=== PATIENT | female | born 1950 | race African-American/Black ===

== ENCOUNTER 2018-04-22 12:01 | Inpatient (IN) ==
[2018-04-22] MEDS ORDERED: ULTRAM PO ONE (12:48)
[2018-04-22 13:13] LABS: BASO# 0.01 X1000 (0.0-0.2); HEMOGLOBIN 10.6 g/dL (12.0-16.0); IMM GRAN# 0.06 X1000 (0.0-0.04); IMM GRAN% 0.3 % (0.0-0.5); LYMPH# 1.33 X1000 (1.2-3.4); LYMPH% 6.3 % (20.5-51.1); MCHC 31.2 g/dL (33-37); MCV 77.1 FL (81-99); MONO# 1.32 X1000 (0.11-0.59); MONO% 6.2 % (1.7-9.3); MPV 11.1 FL (7.4-10.4); NEUT# 18.46 X1000 (1.4-6.5); NEUT% 87.2 % (42.2-75.2); PLT 307 X1000 (130-400); RBC 4.41 XMIL (4.2-5.4); RDW 14.7 % (11.5-14.5); WBC 21.18 X1000 (4.8-10.8)
[2018-04-22 13:41] LABS: ALB/GLOB RATIO 0.8; ALBUMIN 2.5 g/dL (3.5-5.0); CALCIUM 8.8 mg/dL (8.8-10.2); CREATININE 1.7 mg/dL (0.5-0.9); POTASSIUM 3.6 mmol/L (3.5-5.1); TOTAL BILIRUBIN 0.37 mg/dL (0.20-1.00); TOTAL PROTEIN 5.5 g/dL (6.3-8.3)
[2018-04-22] MEDS ORDERED: NS 1,000 ML IV ONE (13:53)
[2018-04-22] MEDS ORDERED: HUMULIN R IV ONE (13:54)
[2018-04-22] MEDS ORDERED: LASIX IV ONE (15:22)
[2018-04-22] MEDS ORDERED: HUMULIN R SUBQ ONE (15:25)
--- NOTE | 2018-04-22 16:55 | PROVIDER DOCUMENTATION ---
This chart was entered by Jeanna Dee Scribe, acting as scribe for Georges Fernandes MD. HPI-General Adult - General Chief Complaint: Extremity Pain Stated Complaint: LEG PAIN Time Seen by Provider: 04/22/18 12:09 Source: patient Allergies/Adverse Reactions: Patient Allergies Allergy/AdvReac Type Severity Reaction Status Date / Time No Known Allergies Allergy Verified 12/23/15 20:38 Home Medications: Home Medication List Medication Instructions Recorded Confirmed Last Taken Type Aspirin 81 mg PO DAILY 02/11/12 04/22/18 11/07/16 08:00 History Carvedilol [Coreg] 12.5 mg PO BID 02/11/12 04/22/18 11/08/16 12:42 History Cholecalciferol (Vit D3) [Vitamin 1,000 unit PO DAILY 02/11/12 04/22/18 08:00 History D3] Clopidogrel [Plavix] 75 mg PO DAILY 02/11/12 04/22/18 12/23/15 07:00 History ROSUVAstatin [Crestor] 20 mg PO DAILY 02/11/12 04/22/18 11/07/16 08:00 History Insulin Glargine [Lantus] 60 unit SUBQ QHS 08/25/12 04/22/18 11/07/16 08:00 History Gabapentin 300 mg PO TID 04/04/18 04/22/18 Unknown History Glimepiride 2 mg PO WBREAKFAST 04/04/18 04/22/18 Unknown History Losartan/Hydrochlorothiazide 1 each PO BID 04/04/18 04/22/18 Unknown History [Hyzaar 50-12.5 Tablet] Spironolactone [Aldactone] 25 mg PO DAILY 04/04/18 04/22/18 Unknown History Insulin Glargine [Basaglar] 60 unit SUBQ QHS insuln.pen 04/05/18 04/22/18 Unknown Rx Insulin Lispro [Humalog Kwikpen 200 unit SQ DIRECTED #0 04/05/18 04/22/18 Unknown Rx U-200] - History of Present Illness -Gen Adult Nature of Presenting Problems: 67 y/o female presents to ED with bilateral leg pain and swelling onset yesterday. Pt reports she has diabetes and neuropathy. Screaming in pain and mild bilateral lower extremity edema upon examination. Pt is alert and oriented. Location of Pain/Injury: reports: lower extremity Pain Radiation: reports: no radiation Quality of Pain: reports: sharp Severity: reports: mild, moderate Onset/Duration: reports: 24 hours ago Timing: reports: still present Context/Activities at Onset: reports: none Modifying Factors: improves with: nothing Associated Symptoms: reports: other (bilateral leg pain/swelling) Similar Symptoms Previously?: No Recently seen or treated by another doctor?: No Review of Systems - Adult - REVIEW OF SYSTEMS - ADULT Constitutional: denies: chills, fever Eyes: reports: no symptoms reported Ears, Nose, Mouth & Throat: reports: no symptoms reported Cardiovascular: denies: chest pain, palpitations Respiratory: denies: cough, shortness of breath Gastrointestinal: denies: abdominal pain, diarrhea, nausea, vomiting Genitourinary: reports: no symptoms reported Musculoskeletal: reports: other (bilateral leg pain/swelling). denies: back pain, joint pain Integumentary: reports: no symptoms reported Neurological: denies: dizziness/vertigo, seizure Psychiatric: reports: no symptoms reported Endocrine: reports: no symptoms reported Hematologic/Lymphatic: reports: no symptoms reported Allergic/Immunologic: reports: no symptoms reported All Other Systems: Reviewed and Negative Past History - Adult - PAST MEDICAL HISTORY-ADULT Review of Records: reports: Old Records Reviewed, Nursing Assessment Review, Medications Reviewed Major Childhood Illnesses: reports: denies history Cardiovascular: reports: HTN, hyperlipidemia, SC Respiratory: reports: denies history Gastrointestinal: reports: denies history Obstetrical/Gynecological: reports: denies history Genitourinary: reports: denies history Musculoskeletal: reports: other (synocopal epidose; neuropathy) Neurological: reports: other (syncopal episodes) Endocrine/Immune: reports: Diabetes Other Conditions: reports: denies history - PRIOR SURGERIES/PROCEDURES Surgical/Procedure History: reports: cardiac stent (3), hysterectomy, joint replacement (TKA), other (bypass) - IMMUNIZATION STATUS Childhood Immunizations: UTD Flu Vaccine: See Nurse Assessment - FAMILY HISTORY Family History: reviewed, not pertinent - SOCIAL HISTORY Smoking: quit greater than 1 year Substance Use: none/never Alcohol Use Frequency: never Living Situation: family Physical Exam-General - PHYSICAL EXAM-ADULT Initial Vital Signs Reviewed: Yes - CONSTITUTIONAL General Appearance: appears well, alert, severe distress (pt screaming dramatically in pain) - EYES Eyes: PERRL/EOMI, pink conjunctivae - HEAD, EARS, NOSE, MOUTH & THROAT HENMT: normocephalic/atraumatic, moist mucous membranes, normal ENT inspection - NECK Neck: non-tender, full range of motion - RESPIRATORY Respiratory: chest non-tender, lungs clear, normal breath sounds - CARDIOVASCULAR Cardiovascular: normal peripheral pulses, regular rate, rhythm - GASTROINTESTINAL (ABDOMEN) Abdominal Exam: normal bowel sounds, non tender, soft - MUSCULOSKELETAL Back Exam: normal inspection, no CVA tenderness Extremity: normal range of motion, non-tender, normal gait, swelling (mild bilateral lower extremity edema) - SKIN Integumentary: normal color, warm/dry - NEUROLOGIC Neurologic: grossly normal - PSYCHIATRIC Psych/Mental Status: normal mood/affect, normal thought content, normal thought process Progress - PLAN OF CARE/RESULTS Progress/Plan/Lab Results: Vital Signs - 8 hr 04/22/18 12:04 Temperature 97.9 F Pulse Rate 97 H Respiratory Rate 18 Blood Pressure 168/73 O2 Sat by Pulse Oximetry 99 Orders Category Date Time Status CBC WITH ELECTRONIC DIFF [HEME] Stat Lab 04/22/18 12:15 Uncollected CMP [COMPREHENSIVE METABOLIC PANEL] [CHEM] Stat Lab 04/22/18 12:15 Uncollected D-DIMER [COAG] Stat Lab 04/22/18 12:15 Uncollected Laboratory Tests 04/22/18 04/22/18 04/22/18 12:52 12:52 12:52 WBC 21.18 H RBC 4.41 Hgb 10.6 L Hct 34.0 L MCV 77.1 L MCH 24.0 L MCHC 31.2 L RDW Std Deviation 14.7 H Plt Count 307 MPV 11.1 H Immature Gran % (Auto) 0.3 Neut % (Auto) 87.2 H Lymph % (Auto) 6.3 L Guthrie % (Auto) 6.2 Eos % (Auto) 0.0 Baso % (Auto) 0.0 Immature Gran # (Auto) 0.06 H Neut # (Auto) 18.46 H Lymph # (Auto) 1.33 Guthrie # (Auto) 1.32 H Eos # (Auto) 0.00 Baso # (Auto) 0.01 D-Dimer, Quantitative 3.93 H Sodium 134 L Potassium 3.6 Chloride 92 L Carbon Dioxide 26 Anion Gap 16 BUN 26 H Creatinine 1.7 H Estimated GFR/1.73 m2 36 BUN/Creatinine Ratio 15 Glucose 467 H* Calculated Osmolality 293 Calcium 8.8 Total Bilirubin 0.37 AST 23 ALT 8 L Alkaline Phosphatase 112 H Deu-S-Arhoksecdlb Pept Total Protein 5.5 L Albumin 2.5 L Globulin 3.0 Albumin/Globulin Ratio 0.8 04/22/18 12:52 WBC RBC Hgb Hct MCV MCH MCHC RDW Std Deviation Plt Count MPV Immature Gran % (Auto) Neut % (Auto) Lymph % (Auto) Guthrie % (Auto) Eos % (Auto) Baso % (Auto) Immature Gran # (Auto) Neut # (Auto) Lymph # (Auto) Guthrie # (Auto) Eos # (Auto) Baso # (Auto) D-Dimer, Quantitative Sodium Potassium Chloride Carbon Dioxide Anion Gap BUN Creatinine Estimated GFR/1.73 m2 BUN/Creatinine Ratio Glucose Calculated Osmolality Calcium Total Bilirubin AST ALT Alkaline Phosphatase Pkm-G-Wtkzvoscqzf Pept 1329 H Total Protein Albumin Globulin Albumin/Globulin Ratio Result Diagrams: 04/22/18 12:52 04/22/18 12:52 - ULTRASOUND (By Radiology) 1 US Study: other (Venous of Bilateral Legs) Impression: Normal (No clots per ultrasound.) - CONSULTS/PCP/HOSPITALIST Notification #1 *Consult/PCP/Hospitalist*: Dr. Hernandez for Dr. Akers Time Discussed: 12:49 Reason/Comments: Diabetic neuropathy; pt requesting pain medication Consult Disposition: other (Give tramadol) Time Discussed: 16:52 Consult Disposition: Will see in ED (discussed with Dr Hernandez and he will come in and evaluate to decide to treat as outpatient or inpatient) Departure - Departure Date of Disposition Decision: 04/22/18 Time of Disposition Decision: 16:54 DIAGNOSIS: Hyperglycemia CHF (congestive heart failure) Qualifiers: Heart failure type: unspecified Heart failure chronicity: acute on chronic Qualified Code(s): I50.9 - Heart failure, unspecified Disposition: ADMITTED INPATIENT 09 Certified Medical Emergency: Emergent Condition: Stable Referrals and Follow-Ups: Harry Akers MD [Primary Care Provider] - - Critical Care Note This patient required my direct & personal management of CC.: No Attestation - Physician/ NIK Attestation Patient care was provided by Advanced Practice Provider:: No The physician spent face to face time with patient:: Yes Advanced Practice Provider documentation review:: Supervising physician onsite and consulted in the evaluation and care of this patient. The physician did have a face to face encounter with the patient. This chart was documented by the indicated scribe, (Jeanna Dee Scribe) and accurately reflects the services I performed and decisions made by me, Georges Fernandes MD, as attested by the provider's signature.
--- NOTE | 2018-04-22 17:19 | Diag Imaging Result Doc PS360 ---
EXAM: CHEST-1 VIEW INDICATION: chf TECHNIQUE: One view COMPARISON: 04/16/2018 FINDINGS: Inspiration is suboptimal. The central vasculature is perhaps mildly prominent suggesting possible mild pulmonary venous congestion. The lungs are grossly clear, otherwise. There is no discrete pleural fluid collection or pneumothorax. Cardiac silhouette is prominent but stable. IMPRESSION: Questionable mild increased central vasculature suggesting possible pulmonary venous congestion. Electronically signed by Aki Niño 04/22/2018 5:17 PM
[2018-04-22] MEDS: ROCEPHIN 2 GM in NS 50 ML IV SCH (17:25)
--- NOTE | 2018-04-22 18:49 | HISTORY AND PHYSICAL ---
Is a patient of Dr. Harry Akers a 67-year-old female with a history of hypertension, diabetes mellitus type 2 which she has had for about 6 years, coronary artery disease, never had a myocardial infarction but she has had CABG bypass surgery I believe 2 bypasses, following surgery she had infection I think she had to have they had to open her up and do some debridement. She presents today stating that for a week now her legs been hurting a little more. She feels like it is her neuropathy but yesterday and last night it was very painful and she said they were weak had trouble getting up and going to the bathroom had crawled the bathroom crawled back into the bed then came into the emergency room. She has pain but she also has tenderness with just little bit of touching. She has pitting edema from her ankle all the way up to her knees on both sides. She does have cardiomegaly appreciated on chest x-ray. She denies any fever and chills. She did have an elevated white count although I have not found a focus of infection. She denies any cough or sputum production and denies any trouble with her urination other than frequent urination. She did state she had a colonoscopy this year and since that time she has had trouble with constipation. She denies any recent dysuria, gross hematuria, fever, chills, adenopathy, upper respiratory complaints. PAST MEDICAL HISTORY: Once again to review past medical history 1. Hypertension. 2. Diabetes mellitus type 2. 3. Coronary artery disease. PAST SURGICAL HISTORY: Coronary bypass surgery. I think that was last year and then she has had a hysterectomy, she has also had surgery on her knee I think she told me she had right knee replacement. ALLERGIES: No known drug allergies. SOCIAL HISTORY: No history of smoking since she has been about 12 or 13 years old. No illicit drugs. No alcohol. FAMILY HISTORY: There is a history coronary artery disease. Otherwise she denies any history of kidney disease or diabetes. REVIEW OF SYSTEMS: General: She denies any weight gain or loss that she is aware of. Her appetite seems to be okay. HEENT: No change in visual vision or hearing acuity. No neck stiffness or adenopathy. Respiratory: No increased work of breathing or dyspnea. Cardiovascular: No chest pain or tachy palpitations. She has not noticed any increased orthopnea or paroxysmal nocturnal dyspnea. GI/: No hematochezia. She does have trouble constipation which she relates she started having trouble constipation since her colonoscopy which was done earlier this year. She does go the bathroom a lot. Denies any gross hematuria, dysuria. Musculoskeletal/Neurologic: Just general weakness especially in her lower extremities. No focal area of weakness. She does know she has neuropathy and feels like she has neuropathic pain which has been worse over the last week. She did also state that her sugars have been poorly controlled and been running high. PHYSICAL EXAM: Temperature 97.9 degrees, pulse 97, respirations 18, blood pressure 168/73. Pupils are equal and round. LUNGS: Clear in all lung [place]. CARDIOVASCULAR: Regular rhythm and rate without murmur or S3. ABDOMEN: Soft, nontender, nondistended. SKIN: Warm and dry. EXTREMITIES: She has 2+ pitting edema from her ankle all the way up to her knee both sides symmetrical, height is 5 feet and weight is 200 pounds. LAB: White count elevated 21,180, hematocrit 34, platelet count 307,000, 87% neutrophils, 6%, lymphocytes. Chemistries sodium 134, potassium 3.6, chloride 92, BUN 26, creatinine 1.3, blood sugar was 467, AST 23, ALT 8, alkaline phosphatase 112. ProBNP was 1329, albumin 2.5. She had a D-dimer that was high at 3.93. She had a chest x-ray, questionable mild increased central vascular suggesting possible pulmonary venous congestion. She has had an echocardiogram with Doppler done on 04/04/2018 left ventricular function was normal, ejection fraction estimated 55- 60%. There is mild to moderate concentric LVH. Aortic valve was normal. Mitral valve looked normal. Pulmonary venous flow was normal and they did not see any sign of diastolic dysfunction. Tricuspid valve looked normal. No pericardial effusion. The atrium appeared to be upper limits of normal. She has had a head CT done on 04/03/2018 which showed chronic ischemic microvascular white matter disease. She had extremity arterial study done on 03/10/2018, there is likely peripheral vascular disease noted, there is perfusion to the toes bilaterally. Patient's ABIs are likely falsely elevated, patient proximal vessels are likely difficult to compress likely secondary to calcification. Patient may benefit from a CT angiogram is the report. There is some degree of peripheral vascular disease noted on the study. She had a myocardial perfusion scan done on 05/19/2016 no chest pain. Negative Lexiscan stress electrocardiogram, myocardial perfusion defects, there is a fixed defect in the base inferior wall suggestive inferior scar, there is moderate size reversible perfusion defect the left ventricle ventricular apex and left ventricle apical wall which may be ischemia, left ventricular ejection fraction 77%. ASSESSMENT AND PLAN: 1. She has leg pain and leg weakness, she has questionable peripheral vascular disease. Her feet feel warm, perfusion seems to be okay in the lower extremities and pedal pulses and popliteal femoral unremarkable, seems to be symmetrical and it seems to be consistent with neuropathy. I think that the edema may be contributing to her pain. Will try and diurese some fluid off. We have to watch her renal function. Creatinine is 1.7. When I look at her creatinine back in March 2018 it was 1.1 so I think her baseline is between 1.1 and 1.4. We will see if we can diurese a little bit of fluid off and see if we need to do further studies on her arterial flow. I gave her some Ultram or tramadol and seemed to help with the pain. She is already on Neurontin so I think we could go up on the Neurontin. I am not sure of the reason for the sudden weakness. We may need to look at the spinal cord as well and may get some thoracic and lumbar spinal films. 2. Hyperglycemia, diabetes poorly controlled. We will check a hemoglobin A1c and see kind of where her sugars have been and may want to check cholesterol profile in the morning as well but we will put her on pattern sugars and see if we can get her sugars down. Present time she is taking Lantus 60 units at bedtime and she has taken insulin glargine 60 units that is the Lantus she is taking at bedtime, she takes insulin lispro as well but I am not sure she knows when she is taking that. 3. Obesity. Will encourage some weight reduction and some counseling on low carbohydrate diet. 4. Hypercholesterolemia. She is on the Crestor. Will check lipid profile in the morning. 5. Pedal edema which I think is probably mostly venous insufficiency, she does have left ventricular hypertrophy on echocardiogram although they did not appreciate much diastolic dysfunction but she appears to have normal left ventricular systolic function and there was some questionable areas of possible ischemia she denies any chest pain. I guess we will check some cardiac enzymes. 6. Peripheral neuropathy. I will put her on some tramadol, will increase her Neurontin and see if we can get some relief, I am not sure if she has tried Lyrica yet. 7. Chest x-ray suggested pulmonary venous hypertension. She does have some pedal edema, I do not know we should repeat an echocardiogram and look at her left ventricular function. I will try and diurese her some with some Lasix, will watch her blood pressures and see how we do. They may need more control. The present time she is on medication at home for blood pressure she is on aspirin 81 mg a day, she takes Coreg 12.5 b.i.d., she takes spironolactone 25 mg daily, losartan hydrochlorothiazide 50/12.5 daily. We will make sure we check a magnesium level. Her potassium is a little low and we will follow her kidney function right now creatinine is 1.7 which may represent some acute kidney injury or may represent chronic kidney disease which is worsening. Apparently they had done Doppler studies did not see any deep vein thrombosis and there is no clinical sign of pulmonary thromboemboli. I do not have the official reports back on those but was told by the emergency room physician that had Doppler studies and no deep vein thrombosis in the lower extremities. Has an elevated D-dimer aware, not sure why the white count is elevated this could be demargination of bone marrow, do not see any focus of infection so we will put her into observation and see what we can find. cc: Derik Hernandez MD
[2018-04-22] MEDS ORDERED: KLOR-CON PO ONE (19:16)
[2018-04-22] MEDS: ULTRAM PO PRN (19:48)
[2018-04-22] MEDS: LASIX IV SCH ×2 (19:52→21:50)
[2018-04-22] MEDS ORDERED: HYZAAR 50/12.5 MG PO SCH (21:00)
[2018-04-22] MEDS ORDERED: COREG PO SCH (21:00)
[2018-04-22] MEDS ORDERED: BASAGLAR SUBQ SCH (21:00)
[2018-04-22] MEDS ORDERED: HUMULIN R SUBQ SCH (21:00)
[2018-04-23 07:37] LABS: HEMOGLOBIN 9.6 g/dL (12.0-16.0); IMM GRAN# 0.08 X1000 (0.0-0.04); IMM GRAN% 0.4 % (0.0-0.5); LYMPH# 1.96 X1000 (1.2-3.4); LYMPH% 9.5 % (20.5-51.1); MCH 24.2 PG (27-31); MCV 78.1 FL (81-99); MONO# 1.43 X1000 (0.11-0.59); MONO% 6.9 % (1.7-9.3); MPV 11.1 FL (7.4-10.4); NEUT# 17.14 X1000 (1.4-6.5); NEUT% 83.2 % (42.2-75.2); PLT 314 X1000 (130-400); RBC 3.97 XMIL (4.2-5.4); RDW 14.8 % (11.5-14.5); WBC 20.61 X1000 (4.8-10.8)
[2018-04-23 07:51] LABS: LYMPHS 12 % (21-51); MONO 12 % (1-9); SEGS 76 % (42-75)
[2018-04-23 07:52] LABS: ALB/GLOB RATIO 0.5; ALBUMIN 1.9 g/dL (3.5-5.0); CALCIUM 7.9 mg/dL (8.8-10.2); CREATININE 1.7 mg/dL (0.5-0.9); MAGNESIUM 1.8 mg/dL (1.5-2.7); POTASSIUM 3.5 mmol/L (3.5-5.1); TOTAL BILIRUBIN 0.23 mg/dL (0.20-1.00); TOTAL PROTEIN 6.1 g/dL (6.3-8.3)
[2018-04-23] MEDS ORDERED: AMARYL PO SCH ×2 (08:00→09:30)
[2018-04-23 08:02] LABS: FREE T4 1.18 ng/dL (0.93-1.70); TSH 1.99 uIUmL (0.27-4.20)
[2018-04-23 08:21] LABS: HEMOGLOBIN A1C 12.8 % (4.8-6.0)
[2018-04-23] MEDS ORDERED: PLAVIX PO SCH (09:00)
[2018-04-23] MEDS ORDERED: NEURONTIN PO SCH ×2 (09:00→13:00)
[2018-04-23] MEDS ORDERED: VITAMIN D PO SCH (09:00)
[2018-04-23] MEDS ORDERED: ALDACTONE PO SCH (09:00)
[2018-04-23] MEDS ORDERED: CRESTOR PO SCH (09:00)
[2018-04-23] MEDS ORDERED: ASPIRIN PO SCH (09:00)
[2018-04-23] MEDS ORDERED: PRINIVIL PO SCH (09:15)
[2018-04-23] MEDS: PLAVIX PO SCH (10:21)
[2018-04-23] MEDS: HYZAAR 50/12.5 MG PO SCH ×2 (10:21→21:27)
[2018-04-23] MEDS: VITAMIN D PO SCH (10:21)
[2018-04-23] MEDS: ALDACTONE PO SCH (10:21)
[2018-04-23] MEDS: CRESTOR PO SCH (10:21)
[2018-04-23] MEDS: ASPIRIN PO SCH (10:21)
[2018-04-23] MEDS: COREG PO SCH ×2 (10:21→21:27)
[2018-04-23] MEDS: PRILOSEC PO SCH (10:21)
[2018-04-23] MEDS: LASIX IV SCH ×2 (10:22→21:27)
[2018-04-23] MEDS ORDERED: PREVNAR 13 IM ONE (10:26)
[2018-04-23] MEDS: HUMALOG SUBQ SCH ×2 (10:32→15:56)
[2018-04-23] MEDS ORDERED: INSULIN PEN NEEDLES ONE (12:32)
[2018-04-23] MEDS: NEURONTIN PO SCH (13:30)
[2018-04-23 14:00] LABS: URINE SOURCE CATH
[2018-04-23 14:10] LABS: BILIRUBIN URINE NEGATIVE (NEGATIVE); BLOOD URINE MODERATE (NEGATIVE); COLOR YELLOW; GLUCOSE URINE 200 mg/dL (NEGATIVE); KETONE URINE TRACE mg/dL (NEGATIVE); LEUKOCYTES URINE MODERATE (NEGATIVE); NITRITE URINE NEGATIVE (NEGATIVE); PH URINE 5.5; PROTEIN URINE 200 mg/dL (NEGATIVE); SP GRAVITY URINE 1.004; TURBIDITY URINE HAZY (CLEAR); UROBILINOGEN URINE NORMAL (NORMAL)
[2018-04-23 14:12] LABS: UR EPITHELIAL CELLS >10 /HPF (<10); URINE BACTERIA NEGATIVE /HPF; URINE RBC <10 /HPF (<10); URINE WBC TNTC /HPF (<10)
[2018-04-23 14:20] LABS: URINE YEAST PRESENT
[2018-04-23 14:21] LABS: URINE CASTS WHITE CELL PRESENT; URINE CRYSTALS NONE SEEN; URINE SMALL ROUND CELLS NONE SEEN
[2018-04-23] MEDS: ROCEPHIN 2 GM in NS 50 ML IV SCH (14:40)
[2018-04-23] MEDS ORDERED: VANCOMYCIN 1 GM/NS 1 GM/250 ML IVPB IV ONE (17:00)
[2018-04-23] MEDS ORDERED: BASAGLAR SUBQ SCH (21:00)
[2018-04-23] MEDS: LOVENOX SUBQ SCH (21:27)
[2018-04-24] MEDS: ULTRAM PO PRN (05:30)
[2018-04-24] MEDS: HUMALOG SUBQ SCH ×4 (06:50→17:09)
[2018-04-24 07:32] LABS: IRON SATURATION 25 %; TIBC 93 ug/dL; TOTAL IRON 23 ug/dL (49-151); UNBOUND IRON 70 ug/dL (112-346)
[2018-04-24 07:44] LABS: BASO# 0.01 X1000 (0.0-0.2); BASO% 0.1 % (0.0-0.8); EOS# 0.05 X1000 (0.0-0.7); EOS% 0.3 % (0.0-10.0); HEMATOCRIT 30.7 % (37.0-47.0); HEMOGLOBIN 9.5 g/dL (12.0-16.0); LYMPH# 2.15 X1000 (1.2-3.4); LYMPH% 12.1 % (20.5-51.1); MCH 24.2 PG (27-31); MCHC 30.9 g/dL (33-37); MCV 78.3 FL (81-99); MONO# 1.47 X1000 (0.11-0.59); MONO% 8.3 % (1.7-9.3); MPV 10.8 FL (7.4-10.4); NEUT# 14.08 X1000 (1.4-6.5); NEUT% 79.2 % (42.2-75.2); PLT 300 X1000 (130-400); RBC 3.92 XMIL (4.2-5.4); WBC 17.76 X1000 (4.8-10.8)
--- NOTE | 2018-04-24 07:52 | EKG Report ---
Test Performed on : 04/23/2018 06:16:45 AM Test Reason : chest pain Blood Pressure : / mmHG Vent. Rate : 086 BPM Atrial Rate : 086 BPM P-R Int : 166 ms QRS Dur : 100 ms QT Int : 374 ms P-R-T Axes : 064 -49 011 degrees QTc Int : 447 ms Normal sinus rhythm. Left axis deviation Minimal voltage criteria for LVH, may be normal variant Anterior infarct , age undetermined Abnormal ECG When compared with ECG of 03-APR-2018 21:13, (Unconfirmed) No significant change was found Confirmed by Mary PEREZ, Derik Malik ([id number]) on 04/24/2018 9:44:31 AM
[2018-04-24] MEDS: HYZAAR 50/12.5 MG PO SCH ×2 (08:59→21:55)
[2018-04-24] MEDS: VITAMIN D PO SCH (09:00)
[2018-04-24] MEDS: NEURONTIN PO SCH ×3 (09:00→17:03)
[2018-04-24] MEDS: ASPIRIN PO SCH (09:00)
[2018-04-24] MEDS: COREG PO SCH ×2 (09:00→21:55)
[2018-04-24] MEDS: PRILOSEC PO SCH (09:00)
[2018-04-24] MEDS: ALDACTONE PO SCH (09:00)
[2018-04-24] MEDS: PLAVIX PO SCH (09:01)
[2018-04-24] MEDS: LASIX IV SCH (09:01)
[2018-04-24] MEDS: CRESTOR PO SCH (09:01)
--- NOTE | 2018-04-24 12:04 | NEPHROLOGY CONSULTATION ---
DATE: 04/24/2018 REASON FOR CONSULTATION: Diabetic nephropathy. HISTORY OF PRESENT ILLNESS: Ms. Phillips is a 67-year-old woman with diabetes, hypertension, obesity, coronary disease. She cannot relate to me why she is in the hospital. In fact, she repeated several times that she thinks she is at home. The nurses relate that she tried to call her dog to come and eat her breakfast. She is not able to relate any symptoms. Her admission was on the with an initial complaint of leg pain and weakness. She had edema, pulmonary venous hypertension, etc. In that context, her creatinine was elevated at 1.7 with baseline creatinine of 1.1 as recently as the . She does have significant hypoalbuminemia and proteinuria. We were asked to see her in consultation. PAST MEDICAL HISTORY: As above. HOME MEDICATIONS: Vitamin D, carvedilol, aspirin, rosuvastatin, clopidogrel, insulin, gabapentin, glimepiride, losartan, hydrochlorothiazide, and spironolactone. ALLERGIES: None. SOCIAL HISTORY, FAMILY HISTORY, AND REVIEW OF SYSTEMS: Not obtainable aside from what is listed in the chart. PHYSICAL EXAMINATION: Vital Signs: Blood pressure 156/77, heart rate 79, respirations 19, temperature 100.2 degrees. Generally: She is an obese, woman in no acute distress. Skin: Warm and dry. HEENT: Conjunctivae are pink. Pupils are equal. Oropharynx is dry. Neck: Neck veins are not distended. Trachea is midline. Heart: PMI is not palpable. Regular rate and rhythm without murmurs, rubs, or gallops. Lungs: Have equal excursion equal breath sounds. No crackles or wheezes. Shallow. Abdomen: Obese, soft, nontender. Bowel sounds present. No organomegaly or masses. Extremities: Have 2+ edema. No clubbing or cyanosis. IMPRESSION: Chronic kidney disease stage 3 with apparent nephrotic syndrome with proteinuria and hypoalbuminemia. PLAN: She is receiving losartan as part of her routine medical regimen. She is not on any medications that should increase her propensity for swelling with the exception of gabapentin 600 t.i.d. Perhaps, moderating that dose may help her edema. A 24-hour urine is in process. Will perform a renal ultrasound. No medical changes as of today. cc: MD Derik Jarquin MD
[2018-04-24 14:44] LABS: UR CREATININE 72.7 mg/dL (11-20)
[2018-04-24 14:47] LABS: CREATININE 1.7 mg/dL (0.7-1.2); UR CREATININE TOTAL 1272.3 mg/24 (600-1600)
[2018-04-24 14:47] LABS: UR PROTEIN 251.7 mg/dL
[2018-04-24] MEDS: ROCEPHIN 2 GM in NS 50 ML IV SCH (15:08)
--- NOTE | 2018-04-24 15:15 | Diag Imaging Result Doc PS360 ---
EXAM: US RENAL 2 (RETROPER) COMPLETE - 04/24/2018 HISTORY: decreased renal function TECHNIQUE: Bilateral renal ultrasound COMPARISON: None. FINDINGS: The right kidney measures 11.1 x 5.3 x 5.4 cm in size. The left kidney measures 11.9 x 5.7 x 5.1 cm in size. The renal cortices are possibly mildly echogenic diffusely, which can be seen with medical renal disease, although this may be exaggerated by artifacts. There is no renal mass, renal stone, or hydronephrosis identified. The urinary bladder is decompressed by Cabello catheter and is not evaluated. IMPRESSION: Possible mildly echogenic renal cortices, which can be seen with medical renal disease. No other visible renal abnormality. No hydronephrosis. Electronically signed by Felix Call 04/24/2018 3:12 PM
[2018-04-24] MEDS ORDERED: VANCOMYCIN 1 GM/NS 1 GM/250 ML IVPB IV ONE (18:20)
[2018-04-24] MEDS ORDERED: BASAGLAR SUBQ SCH (21:00)
[2018-04-24] MEDS: LOVENOX SUBQ SCH (21:55)
--- NOTE | 2018-04-25 06:38 | Extremity Venous Study ---
PROCEDURE NAME: Venous U/S Bilateral Legs - 04/22/2018 REQUESTING PHYSICIAN: Dr. Fernandes. DOUGH MIXING MACHINE OPERATOR: Srinivas. INDICATION: Elevated D-dimer, pain and swelling to both legs. COMPARISON SHOT: Previous comparison from 10/29/2016. EQUIPMENT: Passpackid E9 ultrasound system with a 9 L-D transducer. FINDINGS: Images of the bilateral lower extremity venous systems were obtained in both sagittal and transverse planes. Doppler was used to evaluate veins for spontaneity, phasicity, respiratory excursion, and digital augmentation. RESULTS: Normal venous compression, normal venous flow. No obvious superficial or deep venous thrombosis noted. There is some swelling in the soft tissue to suggest some degree of edema. INTERPRETATION: No obvious superficial or deep venous thrombosis noted to bilateral lower extremities. Some moderate edema noted which I would recommend handling clinically. cc: MD Derik Ayala MD
[2018-04-25] MEDS: ALDACTONE PO SCH (09:30)
[2018-04-25] MEDS: VITAMIN D PO SCH (09:30)
[2018-04-25] MEDS: PRILOSEC PO SCH (09:30)
[2018-04-25] MEDS: COREG PO SCH ×2 (09:30→22:27)
[2018-04-25] MEDS: NEURONTIN PO SCH ×3 (09:30→17:08)
[2018-04-25] MEDS: PLAVIX PO SCH (09:30)
[2018-04-25] MEDS: ASPIRIN PO SCH (09:31)
[2018-04-25] MEDS: NS IV SCH ×3 (09:31→22:22)
[2018-04-25] MEDS: NAFCIL IV SCH ×3 (09:31→22:22)
[2018-04-25] MEDS: CRESTOR PO SCH (09:31)
[2018-04-25] MEDS: HYZAAR 50/12.5 MG PO SCH ×2 (09:31→22:28)
--- NOTE | 2018-04-25 10:27 | Diag Imaging Result Doc PS360 ---
EXAM: FOOT 2 VIEWS LEFT INDICATION: foot pain TECHNIQUE: 2 views COMPARISON: None. FINDINGS: There is irregularity involving the tarsometatarsal joints and decreased attenuation at the bases of the metatarsals, which may represent developing Charcot foot. There is calcaneal bone spurring. No fracture or dislocation is appreciated. There is extensive atherosclerotic calcification throughout the foot. There is significant soft tissue edema at the dorsum of the foot. However, there is no radiographic evidence of a significant ankle joint effusion. IMPRESSION: 1.Soft tissue edema and severe atherosclerotic calcification but no evidence of significant ankle joint effusion by plain radiograph. 2.Irregularity adjacent to the tarsometatarsal joints that may represent developing Charcot foot. Please correlate clinically. Electronically signed by Aki Niño 04/25/2018 10:24 AM
--- NOTE | 2018-04-25 10:38 | Diag Imaging Result Doc PS360 ---
EXAM: ANKLE 2 VIEWS LEFT INDICATION: pain, R/O septic arthritis TECHNIQUE: 2 views COMPARISON: None. FINDINGS: There is calcaneal bone spurring. There is no discrete fracture, dislocation, or significant intrinsic osseous lesion involving the intrinsic bones of the ankle, otherwise. There is prominent soft tissue edema around the foot and ankle and there is extensive atherosclerotic calcification. There is no radiographic evidence of a significant ankle joint effusion. IMPRESSION: Soft tissue edema as described but no evidence of ankle joint effusion and no evidence of acute osseous abnormality involving the intrinsic bones of the ankle. Electronically signed by Aki Niño 04/25/2018 10:35 AM
--- NOTE | 2018-04-25 11:19 | CONSULTATION ---
DATE OF CONSULTATION: 04/25/2018 CHIEF COMPLAINT: Left foot swelling and pain with septicemia of undetermined etiology. HISTORY OF PRESENT ILLNESS: Ms. Phillips is a 67-year-old female, patient of Dr. Harry Akers, who was admitted to the hospitalist. She has a long medical history that includes hypertension, type 2 uncontrolled diabetes, and coronary artery disease. She was initially complaining of bilateral leg pain but now it seems to be localized to her left foot and ankle. She has developed a bacteremia, whose etiology is uncertain. She complains of left ankle pain and swelling. PAST MEDICAL HISTORY: Significant for hypertension, type 2 diabetes, and coronary artery disease. PAST SURGICAL HISTORY: Includes coronary artery bypass surgery, a hysterectomy, and a right knee arthroplasty. ALLERGIES: No known drug allergies. SOCIAL HISTORY: She denies smoking or alcohol or illicit drugs. FAMILY HISTORY: Positive for coronary artery disease. REVIEW OF SYSTEMS: Including 12 point review of systems reveals weakness in her legs and her musculoskeletal and swelling and pain in her feet and ankle. She also has significant complaints of going to the restroom frequently. Every other review of system was normal. PHYSICAL EXAMINATION: General: Reveals a well-developed, well-nourished female. She is cooperative with exam. She is sitting in a chair. She is somewhat lethargic. Vital signs: Stable. She is afebrile. Laboratory: Her white count is still 17.76. Her glucose is under better control, from 467 at admission down to 66 today. Her urinalysis showed no evidence of a urinary tract infection. Her chest x-ray showed some pulmonary venous congestion, but no sign of pneumonia. Her lab results from her blood cultures show her to be bacteremic with Staph aureus that is sensitive to methicillin. Extremities: On exam, she has swelling and tenderness of her left ankle. There also appears to be bruising there as well, suggesting there could be an acute injury. She does have pain with any range of motion of her ankle, subtalar, or midfoot, but she is able to bend them and I am able to move them as well. There does not appear to be any definite fluctuance that is palpable. There seems to be more swelling in her midfoot than her ankle really. She has diminished sensation but otherwise, no other abnormality is noted on physical exam. Bilateral upper and right lower extremity appear normal. Chest: Clear. Heart: Regular. Back: Her cervical, thoracic, and lumbar spines are nontender. Her pelvis is stable. Neurologic: All 4 extremities are neurovascularly intact except for decreased sensation attributed to diabetes. Her strength appears normal. ASSESSMENT: Left foot and ankle swelling, erythema, with undiagnosed bacteremia. PLAN: The bruising of her foot somewhat clouds the picture. This would make it appear more of an acute injury. She does admit to a recent fall. Certainly she could have had chronic arthritis or Charcot foot. Could have fell and injured this. She could certainly have infection of her Charcot foot as well and of her ankle. At this time, I feel we should get an x-ray and ultrasound of her foot to evaluate for any abscess or fracture. We will evaluate those and I will have Dr. Powers see her tomorrow and see if there is anything that needs to be done from a surgical standpoint. I agree with her current management of IV antibiotics. cc: MD Derik Johnson MD
[2018-04-25] MEDS: HUMALOG SUBQ SCH ×2 (12:20→16:27)
[2018-04-25] MEDS: LOVENOX SUBQ SCH (22:27)
[2018-04-25] MEDS: TYLENOL PO PRN (22:28)
[2018-04-25] MEDS: BASAGLAR SUBQ SCH (22:34)
[2018-04-26] MEDS: NAFCIL IV SCH ×2 (02:37→10:18)
[2018-04-26] MEDS: NS IV SCH ×2 (02:37→10:18)
[2018-04-26] MEDS: HUMALOG SUBQ SCH ×3 (06:27→16:02)
[2018-04-26 06:56] LABS: BASO# 0.03 X1000 (0.0-0.2); BASO% 0.1 % (0.0-0.8); EOS# 0.03 X1000 (0.0-0.7); EOS% 0.1 % (0.0-10.0); HEMATOCRIT 28.7 % (37.0-47.0); HEMOGLOBIN 8.7 g/dL (12.0-16.0); LYMPH# 2.23 X1000 (1.2-3.4); LYMPH% 10.1 % (20.5-51.1); MCH 24.1 PG (27-31); MCHC 30.3 g/dL (33-37); MCV 79.5 FL (81-99); MONO% 8.6 % (1.7-9.3); MPV 10.5 FL (7.4-10.4); NEUT# 17.79 X1000 (1.4-6.5); NEUT% 81.1 % (42.2-75.2); PLT 367 X1000 (130-400); RBC 3.61 XMIL (4.2-5.4); RDW 16.2 % (11.5-14.5); WBC 21.98 X1000 (4.8-10.8)
[2018-04-26 07:08] LABS: CALCIUM 7.9 mg/dL (8.8-10.2); CREATININE 1.9 mg/dL (0.5-0.9); POTASSIUM 3.1 mmol/L (3.5-5.1)
--- NOTE | 2018-04-26 08:24 | NEPHROLOGY PROGRESS NOTE ---
DATE: 04/26/2018 SUBJECTIVE: Patient resting in bed. She nods no when I ask her does she know where she is at. Really does not elaborate on any answers to questions I pose. OBJECTIVE: Vital Signs: Temperature 98.9 degrees, pulse 76, respiratory rate 16, blood pressure 151/62. Intake 100 mL; output not measured. She is incontinent. General: On physical examination, an elderly female resting in bed. Awake and alert, but no acute distress. HEENT: Normocephalic, atraumatic. TRINH. Oral mucosa dry. Neck: Supple without JVD. Cardiovascular: Regular rate and rhythm. There is no murmur or gallop. Pulmonary: She has equal excursion. She is clear bilaterally. She is on O2 supplementation via nasal cannula. Abdomen : Obese, soft, with positive bowel sounds. : Not inspected. Extremities: She has 1+ edema. No clubbing, cyanosis. Integumentary: Skin is warm and dry. LAB DATA: WBC of 21.9, hemoglobin 8.7. Sodium 139, potassium 3.1, CO2 28, creatinine 1.9. She had a creatinine clearance of 52 on 24-hour urine and 4 grams of proteinuria noted. ASSESSMENT AND PLAN: 1. Chronic kidney disease stage III with nephrotic syndrome. Patient with diabetes and significant proteinuria. She is already on an ARB as part of her home medication regimen. We will make no changes to that. Her creatinine clearance is better than estimated at 52%; this puts her still at chronic kidney disease IIIA. She will need to follow up with us in our office within 2 to 3 weeks after discharge with labs. 2. MSSA bacteremia. On nafcillin. Evaluation in process. Dictated by QUENTIN Islas for Dominguez Dawson MD Face to face encounter, data reviewed, discussed with Sha Cleary on 04/26/17. I agree with the above assessment and plan of care. rg cc: MD Derik Jarquin MD MTDD
[2018-04-26] MEDS ORDERED: KLOR-CON PO SCH (09:00)
[2018-04-26] MEDS: NEURONTIN PO SCH ×3 (10:18→17:46)
[2018-04-26] MEDS: ALDACTONE PO SCH (10:18)
[2018-04-26] MEDS: COREG PO SCH ×3 (10:18→22:59)
[2018-04-26] MEDS: CRESTOR PO SCH (10:18)
[2018-04-26] MEDS: PLAVIX PO SCH (10:18)
[2018-04-26] MEDS: HYZAAR 50/12.5 MG PO SCH (10:18)
[2018-04-26] MEDS: PRILOSEC PO SCH (10:18)
[2018-04-26] MEDS: ASPIRIN PO SCH (10:19)
[2018-04-26] MEDS: VITAMIN D PO SCH (10:19)
--- NOTE | 2018-04-26 14:13 | Diag Imaging Result Doc PS360 ---
EXAM: CT HEAD W/O CONTRAST HISTORY: ELECTRICAL INSPECTOR infection TECHNIQUE: CT brain without contrast. COMPARISON: 04/03/2018 FINDINGS: No parenchymal hemorrhage. No epidural or subdural hematoma. No subarachnoid hemorrhage. There are chronic microvascular ischemic changes. No mass identified on this noncontrasted exam. No hydrocephalus. No sinus opacification. IMPRESSION: 1.No hemorrhage 2.Chronic microvascular ischemic changes. This exam was performed using automated exposure control, adjustment of mA or kV according to patient size, and/or use of iterative reconstruction technique. Electronically signed by Ruben Johnson 04/26/2018 2:10 PM
--- NOTE | 2018-04-26 14:21 | INFECTIOUS DISEASE CONSULT REP ---
DATE: 04/26/2018 CONCLUSION: Patient has an oxacillin sensitive Staph aureus bacteremia, the origin of which is uncertain to me. I am concerned that she may have endocarditis. Also, I am concerned that she may have hematogenously infected her left ankle and foot. Also, I am concerned that with the patient's altered mental status she may have a central nervous system infection with Staph aureus. RECOMMENDATIONS: I agree with treating the patient with nafcillin. I have increased the dose to 2 g IV every 4 hours. I also have ordered a noncontrasted CT scan of the brain and if that does not show any abnormality that would not allow an LP to be done, I will consult Dr. Jones to do an LP. Also, I have ordered a bone scan on the patient's left foot and ankle to look for the possibility of osteomyelitis. If the patient has a right total knee arthroplasty , the patient will need at least 6 weeks of IV antibiotics in case the arthroplasty became infected hematogenously. Finally I ordered an echocardiogram to look for vegetations. DISCUSSION: The patient is unable provide a history and no family member is present. According to the findings in the computer, the patient was initially seen and her main complaint was her legs had been hurting. Her blood cultures are growing an oxacillin sensitive Staph aureus. Her CBC shows a white count of 21,980, hemoglobin 8.7, and platelet count 367,000. Creatinine is 1.9. GFR is 32. Liver function studies are normal. Urinalysis showed white cells but no bacteria. Chest x-ray shows pulmonary venous congestion. X-ray of the left foot and ankle showed soft tissue edema, but no bone abnormality. The patient had a urine culture which showed no growth. Today repeat blood cultures have been ordered. PAST MEDICAL HISTORY: Positive for hypertension, diabetes mellitus, coronary artery disease. PAST SURGICAL HISTORY: Positive for coronary artery bypass grafting, hysterectomy, surgery on her knee, and also she had a right total knee arthroplasty. ALLERGIES: Patient has no drug allergies. SOCIAL HISTORY: The patient only smoked many years ago when she was a child but none since then. She does not have a history of using illicit drugs or consuming alcoholic beverages. FAMILY HISTORY: Positive for coronary artery disease. REVIEW OF SYSTEMS: Unable to be obtained. PHYSICAL EXAMINATION: Vital Signs: Temperature is 99.3 degrees, pulse 80, respirations 17, blood pressure 146/67. General: This is an ill-appearing, elderly female. She is in no acute distress. Head, eyes, ears, nose, throat: No drainage noted from the nose or the ears. The patient did not respond to verbal stimuli. Neck: No meningismus. Lungs: Clear to auscultation. Cardiovascular: Regular heart rate. I did not hear a murmur. Abdomen: Soft and nontender. Bones, joints, muscles: The left ankle and foot are swollen and movement causes the patient to have pain. Integument: No rash. Neurologic: Patient is obtunded. She did not respond to verbal stimuli. There is no tremor. Thank you for the consult. cc: MD Derik Terry MD MTDD
[2018-04-26] MEDS: NAFCIL 2 GM in NS 100 ML IV SCH ×3 (15:43→22:43)
[2018-04-26] MEDS: 1/2 NS + KCL 20 MEQ 1,000 ML IV SCH (19:25)
[2018-04-26] MEDS: LOVENOX SUBQ SCH (22:42)
[2018-04-26] MEDS: BASAGLAR SUBQ SCH (22:43)
[2018-04-27] MEDS: NAFCIL 2 GM in NS 100 ML IV SCH ×6 (03:43→22:20)
[2018-04-27] MEDS: HUMALOG SUBQ SCH ×3 (06:25→17:31)
[2018-04-27 06:54] LABS: BASO# 0.08 X1000 (0.0-0.2); BASO% 0.3 % (0.0-0.8); EOS# 0.13 X1000 (0.0-0.7); EOS% 0.4 % (0.0-10.0); HEMATOCRIT 31.4 % (37.0-47.0); HEMOGLOBIN 9.4 g/dL (12.0-16.0); IMM GRAN% 3.5 % (0.0-0.5); LYMPH% 10.4 % (20.5-51.1); MCH 23.7 PG (27-31); MCHC 29.9 g/dL (33-37); MCV 79.1 FL (81-99); MONO# 2.21 X1000 (0.11-0.59); MONO% 7.6 % (1.7-9.3); MPV 10.8 FL (7.4-10.4); NEUT# 22.48 X1000 (1.4-6.5); NEUT% 77.8 % (42.2-75.2); PLT 485 X1000 (130-400); RBC 3.97 XMIL (4.2-5.4); RDW 16.7 % (11.5-14.5)
[2018-04-27 07:11] LABS: ALBUMIN 1.4 g/dL (3.5-5.0); CALCIUM 8.6 mg/dL (8.8-10.2); CREATININE 2.8 mg/dL (0.5-0.9); PHOSPHORUS 4.6 mg/dL (2.7-4.5); POTASSIUM 3.4 mmol/L (3.5-5.1)
[2018-04-27] MEDS: 1/2 NS + KCL 20 MEQ 1,000 ML IV SCH ×2 (07:58→17:34)
[2018-04-27] MEDS ORDERED: NS 500 ML IV ONE (08:53)
--- NOTE | 2018-04-27 09:49 | NEPHROLOGY PROGRESS NOTE ---
DATE: 04/27/2018 SUBJECTIVE: She is difficult to arouse today. She was nonverbal. She did open her eyes and look at me, however. OBJECTIVE: Vital Signs: Blood pressure 118/56, heart rate 64, respirations 16, afebrile. Intake 1.2 L; output none recorded. General: On physical examination, obese black female. No distress. Mental status as above. Skin: Warm and dry. Eyes: Conjunctivae are pink. Neck: Neck veins are not distended. Heart: Regular. No gallops. Lungs: Equal. No crackles. Abdomen: Obese, soft, nontender. Bowel sounds are present. Extremities: Have 1+ edema. No clubbing or cyanosis. IMPRESSION: Acute kidney injury overlying chronic kidney disease. Her urine output has been decreasing over the last 48 hours. She is in net negative fluid balance, though she did receive 1200 mL intake on yesterday. She is receiving normal saline at 100 mL/hour currently. Likely, she has acute tubular necrosis overlying her chronic kidney disease. I will check urine electrolytes, urine eosinophils today. We will continue her intravenous fluids through the day today, and repeat a chest x-ray. I discussed the case directly with Dr. Akers. Given her sepsis and worsening renal function, she is at high risk for requiring dialysis before her acute illness resolves. cc: MD Derik Jarquin MD
[2018-04-27] MEDS: PLAVIX PO SCH ×2 (09:53→16:34)
[2018-04-27] MEDS: ALDACTONE PO SCH ×2 (09:53→16:34)
[2018-04-27] MEDS: COREG PO SCH ×2 (09:53→22:20)
[2018-04-27] MEDS: ASPIRIN PO SCH ×2 (09:53→16:34)
[2018-04-27] MEDS ORDERED: XYLOCAINE-MPF 1% INJ ONE (11:45)
--- NOTE | 2018-04-27 11:46 | Diag Imaging Result Doc PS360 ---
EXAM: CHEST-PORTABLE HISTORY: assess for pulmonary edema TECHNIQUE: Portable upright chest COMPARISON: 04/22/2018 FINDINGS: Poor inspiratory effort. Sternal wires are present. Heart is borderline mildly prominent. No significant pulmonary edema. No consolidation. Questionable small left pleural effusion. IMPRESSION: No significant vascular distention. Electronically signed by Ruben Johsnon 04/27/2018 11:43 AM
[2018-04-27 14:13] LABS: APPEARANCE CLEAR
[2018-04-27 14:34] LABS: RBC BF 0 /cumm; WBC BF 0 /cumm
--- NOTE | 2018-04-27 15:11 | ECHO REPORT ---
ORDER DATE: 04/26/2018 ECHOCARDIOGRAM: INDICATION FOR STUDY: Possible endocarditis. FINDINGS: 1. Right atrium appears normal in size. 2. Trace tricuspid regurgitation. Insufficient data to estimate RV systolic pressure. 3. Normal RV size and systolic function. 4. Trace pulmonic insufficiency. 5. Mild left atrial enlargement at 4 cm. 6. No mitral prolapse. Trace mitral regurgitation. 7. Normal LV size, end-diastolic dimension of 4.3 cm. Mild left ventricular hypertrophy with a posterior and interventricular septal wall thickness of 1.4 cm each. Normal LV systolic function. Estimated EF of 55% to 60% percent with normal wall motion. 8. Aortic valve opens well. It is trileaflet. No evidence of stenosis or insufficiency. 9. Aorta appears normal in visualized segments. 10. There is no pericardial effusion identified on this study. 11. No clear evidence of vegetations adherent to the valvular structures. If clinical suspicion is high, would recommend transesophageal echo. cc: MD Gerald Michaud MD Allen J. Schmidt, MD
[2018-04-27 15:41] LABS: GLUCOSE CSF 96 mg/dL (39-75); PROTEIN CSF 38.4 mg/dL (15-45)
--- NOTE | 2018-04-27 15:47 | CONSULTATION ---
DATE OF CONSULTATION: 04/27/2018 HISTORY OF PRESENT ILLNESS: Ms. Phillips is 67 years old, and she has an altered mental state associated with Staph aureus bacteremia. WBC count has ranged 17,000 to 28, 000. Blood sugars have ranged 100s to 300s. She had only a few doses of tramadol earlier and that was stopped on 04/24/2018. She does not have any medications on board that likely would alter her mental state. Noncontrast CT this admission is reported unremarkable. Computer record shows 06/10/2016 brain MRI with usual changes, but no focal lesion. She had temperature recorded 100.9 on 04/25/2018. She has been afebrile since that recording. I have seen Ms. Phillips before with her concern for forgetfulness. She has performed well on mental status testing in the past, seen in the office in 2017 and in 2018. PHYSICAL EXAMINATION: On exam now, she is supine, apparently asleep as I approached the bedside. With moderate stimulation, she was awake, looked at me, mumbled and groaned, vigorously resisted my attempts at examining her eyes and limbs, but did not speak or communicate otherwise. Head is unremarkable. There is no meningismus. Limb tone is symmetric. She used her right arm more often than the left for purposeful movement. Plantar response is silent bilaterally. She was not attentive to sensory or cerebellar testing. I did not attempt to get her to stand. Lumbar puncture was done at L4 space with opening pressure 28-30 cm of CSF. Crystal clear fluid was obtained and sent to the lab. Closing pressure was 10 cm. She tolerated that well and slept through much of the procedure. IMPRESSION: Global encephalopathy, no definite focal findings, no imaging evidence of increased intracranial pressure, but cerebrospinal fluid pressure is elevated as noted. Further plans will depend on the cerebrospinal fluid lab reports I do not see anything in the current medication list or on current lab chemistry that would account for her encephalopathy. Features do not sound like seizure, but we might consider electroencephalogram electively. Further brain imaging might be another consideration later, depending on her clinical course. Thanks for asking Neurology to see Ms. Phillips. cc: MD Derik Fountain III, MD MTDD
[2018-04-27 15:54] LABS: URINE SOURCE CATH
[2018-04-27 15:58] LABS: BILIRUBIN URINE NEGATIVE (NEGATIVE); BLOOD URINE SMALL (NEGATIVE); COLOR YELLOW; GLUCOSE URINE NEGATIVE (NEGATIVE); KETONE URINE NEGATIVE (NEGATIVE); LEUKOCYTES URINE NEGATIVE (NEGATIVE); NITRITE URINE NEGATIVE (NEGATIVE); PROTEIN URINE 200 mg/dL (NEGATIVE); SP GRAVITY URINE 1.012; TURBIDITY URINE HAZY (CLEAR); UROBILINOGEN URINE NORMAL (NORMAL)
--- NOTE | 2018-04-27 16:02 | OPERATIVE NOTE ---
PROCEDURE DATE: 04/27/2018 Lumbar puncture was done at the L4 space with opening pressure 28 to 30 cm. Crystal clear fluid was obtained and sent to the lab. She tolerated the procedure well and slept during most of it. Closing pressure was 10 cm. cc: MD Derik Fountain III, MD
[2018-04-27 16:16] LABS: UR EPITHELIAL CELLS <10 /HPF (<10); URINE BACTERIA NEGATIVE /HPF; URINE RBC <10 /HPF (<10); URINE WBC <10 /HPF (<10)
[2018-04-27 16:17] LABS: URINE CASTS NONE SEEN; URINE CRYSTALS NONE SEEN; URINE YEAST PRESENT
[2018-04-27 16:33] LABS: UR CREAT RANDOM 82.2 mg/dL (11-20); UR PROT RANDOM 262.9 mg/dL
--- NOTE | 2018-04-27 20:43 | CONSULTATION ---
DATE OF CONSULTATION: 04/27/2018 CHIEF COMPLAINT: Sepsis. HISTORY OF PRESENT ILLNESS: Ms. Phillips is a 67-year-old female who presented to the emergency department with leg pain and feeling really bad. She was admitted by Dr. Hernandez with sepsis. Infectious Disease was consulted. Nephrology has been consulted as well. X-rays of her foot came back as a fracture of the 1st and 2nd metatarsals, possible Charcot, possible infection. So Orthopedics was consulted to evaluate. Dr. Walker saw her and then discussed the case with me and I will take over her care. PAST MEDICAL HISTORY: Hypertension, diabetes, coronary artery disease. PAST SURGICAL HISTORY: Coronary artery bypass grafting, hysterectomy, knee surgery, total knee replacement. ALLERGIES: No known drug allergies. MEDICATIONS: Per the medical record. SOCIAL HISTORY: She denies any smoking or alcohol use. FAMILY HISTORY: Positive for heart problems. REVIEW OF SYSTEMS: Really was unable to obtain from her secondary to her not responding well to questions. PHYSICAL EXAMINATION: General: She has a fairly lethargic but arousable and she did answer some questions appropriately. Head and Neck: Normocephalic, atraumatic. Respirations: She had nonlabored breathing. Cardiovascular: Regular rate. Abdomen: Nondistended. Extremities: Left lower extremity exam: She had tenderness to palpation to the dorsum of the mid foot. It was swollen a little bit. There is a slight erythema there. I did not feel any areas of fluctuance. There were no sores anywhere either. She had decreased sensation to the toes. RADIOGRAPHS: Three view left foot shows what looks like a fracture of the 2nd and 3rd metatarsals, maybe some instability at the 1st TMT joint. ASSESSMENT: Possible left Charcot midfoot versus osteomyelitis. PLAN: Even though she was a little bit out of it, I went ahead and discussed with Ms. Phillips our plan. We will plan on getting a tagged white cell scan. She was supposed to go for bone scan today we canceled that one so she could have the tagged white cell scan because I think it will provide more information concerning this foot. If the tagged white cell scan lights up big time on her foot, then we are more likely dealing with infection. We will probably need to go in there and wash things out. If it is pretty cold on the exam, then we are probably dealing with more of a Charcot response to the foot. We will treat that with embolization casting when she is able to come to clinic. So, hopefully we get the tagged white cell scan in the morning. We set everything up with Nuclear Medicine and will go from there. She will be nonweightbearing left lower extremity until we get the tagged white cell scan back. cc: MD Derik Dempsey MD
[2018-04-27] MEDS: LOVENOX SUBQ SCH (22:20)
[2018-04-28] MEDS: BASAGLAR SUBQ SCH ×2 (00:34→21:29)
[2018-04-28] MEDS: NAFCIL 2 GM in NS 100 ML IV SCH ×5 (03:45→21:29)
--- NOTE | 2018-04-28 04:58 | INFECTIOUS DISEASE PROGRESS NO ---
DATE: 04/27/2018 PRESENT ILLNESS: The patient has an oxacillin-sensitive Staph aureus bacteremia, the origin of which is still uncertain to me. She does not appear to have endocarditis with her negative echocardiogram. She had an LP done and the spinal fluid shows no white cells, and the culture also is negative. Therefore, I doubt she has meningitis. She also had a urine culture which was negative, which would make a urinary tract infection unlikely also. The patient still has pain and swelling as well as tenderness in the left ankle. I think, in summary, that the patient has a Staph aureus bacteremia with either hematogenous involvement of the patient's left ankle, or the patient initially had infection in the ankle and a bacteremia occurred from that origin. MEDICATIONS: The patient is receiving nafcillin 2 g IV every 4 hours. PHYSICAL EXAMINATION: Vital Signs: Temperature 97.9 degrees, pulse 73, respirations 16, blood pressure 115/70. General: This is an ill-appearing elderly female. She is in no acute distress. She appears to be delirious. Head, eyes, ears, nose, and throat: There is no drainage from the nose or the ears. I could not get a good look in her mouth. Neck: No meningismus. Lungs: Clear to auscultation. Cardiovascular: Regular heart rate. I did not hear a murmur. Abdomen: Soft and nontender. Bones, joints, muscles: The left ankle remains swollen and with any movement of it, the patient seemed to be having pain. Both knees are not swollen and there was no pain with passive movement of them. Neurologic: The patient appears to be in a delirium. She does not respond to verbal stimuli. There is no tremor. LAB AND X-RAY: The patient's CBC shows a white count of 28,900, hemoglobin 9.4, and platelet count 485,000. The cerebrospinal fluid had no white cells. The glucose was 96. The protein was 38.4. The CSF culture is still pending. Chest x-ray shows no consolidation. Echocardiogram shows no vegetation or pericardial effusion. One of 2 blood cultures drawn yesterday is growing a gram-positive coccus. Urine culture is negative. ASSESSMENT AND PLAN: The patient has Staphylococcus aureus bacteremia. The origin is uncertain. I think she does have a left ankle septic arthritis, which is the only place I can find from where the patient's bacteremia may have arisen. COMORBIDITIES: She is elderly and she is a diabetic. cc: MD Derik Terry MD
[2018-04-28] MEDS: 1/2 NS + KCL 20 MEQ 1,000 ML IV SCH (06:17)
[2018-04-28] MEDS: HUMALOG SUBQ SCH ×3 (06:18→17:20)
[2018-04-28 07:16] LABS: HEMATOCRIT 29.2 % (37.0-47.0); HEMOGLOBIN 8.8 g/dL (12.0-16.0); MCHC 30.1 g/dL (33-37); MCV 79.6 FL (81-99); MPV 10.8 FL (7.4-10.4); RBC 3.67 XMIL (4.2-5.4); RDW 17.6 % (11.5-14.5); WBC 41.08 X1000 (4.8-10.8)
[2018-04-28 07:38] LABS: ALBUMIN 1.3 g/dL (3.5-5.0); CALCIUM 8.2 mg/dL (8.8-10.2); CREATININE 3.4 mg/dL (0.5-0.9); PHOSPHORUS 5.3 mg/dL (2.7-4.5); POTASSIUM 3.9 mmol/L (3.5-5.1)
--- NOTE | 2018-04-28 08:07 | PROGRESS NOTE ---
DATE: 04/28/2018 SUBJECTIVE: Ms. Phillips lying in bed. She will respond to pain, but she really does not respond to verbal. She is moving on her own in bed and breathing well. OBJECTIVE: Left lower extremity exam: She has tenderness to palpation to the foot. There is some swelling dorsally into the mid foot. No swelling to the ankle. ASSESSMENT: 1. Left second and third metatarsal fractures, possible Charcot. 2. Possible osteomyelitis in the midfoot. PLAN: Ms. Phillips should be going down for her nuclear scan today. We are doing a tagged white blood cell scan. Once we have the results of that, we can make further recommendations for this left foot. We will more than likely put her in a splint today after the test is over to support that left foot. cc: MD Derik Dempsey MD
[2018-04-28] MEDS ORDERED: LR 500 ML IV ONE (09:13)
[2018-04-28] MEDS: COREG PO SCH ×2 (09:20→21:31)
[2018-04-28] MEDS: PLAVIX PO SCH (09:20)
[2018-04-28] MEDS: ALDACTONE PO SCH (09:21)
[2018-04-28] MEDS: ASPIRIN PO SCH (09:21)
[2018-04-28] MEDS: LR 1,000 ML IV SCH ×2 (10:13→17:24)
--- NOTE | 2018-04-28 10:45 | NEPHROLOGY PROGRESS NOTE ---
DATE: 04/28/2018 SUBJECTIVE: She just groans, but does not answer any questions, fix on me, or follow any commands. OBJECTIVE: Vital Signs: Blood pressure 98/54, heart rate 74, respirations 16, afebrile. Intake 2.2 L. Output, none recorded. General: No acute distress. Skin: Warm and dry. Conjunctivae are pink. Oropharynx is not examined. Neck: Neck veins are not visible. Heart: Regular. No gallops, murmurs, or rubs. Lungs: Equal breath sounds. No crackles or wheezes. Abdomen: Soft, nontender. Bowel sounds present. Extremities: Trace edema. No clubbing or cyanosis. IMPRESSION: Acute kidney injury and acute tubular necrosis secondary to sepsis. BUN and creatinine continue to rise. There has been no urine output recorded in the last 2 days, but her Cabello is out and she is incontinent. Her urine FENa was 0.5%. I discussed the case directly with Dr. Akers today. We will give fluids through the day and observe her response. She is receiving lactated Ringer's now at 125 an hour. If no improvement over the next 24 hours, then she will require dialysis. Electrolytes and acid-base are acceptable. cc: MD Derik Jarquin MD
--- NOTE | 2018-04-28 10:55 | PROGRESS NOTE ---
DATE: 04/28/2018 Ms. Phillips continues to be very poorly responsive. She mumbled and groaned a little bit, but did not communicate with me. I did not see her moving her limbs as much today on limited exam. Spinal fluid reports are unremarkable including all negative meningitis- encephalitis profile. BUN has climbed from 30s through 60s to 80s and this may be contributing to her encephalopathy. I do not have anything new to suggest today. I have ordered EEG to be done when practical. Thanks for asking Neurology to see Ms. Phillips. cc: MD Derik Fountain III, MD MTDD
[2018-04-28 12:36] LABS: URINE SOURCE CATH
[2018-04-28 12:39] LABS: BILIRUBIN URINE SMALL (NEGATIVE); BLOOD URINE SMALL (NEGATIVE); COLOR YELLOW; GLUCOSE URINE NEGATIVE (NEGATIVE); KETONE URINE TRACE mg/dL (NEGATIVE); LEUKOCYTES URINE MODERATE (NEGATIVE); NITRITE URINE NEGATIVE (NEGATIVE); PROTEIN URINE 200 mg/dL (NEGATIVE); SP GRAVITY URINE 1.016; TURBIDITY URINE TURBID (CLEAR); UROBILINOGEN URINE NORMAL (NORMAL)
[2018-04-28 12:47] LABS: UR EPITHELIAL CELLS <10 /HPF (<10); URINE BACTERIA NEGATIVE /HPF; URINE CASTS GRANULAR PRESENT; URINE RBC TNTC /HPF (<10); URINE WBC TNTC /HPF (<10); URINE YEAST PRESENT
[2018-04-28] MEDS: MERREM 500 MG in NS 50 ML IV SCH (18:07)
[2018-04-28] MEDS: LOVENOX SUBQ SCH (21:29)
[2018-04-29] MEDS: NAFCIL 2 GM in NS 100 ML IV SCH ×2 (00:14→03:55)
--- NOTE | 2018-04-29 03:33 | INFECTIOUS DISEASE PROGRESS NO ---
DATE: 04/28/2018 PRESENT ILLNESS: The patient has an oxacillin sensitive Staph aureus bacteremia, the origin of which is uncertain to me. It appears to me that the patient has possible septic arthritis of the left ankle and osteomyelitis of the left foot. Her white blood cell count continues to increase, and I am again not certain why it is increasing. At this time I do not find any evidence of an infection except for the patient's bacteremia and possible infection involving the left ankle and foot. MEDICATIONS: The patient is receiving nafcillin at a dose of 2 g IV every 4 hours. PHYSICAL EXAMINATION: Vital Signs: Temperature is 98 degrees, pulse 70, respirations 12, blood pressure 115/55. General: This is an ill-appearing elderly female, she seems delirious. Head, Eyes, Ears, Nose, and Throat: I did not see any drainage from the nose or ears. Neck: No stiffness. Lungs: Clear to auscultation. Cardiovascular: Regular heart rate. Abdomen: Soft and nontender. Neurologic: The patient does not respond to verbal stimuli. She thrashes around in bed. She appears to me to be delirious. Integument: No rash noted. LAB AND X-RAY: Chest x-ray shows clear lung [place]. Cerebral spinal fluid culture is negative. White blood cell scan is pending. Repeat blood and urine cultures are pending. Creatinine is 3.4. GFR is 16. CBC shows the white count is increased to 41,080, hemoglobin 8.8, and platelet count 59,000. ASSESSMENT AND PLAN: The patient has Staphylococcus aureus bacteremia, possible septic left ankle, and possible left foot osteomyelitis. She has continuing increased white blood cell count, I am uncertain as to what is causing the white blood cell count to rise. My plan would be to continue nafcillin and see the results of the repeat blood and urine cultures and also the result of the white blood cell scan. COMORBIDITIES: She is elderly and she is a diabetic. cc: MD Derik Terry MD
[2018-04-29] MEDS: MERREM 500 MG in NS 50 ML IV SCH ×2 (05:40→17:02)
[2018-04-29] MEDS: LR 1,000 ML IV SCH ×2 (05:40→17:10)
[2018-04-29] MEDS: HUMALOG SUBQ SCH ×3 (06:09→17:20)
[2018-04-29] MEDS ORDERED: VANCOMYCIN IV PER PHARMACY MISC SCH (08:00)
[2018-04-29 08:02] LABS: HEMATOCRIT 31.5 % (37.0-47.0); HEMOGLOBIN 10.1 g/dL (12.0-16.0); MCHC 32.1 g/dL (33-37); MCV 81.2 FL (81-99); MPV 10.4 FL (7.4-10.4); RBC 3.88 XMIL (4.2-5.4); RDW 19.2 % (11.5-14.5); WBC 38.48 X1000 (4.8-10.8)
[2018-04-29 08:40] LABS: AGAP 23; ALBUMIN 1.9 g/dL (3.5-5.0); BUN 96 mg/dL (8-22); CALCIUM 7.6 mg/dL (8.8-10.2); CHLORIDE 100 mmol/L (98-107); COSMO 304; CREATININE 3.9 mg/dL (0.5-0.9); GLUCOSE 71 mg/dL (70-104); PHOSPHORUS 5.9 mg/dL (2.7-4.5); POTASSIUM 5.6 mmol/L (3.5-5.1); SODIUM 138 mmol/L (136-145); TCO2 15 mmol/L (25-35)
[2018-04-29] MEDS: ALDACTONE PO SCH (09:42)
[2018-04-29] MEDS: ASPIRIN PO SCH (09:42)
[2018-04-29] MEDS: PLAVIX PO SCH (09:42)
[2018-04-29] MEDS: COREG PO SCH ×2 (09:42→21:23)
[2018-04-29] MEDS ORDERED: HEPARIN IV PRN (09:53)
[2018-04-29] MEDS ORDERED: NS 2,000 ML MISC PRN (09:53)
[2018-04-29] MEDS ORDERED: TIGHT: 0.2 ML/HR FOR DIALYSIS MISC PRN (09:53)
[2018-04-29] MEDS ORDERED: VANCOMYCIN 1 GM/NS 1 GM/250 ML IVPB IV SCH ×2 (11:00)
--- NOTE | 2018-04-29 13:30 | Diag Imaging Result Doc PS360 ---
EXAM: CHEST-PORTABLE 04/29/2018 HISTORY: vas cath placement TECHNIQUE: Portable at 1316 COMMENT: There is a double-lumen catheter in the right internal jugular with its tip in the superior vena cava. There is no evidence of pneumothorax or pleural fluid collection. The appearance of the chest is otherwise unchanged since 04/27/2018. IMPRESSION: No acute disease. Electronically signed by Iglesia Zuniga 04/29/2018 1:28 PM
--- NOTE | 2018-04-29 14:35 | Diag Imaging Result Doc PS360 ---
EXAM: CERETEC WBC SCAN 04/27/2018 HISTORY: possible osteomyelitis of the foot TECHNIQUE: 40.2 mCi of technetium 99m Ceretec whole body scanning at one and 24 hours COMMENT: There is physiologic blood pool distribution with intense activity at the injection site in the left arm. At 24 hours there is intense increased activity in the tarsometatarsal region of the left foot. This is consistent with a lytic disease seen in the proximal first second third and possibly fourth metatarsals on the plain radiograph series of 04/25/2018. IMPRESSION: The possibility of osteomyelitis in the proximal metatarsals as described cannot be excluded. Electronically signed by Iglesia Zuniga 04/29/2018 2:33 PM
--- NOTE | 2018-04-29 14:41 | NEPHROLOGY PROGRESS NOTE ---
DATE: 04/29/2018 SUBJECTIVE: She is arousable and actually spoke to me today. These are the first words I have heard since day 1 of her hospitalization. She states that she feels bad, but is not able to quantify. OBJECTIVE: Vital Signs: Blood pressure 117/80, heart rate 74, respiration 18, afebrile. General: No acute distress. Skin: Warm and dry. Conjunctivae are pink. Neck: Neck veins are not appreciated. Heart: Regular with systolic murmur present. Lungs: Have equal breath sounds. No crackles. Abdomen: Soft, nontender. Bowel sounds present. Extremities: No edema, clubbing or cyanosis. IMPRESSION: Acute kidney injury. Worsening metabolic acidosis and hyperkalemia. BUN 96. I have consulted Dr. Ziegler to place a dialysis catheter and she will have her first hemodialysis treatment today. I discussed the case with both Jaylene Lopez and Jasmin Phillips. Jasmin Phillips is her next of kin. They are in agreement. cc: MD Derik Jarquin MD
--- NOTE | 2018-04-29 14:48 | OPERATIVE NOTE ---
PROCEDURE DATE: 04/29/2018 PROCEDURE PERFORMED: Right internal jugular vein Vas-Cath placement. SURGEON: Yeison Ziegler MD PREOPERATIVE DIAGNOSIS: Acute renal failure. POSTOPERATIVE DIAGNOSIS: Acute renal failure. INDICATIONS: We have been asked to place a Vas-Cath for acute dialysis purposes. DESCRIPTION OF PROCEDURE: Informed consent was obtained from the family. The patient was brought to the recovery room. The right side of the neck was prepped and draped in a sterile fashion. We imaged the internal jugular vein in a sterile fashion and identified the right internal jugular vein. I anesthetized the skin with 1% lidocaine, made a stab incision, and accessed the right internal jugular vein under direct visualization. We then passed the guidewire. We dilated the tract sequentially then passed the Trialysis catheter to the extent that it would go. Blood came back in each lumen spontaneously. We then flushed each lumen with saline. We secured the flange to the skin with the nylon contained within the tray. We once again used ChloraPrep on the skin and then after it dried, we placed an OpSite dressing. She tolerated it well. A chest x-ray was ordered. cc: MD Derik Prajapati MD
--- NOTE | 2018-04-29 16:28 | PROGRESS NOTE ---
DATE: 04/29/2018 SUBJECTIVE: Ms. Phillips down in dialysis this afternoon. Her tagged white cell scan was just read. She is not responding well. OBJECTIVE: Left lower extremity exam. Foot is more swollen and she is getting some skin blistering dorsally. ASSESSMENT: Left suspected osteomyelitis and abscess of the foot. PLAN: Her tagged white cell scan did show uptake in that left foot so I cleaned the skin with alcohol today and then aspirated the foot in that area and got purulence back and I sent off for cultures for aerobic and anaerobic. Since there is pus there then it is definitely infected, will need to wash it out. I am going to try to get in contact with her sister who has medical decision making capacity and will try to plan on washing this out tomorrow of the left foot irrigation and debridement. cc: MD Derik Dempsey MD
[2018-04-29] MEDS ORDERED: VANCOMYCIN 1 GM/NS 1 GM/250 ML IVPB IV ONE (17:00)
[2018-04-29] MEDS: BASAGLAR SUBQ SCH (21:22)
[2018-04-29] MEDS: LOVENOX SUBQ SCH (21:23)
[2018-04-30] MEDS: LR 1,000 ML IV SCH ×4 (02:38→20:26)
[2018-04-30] MEDS: MERREM 500 MG in NS 50 ML IV SCH (04:38)
[2018-04-30] MEDS: HUMALOG SUBQ SCH ×3 (06:07→18:04)
[2018-04-30] MEDS ORDERED: VANCOMYCIN ONE (07:38)
[2018-04-30 07:43] LABS: HEMATOCRIT 26.7 % (37.0-47.0); HEMOGLOBIN 8.1 g/dL (12.0-16.0); MCH 24.5 PG (27-31); MCHC 30.3 g/dL (33-37); MCV 80.9 FL (81-99); PLT 662 X1000 (130-400); RDW 19.4 % (11.5-14.5); WBC 45.94 X1000 (4.8-10.8)
[2018-04-30] MEDS ORDERED: TOBRAMYCIN POWDER MISC ONE (07:45)
[2018-04-30] MEDS ORDERED: DIPRIVAN 1% ONE (07:46)
[2018-04-30] MEDS ORDERED: XYLOCAINE-MPF 2% ONE (07:47)
--- NOTE | 2018-04-30 07:48 | PROGRESS NOTE ---
DATE: 04/30/2018 SUBJECTIVE: Ms. Phillips is lying in bed this morning. She is actually responding verbally and she is opening her eyes to verbal commands as well. OBJECTIVE: On left lower extremity exam, the foot is still swollen. There is a little bit of blistering on top. ASSESSMENT: Left foot infection. PLAN: I discussed Ms. Phillips about going to surgery this morning. She seems to be understanding a little bit but she is still somewhat confused. I did speak to her daughter yesterday, Светлана, and I went over everything with her from the risks and benefits standpoint. I went over with her the risks, benefits, and potential complications. Risks include, but are not limited to infection, wound healing problems, damage to nerves, arteries, veins, numbness, continued pain, DVT, and anesthesia related risks. After discussing these with the patient and her daughter, her daughter signed consent on her behalf since she is still confused. We will plan on irrigation and debridement of the left foot this morning. She is NPO. cc: MD Derik Dempsey MD
[2018-04-30 07:52] LABS: CALCIUM 7.4 mg/dL (8.8-10.2); CREATININE 2.9 mg/dL (0.5-0.9); PHOSPHORUS 4.2 mg/dL (2.7-4.5); POTASSIUM 3.7 mmol/L (3.5-5.1)
[2018-04-30 07:57] LABS: ANISOCYTOSIS 1+; BANDS 6 % (0-1); HYPOCHROM 1+; LYMPHS 10 % (21-51); MONO 4 % (1-9); NRBC 5 % (0-0); SEGS 76 % (42-75)
[2018-04-30 07:58] LABS: LARGE PLATELETS 1+; POIKILOCYTOSIS 2+; TARGET CELLS OCCASIONAL
[2018-04-30 07:59] LABS: SCHISTOCYTES 1+
[2018-04-30] MEDS ORDERED: MORPHINE ONE ×2 (09:20→09:27)
[2018-04-30] MEDS: NAFCIL 2 GM in NS 100 ML IV SCH ×4 (10:36→22:16)
--- NOTE | 2018-04-30 10:44 | PROGRESS NOTE ---
DATE: 04/30/2018 HISTORY: Ms. Phillips has an oxacillin sensitive Staphylococcus aureus bacteremia. They were concerned about a possible septic arthritis of the left ankle and osteomyelitis of the left foot. She had I and D and debridement of the left foot earlier today. Her white count continues to increase to 45,000. Repeat blood cultures from 04/28/2018 demonstrate no growth at 48 hours. Wound cultures are pending at the present time. She is on broad-spectrum antibiotics including nafcillin and vancomycin. I saw her in the room postoperatively and she was still sedated and drowsy but appeared to be writhing in pain. She underwent dialysis yesterday. Her BUN and creatinine were 62 and 2.9. Blood sugars have been fairly well controlled. Sugars have ranged from 92 to 122. PHYSICAL EXAMINATION: Vital Signs: She is afebrile. Pulse 94, respirations 20, BP 135/48. CV: Regular rate and rhythm. Lungs: Clear. Abdomen: Soft, nontender, with active bowel sounds. Neurologic: She is thrashing about in bed. She does not open her eyes or respond to verbal stimuli. LABORATORY DATA: Various laboratory studies were obtained. A CBC demonstrated a white count of 45.9, hemoglobin 8.1, hematocrit 26.7, and a platelet count of 662,000. She has a left shift. Electrolytes demonstrated the following: Sodium 142, potassium 3.7, BUN 62, creatinine 2.9. ASSESSMENT AND PLAN: 1. Staphylococcus aureus bacteremia. It is suspected that she has osteomyelitis. She underwent debridement. She underwent incision and drainage of the left foot today. Repeat cultures are pending. We will continue broad-spectrum antibiotics. Given the leukocytosis, left shift, and tachycardia, in all likelihood, she does have sepsis. Her blood pressure is stable and I do not believe she needs pressors at this time. 2. Type 2 insulin-dependent diabetes mellitus. We will continue pattern of sugars, Humulin R sliding scale and glargine insulin at night. cc: MD Derik Stewart MD
--- NOTE | 2018-04-30 11:32 | INFECTIOUS DISEASE PROGRESS NO ---
DATE: 04/30/2018 PRESENT ILLNESS: The patient has an oxacillin sensitive Staph aureus bacteremia , which originated from her left foot abscess and osteomyelitis Dr. Powers has just operated on the patient and found that there was a large amount of purulent material in the foot. MEDICATIONS: The patient had been switched to meropenem and vancomycin, but now since the origin of the patient's oxacillin sensitive Staph aureus, the foot and the foot has been drained, I think it would be best to put the patient back on nafcillin and discontinue vancomycin and meropenem, which I have done. PHYSICAL EXAMINATION: Vital Signs: Temperature is 98.1 degrees. Pulse 102, respirations 18, blood pressure 121/87. General: This is an ill-appearing, elderly female. She is delirious. She is in the recovery room. Head/eyes/ears/nose/throat: No drainage was noted from the nose or the ears. Neck: No apparent stiffness. The patient has a right internal jugular vein Vas-Cath in place for dialysis. Lungs: Clear to auscultation. Cardiovascular: Heart rate is regular. Abdomen: Soft and nontender. Neurologic: The patient is moving around mainly with her arms. She is delirious. Integument: No rash noted. Extremities: The patient's left ankle is in a large splint and dressing. Both are intact. ASSESSMENT AND PLAN: 1. The patient has a septic left ankle arthritis with oxacillin sensitive Staph aureus. I believe this is the origin of the patient's Staph aureus bacteremia. Alternatively, the patient may have had a transient Staph aureus bacteremia on dialysis and that seeded the ankle and then from that there was another bacteremia that occurred. For now, I have switched the patient back to nafcillin and I plan to treat her for 6 weeks with nafcillin and today would be day #1 of treatment since the ankle was just drained and surgery today. 2. Comorbidities: She is elderly, she is a diabetic and she has end-stage renal disease. cc: MD Derik Terry MD MTDD
--- NOTE | 2018-04-30 11:34 | OPERATIVE NOTE ---
PROCEDURE DATE: 04/30/2018 PREOPERATIVE DIAGNOSES: 1. Left first and second metatarsal osteomyelitis. 2. Left foot abscess. POSTOPERATIVE DIAGNOSES: 1. Left first and second metatarsal osteomyelitis. 2. Left foot abscess. PROCEDURES PERFORMED: 1. Left foot irrigation and debridement to bone. 2. Left first and second metatarsal partial excision. SURGEON: Melecio Powers MD. LAB COURIER: None. ANESTHESIA: General with LMA. ESTIMATED BLOOD LOSS: 100 mL. SPECIMENS/PATHOLOGY: Cultures were taken and sent to the lab. ANTIBIOTICS: Antibiotic beads were placed, and they had vancomycin and tobramycin in them. DISPOSITION: To PACU, hemodynamically stable. INDICATION FOR PROCEDURE: Ms. Phillips is a 67-year-old female who is not very responsive. I have been working up her sepsis and I really localized an infection to this left foot. I aspirated the foot yesterday and got purulence out. I discussed with her daughter about performing irrigation and debridement of the foot. She expressed understanding and wished to proceed. DESCRIPTION OF PROCEDURE: Ms. Phillips was identified in the preoperative holding area. The left foot was marked as the correct surgical site. She was then wheeled to the operating room and placed supine on the operating table. All bony prominences were well padded. She was induced under general anesthesia. LMA was placed. Left lower extremity was prepped with Betadine and Betadine solution, and draped in the normal sterile fashion. Surgical pause was performed. We identified the correct patient, correct side, and the correct procedure. Preoperative antibiotics were given. I started with a longitudinal incision over the first metatarsal. Dissection was carried down. After we really started dissecting down, there was a lot of thick purulence that came out. We cultured that and then we evacuated all that abscess that was around the first and second metatarsals. I exposed her EHL as well and then came down and debrided skin, subcutaneous tissue, and bone with a rongeur, forceps, and a scalpel. We came down onto the first and second metatarsals. Ended up using a curette and performed partial excision of the first and second metatarsals, and it did look like infection and osteomyelitis in those bones. I used a rongeur and a curette to partially excise those, and saucerized that area to get back to normal healthy appearing bone. Once we had a very thorough debridement, we then irrigated everything copiously with normal saline and then Vashe to try to kill all that bacteria that was there. I then placed antibiotic dissolvable beads with vancomycin and tobramycin in them. Then we closed the wound with nylon and Adaptic, 4x4s, ABD, soft roll, and a posterior splint was applied. Tourniquet was let down. She had good capillary refill return to the toes. She was then wheeled from general anesthesia, moved to her own bed, and taken to the PACU in stable condition. Postoperatively, she will be nonweightbearing to the left lower extremity. We will continue to follow her for this infection. cc: MD Derik Dempsey MD
[2018-04-30] MEDS: ASPIRIN PO SCH (12:27)
[2018-04-30] MEDS: COREG PO SCH ×2 (12:27→21:16)
[2018-04-30] MEDS: ALDACTONE PO SCH (12:27)
[2018-04-30] MEDS: PLAVIX PO SCH (12:28)
[2018-04-30] MEDS: HYZAAR 50/12.5 MG PO SCH ×2 (12:28→21:15)
[2018-04-30] MEDS: VITAMIN D PO SCH (12:28)
[2018-04-30] MEDS ORDERED: GEODON IM ONE (13:02)
[2018-04-30] MEDS ORDERED: STERILE WATER INJ. INJ ONE (13:02)
--- NOTE | 2018-04-30 13:26 | INFECTIOUS DISEASE PROGRESS NO ---
DATE: 04/30/2018 ADDENDUM TO PROGRESS NOTE: LABORATORY STUDIES: Laboratory studies from today [place] a [place] [address], hemoglobin 8.1, and platelet count 662,000. The patient's creatinine is 2.9. GFR is 20. A Gram stain of the material taken at surgery from the patient's foot today by Dr. Powers shows gram- positive cocci. Also, on the patient's spinal fluid, the meningitis and encephalitis panel were all negative. The patient's acid-fast smear of the spinal fluid reported that there were no acid- fast organisms identified. cc: MD Derik Terry MD
--- NOTE | 2018-04-30 14:06 | INFECTIOUS DISEASE PROGRESS NO ---
DATE: 04/30/2017 ADDENDUM TO PROGRESS NOTE: LABORATORY STUDIES: The patient's urine is growing yeast. This is asymptomatic and does not require treatment with antifungal medication. cc: MD Derik Terry MD
[2018-04-30] MEDS: BASAGLAR SUBQ SCH (21:15)
[2018-04-30] MEDS: LOVENOX SUBQ SCH (22:16)
[2018-05-01] MEDS: NAFCIL 2 GM in NS 100 ML IV SCH ×6 (02:13→23:37)
[2018-05-01] MEDS: LR 1,000 ML IV SCH ×2 (03:54→17:43)
[2018-05-01] MEDS: HUMALOG SUBQ SCH ×3 (06:03→17:43)
[2018-05-01] MEDS ORDERED: HEPARIN IV PRN (06:57)
[2018-05-01] MEDS ORDERED: NS 2,000 ML MISC PRN (06:57)
[2018-05-01] MEDS ORDERED: TIGHT: 0.2 ML/HR FOR DIALYSIS MISC PRN (06:57)
[2018-05-01 07:12] LABS: HEMATOCRIT 20.4 % (37.0-47.0); HEMOGLOBIN 6.2 g/dL (12.0-16.0); MCH 24.8 PG (27-31); MCHC 30.4 g/dL (33-37); MCV 81.6 FL (81-99); MPV 9.7 FL (7.4-10.4); RBC 2.5 XMIL (4.2-5.4); WBC 43.92 X1000 (4.8-10.8)
[2018-05-01 08:06] LABS: ALBUMIN 1.5 g/dL (3.5-5.0); CALCIUM 7.8 mg/dL (8.8-10.2); CREATININE 3.3 mg/dL (0.5-0.9); PHOSPHORUS 5.8 mg/dL (2.7-4.5); POTASSIUM 3.8 mmol/L (3.5-5.1)
[2018-05-01 09:52] LABS: HEPATITIS PROFILE ACUTE SEE COMMENTS
--- NOTE | 2018-05-01 10:08 | PROGRESS NOTE ---
DATE: 05/01/2018 SUBJECTIVE DATA: Ms. Phillips is lying in bed. She is still a little difficult to arouse. She does respond to painful stimuli. She would not open her eyes or follow commands for me. OBJECTIVE DATA: Left lower extremity exam: She is in a surgical splint. It is clean, dry, and intact. She does have tenderness to palpation to the foot. She does withdraw when touching the foot. From what I can tell, there is no surrounding erythema and not much edema. CURRENT LABORATORY DATA: White count 43.92, down from 45.94, hemoglobin and hematocrit 6.2 and 20.4, down from 8.1 and 26.7. Her BUN and creatinine this morning is 74 and 3.3. ASSESSMENT: Status post left foot irrigation, debridement to bone with left first and second metatarsal partial excision and antibiotic bead placement. PLAN: We are going to continue Ms. Phillips in the posterior splint. We want her to be nonweightbearing to this left lower extremity. Her vital signs are currently stable. Temperature is 98 degrees, pulse 95, blood pressure 127/60, and she is 96% on 6 L nasal cannula. The plan will be to take the full splint down on Tuesday. Depending on how the foot is looking, we may need to repeat an irrigation and debridement on . We will leave the dressing in place until Tuesday, take it all down, and decide if we need to do another irrigation and debridement. Dictated by QUENTIN Roman for Melecio Powers MD cc: QUENTIN Roman MD Allen J. Schmidt, MD
--- NOTE | 2018-05-01 14:17 | EEG REPORT ---
DATE: 04/28/2018 REFERRING PHYSICIAN: Dr. Fariha Jones and Dr. Akers CERTIFIED NURSING ASSISTANT: Karuna Prabhakar BACKGROUND INFORMATION AND TECHNIQUE: This is a digitally recorded routine EEG with video. HISTORY: This is a 67-year-old female patient with altered mental status. Persistent reduced responsiveness. EEG is ordered to evaluate for subclinical seizures. EEG FINDINGS: A posterior dominant alpha rhythm is notably absent. The background consists of theta delta slowing with admixed faster frequencies. Rare to infrequent diffuse broad based triphasic waves are seen during the recording. No definite persistent focal slowing. No epileptiform discharges. No seizures. Hyperventilation was not performed. Photic stimulation induced a normal driving response. The patient does become drowsy, but stage II sleep is not seen. EKG demonstrates regular RR intervals. IMPRESSION AND CLINICAL CORRELATION: Abnormal routine EEG due to moderate generalized slowing with triphasic waves indicative of a moderate nonspecific encephalopathy. No epileptiform discharges and no seizures are seen on the current study. This does not rule out an underlying seizure disorder. Clinical correlation is recommended. Generalized slowing is a nonspecific finding that can be seen in processes that diffusely affect the cerebrum including toxic metabolic, pharmacologic, post hypoxic, and infectious etiologies, amongst others. Triphasic waves are also a nonspecific finding seen with encephalopathies, more frequently with hepatic or renal derangements. cc: MD Harry Veloz MD Allen J. Schmidt, MD
[2018-05-01] MEDS: VITAMIN D PO SCH (15:10)
[2018-05-01] MEDS: ALDACTONE PO SCH (15:10)
[2018-05-01] MEDS: PLAVIX PO SCH (15:10)
[2018-05-01] MEDS: COREG PO SCH ×2 (15:11→23:42)
[2018-05-01] MEDS: ASPIRIN PO SCH (15:11)
[2018-05-01] MEDS: HYZAAR 50/12.5 MG PO SCH ×2 (15:11→23:41)
--- NOTE | 2018-05-01 17:29 | PROGRESS NOTE ---
DATE: 05/01/2017 SUBJECTIVE: No major overnight events documented. Apparently, there was concern that the patient may have been postictal this morning when she was seen. There was no witnessed seizure activity, but I believe she seemed less responsive, possibly with some saliva around the mouth. She has been followed by Dr. Jones this admission. I reviewed her history. She was admitted on 04/23/2018 and has been treated for staph aureus bacteremia presumed due to her left foot abscess and osteomyelitis. She has had her left foot operated on due to this infection. She has been on various antibiotics including vancomycin and meropenem. She is now on nafcillin. Her head CT on 04/26/2018 showed no acute findings. Lumbar puncture performed on 04/27/2018 has been largely unremarkable including meningitis and encephalitis panels. An EEG performed on 04/28/2018 was reviewed today, and it showed moderate generalized slowing with triphasic waves, but no epileptiform discharges and no seizures. Echocardiogram did not show any evidence of obvious vegetation. This was transthoracic. She has had altered mental status this admission. She has been started on hemodialysis this admission. She has been afebrile. Her blood pressure today has ranged 96- 130s systolic over 50s-103 diastolic. Pulse 70s-90s. Ms. Phillips is supine in bed with her eyes closed. She has gurgling respirations. She is currently receiving hemodialysis. She easily arouses and opens her eyes and looks right at me when I call her name on the first attempt. She then moans a bit and then seems to drift back to sleep. She does not maintain attentiveness and requires realerting during my exam. She is seen to spontaneously move her upper extremities, reach up and rub her face and head, and this appears to be symmetric. She also moves her lower extremities at least 2/5 with mild noxious stimuli applied to the lower extremities. She attempts to resist passive eye opening and light examination, but her pupils were examined. On the left, it is irregular, and I cannot definitely see a reaction. On the right, it is regular, and again, I cannot definitely see a reaction. Both are quite myotic. Her gaze is conjugate and forward. She has some horizontal eye movement to passive head turning. She blinks to threat. Her face appears to be symmetric with equal grimace. There is no meningismus. She does not verbalize, only moans. She does not follow commands. DIAGNOSTICS: As per above. Her white count is 43. Hemoglobin and hematocrit have been down tending today at 6.2 and 20.4. Platelets 608. Normal sodium. BUN 74 with a creatinine of 3.3. This is up from yesterday and down from two days ago. BUN on admission was 26. Creatinine on admission was 1.7. Blood sugars 70s-140s recently. Calcium 7.8, phosphorous 5.8. Urine is growing yeast. JAYCE personally reviewed. Moderate gen slowing with TPW. ASSESSMENT AND PLAN: Global encephalopathy with no definite focal features on my exam today. This may be multifactorial related to underlying infections and uremia. Other etiologies are not excluded. Negative spinal tap is reassuring. Her EEG did not show evidence of increased propensity to seizure on that study. It did show some broad based triphasic waves which would support at least contributions from uremic encephalopathy. We can certainly repeat that study. If she can tolerate, then I would recommend consideration for a noncontrasted MRI of the brain given her persistent encephalopathy in a patient with bacteremia, to rule out multifocal infarct. I do not believe the nafcillin would be responsible for any possible seizure activity, and I would recommend antibiotics per infectious disease recommendations. Otherwise, I would continue correcting all of her active medical issues and continue monitoring her clinically for improvement. Hold all sedating medications. cc: MD Derik Veloz MD MTDD
--- NOTE | 2018-05-01 18:01 | NEPHROLOGY PROGRESS NOTE ---
DATE: 05/01/2018 DATE/TIME SEEN: 05/01/2018, time seen 0740. SUBJECTIVE: Ms. Phillips is resting quietly in bed. Upon entering her room she has been found to be deeply somnolent. She is frothing at the mouth. Unable to open her eyes to determine her pupils. We have called the nurses to come in and check a blood pressure which was found to be 127/65. Glucose fingerstick was found to be 196. It is noted that she was given Geodon yesterday after surgery on her left ankle. She has had 2175 in with 510 out to Cabello catheter and 100 mL blood loss. LABORATORY DATA: Sodium is 143, potassium 3.8, chloride 102, CO2 20, BUN 74, creatinine 3.3, glucose 142. She has an anion gap of 21, calcium 7.8, phosphorus 5.8, albumin is 1.5. White count 43.92, hemoglobin 6.2, hematocrit 20.4, with a platelet count of 608,000. The patient has preliminary cultures to her left foot of gram-positive cocci. She has been started on nafcillin yesterday. PHYSICAL EXAMINATION: General: Ms Beltre is unresponsive. She is deeply somnolent as noted above. She does resist opening her eyes when attempted to evaluate her pupils. Unable to determine JVD. She has been rolled on her side for airway protection. Cardiovascular: She is regular rate and rhythm. Heart rate is in the 90s. Lungs: Shallow inspiratory effort, though her saturations are 96% on O2. Abdomen: Soft, nontender, positive bowel sounds. Genitourinary not inspected. Extremities: Dressing to the left ankle with Kerlix. No edema present. Neurological: As above. ASSESSMENT AND PLAN: 1. Acute kidney injury. She does have worsening metabolic acidosis, though it appears that she was doing slightly better on previous evaluation. Her creatinine today is 3.3 from 2.9, though again slightly improved from the 5th. She does have adequate urine output document. We will plan for dialysis today. She is to be placed on a 2K bath, dialyze for 3.5 hours to pull 2 liters for ultrafiltration. 2. Electrolytes. These are fairly stable. 3. Acid-base balance. This is slowly improved with a CO2 of 20. 4. Anemia. Patient's hemoglobin has dropped to 6.2 from 10.1 on the 5th. She is postop day #1. We will transfuse 2 units of PRBC's today on dialysis. 5. Altered mental status. This may possibly multifactorial. Patient had received anesthesia yesterday. She also received Geodon post anesthesia. The patient has also been started on nafcillin. She may possibly be postictal. Dr. Dawson has called Dr. Akers in regards with our findings. He is due in to evaluate the patient's status. 6. Left ankle surgery. This is followed by surgery with Dr. Powers. 7. Infectious disease. Again, patient was started on nafcillin yesterday. We will defer to their care and treatment. I would like to thank you for allowing us to follow with this patient. Dictated by QUENTIN Lopez for Dominguez Dawson MD Face to face encounter, data reviewed, discussed with Dana White on 05/01/18. I agree with the above assessment and plan of care. cc: QUENTIN Lopez MD Allen J. Schmidt, MD MTDD
--- NOTE | 2018-05-01 19:31 | INFECTIOUS DISEASE PROGRESS NO ---
DATE: 05/01/2018 PRESENT ILLNESS: The patient has an oxacillin sensitive Staph aureus bacteremia which originated from her left foot abscess with osteomyelitis. MEDICATIONS: The patient is on nafcillin 2 g IV every 4 hours. PHYSICAL EXAMINATION: Vital Signs: Temperature is 97.6 degrees, pulse 82, respirations 16, blood pressure 135/67. General: This is an ill-appearing elderly female. She remains delirious. Head, Eyes, Ears, Nose and Throat: No drainage noted from the nose or ears. Neck: The patient has a right-sided internal jugular vein dialysis catheter in place. Lungs: Clear to auscultation. Cardiovascular: Regular heart rate. Abdomen: Soft and nontender. Neurologic: The patient is in a delirium. She does occasionally move her head and arms. She does not respond to verbal stimuli. There is no tremor. Extremities: The patient's left leg is in a large splint and dressing covering it. LAB AND RADIOLOGY: CBC-WBC 43.92, 6.2, 608,000. Creatinine-3.3. GFR-17. L foot culture growing gram positive cocci. No new radiology studies. ASSESSMENT AND PLAN: The patient has Staph aureus bacteremia originating from the septic left foot. My plan is to continue nafcillin. COMORBIDITIES: She is elderly, she is a diabetic and she has end-stage renal disease. cc: MD Derik Terry MD MTDD
[2018-05-01] MEDS: LOVENOX SUBQ SCH (23:40)
[2018-05-01] MEDS: BASAGLAR SUBQ SCH (23:43)
[2018-05-02] MEDS: NAFCIL 2 GM in NS 100 ML IV SCH ×5 (04:07→20:32)
[2018-05-02] MEDS: LR 1,000 ML IV SCH ×3 (04:07→10:08)
[2018-05-02] MEDS: HUMALOG SUBQ SCH (06:15)
[2018-05-02 07:37] LABS: HEMATOCRIT 27.1 % (37.0-47.0); MCH 26.7 PG (27-31); MCHC 33.2 g/dL (33-37); MCV 80.4 FL (81-99); MPV 9.5 FL (7.4-10.4); RBC 3.37 XMIL (4.2-5.4); RDW 17.9 % (11.5-14.5); WBC 42.69 X1000 (4.8-10.8)
[2018-05-02 08:02] LABS: ALBUMIN 1.5 g/dL (3.5-5.0); CREATININE 2.5 mg/dL (0.5-0.9); PHOSPHORUS 4.1 mg/dL (2.7-4.5); POTASSIUM 3.4 mmol/L (3.5-5.1)
[2018-05-02] MEDS: PLAVIX PO SCH (10:07)
[2018-05-02] MEDS: COREG PO SCH ×2 (10:07→21:34)
[2018-05-02] MEDS: ASPIRIN PO SCH (10:07)
[2018-05-02] MEDS: ALDACTONE PO SCH (10:07)
--- NOTE | 2018-05-02 10:19 | NEPHROLOGY PROGRESS NOTE ---
DATE: 05/02/2018 TIME SEEN: 0758. SUBJECTIVE: Ms. Phillips is resting quietly in bed. She is more awake and alert today. She remains nonverbal. OBJECTIVE: Vital signs: Her most recent vital signs, her last temperature 98.7 degrees, blood pressure 107/45, heart rate is 100, respirations 18. She is on room air. Last recorded saturation is 99%. She has had 700 in. She has had 2,300 out with 2 L on dialysis yesterday. Labs: Sodium 140, potassium 3.4, chloride 101, CO2 24, BUN 46, creatinine 2.5, glucose 78. Her anion gap is 15. Her calcium 8, phosphorus 4.1, albumin 1.5. White count 42.69 , hemoglobin 9, hematocrit 27.1, platelet count 515,000. PHYSICAL EXAMINATION: General: This is a 67-year-old female. She is resting quietly in bed. She is more awake and alert today. She does remain nonverbal. HEENT: Normocephalic, atraumatic. Conjunctivae pale pink. She has TRINH. Mucous membranes are dry. Neck: Supple. Trachea midline. Questionable JVD in her upright position. Cardiovascular: She is regular rate and rhythm. Lungs: Clear to auscultation bilaterally. Equal excursion with poor inspiratory effort. She remains on O2. Abdomen: Large, round, soft, nontender. Positive bowel sounds. Genitourinary: Not inspected. Cabello catheter has been in place. She has been receiving dialysis for fluid volume control. Extremities: She has trace edema. Left foot remains with a dressing dry and intact. Neurological: As above. ASSESSMENT AND PLAN: 1. Acute kidney injury. Patient has had no recovery with increased urinary output. We will plan for dialysis in the a.m. 2. Electrolytes and acid-base balance. These remain fairly stable. 3. Anemia. The patient received 2 units of packed red blood cells yesterday. This has improved to a hemoglobin of 9.1. We will continue to monitor. 4. Left ankle surgery. This is followed by Dr. Powers. 5. Infectious disease. Patient remains on renal dosed antibiotics per Dr. Layne. I would like to thank you for allowing us to follow with this patient. Dictated by QUENTIN Lopez for Dominguez Dawson MD Face to face encounter, data reviewed, discussed with Dana White on 05/02/18. I agree with the above assessment and plan of care. cc: QUENTIN Lopez MD Allen J. Schmidt, MD MTDD
[2018-05-02] MEDS ORDERED: SODIUM CHLORIDE 0.9% INJ SCH (15:30)
[2018-05-02] MEDS: PROTONIX IV SCH (17:16)
--- NOTE | 2018-05-02 19:42 | INFECTIOUS DISEASE PROGRESS NO ---
DATE: 05/02/2018 PRESENT ILLNESS: The patient has an oxacillin sensitive Staph aureus bacteremia associated with an oxacillin sensitive Staph aureus left foot abscess and osteomyelitis. MEDICATIONS: The patient is on high-dose nafcillin, namely 2 g IV every 4 hours. PHYSICAL EXAMINATION: Vital Signs: Temperature is 98, pulse 88, respirations 18, blood pressure 160/72. General: The patient looks better than she did yesterday, although she still remains ill- appearing and she seems not quite as delirious as she was yesterday. Head, Eyes, Ears, Nose and Throat: There is no drainage from the nose or ears. Neck: The patient has a right-sided internal jugular vein dialysis catheter in place. Lungs: Clear to auscultation. Cardiovascular: Regular heart rate. Abdomen: Soft and nontender. Neurologic: The patient seems more alert today. She still did not talk and she did not follow requests to move her arms. Extremities: The left leg remains in a large splint with a dressing on it. LAB AND X-RAY: CBC today shows a white count of 42,690, hemoglobin 9, platelet count of 515,000. Creatinine 2.5. GFR 23. Two separate cultures from the patient's left foot are also growing oxacillin sensitive Staph aureus. ASSESSMENT AND PLAN: The patient has Staph aureus bacteremia and septic left foot, including an abscess and osteomyelitis. I plan to continue nafcillin. COMORBIDITIES: The patient is an elderly diabetic and she has end-stage renal disease. cc: MD Derik Terry MD
[2018-05-02] MEDS: LOVENOX SUBQ SCH (20:32)
[2018-05-02] MEDS: BASAGLAR SUBQ SCH (21:34)
[2018-05-03] MEDS: NAFCIL 2 GM in NS 100 ML IV SCH ×6 (01:28→20:59)
[2018-05-03] MEDS ORDERED: NS 2,000 ML MISC PRN (07:08)
[2018-05-03] MEDS ORDERED: HEPARIN IV PRN (07:08)
[2018-05-03] MEDS ORDERED: TIGHT: 0.2 ML/HR FOR DIALYSIS MISC PRN (07:08)
[2018-05-03 07:57] LABS: ALBUMIN 1.7 g/dL (3.5-5.0); CALCIUM 8.1 mg/dL (8.8-10.2); CREATININE 2.6 mg/dL (0.5-0.9); POTASSIUM 3.1 mmol/L (3.5-5.1)
[2018-05-03] MEDS: ALDACTONE PO SCH (09:57)
[2018-05-03] MEDS: PLAVIX PO SCH (09:57)
[2018-05-03] MEDS: ASPIRIN PO SCH (09:57)
[2018-05-03] MEDS: COREG PO SCH ×2 (09:57→20:58)
--- NOTE | 2018-05-03 13:00 | PROGRESS NOTE ---
DATE: 05/03/2018 Ms. Phillips is awake and alert. She followed some simple commands, including holding up 2 fingers. She spoke with low volume voice, but I could understand her words. She reports no headache and no other specific complaints now. She has possible baseline mild cognitive impairment. She has had neurologic workup, including imaging and lumbar puncture, all unremarkable. There is EEG that showed generalized slowing with some triphasic waves. No urgent suggestion from neurologic standpoint. cc: MD Derik Fountain III, MD MTDD
[2018-05-03] MEDS: LR 1,000 ML IV SCH (13:23)
--- NOTE | 2018-05-03 13:43 | NEPHROLOGY PROGRESS NOTE ---
DATE: 05/03/2018 TIME SEEN: 0812. SUBJECTIVE: Ms. Phillips is resting quietly in bed. She is more awake and alert today. She denies pain verbally. OBJECTIVE: Her most recent vital signs are temperature is 98, blood pressure 151/76, heart rate 98, respirations 14. She is on room air. Last recorded saturation 98%. She has had 562 in. She has 600 mL recorded out of her Cabello catheter. LABS: This a.m. sodium 146, potassium 3.1, chloride 104, CO2 of 24, BUN is 50, creatinine 2.6, glucose 86, anion gap of 24. Previous hemoglobin of 9 on the 7th. PHYSICAL EXAM: General: This is a 67-year-old, female. She is resting quietly in bed. She appears chronically ill though no acute distress. Skin: Warm and dry. HEENT: Normocephalic, atraumatic. Conjunctiva is pale pink. She has TRINH. Mucous membranes are dry. Neck: Supple, trachea midline. No evidence of JVD. The patient is lying supine. Cardiovascular: She is regular rate and rhythm. She is without murmur or gallop. Lungs: Clear to auscultation bilaterally. Equal excursion on O2. Abdomen: Large, round, soft, nontender. Positive bowel sounds. Genitourinary: Not inspected, Cabello catheter is in place with improved urinary output. Extremities: Has minimal to trace edema. Left foot continues with dressing dry and intact. Neurological: She is more awake and alert today. She is verbal and responds minimally appropriately with monosyllables. ASSESSMENT AND PLAN: 1. Acute kidney injury. The patient appears to be slowly improving. Her creatinine has remained stable at her baseline of 2.5 to 2.6. Her urine output has improved to 600 mL in the last 24 hours. We will hold dialysis today and monitor her labs and urine output in the a.m. 2. Electrolytes and acid-base balance. These are stable. 3. Anemia. This is improved, though patient has noted positive guaiac stool. We will defer to the primary care. 4. Left ankle surgery. Followed by Dr. Powers. 5. Antibiotics. Followed by Infectious Disease. I would like to thank you for allowing us to follow with this patient. Dictated by QUENTIN Lopez for Dominguez Dawson MD Face to face encounter, data reviewed, discussed with Dana White on 05/03/17. I agree with the above assessment and plan of care. cc: QUENTIN Lopez MD Allen J. Schmidt, MD [facility]
[2018-05-03] MEDS: PROTONIX IV SCH (16:14)
[2018-05-03 16:39] LABS: BASO# 0.06 X1000 (0.0-0.2); BASO% 0.2 % (0.0-0.8); EOS# 0.29 X1000 (0.0-0.7); EOS% 1.1 % (0.0-10.0); HEMATOCRIT 26.7 % (37.0-47.0); HEMOGLOBIN 8.5 g/dL (12.0-16.0); IMM GRAN# 0.48 X1000 (0.0-0.04); IMM GRAN% 1.8 % (0.0-0.5); LYMPH# 3.36 X1000 (1.2-3.4); LYMPH% 12.3 % (20.5-51.1); MCH 25.8 PG (27-31); MCHC 31.8 g/dL (33-37); MCV 81.2 FL (81-99); MONO# 1.36 X1000 (0.11-0.59); MPV 8.5 FL (7.4-10.4); NEUT# 21.73 X1000 (1.4-6.5); NEUT% 79.6 % (42.2-75.2); PLT 431 X1000 (130-400); RBC 3.29 XMIL (4.2-5.4); RDW 19.1 % (11.5-14.5); WBC 27.28 X1000 (4.8-10.8)
--- NOTE | 2018-05-03 18:38 | PROGRESS NOTE ---
DATE: 05/03/2018 SUBJECTIVE: Ms. Phillips is lying in bed. She is awake and alert at present. She is not complaining of any pain. OBJECTIVE: On left lower extremity exam, she is in a surgical splint. It is clean, dry, and intact. I do not see any surrounding erythema. She does still have some tenderness to palpation to the foot. She is able to wiggle the toes. LABORATORY DATA: On current laboratory data, her white count is down to 27.28. Hemoglobin and hematocrit 8.5 and 26.7. Platelet count is 431,000. BUN and creatinine 50 and 2.6. Left foot cultures on the final days show no anaerobes. Left foot culture from the OR does show Staphylococcus aureus. ASSESSMENT: Status post left foot irrigation and debridement to bone with left first and second metatarsal partial excision and antibiotic bead placement. PLAN: Ms. Phillips is overall doing better. She is more responsive and her white count is trending down. I am going to take her splint down first thing in the morning. If there is any erythema or fluctuance, we may decide to take her back to the OR for another irrigation and debridement. If everything is looking better after I take the splint down, will hold off on doing any further irrigation and debridement, and just continue on IV antibiotics. I am going to make her NPO at midnight and go ahead and get consent just in case we decide to do an irrigation and debridement tomorrow morning. We will reassess in the morning and make a decision. Dictated by QUENTIN Roman for Melecio Powers MD cc: QUENTIN Roman MD Allen J. Schmidt, MD
[2018-05-03] MEDS: LOVENOX SUBQ SCH (20:59)
[2018-05-03] MEDS: BASAGLAR SUBQ SCH (21:47)
[2018-05-04] MEDS: NAFCIL 2 GM in NS 100 ML IV SCH ×6 (00:59→21:03)
--- NOTE | 2018-05-04 01:30 | INFECTIOUS DISEASE PROGRESS NO ---
DATE: 05/03/2018 PRESENT ILLNESS: Ms. Phillips has an oxacillin-sensitive Staph aureus left foot abscess with osteomyelitis and bacteremia. She is status post left foot irrigation and debridement to bone, with first and second metatarsal partial excision. There is also a leukocytosis. MEDICATIONS: She is receiving nafcillin 2 g IV every 4 hours. Today is day 3 of treatment. PHYSICAL EXAMINATION: Vital Signs: Temperature is 97.6 degrees, pulse rate 76 , respiratory rate 14, blood pressure 171/79, O2 saturation is 94% on room air. General: This is a chronically ill- appearing, elderly female. She is lying in the bed in no acute distress. HEENT : Atraumatic, normocephalic. Oral mucous membranes are pink and moist. Conjunctivae are pink. She does have a right subconjunctival hemorrhage. Neck: Supple. Trachea is midline. Cardiovascular: Heart rate is regular. Right pedal and radial pulses are palpable. There is a large splint with Salty wrap to the left lower extremity. Respiratory: Lung sounds have some scattered rhonchi noted bilaterally. Abdomen: Soft, round, and nontender. Bowel sounds are active. Neurologic: She is awake and alert, but not speaking to me at this point. The nurses state she is talking at times. She will follow commands sporadically, but sometimes shakes her head no, when asked to do something. There is a right intrajugular Vas-Cath in place. Site is free of edema erythema or drainage. LABORATORY AND X-RAY: No CBC today, but there is one pending at this time. Creatinine today is 2.6 with a GFR of 22. Left foot and blood cultures have grown an oxacillin- sensitive Staph aureus. No imaging reports today. ASSESSMENT AND PLAN: Ms. Phillips has an oxacillin-sensitive Staphylococcus aureus bacteremia, as well as a left foot abscess with osteomyelitis followed by Dr. Powers. At this point we will continue her nafcillin as ordered. She will require 6 weeks of the nafcillin for the osteomyelitis, day 1 of treatment is day 1 of surgery, so that will make today day 3 of treatment for her osteomyelitis and bacteremia. She does have a significant leukocytosis. There is a tentative plan for another possible surgery with washout of that foot tomorrow by Dr. Powers. These plans have been discussed with and recommended by Dr. Layne. COMORBIDITIES: For Ms. Phillips include that she is elderly with diabetes mellitus and coronary artery disease, as well as acute kidney injury requiring hemodialysis on this admission. Dictated by QUENTIN Rodriguez for Gerald Layne MD This chart was documented by, QUENTIN Rodriguez and accurately reflects the services performed, treatment plan and medical decisions as attested by the providers signature Gerald Layne MD. cc: MD Derik Terry MD MTDD
[2018-05-04] MEDS: PLAVIX PO SCH (09:53)
[2018-05-04] MEDS: COREG PO SCH ×2 (09:53→21:04)
[2018-05-04] MEDS: ASPIRIN PO SCH (09:53)
[2018-05-04] MEDS: ALDACTONE PO SCH (09:53)
--- NOTE | 2018-05-04 10:13 | PROGRESS NOTE ---
DATE: 05/04/2018 SUBJECTIVE: Ms. Phillips is lying in bed this morning. She is actually fairly awake and responding appropriately even to verbal commands. OBJECTIVE: Left lower extremity exam: We took her splint down. Swelling and erythema was down, but there was still a little bit of drainage out of the wound itself. ASSESSMENT: Left osteomyelitis 1st and 2nd metatarsals, status post left foot irrigation and debridement. PLAN: I discussed with Ms. Phillips that we are going to wash her out 1 more time again today and will be about the same as the procedure we did this past Tuesday. I think her white count finally is going down. Hopefully, if we can get all that osteomyelitis resected then this foot can heal up. She will more than likely need a procedure down the road once the infection is completely cleared. It is becoming infused at the 1st and 2nd TMT joints. Today, we will plan on irrigation and debridement of the left foot. She is n.p.o. today, and we will get this done today. cc: MD Derik Dempsey MD
[2018-05-04 10:44] LABS: CALCIUM 7.7 mg/dL (8.8-10.2); CREATININE 2.8 mg/dL (0.5-0.9); PHOSPHORUS 4.7 mg/dL (2.7-4.5); POTASSIUM 3.2 mmol/L (3.5-5.1)
[2018-05-04] MEDS: LR 1,000 ML IV SCH (11:53)
--- NOTE | 2018-05-04 13:03 | PROGRESS NOTE ---
DATE: 05/04/2018 SUBJECTIVE: Ms. Phillips appeared to be sleeping peacefully. She was easily awakened and remained attentive during my time at the bedside. OBJECTIVE: General: She seems a little bit more alert and attentive. Her conversation is more spontaneous and appropriate. Neurologic: I do not find anything new neurologically. Thanks for asking us to see Ms. Phillips. cc: MD Derik Fountain III, MD
[2018-05-04] MEDS ORDERED: TOBRAMYCIN POWDER ONE (14:35)
[2018-05-04] MEDS ORDERED: VANCOMYCIN ONE (14:37)
[2018-05-04] MEDS ORDERED: DIPRIVAN 1% ONE (14:46)
[2018-05-04] MEDS ORDERED: FENTANYL ONE (14:46)
--- NOTE | 2018-05-04 15:00 | NEPHROLOGY PROGRESS NOTE ---
DATE: 05/04/2018 TIME SEEN: 0725. SUBJECTIVE: Ms. Phillips is resting quietly in bed. Head of the bed is mostly flat. She is on her side. The patient has stooled on herself at this time. She is in mild distress secondary to stooling. OBJECTIVE: Vital Signs: Temperature 97.8 degrees, blood pressure 142/67, heart rate 95, respirations 18. She is on room air. Last recorded saturation 97%. She has had 1160 in, 1525 out to Cabello catheter. LABORATORY DATA: Sodium 148, potassium 3.2, chloride 107, CO2 18, BUN 56, creatinine 2.8, glucose 132. Her anion gap is 23, calcium 7.7, phosphorus 4.7, albumin 2. The patient had a previous hemoglobin of 8.5 on 05/03/2018. PHYSICAL EXAMINATION: General: This is a 67-year-old female. She is resting quietly in bed. She is in moderate distress. HEENT: Normocephalic, atraumatic. Conjunctivae pale. She has TRINH. Mucous membranes are moist. Neck: Supple. Trachea midline. She has no evidence of JVD in the supine position. Cardiovascular: She is regular rate and rhythm. No murmur or gallop appreciated today. Lungs: Clear to auscultation anteriorly. Equal excursion on room air. Abdomen: Soft, nontender. Positive bowel sounds. Genitourinary: Not inspected. Cabello catheter is in place. Extremities: No edema. No clubbing or cyanosis. Her left foot continues in an Salty bandage. Unable to identify her left great toe in the position where she is at. Right lower extremity has no edema. Neurological: The patient is awake to person. ASSESSMENT AND PLAN: 1. Acute kidney injury. The patient's creatinine and BUN have continued to slowly improve over the last 72 hours. Creatinine is currently at 2.8. BUN remains stable. Adequate urine out. 2. Electrolytes and acid-base balance. These are fairly stable. 3. Anemia. This remains stable. Recent surgery on the left foot. This continues to be followed by Dr. Powers. 4. Leukocytosis. The patient continues on antibiotics, followed by Infectious Disease. I would like to thank you for allowing us to follow with this patient. Dictated by QUENTIN Lopez for Dominguez Dawson MD Face to face encounter, data reviewed, discussed with Dana White on 05/04/18. I agree with the above assessment and plan of care. cc: QUENTIN Lopez MD Allen J. Schmidt, MD [facility]
[2018-05-04] MEDS ORDERED: NEO-SYNEPHRINE ONE (16:04)
[2018-05-04] MEDS ORDERED: XYLOCAINE-MPF 2% ONE (16:05)
[2018-05-04] MEDS ORDERED: MORPHINE ONE ×2 (16:27→16:48)
[2018-05-04] MEDS: PROTONIX IV SCH (17:34)
[2018-05-04] MEDS ORDERED: CLINIMIX E 4.25%-5% SOLUTION 1,000 ML IV SCH (18:45)
[2018-05-04] MEDS ORDERED: LIPOSYN 20% 250 ML IV SCH (20:00)
[2018-05-04] MEDS: LOVENOX SUBQ SCH (21:03)
[2018-05-04] MEDS: BASAGLAR SUBQ SCH (21:04)
[2018-05-05] MEDS: NAFCIL 2 GM in NS 100 ML IV SCH ×6 (00:58→21:59)
--- NOTE | 2018-05-05 04:33 | OPERATIVE NOTE ---
PROCEDURE DATE: 05/04/2018 PREOPERATIVE DIAGNOSES: 1. Left 1st and 2nd metatarsal osteomyelitis. 2. Left foot abscess. POSTOPERATIVE DIAGNOSES: 1. Left 1st and 2nd metatarsal osteomyelitis. 2. Left foot abscess. PROCEDURES: 1. Left 1st and 2nd partial excision metatarsal. 2. Left foot irrigation and debridement all the way to bone. SURGEON: Dr. Melecio Powers TEST ENGINEERING TECHNICIAN: QUENTIN Roman who was an integral part of the case helping with all aspects of the case, helping increase our OR efficiency greatly. ANESTHESIA: General with LMA. TOURNIQUET TIME: Less than an hour. IMPLANTS: Dissolvable antibiotic beads with tobramycin and vancomycin. DISPOSITION: To PACU hemodynamically stable. INDICATIONS FOR PROCEDURE: The patient is a 67-year-old female who I have operated on just several days ago for abscess, and took her back today for another irrigation debridement since there was still some purulence at the site. We discussed with her family about irrigation and debridement, and expressed understanding and wished to proceed. DESCRIPTION OF PROCEDURE: Ms. Phillips was identified in the preoperative holding area. The left foot was marked as correct surgical site. She was then wheeled to the operating room, placed supine on the operating table. All bony prominences were well padded. She was induced under general anesthesia. LMA was placed. No tourniquet was placed to the thigh. The foot was prepped with chlorhexidine, gluconate scrub and then ChloraPrep, and draped in normal sterile fashion. Surgical pause was performed. We identified the correct patient, correct side, and the correct procedure. Preop antibiotics were given. Esmarch was used as the tourniquet at the level of the calf. We did not Esmarch the foot. We took out her nylon sutures. I opened up that incision. There was some pus at the most superior aspect and so we extended that incision up a little bit, and there was another pocket of abscess that extended proximally in the soft tissue. We did not go deep. There was not a pocket there so we drained all that out to curette, and curetted that whole area out. Wound curetted around both first and 2nd metatarsals and took more bone. I saucerized that area to try to get rid of all the osteomyelitis and infection that is there. Once we had a very thorough debridement, we then irrigated everything copiously with normal saline. Her skin was a little bit necrotic right in the middle as well so we removed that necrotic skin which left a decent sized hole on the dorsal aspect of her foot. We put a Bausch wet-to-dry there. We then mixed the antibiotic beads with vancomycin and tobramycin, and packed those up in that abscessed area and then down in both 1st and 2nd metatarsal areas. I then used a Lisa wet-to-dry over the exposed area, and then 4x4s, ABD, soft roll and a posterior splint was applied. The tourniquet was let down. She had a good capillary refill return to the toes. She was then awoke from general anesthesia, moved her own bed, and taken to PACU in stable condition. Postop, she will be nonweightbearing left lower extremity. She will still be on IV antibiotics per Infectious Disease. cc: MD Derik Dempsey MD
--- NOTE | 2018-05-05 05:23 | INFECTIOUS DISEASE PROGRESS NO ---
DATE: 05/04/2018 PRESENT ILLNESS: Ms. Phillips has been treated for an oxacillin-sensitive Staph aureus, left foot abscess with osteomyelitis. She has just returned from a left foot irrigation and debridement to the bone, which is the second surgery she has had on her foot since this admission. There is also an oxacillin- sensitive Staph aureus bacteremia as well as a leukocytosis. MEDICATIONS: Because of her surgery, today will be day 1 of her treatment. She is receiving nafcillin 2 g IV every 4 hours. PHYSICAL EXAM: Vital Signs: Temperature is 98.2 degrees, pulse rate 84, respiratory rate 12, blood pressure 111/71, O2 saturation is 95% on room air. General: This is a chronically ill-appearing, elderly female. She is lying in the bed, currently in no acute distress. HEENT : Atraumatic, normocephalic. Oral mucous membranes are pink and moist. Conjunctivae are pale. Neck: Supple. Trachea is midline. There is a right inner jugular Vas-Cath in place without any edema, erythema, or drainage to the site. Cardiovascular: Heart rate is regular. Respiratory: Lung sounds are clear to auscultation in the upper lobes. Diminished in the bases. Abdomen: Soft, obese, and nontender. Bowel sounds are active. Extremities: There is a large splint with an Salty wrap to the left lower extremity. She also has a notable darkened area to her right heel, which is a suspected deep tissue injury. Neurological: She is awake and alert. She is maintaining eye contact and says a few words, which are unintelligible. Mostly, she is shaking her head no when I ask her to do something, but will occasionally follow commands. LABORATORY AND X-RAY: Yesterday afternoon, her white count was 27.28, hemoglobin 8.5, platelet count 431,000. Today her creatinine is 2.8. GFR 20. Her left foot and blood cultures have both grown an oxacillin-sensitive Staph aureus. No imaging reports today. ASSESSMENT AND PLAN: Ms. Phillips has oxacillin-sensitive Staphylococcus aureus bacteremia as well as a left foot abscess with osteomyelitis that has had [address] Powers[address] We will continue her nafcillin as ordered, which she will need 6 weeks of. Day 1 of treatment will be today since this is her second surgery day. There has been a significant leukocytosis which seems to be trending downward. We will see what tomorrow's blood work shows. These plans have been discussed with and recommended by Dr. Layne. COMORBIDITIES: For Ms. Phillips include that she is elderly with diabetes mellitus and coronary artery disease as well as acute kidney injury with hemodialysis on this admission. Dictated by QUENTIN Rodriguez for Gerald Layne MD This chart was documented by, QUENTIN Rodriguez and accurately reflects the services performed, treatment plan and medical decisions as attested by the providers signature Gerald Layne MD. cc: MD Derik Terry MD MTDD
[2018-05-05] MEDS ORDERED: LR 1,000 ML IV SCH (05:45)
[2018-05-05 07:02] LABS: BASO# 0.05 X1000 (0.0-0.2); BASO% 0.2 % (0.0-0.8); EOS% 1.4 % (0.0-10.0); HEMATOCRIT 25.6 % (37.0-47.0); IMM GRAN# 0.26 X1000 (0.0-0.04); IMM GRAN% 1.2 % (0.0-0.5); LYMPH# 2.73 X1000 (1.2-3.4); LYMPH% 12.6 % (20.5-51.1); MCHC 31.3 g/dL (33-37); MCV 83.1 FL (81-99); MONO# 0.84 X1000 (0.11-0.59); MONO% 3.9 % (1.7-9.3); MPV 8.8 FL (7.4-10.4); NEUT# 17.45 X1000 (1.4-6.5); NEUT% 80.7 % (42.2-75.2); PLT 360 X1000 (130-400); RBC 3.08 XMIL (4.2-5.4); RDW 20.7 % (11.5-14.5); WBC 21.63 X1000 (4.8-10.8)
[2018-05-05 07:29] LABS: ALBUMIN 1.7 g/dL (3.5-5.0); CREATININE 2.7 mg/dL (0.5-0.9); PHOSPHORUS 4.7 mg/dL (2.7-4.5); POTASSIUM 2.7 mmol/L (3.5-5.1)
--- NOTE | 2018-05-05 07:56 | PROGRESS NOTE ---
DATE: 05/05/2018 SUBJECTIVE DATA: Ms. Phillips is laying in bed. She is more alert this morning, but still minimally verbally responsive. She does not appear to be in any pain. OBJECTIVE DATA: Left lower extremity exam: The surgical splint is clean, dry, and intact. She is able to wiggle those toes on command. She does nod her head yes that she can feel me touching the toes. The right lower extremity has a necrotic heel ulcer. There is no erythema or drainage noted. ASSESSMENT: Status post left first and second partial excision metatarsal, and left foot irrigation, debridement all the way to bone. PLAN: We are going to continue her in the splint for now. We will plan to take the splint down in a couple of days and possibly even wash her out again on Tuesday. She did still have some purulent drainage in the foot when we washed her out yesterday. We are going to keep a close eye on that. It is possible that amputation may be a possibility to completely clear the infection. For that right heel, we are going to try and keep the heels elevated, and also put her in a waffle boot. We will continue to follow her. Dictated by QUENTIN Roman for Melecio Powers MD cc: QUENTIN Roman MD Allen J. Schmidt, MD
[2018-05-05] MEDS ORDERED: POTASSIUM CHLORIDE 40 MEQ/SWI 40 MEQ/100 ML IVPB IV ONE (08:45)
[2018-05-05] MEDS: PLAVIX PO SCH (08:47)
[2018-05-05] MEDS: COREG PO SCH ×2 (08:47→21:58)
[2018-05-05] MEDS: ASPIRIN PO SCH (08:47)
[2018-05-05 08:55] LABS: INR 1.22; PROTIME 16.3 Seconds (11.0-16.0)
--- NOTE | 2018-05-05 11:11 | NEPHROLOGY PROGRESS NOTE ---
DATE: 05/05/2018 SUBJECTIVE: She is lying in bed. She is more alert today and talking to me but difficult to understand and off point. OBJECTIVE: Vital signs: Blood pressure 151/72, heart rate 89, respiration 18, afebrile. Intake 2 L, output 600 mL. General: In no acute distress. Skin: Warm and dry. HEENT: Conjunctivae are pink. Neck: Neck veins are not distended. Heart: Regular with systolic murmur. Lungs: Equal with rhonchi. Abdomen: Soft, nontender, bowel sounds present. Extremities: With no edema, clubbing or cyanosis. IMPRESSION: 1. Acute kidney injury. Her creatinine has been stable over the last several days and her urine output has improved. She actually removed her Vas-Cath herself overnight, no immediate complications. She has no ongoing bleeding. We will leave the Vas-Cath out for now and hold dialysis. 2. Electrolytes/acid-base. Significant hypokalemia has been addressed by Dr. Akers. 3. Acid-base in target. cc: MD Derik Jarquin MD
[2018-05-05] MEDS ORDERED: NS 250 ML ONE (12:44)
[2018-05-05] MEDS: D5 LR + KCL 20 MEQ 1,000 ML IV SCH (14:34)
[2018-05-05] MEDS: PROTONIX IV SCH (14:44)
--- NOTE | 2018-05-05 20:12 | INFECTIOUS DISEASE PROGRESS NO ---
DATE: 05/05/2018 PRESENT ILLNESS: Ms Phillips has an oxacillin sensitive Staph aureus osteomyelitis to the left foot as well as a bacteremia with leukocytosis. She has had 2 irrigation and debridements to the bone to that left foot on this admission. MEDICATIONS: Today is day 2 of her treatment based on her last surgery. She is receiving nafcillin 2 g IV every 4 hours. PHYSICAL EXAM: Vital Signs: Temperature is 97.6 degrees, pulse rate 89, respiratory rate 18, blood pressure 151/72, O2 saturations 98% on room air. General: This is a chronically ill- appearing elderly female. She is lying in bed pulling off her gown and trying to pull out her PICC line. HEENT: Atraumatic, normocephalic. Oral mucous membranes are pink and moist. Conjunctivae are pale. Neck: Supple. Trachea is midline. During the night last night she pulled out the Vas-Cath that was in her right neck and at this point there is a PICC line in place to the right upper arm which is wrapped with Kerlix to keep her from removing it. When I enter the room she had her hands on the ends of the catheters trying to pull the PICC line out. Cardiovascular: Heart rate is regular. Respiratory: Lung sounds clear to auscultation in the upper lobes, diminished with some rhonchi scattered in the mid and bases. Abdomen: Soft, obese and nontender. Bowel sounds are active. Integumentary: She has a large Salty wrap splint to the left lower extremity. There is also a darkened area to her right heel which is a suspected deep tissue injury. Neurologic: She is awake, alert and apparently confused. She is nonverbal and shakes her head no when I ask her to do something. She does maintain eye contact. LABORATORY AND X-RAY: Today her white count is 21.63, hemoglobin 8, platelet count 360,000, creatinine is 2.7, GFR 21. Her left foot and previous blood cultures have grown an oxacillin sensitive Staph aureus. No imaging reports today. ASSESSMENT AND PLAN: Ms Phillips is being treated for an oxacillin sensitive Staph aureus bacteremia and left foot osteomyelitis. She is on day 2 of nafcillin which we will continue. She will need 6 weeks for her osteomyelitis. The leukocytosis continues to trend downward. The patient seems to be more confused today. These plans have been discussed with and recommended by Dr. Layne. COMORBIDITIES: Include that she is elderly with diabetes mellitus, coronary artery disease as well as acute kidney injury with hemodialysis on this admission. Dictated by QUENTIN Rodriguez for Gerald Layne MD This chart was documented by, QUENTIN Rodriguez and accurately reflects the services performed, treatment plan and medical decisions as attested by the providers signature Gerald Layne MD. cc: MD Derik Terry MD [facility]
[2018-05-05] MEDS: LOVENOX SUBQ SCH (22:00)
[2018-05-05] MEDS: BASAGLAR SUBQ SCH (22:00)
[2018-05-06] MEDS: NAFCIL 2 GM in NS 100 ML IV SCH ×5 (00:42→16:31)
[2018-05-06] MEDS: D5 LR + KCL 20 MEQ 1,000 ML IV SCH (02:56)
[2018-05-06 07:42] LABS: ALBUMIN 1.6 g/dL (3.5-5.0); CALCIUM 7.8 mg/dL (8.8-10.2); CREATININE 2.3 mg/dL (0.5-0.9); PHOSPHORUS 3.2 mg/dL (2.7-4.5); POTASSIUM 2.7 mmol/L (3.5-5.1)
[2018-05-06] MEDS: PLAVIX PO SCH ×2 (08:52→11:47)
[2018-05-06] MEDS: COREG PO SCH ×2 (08:52→08:56)
[2018-05-06] MEDS: ASPIRIN PO SCH ×2 (08:52→11:46)
[2018-05-06] MEDS ORDERED: POTASSIUM CHLORIDE IV ONE (10:01)
[2018-05-06] MEDS ORDERED: D5W IV ONE (10:01)
[2018-05-06] MEDS ORDERED: MAGNESIUM SULFATE IV ONE (10:01)
[2018-05-06] MEDS: POTASSIUM CHLORIDE 20 MEQ/SWI 20 MEQ/100 ML IVPB IV SCH ×3 (12:47→17:29)
[2018-05-06] MEDS: D5W 1,000 ML IV SCH (12:47)
--- NOTE | 2018-05-06 14:27 | NEPHROLOGY PROGRESS NOTE ---
DATE: 05/06/2018 SUBJECTIVE: She is easily arousable. She states she is feeling well today. No complaints. No shortness of breath, nausea or vomiting. OBJECTIVE: Blood pressure 180/72, heart rate 92, respiratory rate 18 and afebrile. General: No acute distress. Skin: Warm and dry. HEENT: Conjunctivae are pink. Neck: Neck veins are not distended. Heart: Regular. No gallops. Lungs: Equal without crackles. Abdomen: Soft and nontender. Bowel sounds present. Extremities: 2+ edema. No clubbing or cyanosis. IMPRESSION: 1. Acute kidney injury overlying chronic kidney disease secondary to diabetes. BUN and creatinine continue to improve. Her Vas cath has been removed. 2. Electrolytes: Will replace her potassium and change IV fluids D5 water at 75 mL per hour. Acid base and target. cc: MD Derik Jarquin MD
[2018-05-06] MEDS ORDERED: INSULIN PEN NEEDLES ONE (14:31)
[2018-05-06] MEDS: HUMULIN R SUBQ SCH ×2 (15:33→18:30)
[2018-05-06] MEDS: PROTONIX IV SCH (15:45)
[2018-05-07] MEDS: NAFCIL 2 GM in NS 100 ML IV SCH ×7 (00:28→23:17)
[2018-05-07] MEDS: BASAGLAR SUBQ SCH ×2 (00:29→20:11)
[2018-05-07] MEDS: COREG PO SCH ×3 (00:30→20:11)
[2018-05-07] MEDS: HUMULIN R SUBQ SCH ×5 (00:30→20:09)
[2018-05-07] MEDS: LOVENOX SUBQ SCH ×2 (00:30→20:11)
[2018-05-07] MEDS: D5W 1,000 ML IV SCH ×2 (01:18→14:52)
[2018-05-07 07:27] LABS: BASO# 0.04 X1000 (0.0-0.2); BASO% 0.3 % (0.0-0.8); EOS# 0.12 X1000 (0.0-0.7); EOS% 0.8 % (0.0-10.0); HEMATOCRIT 26.5 % (37.0-47.0); HEMOGLOBIN 8.4 g/dL (12.0-16.0); IMM GRAN# 0.11 X1000 (0.0-0.04); IMM GRAN% 0.7 % (0.0-0.5); LYMPH# 2.25 X1000 (1.2-3.4); LYMPH% 14.1 % (20.5-51.1); MCH 26.8 PG (27-31); MCHC 31.7 g/dL (33-37); MCV 84.4 FL (81-99); MONO% 4.4 % (1.7-9.3); MPV 9.8 FL (7.4-10.4); NEUT# 12.69 X1000 (1.4-6.5); NEUT% 79.7 % (42.2-75.2); PLT 360 X1000 (130-400); RBC 3.14 XMIL (4.2-5.4); RDW 21.4 % (11.5-14.5); WBC 15.91 X1000 (4.8-10.8)
[2018-05-07 08:06] LABS: ALBUMIN 1.8 g/dL (3.5-5.0); CALCIUM 8.2 mg/dL (8.8-10.2); MAGNESIUM 1.7 mg/dL (1.5-2.7); PHOSPHORUS 2.7 mg/dL (2.7-4.5); POTASSIUM 2.8 mmol/L (3.5-5.1)
[2018-05-07] MEDS ORDERED: POTASSIUM CHLORIDE IV SCH (09:15)
[2018-05-07] MEDS ORDERED: D5W IV SCH (09:15)
[2018-05-07] MEDS ORDERED: MAGNESIUM SULFATE IV SCH (09:15)
[2018-05-07] MEDS ORDERED: MAGNESIUM SULFATE 1 GM/D5W 1 GM/100 ML IVPB IV ONE (10:00)
[2018-05-07 10:22] LABS: INR 1.14; PROTIME 15.5 Seconds (11.0-16.0)
[2018-05-07] MEDS: POTASSIUM CHLORIDE 20 MEQ/SWI 20 MEQ/100 ML IVPB IV SCH ×5 (10:27→23:21)
[2018-05-07] MEDS: PLAVIX PO SCH (11:14)
[2018-05-07] MEDS: ASPIRIN PO SCH (11:14)
[2018-05-07] MEDS ORDERED: NS 250 ML ONE (12:50)
[2018-05-07] MEDS: PROTONIX IV SCH (14:54)
[2018-05-08] MEDS: D5W 1,000 ML IV SCH ×3 (01:30→16:59)
[2018-05-08] MEDS: NAFCIL 2 GM in NS 100 ML IV SCH ×5 (02:08→21:34)
[2018-05-08] MEDS: HUMULIN R SUBQ SCH ×4 (06:54→21:51)
--- NOTE | 2018-05-08 06:54 | PROGRESS NOTE ---
DATE: 05/08/2018 SUBJECTIVE: Ms. Phillips is lying in bed this morning. She does respond pretty well now all to verbal cues. OBJECTIVE: Left lower extremity exam: Dressing is clean, dry, and intact. She is able to move the toes really well. She has good sensation to light touch to the toes. ASSESSMENT: 1. Left foot abscess. 2. Left first and second metatarsal osteomyelitis. PLAN: I discussed with Ms. Phillisp about the foot. I am not sure how much she comprehended, but will try to take her dressing down today and get Wound Care involved as well, and start with a wound VAC. We may end up having to do that in the OR, to change her wound VAC, if she cannot tolerate it at bedside. cc: MD Derik Dempsey MD
[2018-05-08] MEDS: PLAVIX PO SCH ×2 (10:52→10:56)
[2018-05-08] MEDS: COREG PO SCH ×3 (10:52→21:41)
[2018-05-08] MEDS: ASPIRIN PO SCH ×2 (10:52→10:55)
--- NOTE | 2018-05-08 13:20 | NEPHROLOGY PROGRESS NOTE ---
DATE: 05/08/2018 SUBJECTIVE: Patient resting in bed. She awakens easily, when I say her name. OBJECTIVE: Vital Signs: Temperature 99 degrees, pulse 86, respiratory rate 18 , blood pressure 160/70. Intake 1.4 L. Output 1.9 L. General: This is an elderly female resting in bed. Awake and alert. She is in no acute distress. No complaints. HEENT: Normocephalic , atraumatic. TRINH. Oral mucosa moist. Neck: Supple. She has a dressing to the right neck , where she pulled out a central line. Cardiovascular: Regular rate and rhythm. Pulmonary: She has decreased breath sounds and scattered rhonchi, but no wheeze. Abdomen: Soft, with positive bowel sounds. : Not inspected. Extremities: She has Salty wrap to the left lower extremity. Trace edema. Integumentary: Skin is warm and dry. LAB DATA: WBC of 15.9, hemoglobin 8.4. Sodium 153, potassium 2.8, creatinine 2.0. ASSESSMENT AND PLAN: 1. Acute kidney injury. Her renal function has been stable and slightly improved over the weekend. She has adequate urine output. She has no indications for intervention from a renal perspective other than her current treatment plan. 2. Electrolytes, acid-base balance anemia. She does have some modest anemia, but this is stable. Continue to monitor. 3. Hypernatremia. She is on D5. This is not improved in any way. Continue to monitor. 4. Hypertension. She has not had her morning medications at the time of the exam. Dictated by QUENTIN Islas for Dominguez Dawson MD Face to face encounter, data reviewed, discussed with Sha Cleary on 05/08/18. I agree with the above assessment and plan of care. cc: MD Derik Jarquin MD MTDD
[2018-05-08] MEDS: PROTONIX IV SCH (17:05)
[2018-05-08] MEDS: BASAGLAR SUBQ SCH (21:39)
[2018-05-08] MEDS: LOVENOX SUBQ SCH (21:39)
--- NOTE | 2018-05-08 22:47 | INFECTIOUS DISEASE PROGRESS NO ---
DATE: 05/08/2018 PRESENT ILLNESS: The patient has an oxacillin sensitive Staph aureus osteomyelitis and abscess of the left foot with a wound with an accompanying bacteremia. She has had 2 irrigation and debridements of the left foot. MEDICATION: This is day 5 of treatment with the last surgery being the first day of treatment. She is on high-dose nafcillin. PHYSICAL EXAMINATION: Vital Signs: Temperature is 98.4 degrees, pulse 63, respirations 14, blood pressure 148/70. General: This is a somewhat ill-appearing, elderly female. She is lethargic but more coherent than she has been in the past. Head/eyes/ears/nose/throat: She can hear my spoken words and see near objects. She does not have any white patches on her tongue. Neck: No stiffness. Lungs: Clear to auscultation. Cardiovascular: Heart rate is regular. Abdomen: Soft and nontender. Extremities: The patient has a large dressing on the left leg. The dressing is intact. The patient has a PICC in place and that site is not draining or swollen. LAB AND X-RAY: There is no new radiographic study. CBC for today shows a white count of 15,910, hemoglobin 8.4 and platelet count 360,000. Creatinine is 2. GFR is 30. ASSESSMENT AND PLAN: The patient has Staph bacteremia with left foot osteomyelitis and abscess. This is the 5th day of treatment with nafcillin. The patient will need a total of 6 weeks of treatment. COMORBIDITIES: The patient is elderly and she has diabetes mellitus as well as acute kidney injury. cc: MD Derik Terry MD
[2018-05-09] MEDS: NAFCIL 2 GM in NS 100 ML IV SCH ×6 (00:25→20:05)
[2018-05-09] MEDS: HUMULIN R SUBQ SCH ×4 (06:04→21:12)
[2018-05-09 07:28] LABS: BASO# 0.05 X1000 (0.0-0.2); BASO% 0.4 % (0.0-0.8); EOS# 0.24 X1000 (0.0-0.7); HEMATOCRIT 25.1 % (37.0-47.0); HEMOGLOBIN 7.6 g/dL (12.0-16.0); IMM GRAN# 0.04 X1000 (0.0-0.04); IMM GRAN% 0.3 % (0.0-0.5); LYMPH# 2.36 X1000 (1.2-3.4); LYMPH% 19.5 % (20.5-51.1); MCH 25.4 PG (27-31); MCHC 30.3 g/dL (33-37); MCV 83.9 FL (81-99); MONO# 0.56 X1000 (0.11-0.59); MONO% 4.6 % (1.7-9.3); MPV 9.6 FL (7.4-10.4); NEUT# 8.83 X1000 (1.4-6.5); NEUT% 73.2 % (42.2-75.2); PLT 319 X1000 (130-400); RBC 2.99 XMIL (4.2-5.4); WBC 12.08 X1000 (4.8-10.8)
[2018-05-09 07:40] LABS: CREATININE 1.8 mg/dL (0.5-0.9); POTASSIUM 2.6 mmol/L (3.5-5.1)
--- NOTE | 2018-05-09 08:02 | PROGRESS NOTE ---
DATE: 05/09/2018 SUBJECTIVE DATA: Ms. Phillips is laying in bed. She is much more responsive this morning. She did not answer my questions appropriately, but she did respond to verbal stimulation. She also did talk some this morning. OBJECTIVE DATA: Left lower extremity exam: I took the dressing down. Everything was clean, dry, and intact. The wound has not made much progress. There is no granulation tissue. There still tendons exposed. I did not see any purulent drainage. There was no surrounding erythema. I did not feel any areas of fluctuance. She was still worker helper to palpation on the foot. LABORATORY DATA: Her white count is down to 12.08, her hemoglobin and hematocrit are down this morning to 7.6 and 25.1. Her platelet count is 319. Her BUN and creatinine is 29 and 1.8. ASSESSMENT: Status post irrigation, debridement to bone, left foot. PLAN: The question is do we need to take Ms. Phillips back to the OR and wash her out, or go ahead and consider placing a wound VAC. I am going to get in contact with Florence, who will be the Wound Care nurse again today. We will get her input as well. Dr. Powers is going to come take a look at the wound and then make a decision as well. I think overall the foot itself seems to be improving as far as infection. Her labs have certainly improved. We will make a decision whether we need to take her out to the OR and wash her out and place the wound VAC there, of if she can tolerate at the bedside. Dictated by QUENTIN Roman for Melecio Powers MD cc: QUENTIN Roman MD Allen J. Schmidt, MD
[2018-05-09] MEDS: PLAVIX PO SCH (09:11)
[2018-05-09] MEDS: COREG PO SCH ×2 (09:11→21:10)
[2018-05-09] MEDS: ASPIRIN PO SCH (09:11)
[2018-05-09] MEDS: D5W + KCL 20 MEQ 1,000 ML IV SCH (10:54)
[2018-05-09] MEDS: POTASSIUM CHLORIDE 20 MEQ/SWI 20 MEQ/100 ML IVPB IV SCH ×2 (13:27→15:47)
--- NOTE | 2018-05-09 15:07 | NEPHROLOGY PROGRESS NOTE ---
DATE: 05/09/2018 TIME SEEN: 0820. SUBJECTIVE: Patient resting in bed. She is drowsy. No distress. OBJECTIVE: Vital Signs: Temperature 97.5, pulse 82, respiratory rate 14, blood pressure 164/78. Intake 1.2 L. Output 9 mL. PHYSICAL EXAMINATION: General: This is an elderly female, resting in bed. She is awake and alert. She is a bit drowsy. HEENT: Normocephalic, atraumatic. TRINH. Oral mucosa moist. Neck: Supple. No JVD. Cardiovascular: Regular rate and rhythm. Pulmonary: Clear bilaterally. Decreased breath sounds. Abdomen: Soft, positive bowel sounds. : Not inspected. Cabello catheter. Extremities: Salty wrap left lower extremity. Continues with trace edema. Integumentary: Skin is warm and dry. LAB DATA: WBC of 12.0. Sodium 148, potassium 2.6. CO2 of 27, creatinine 1.8. ASSESSMENT AND PLAN: 1. Acute kidney injury. Renal function has been stable. Her urine output does not appear to include all of her output. She has had excellent output over the last several days. She has no indications for intervention otherwise. We will sign off. rg 2. Hypernatremia, improved. Continue with D5. Dictated by UQENTIN Islas for Dominguez Dawson MD Face to face encounter, data reviewed, discussed with Sha Cleary on 05/09/17. I agree with the above assessment and plan of care. rg cc: MD Derik Jarquin MD [facility]
[2018-05-09] MEDS: PROTONIX IV SCH (15:49)
[2018-05-09] MEDS: BASAGLAR SUBQ SCH (21:10)
[2018-05-09] MEDS: LOVENOX SUBQ SCH (21:17)
--- NOTE | 2018-05-09 22:31 | INFECTIOUS DISEASE PROGRESS NO ---
DATE: 05/09/2018 PRESENT ILLNESS: Ms. Phillips has an oxacillin sensitive Staph aureus osteomyelitis to her left foot as well as an associated bacteremia. She has had 2 separate irrigation debridements down to the bone on this admission. MEDICATIONS: Today is day 5 of treatment with the last surgery being day 1. She is taking nafcillin 2 g IV every 4 hours. PHYSICAL EXAMINATION: Vital Signs: Temperature is 98.4 degrees, pulse rate 86 , respiratory rate 14, blood pressure 165/65, O2 saturation is 96% on room air. General: This is a chronically ill- appearing elderly female. She is lying in the bed with wrist restraints in place. No acute distress. HEENT: Atraumatic, normocephalic. Conjunctivae are pale. She refuses to open her mouth. Respiratory: Lung sounds have coarse rhonchi noted bilaterally. Diminished in the bases. Cardiovascular: Heart rate is regular. She has generalized edema noted to upper and lower extremities. There is a offloading boot to the right lower extremity as well as a Salty wrap splint covering her left lower extremity with a wound VAC underneath. There is a PICC line in the right upper arm with site free of edema, erythema or drainage. Abdomen: Soft, obese and nontender. Bowel sounds are active. Neurologic: She is awake, alert but with minimal verbalization, she does follow commands at times but other times does not. No tremors noted. LABORATORY AND X-RAY: Today her white count is 12.08, hemoglobin 7.6, platelet count 319,000, creatinine is 1.8, GFR is 34. She has grown oxacillin sensitive Staph aureus to her left foot and 2 separate blood cultures as well. ASSESSMENT AND PLAN: Ms. Phillips is on day 5 of her treatment for her oxacillin sensitive Staph aureus osteomyelitis and bacteremia. She will need a total of 6 weeks of treatment with nafcillin. These plans have been discussed with and recommended by Dr. Layne. COMORBIDITIES: Include that she is elderly and somewhat confused and uncooperative, with diabetes mellitus and acute kidney injury. Dictated by QUENTIN Rodriguez for Gerald Layne MD This chart was documented by, QUENTIN Rodriguez and accurately reflects the services performed, treatment plan and medical decisions as attested by the providers signature Gerald Layne MD. cc: MD Derik Terry MD [facility]
[2018-05-10] MEDS: NAFCIL 2 GM in NS 100 ML IV SCH ×7 (01:30→22:48)
[2018-05-10] MEDS: HUMULIN R SUBQ SCH ×4 (06:26→22:48)
[2018-05-10] MEDS: COREG PO SCH ×2 (09:20→22:48)
[2018-05-10] MEDS: PLAVIX PO SCH (09:20)
[2018-05-10] MEDS: ASPIRIN PO SCH (09:20)
--- NOTE | 2018-05-10 10:21 | PROGRESS NOTE ---
DATE: 05/10/2018 SUBJECTIVE DATA: The patient is laying in bed. She does not appear to be in any pain. She is very awake and alert, although still not quite appropriate. OBJECTIVE DATA: Left lower extremity exam: Today, the wound VAC is in place. It is secure and to suction. It is maintaining -125 pressure. Yesterday before we placed the wound VAC, the wound did have exposed tendons and muscle. There was no surrounding erythema and very minimal drainage. You could see the antibiotic beads that we placed during surgery. The wound was measured 10 cm x 6 cm x 2 cm deep. There was no granulation tissue. ASSESSMENT: Status post left foot irrigation, debridement to bone with placement of antibiotic beads. PLAN: We placed a wound VAC yesterday. That seems to be doing well. From what I can tell, there is no surrounding erythema or drainage. She has very minimal swelling. We are going to continue the wound VAC for a couple of days. Florence with Wound Care has been out. I will get in contact with her when she is back. We will plan to take the dressing down probably Tuesday to reassess everything, and probably put another wound VAC on at that point if the wound has made some progress. There probably will be a time we will have to go back to the OR eventually. We are going to see if we can give this wound a chance to do some healing prior to that. We will continue to follow her while she is in the hospital. Dictated by QUENTIN Roman for Melecio Powers MD cc: QUENTIN Roman MD Allen J. Schmidt, MD
[2018-05-10] MEDS: D5W + KCL 20 MEQ 1,000 ML IV SCH (11:37)
[2018-05-10] MEDS: PROTONIX IV SCH (15:00)
--- NOTE | 2018-05-10 19:03 | Diag Imaging Result Doc PS360 ---
MOSHEB ABDOMEN - 05/10/2018 INDICATION: feeding tube placement COMPARISON: 04/29/2018 FINDINGS: There is a weighted feeding tube with the tip in the gastric fundus. IMPRESSION: Feeding tube in good position. Electronically signed by Ronny Perrin 05/10/2018 7:01 PM
[2018-05-10] MEDS: BASAGLAR SUBQ SCH (22:48)
[2018-05-10] MEDS: LOVENOX SUBQ SCH (22:49)
[2018-05-11] MEDS: NAFCIL 2 GM in NS 100 ML IV SCH ×5 (03:10→18:05)
[2018-05-11] MEDS: D5W + KCL 20 MEQ 1,000 ML IV SCH ×3 (03:10→17:55)
--- NOTE | 2018-05-11 06:15 | INFECTIOUS DISEASE PROGRESS NO ---
DATE: 05/10/2018 PRESENT ILLNESS: Ms. Phillips has an oxacillin-sensitive Staph aureus osteomyelitis to the left foot, and is status post 2 irrigation and debridements down to the bone. There is also an associated bacteremia. MEDICATIONS: Today is day 6 of treatment with nafcillin 2 g IV every 4 hours. PHYSICAL EXAMINATION: Vital Signs: Temperature is 98.5 degrees, pulse rate 92 , respiratory rate 16, blood pressure 144/96, oxygen saturation 98% on room air. General: This is a elderly, chronically ill-appearing female. She is lying in the bed. Irritable and uncooperative. HEENT: Atraumatic, normocephalic. Oral mucous membranes are pink and moist. Conjunctivae are pale. Neck: Supple. Trachea is midline. Cardiovascular: Heart rate is regular. Generalized edema to upper and lower extremities has improved somewhat, and is mild at this point. Respiratory: Lung sounds have coarse rhonchi noted bilaterally. Integumentary: There is a wound VAC in place to her left leg, with an Salty wrap splint over top, and an offloading boot to the right lower extremity. There is also a PICC in her right upper arm. The site is free of edema, erythema, or drainage. Abdomen: Soft, obese, and nontender. Bowel sounds are active. Neurologic: She is awake, alert. She is talking to me, but telling me to go away, and will not follow commands, and wants to be left alone. She does have bilateral wrist restraints in place to prevent her from pulling out her PICC line. No tremors are noted. LABORATORY AND X-RAY: Today, there is no blood work, but previously she grew an oxacillin- sensitive Staph aureus in her blood and her left foot. No imaging reports today. ASSESSMENT AND PLAN: Ms Phillips is on nafcillin, which we will continue for her oxacillin sensitive Staph aureus osteomyelitis and bacteremia. She will need 6 weeks of treatment, which we are counting from the first day of her last surgery, which was on the 10th of this month, making today day 6 of treatment. These plans have been discussed with and recommended by Dr. Layne. COMORBIDITIES: She is elderly, confused and uncooperative, with diabetes mellitus and acute kidney injury. Dictated by QUENTIN Rodriguez for Gerald Layne MD This chart was documented by, QUENTIN Rodriguez and accurately reflects the services performed, treatment plan and medical decisions as attested by the providers signature Gerald Layne MD. cc: MD Derik Terry MD [facility]
[2018-05-11] MEDS: HUMULIN R SUBQ SCH ×3 (06:26→17:54)
[2018-05-11 08:01] LABS: BASO# 0.09 X1000 (0.0-0.2); BASO% 0.8 % (0.0-0.8); EOS# 0.39 X1000 (0.0-0.7); EOS% 3.4 % (0.0-10.0); HEMATOCRIT 24.4 % (37.0-47.0); HEMOGLOBIN 7.5 g/dL (12.0-16.0); IMM GRAN# 0.03 X1000 (0.0-0.04); IMM GRAN% 0.3 % (0.0-0.5); LYMPH# 1.96 X1000 (1.2-3.4); LYMPH% 17.2 % (20.5-51.1); MCH 25.9 PG (27-31); MCHC 30.7 g/dL (33-37); MCV 84.1 FL (81-99); MONO# 0.65 X1000 (0.11-0.59); MONO% 5.7 % (1.7-9.3); MPV 9.2 FL (7.4-10.4); NEUT# 8.27 X1000 (1.4-6.5); NEUT% 72.6 % (42.2-75.2); PLT 298 X1000 (130-400); RDW 20.3 % (11.5-14.5); WBC 11.39 X1000 (4.8-10.8)
[2018-05-11 08:37] LABS: ALB/GLOB RATIO 0.4; ALBUMIN 1.7 g/dL (3.5-5.0); CREATININE 1.9 mg/dL (0.5-0.9); POTASSIUM 2.6 mmol/L (3.5-5.1); TOTAL BILIRUBIN 1.17 mg/dL (0.20-1.00); TOTAL PROTEIN 5.5 g/dL (6.3-8.3)
[2018-05-11 08:39] LABS: CALCIUM 7.1 mg/dL (8.8-10.2)
[2018-05-11] MEDS: PLAVIX PO SCH (09:19)
[2018-05-11] MEDS: COREG PO SCH (09:19)
[2018-05-11] MEDS: ASPIRIN PO SCH (09:19)
[2018-05-11] MEDS: CATAPRES-TTS-2 TD SCH (09:20)
[2018-05-11] MEDS ORDERED: D5W IV SCH (10:00)
[2018-05-11] MEDS ORDERED: POTASSIUM CHLORIDE IV SCH (10:00)
[2018-05-11] MEDS ORDERED: MAGNESIUM SULFATE IV SCH (10:00)
[2018-05-11] MEDS: PROTONIX IV SCH (15:05)
[2018-05-12] MEDS: BASAGLAR SUBQ SCH ×2 (00:53→21:16)
[2018-05-12] MEDS: COREG PO SCH ×3 (00:53→21:19)
[2018-05-12] MEDS: HUMULIN R SUBQ SCH ×4 (00:54→15:27)
[2018-05-12] MEDS: D5W + KCL 20 MEQ 1,000 ML IV SCH ×3 (00:55→12:49)
[2018-05-12] MEDS: LOVENOX SUBQ SCH ×2 (01:10→21:16)
[2018-05-12] MEDS: NAFCIL 2 GM in NS 100 ML IV SCH ×6 (01:10→21:13)
--- NOTE | 2018-05-12 05:14 | INFECTIOUS DISEASE PROGRESS NO ---
DATE: 05/11/2018 PRESENT ILLNESS: Ms. 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 On this admission, she has had two irrigation and debridements done on that foot. She also has an associated bacteremia. MEDICATIONS: Today is day 7 of treatment with nafcillin 2 g IV every 4 hours. PHYSICAL EXAM: Vital Signs: Temp is 98.4 degrees, pulse rate 90, respiratory rate 22, blood pressure 170/87, O2 saturation is 99% on room air. General: This is a chronically ill- appearing, elderly female. She is lying in the bed, lethargic, and drowsy but arousable with mitten restraints on her hands bilaterally. HEENT: Atraumatic, normocephalic. She would not open her mouth. Conjunctivae are pale. Neck: Supple. Trachea is midline. Respiratory: Lung sounds have some coarse rhonchi noted bilaterally. Cardiovascular: Heart rate is regular, and she does have some mild edema noted generally to her extremities. Abdomen: Soft, obese, and nontender. Bowel sounds are active. Integumentary: There is a wound VAC in place to her left lower extremity with an Salty wrap splint covering it. There is also an offloading boot to the right lower extremity due to a right heel suspected deep tissue injury. There is a PICC line in place to her right upper arm. The site is without edema, erythema, or drainage. Neurologic: She is awake, alert, and nodding her head; however, she is nonverbal at this time and not following commands. LABORATORY AND X-RAY: Today, her white count is 11.39, hemoglobin 7.5 platelet count 298,000. Creatinine is 1.9 GFR 32. AST 48, ALT 19, alkaline phosphatase 89. She has previously grown an oxacillin sensitive Staph aureus in her blood and her left foot. No imaging reports today, but last night, she did have an abdominal x-ray for placement of a feeding tube and at this point, the feeding tube is no longer there. ASSESSMENT AND PLAN: Ms. Phillips is receiving nafcillin for her oxacillin- sensitive Staphylococcus aureus osteomyelitis and bacteremia. She needs 6 weeks of treatment. The first day of which will be her last day of surgery, which was on the of this month, making today day 7 of her treatment. She will need to continue the nafcillin for 5 more weeks. These plans have been discussed with and recommended by Dr. Layne. COMORBIDITIES: For the patient include that she is elderly, confused, and uncooperative with diabetes mellitus and acute kidney injury. Dictated by QUENTIN Rodriguez for Gerald Layne MD This chart was documented by, QUENTIN Rodriguez and accurately reflects the services performed, treatment plan and medical decisions as attested by the providers signature Gerald Layne MD. cc: MD Derik Terry MD [facility]ERNupur
[2018-05-12] MEDS: ASPIRIN PO SCH (08:56)
[2018-05-12] MEDS: PLAVIX PO SCH (08:57)
[2018-05-12 10:13] LABS: INR 1.26; PROTIME 16.8 Seconds (11.0-16.0)
--- NOTE | 2018-05-12 11:24 | INFECTIOUS DISEASE PROGRESS NO ---
DATE: 05/12/2018 PRESENT ILLNESS: The patient has an oxacillin sensitive Staph aureus osteomyelitis of the left foot and accompanying oxacillin sensitive Staph aureus bacteremia. MEDICATIONS: This is the 8th day of treatment with nafcillin. The day #1 of treatment is the last day she had surgery on her foot. PHYSICAL EXAMINATION: Vital Signs: Temperature is 98, pulse 97, respirations 22 , blood pressure 146/75. Generally, this is a chronically ill-appearing, elderly female. She still remains in a delirium. Head, eyes, ears, nose, and throat: She does not have any drainage coming from her nose or ears. I cannot really get a good view of her mouth. Neck: No meningismus. Lungs: Clear to auscultation. Cardiovascular: Heart rate is regular. Abdomen is soft and nontender. Integument: The patient has multiple scars all over her, and they are secondary to the fact that the patient scratches herself quite a bit. Bones, joints, muscles: The patient has a VAC in place on her left leg. The patient had a PICC in her arm, however, she pulled it out and now she has a peripheral IV. Neurologic: The patient seems to be in a delirium as mentioned above. She did not follow requests to move her extremities. She did not talk to me today. LABORATORY DATA AND X-RAY: There is no new CBC or CMP for today. Also, there is no new radiographic study. ASSESSMENT AND PLAN: The patient has a Staph aureus left foot osteomyelitis and accompanying bacteremia. This is the 8th day of treatment. I plan to treat the patient for a total of 6 weeks. COMORBIDITIES: The patient is elderly. She is in a delirium. She also has diabetes mellitus and acute kidney injury. cc: MD Derik Terry MD MTDD
[2018-05-12] MEDS: PROTONIX IV SCH (15:20)
[2018-05-13] MEDS: NAFCIL 2 GM in NS 100 ML IV SCH ×6 (01:17→21:53)
[2018-05-13] MEDS: HUMULIN R SUBQ SCH ×5 (04:12→20:56)
[2018-05-13 06:42] LABS: BASO# 0.08 X1000 (0.0-0.2); BASO% 0.8 % (0.0-0.8); EOS# 0.45 X1000 (0.0-0.7); EOS% 4.7 % (0.0-10.0); HEMATOCRIT 21.2 % (37.0-47.0); HEMOGLOBIN 6.4 g/dL (12.0-16.0); IMM GRAN# 0.02 X1000 (0.0-0.04); IMM GRAN% 0.2 % (0.0-0.5); LYMPH% 25.1 % (20.5-51.1); MCH 25.2 PG (27-31); MCHC 30.2 g/dL (33-37); MCV 83.5 FL (81-99); MONO# 0.75 X1000 (0.11-0.59); MONO% 7.8 % (1.7-9.3); MPV 9.6 FL (7.4-10.4); NEUT# 5.88 X1000 (1.4-6.5); NEUT% 61.4 % (42.2-75.2); PLT 275 X1000 (130-400); RBC 2.54 XMIL (4.2-5.4); RDW 19.6 % (11.5-14.5); WBC 9.58 X1000 (4.8-10.8)
[2018-05-13 07:04] LABS: CREATININE 1.7 mg/dL (0.5-0.9)
[2018-05-13 07:10] LABS: POTASSIUM 2.5 mmol/L (3.5-5.1)
[2018-05-13] MEDS: PLAVIX PO SCH (09:05)
[2018-05-13] MEDS: COREG PO SCH ×3 (09:05→20:56)
[2018-05-13] MEDS: ASPIRIN PO SCH (09:05)
[2018-05-13] MEDS: D5W + KCL 20 MEQ 1,000 ML IV SCH (09:05)
[2018-05-13] MEDS ORDERED: MAGNESIUM SULFATE 2 GM/S.W.I. 2 GM/50 ML IVPB IV ONE (11:14)
[2018-05-13] MEDS ORDERED: POTASSIUM CHLORIDE 40 MEQ in D5W 1,000 ML IV SCH ×2 (11:30→17:45)
--- NOTE | 2018-05-13 14:41 | PROGRESS NOTE ---
DATE: 05/13/2018 SUBJECTIVE: The patient's chart was reviewed. In summary, the patient was admitted on 04/22/2018 with left lower extremity pain. Full evaluation has been pursued. Ultimately, patient was diagnosed with MSSA osteomyelitis of the left foot. She is status post exploration and drainage by Dr. Powers. Postoperative course has been complicated by hypokalemia, anemia, and delirium with combativeness. She has pulled multiple PICC line interventions. This morning, the patient is interactive. She answers questions appropriately. At times, she is obstinate. After a long discussion, she agrees with medical intervention to attempt in helping improve her overall condition. She currently denies fevers, chills, nausea, vomiting, shortness of breath, or chest discomfort. She has a persistent cough. Her p.o. intake is minimal. OBJECTIVE: T-max 98.4, heart rate 74 to 97, respirations 16 to 22, blood pressure 144 to 170/ 55 to 90. General: Chronically ill appearing. Cardiovascular: Regular rate and rhythm. No significant murmurs, rubs, or gallops. Pulmonary: Clear to auscultation anteriorly. Abdomen soft, nontender, nondistended. Positive bowel sounds. Extremities: Left lower extremity is supported with a cast. Right lower extremity is in an air boot. No clubbing, cyanosis, or edema. Dermatologic evaluation reveals no evidence of rash. LABORATORY DATA: White blood cell count 9.58, hemoglobin 6.4, hematocrit 21.2, platelet count 275,000. Sodium 145, potassium 2.5, chloride 109, bicarb 26. BUN 16, creatinine 1.7, glucose 56, calcium 7.0, magnesium 1.3. ASSESSMENT AND PLAN: 1. 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 Layne. We will continue her current medical regimen. 2. Hypokalemia - We will continue potassium replacement, but increase to 40 mEq with her IV fluids. We will replete her magnesium as described below. We will follow this. 3. Anemia - This is significant. In the setting of previous cardiovascular disease/peripheral vascular disease, I do feel 2 units is most appropriate. We will transfuse these when ready. 4. Hypomagnesemia - We will replete today. 5. Type 2 diabetes - Patient's blood sugars remain labile. We will continue D5W. She is also receiving insulin glargine at bedtime. We will follow this. 6. Hypertension - Patient's blood pressure is reasonably controlled on her current regimen. 7. Coronary artery disease - Patient has extensive disease. We will continue her home regimen. DISPOSITION: At this point, the patient continues to require long term care in a hospital setting. We will plan discharge home once appropriate. cc: MD Derik Coleman MD
--- NOTE | 2018-05-13 15:00 | Diag Imaging Result Doc PS360 ---
EXAM: CHEST-1 VIEW INDICATION: cough and shortness of breath TECHNIQUE: One view COMPARISON: 04/29/2018 FINDINGS: There has been interval removal of the right Vas-Cath. Lung volumes are low similar to the previous study. This causing some central vascular crowding. There is probably mild atelectasis at the right lung base. There is no discrete pleural fluid collection or pneumothorax. There are stable CABG changes. Cardiac silhouette is essentially unremarkable, otherwise. IMPRESSION: Low lung volumes and likely mild basilar atelectasis. Essentially unremarkable, otherwise. Electronically signed by Aki Niño 05/13/2018 2:58 PM
[2018-05-13] MEDS: PROTONIX IV SCH (16:51)
[2018-05-13] MEDS ORDERED: NS 500 ML ONE (17:00)
[2018-05-13] MEDS ORDERED: LASIX IV ONE (17:45)
[2018-05-13] MEDS ORDERED: POTASSIUM CHLORIDE 20 MEQ/SWI 20 MEQ/100 ML IVPB IV ONE (17:49)
[2018-05-13] MEDS: LOVENOX SUBQ SCH (20:53)
[2018-05-13] MEDS: BASAGLAR SUBQ SCH (21:46)
[2018-05-14] MEDS: NAFCIL 2 GM in NS 100 ML IV SCH ×6 (00:52→21:44)
[2018-05-14] MEDS: HUMULIN R SUBQ SCH ×4 (06:30→21:44)
[2018-05-14 07:26] LABS: BASO# 0.07 X1000 (0.0-0.2); BASO% 0.7 % (0.0-0.8); EOS# 0.41 X1000 (0.0-0.7); EOS% 3.9 % (0.0-10.0); HEMATOCRIT 32.5 % (37.0-47.0); HEMOGLOBIN 10.4 g/dL (12.0-16.0); IMM GRAN# 0.02 X1000 (0.0-0.04); IMM GRAN% 0.2 % (0.0-0.5); LYMPH% 16.3 % (20.5-51.1); MCH 26.2 PG (27-31); MCV 81.9 FL (81-99); MONO# 0.73 X1000 (0.11-0.59); MPV 10.1 FL (7.4-10.4); NEUT# 7.52 X1000 (1.4-6.5); NEUT% 71.9 % (42.2-75.2); PLT 280 X1000 (130-400); RBC 3.97 XMIL (4.2-5.4); RDW 18.6 % (11.5-14.5); WBC 10.45 X1000 (4.8-10.8)
[2018-05-14 07:46] LABS: ALB/GLOB RATIO 0.5; ALBUMIN 2.1 g/dL (3.5-5.0); CALCIUM 7.6 mg/dL (8.8-10.2); CREATININE 1.7 mg/dL (0.5-0.9); TOTAL BILIRUBIN 1.59 mg/dL (0.20-1.00); TOTAL PROTEIN 6.2 g/dL (6.3-8.3)
[2018-05-14 07:48] LABS: POTASSIUM 2.5 mmol/L (3.5-5.1)
[2018-05-14] MEDS ORDERED: LASIX IV ONE (10:09)
[2018-05-14] MEDS: COREG PO SCH ×2 (11:13→21:44)
[2018-05-14] MEDS: PLAVIX PO SCH (11:13)
[2018-05-14] MEDS: ASPIRIN PO SCH (11:13)
--- NOTE | 2018-05-14 12:24 | PROGRESS NOTE ---
DATE: 05/14/2018 SUBJECTIVE: Patient was seen for the first time yesterday. Chart was reviewed in detail. The patient was diagnosed with MSSA osteomyelitis of the left foot. She is status post surgical exploration and drainage by Dr. Powers. Unfortunately, postoperative course has been complicated by confusion. Yesterday, upon my arrival, patient noted only minimal confusion. Interestingly, she initially refused all of my medical recommendations including blood transfusion and encouragement for p.o. intake. After this was explained to patient, she did ultimately agree to blood transfusion. Over the course of the day yesterday, patient continued to have a cough, intermittently appearing wet. Chest x-ray suggested low volumes. The patient was treated with a dose of Lasix yesterday. Over the course of the last 24 hours, patient has done reasonably well. She tolerated blood transfusions. There has been no evidence of fevers, chills, nausea, or vomiting. The patient does continue to have a persistent cough. She often refuses interventions by nurse's. She has had minimal p.o. intake. OBJECTIVE: Vital signs: T-max 98.5 degrees, heart rate 69-112, respirations 16-18, blood pressure 144-189 over 55-96. General: Chronically ill appearing, no acute distress. Cardiovascular: Slightly tachycardic. Regular rhythm. No significant murmurs, rubs, or gallops. Pulmonary: Minimal crackles at the bases. Upper respiratory congestion. Adequate air movement. Abdomen: Soft, nontender, nondistended. Positive bowel sounds. Extremities: Moves all extremities well. No significant clubbing, cyanosis, or edema. Dermatologic: Evaluation reveals no evidence of rash. LABORATORY DATA: White blood cell count 10.45, hemoglobin 10.4, hematocrit 32.5, platelet count is 280,000. Sodium 146, potassium 2.5, chloride 106, bicarb 24, BUN 14, creatinine 1.7, glucose 60, calcium 7.6, total bilirubin 1.59, total protein 6.2, albumin 2.1, alkaline phosphatase 103, AST 60, ALT 21. Chest x-ray revealed low lung volumes and likely mild basilar atelectasis. Essentially unremarkable otherwise. ASSESSMENT AND PLAN: 1. 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 Layne. We will defer management. 2. Hypokalemia - The patient was given supplementation as well as IV fluids changed to D5W with 40 mEq of potassium chloride. Magnesium was replaced as described below. Despite this, levels remain low. We will continue replacement as noted. We will follow this closely with intermittent IV Lasix intervention. 3. Anemia - This was noted be significant yesterday. Hemoccult also returned positive. Interestingly, with 2 units of packed red blood cells, her hemoglobin jumped from 6.4 to 10.4, a more dramatic increased than I would have expected. Regardless, we will continue supportive care for now. We will follow serial hemoglobins and hematocrits as her Hemoccult is positive. At this point, she is not a good candidate for intervention. 4. Hemoccult-positive stools - As above, patient has associated anemia. We will follow serial hemoglobin and hematocrit evaluations. At this point, the benefits of continuing Lovenox, aspirin, and Plavix outweigh the risk. Should patient continue to drop her hemoglobin and hematocrit, we will need to consider discontinuing these. We will follow this closely. 5. Hypomagnesemia - Patient was repleted yesterday. We will repeat a magnesium level in the a.m. This certainly may be playing a role in her hypokalemia. 6. Diabetes - We will continue patient on D5W. She is receiving insulin glargine at bedtime. We may need to discontinue this as her p.o. intake is not adequate. We will follow it for now. 7. Hypertension - The patient's blood pressure has increased with improvement in her anemia. For now, we will continue her current regimen. We will follow this over the course of the next 24 hours and determine if further intervention is warranted. 8. Coronary artery disease - Patient has extensive disease. As above, we will continue her current medical regimen despite having Hemoccult-positive stools as she is at high risk. We may need to consider stopping her antiplatelet agents in the near future should she develop a recurrent anemia. 9. Profound weakness - The patient is currently being treated with physical therapy. She is not active in this process. I am very concerned that her obstinance to treatment is playing a role in her recovery. We will continue physical therapy for now. Should patient continue to refuse intervention, we may need to consider transitioning to hospice care. 10. Prognosis - I had a long discussion with the patient with the nurse at bedside. Patient is disagreeable on a vast majority of our interventions. The question is raised whether this is secondary to depression or if she is unwilling to participate in her improvement. At present time, she is refusing to eat. Depending on her progress over the next 24 to 48 hours, consideration of hospice may be necessary if she is not willing to assist in her recovery. I will defer this discussion with patient's family to Dr. Akers. 11. Volume overload - On examination, patient appears to be mildly volume overload with a wet cough. We will again treat patient with Lasix therapy. Chest x-ray did not reveal a definitive infiltrate. 12. Disposition - At this point, patient continues to require usp care in a hospital setting. We will plan discharge home or to rehabilitation once appropriate. cc: MD Derik Coleman MD
[2018-05-14] MEDS: PROTONIX IV SCH (15:58)
[2018-05-14] MEDS: BASAGLAR SUBQ SCH (21:44)
[2018-05-14] MEDS: LOVENOX SUBQ SCH (21:44)
[2018-05-15] MEDS: NAFCIL 2 GM in NS 100 ML IV SCH ×6 (00:58→22:26)
[2018-05-15] MEDS: HUMULIN R SUBQ SCH ×4 (06:04→22:31)
[2018-05-15 07:11] LABS: BASO# 0.06 X1000 (0.0-0.2); BASO% 0.6 % (0.0-0.8); EOS# 0.46 X1000 (0.0-0.7); EOS% 4.7 % (0.0-10.0); HEMOGLOBIN 10.6 g/dL (12.0-16.0); IMM GRAN# 0.02 X1000 (0.0-0.04); IMM GRAN% 0.2 % (0.0-0.5); LYMPH# 1.84 X1000 (1.2-3.4); LYMPH% 18.6 % (20.5-51.1); MCH 26.6 PG (27-31); MCHC 33.1 g/dL (33-37); MCV 80.4 FL (81-99); MONO# 0.66 X1000 (0.11-0.59); MONO% 6.7 % (1.7-9.3); MPV 9.6 FL (7.4-10.4); NEUT# 6.85 X1000 (1.4-6.5); NEUT% 69.2 % (42.2-75.2); PLT 252 X1000 (130-400); RBC 3.98 XMIL (4.2-5.4); RDW 18.3 % (11.5-14.5); WBC 9.89 X1000 (4.8-10.8)
[2018-05-15 07:36] LABS: CALCIUM 7.5 mg/dL (8.8-10.2); CREATININE 1.8 mg/dL (0.5-0.9); MAGNESIUM 1.2 mg/dL (1.5-2.7)
[2018-05-15 07:48] LABS: POTASSIUM 2.5 mmol/L (3.5-5.1)
[2018-05-15] MEDS ORDERED: POTASSIUM CHLORIDE 20% LIQUID PO SCH (09:00)
[2018-05-15] MEDS: COREG PO SCH ×3 (10:22→22:28)
[2018-05-15] MEDS: PLAVIX PO SCH ×2 (10:22→10:24)
[2018-05-15] MEDS: ASPIRIN PO SCH ×2 (10:22→10:24)
[2018-05-15] MEDS ORDERED: MAGNESIUM SULFATE 1 GM/D5W 1 GM/100 ML IVPB IV ONE (10:32)
[2018-05-15] MEDS: POTASSIUM CHLORIDE 40 MEQ in D5W 1,000 ML IV SCH ×2 (12:00→22:28)
--- NOTE | 2018-05-15 12:10 | Diag Imaging Result Doc PS360 ---
EXAM: CHEST-PORTABLE 05/15/2018 HISTORY: NG tube placement TECHNIQUE: AP portable at 1201 COMMENT: There is an NG tube with its tip in the stomach. IMPRESSION: NG tube in the stomach. Electronically signed by Iglesia Zuniga 05/15/2018 12:08 PM
--- NOTE | 2018-05-15 12:50 | NEPHROLOGY PROGRESS NOTE ---
DATE: 05/15/2018 SUBJECTIVE: Ms. Phillips has a low potassium on her labs today of 2.5. We have been consulted per Dr. Akers to come back onto her case. The patient remains hospitalized since her previous consult on admission. She remains mostly somnolent. VITAL SIGNS: Her most recent vital signs show temperature 98.1 degrees, blood pressure 137/61, heart rate 90, respirations are 16. She is on room air. Last recorded saturation is 99%. She has had 0 recorded in or out in the last 24 hours, though it is noted that she had received 3 units of packed red blood cells on 05/14/2018. LABORATORY DATA: Sodium 144, potassium 2.5, chloride 104, CO2 25, BUN 13, creatinine 1.8, glucose 82. She has an anion gap of 15. Calcium is 7.5, magnesium 1.2. White count 9.89, hemoglobin 10.6, hematocrit 32, platelet count 252,000. PHYSICAL EXAMINATION: General: This is a 67-year-old female resting quietly in bed. She appears in no acute distress though she is chronically ill. HEENT: Normocephalic, atraumatic. Conjunctivae pale. She has TRINH. Mucous membranes dry. Neck: Supple. Trachea midline. No evidence of JVD. Cardiovascular: Regular rate and rhythm. Lungs : Clear to auscultation bilaterally. Equal excursion on O2. Abdomen: Soft, nontender. Positive bowel sounds. Genitourinary: Not inspected. Cabello catheter is in place. Extremities: 1+ lower extremity edema. Neurological: As mentioned above, the patient remains somnolent. ASSESSMENT AND PLAN: 1. Hypokalemia. The patient has a low magnesium level. We will give 1 g of magnesium intravenously over an hour. We will increase her actual potassium supplement today to 40 mEq liquid, to be given t.i.d. She has already received 20 mEq this a.m. 2. Acid-base balance. This is stable. 3. Anemia. This is stable. 4. Methicillin-resistant Staphylococcus aureus with osteomyelitis. This continues to be followed by the primary care team, Dr. Layne and Dr. Powers. I would like to thank you for allowing us to follow with this patient. Dictated by QUENTIN Lopez for Dominguez Dawson MD Face to face encounter, data reviewed, discussed with Dana White on 05/15/18. I agree with the above assessment and plan of care. cc: QUENTIN Lopez MD Allen J. Schmidt, MD MTDD
[2018-05-15] MEDS: POTASSIUM CHLORIDE 20% LIQUID PO SCH ×2 (14:48→17:53)
[2018-05-15] MEDS: PROTONIX IV SCH (17:47)
--- NOTE | 2018-05-15 18:32 | INFECTIOUS DISEASE PROGRESS NO ---
DATE: 05/15/2018 PRESENT ILLNESS: Ms. 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 MEDICATIONS: Based on her last surgery, today is day 11 of treatment with nafcillin 2 g IV every 4 hours. PHYSICAL EXAM: Vital Signs: Temperature is 98.1 degrees, pulse rate 86, respiratory rate 16, blood pressure 163/89, O2 saturation 97% on room air. General: This is a chronically ill- appearing elderly female. She is lying in the bed with bilateral wrist restraints in place. HEENT: Atraumatic, normocephalic. Conjunctivae are pink. She is refusing to open her mouth at this time. Neck: Supple. Trachea is midline. Cardiovascular: Heart rate is regular. Respiratory: Lung sounds have some rhonchi noted in the upper lobes; diminished in the bases. Abdomen: Soft, round, nontender. There is NG tube in place and she is receiving tube feedings. Integumentary: She has multiple abrasions noted to her extremities from scratching as well as suspected deep tissue injury to her right heel. There is a wound VAC in place to the left lower extremity with a Salty wrap splint over top. Apparently she has pulled out her PICC line which is why there still are wrist restraints bilaterally. Neurologic: She is awake and will make eye contact but not following commands or responding verbally. LABORATORY AND X-RAY: Today her white count is 9.89, hemoglobin 10.6, platelet count 252,000, creatinine is 1.8, GFR 34. Her previous blood and left foot cultures have shown oxacillin- sensitive Staph aureus. Chest x-ray today was done to verify NG tube placement which is in the stomach. ASSESSMENT AND PLAN: Ms Phillips has an oxacillin sensitive Staph aureus left foot osteomyelitis and an associated bacteremia. Today is day 11 out of a 6 week treatment that she will need using nafcillin which we will continue at this time. These plans have been discussed with and recommended by Dr. Layne. COMORBIDITIES: Include that she is elderly, confused and uncooperative with diabetes mellitus and acute kidney injury. Dictated by QUENTIN Rodriguez for Gerald Layne MD This chart was documented by, QUENTIN Rodriguez and accurately reflects the services performed, treatment plan and medical decisions as attested by the providers signature Gerald Layne MD. cc: MD Derik Terry MD MTDD
[2018-05-15] MEDS: LOVENOX SUBQ SCH (22:27)
[2018-05-15] MEDS: BASAGLAR SUBQ SCH (22:30)
[2018-05-16] MEDS: NAFCIL 2 GM in NS 100 ML IV SCH ×6 (02:25→21:04)
[2018-05-16] MEDS: HUMULIN R SUBQ SCH ×4 (07:07→21:17)
--- NOTE | 2018-05-16 08:01 | PROGRESS NOTE ---
DATE: 05/16/2018 SUBJECTIVE: Ms. Phillips is lying in bed this morning. She actually is responding fairly well to verbal command. OBJECTIVE: On left lower extremity exam, splint is clean, dry, and intact. I looked at the wound VAC. It is intact as well. She is able to move the toes. ASSESSMENT: 1. Left first and second metatarsal osteomyelitis. 2. Left foot and ankle abscess, status post irrigation and debridement, and partial excision of first and second metatarsal. PLAN: I discussed with Ms. Phillips that it really does not look good for the foot right now. I talked with our wound care nurse who said there still was not hardly any granulation tissue at all. She changed the wound VAC yesterday. It is going to be very difficult to heal this wound. She is not in very good overall health. We are going to take the wound VAC down tomorrow and look at it. If we need to do one more washout in the OR, we will do that more than likely on to take a look at things one more time. We will know for sure tomorrow when we take the wound VAC down and look at it. cc: MD Derik Dempsey MD
--- NOTE | 2018-05-16 08:18 | Diag Imaging Result Doc PS360 ---
EXAM: CHEST-PORTABLE 05/16/2018 HISTORY: NG tube placement TECHNIQUE: AP portable at 0805 COMMENT: There is an NG tube with its tip below diaphragm presumably in the stomach. There is some apparent pleural thickening laterally on the left. The heart size is at the upper limits of normal. Compared to 05/15/2018 there has been no appreciable change. IMPRESSION: NG tube in the stomach. Electronically signed by Iglesia Zuniga 05/16/2018 8:15 AM
[2018-05-16 08:26] LABS: ALBUMIN 1.7 g/dL (3.5-5.0); CALCIUM 7.5 mg/dL (8.8-10.2); CREATININE 1.6 mg/dL (0.5-0.9); PHOSPHORUS 2.2 mg/dL (2.7-4.5); POTASSIUM 2.8 mmol/L (3.5-5.1)
[2018-05-16] MEDS: COREG PO SCH ×2 (09:32→21:05)
[2018-05-16] MEDS: POTASSIUM CHLORIDE 20% LIQUID PO SCH ×3 (09:33→18:33)
[2018-05-16] MEDS: POTASSIUM CHLORIDE 40 MEQ in D5W 1,000 ML IV SCH ×2 (09:33→21:19)
[2018-05-16] MEDS: ASPIRIN PO SCH (09:33)
[2018-05-16] MEDS: PLAVIX PO SCH (09:34)
[2018-05-16] MEDS ORDERED: AFRIN NASAL SPRAY NAS ONE (15:02)
[2018-05-16] MEDS ORDERED: INSULIN PEN NEEDLES ONE (15:05)
[2018-05-16] MEDS: PROTONIX IV SCH (15:57)
--- NOTE | 2018-05-16 19:45 | NEPHROLOGY PROGRESS NOTE ---
DATE: 05/16/2018 DATE AND TIME: Date seen 05/16/2018, time seen is 0850. SUBJECTIVE: Ms. Phillips is resting quietly in bed. Her head of the bed is elevated. She is nonverbal. OBJECTIVE: Vital Signs: Temperature 98.4, blood pressure 166/79, heart rate 79 , respirations are 20. She is on room air. Last recorded saturation 100%. She has had 2224 in. She has had 0 recorded out with Cabello catheter in place. LABS: Sodium 143, potassium 2.8, chloride 105, CO2 26, BUN 14, creatinine 1.6, glucose 112, anion gap is 13, calcium 7.5, phosphorus 2.2, albumin 1.7. Previous hemoglobin 10.6. PHYSICAL EXAMINATION: General: This is a 67-year-old female resting quietly in bed. She is currently nonverbal. She appears chronically ill, though in no acute distress. Skin: Warm and dry. HEENT: Normocephalic, atraumatic. Conjunctivae pale. She has TRINH. Mucous membranes dry. Neck: Supple. Trachea midline. No evidence of JVD. Cardiovascular: Regular rate and rhythm. Lungs: Clear to auscultation bilateral. Equal excursion on O2. Abdomen: Soft, nontender. Positive bowel sounds. Genitourinary: Not inspected. Cabello catheter is in place. Extremities: Continues with 1+ lower extremity edema. Neurologic : Again, patient is nonverbal as mentioned above. Integumentary: Patient does have a newly placed NG tube to the left nostril. There is some slight bloody drainage secondary to the new insertion, though taped down and intact. ASSESSMENT AND PLAN: 1. Hypokalemia. The patient's potassium is 2.8, which is up from 2.5. We will repeat her potassium boluses of 40 mEq to her NG tube t.i.d. today, re-evaluate her labs in the a.m. She did have magnesium replacement yesterday. 2. Acid-base balance, which is fairly stable. 3. Anemia. This is close to target. 4. Methicillin-resistant Staph aureus with osteomyelitis. This continues to be followed by Dr. Layne and Dr. Powers. I would like to thank you for allowing us to follow with this patient. Dictated by QUENTIN Lopez for Dominguez Dawson MD Face to face encounter, data reviewed, discussed with Katie White on 05/16/18. I agree with the above assessment and plan of care. cc: QUENTIN Lopez MD Allen J. Schmidt, MD [facility]ITALNupur
[2018-05-16] MEDS: BASAGLAR SUBQ SCH (21:05)
[2018-05-16] MEDS: AFRIN NASAL SPRAY NAS SCH (21:05)
--- NOTE | 2018-05-16 23:45 | INFECTIOUS DISEASE PROGRESS NO ---
DATE: 05/16/2018 PRESENT ILLNESS: Ms. Phillips is being treated for a left foot osteomyelitis and an associated bacteremia growing an oxacillin-sensitive Staph aureus. MEDICATIONS: Today is day 12 of treatment with nafcillin 2 g IV every 4 hours. PHYSICAL EXAMINATION: Vital Signs: Temperature is 98.4 degrees, pulse rate 79 , respiratory rate 20, blood pressure 166/79, O2 saturations 100% on room air. General: This is a chronically ill- appearing, elderly female. She is lying in the bed with bilateral wrist restraints in place. HEENT: Atraumatic, normocephalic. Oral mucous membranes are pink and moist. Conjunctivae are pale. Neck: Supple. Trachea is midline. Cardiovascular: Heart rate is regular. Respiratory: Lung sounds are diminished in the bases with some scattered rhonchi noted in the upper lobes. There is a congested cough. Abdomen: Soft, round, and nontender. Bowel sounds are active. There is an NG tube in place with some bloody drainage noted around the NG insertion site. Integumentary: There is a wound VAC in place to the left lower extremity with an Salty wrap splint over the top. She also has some dry abrasions noted to her extremities from scratching, as well as a right heel suspected deep tissue injury. Neurologic: She is awake, alert, and confused. Unable to or unwilling to say where she is or provide her name. She is asking for a family friend over and over again. There are bilateral wrist restraints in place, and the right upper extremity has 2+ pitting edema. LABORATORY AND X-RAY: No CBC today. Creatinine is 1.6. GFR is 39. Her left foot and blood cultures have all grown oxacillin-sensitive Staph aureus. Chest x-ray done today is for NG tube placement. ASSESSMENT AND PLAN: Ms. Phillips is going to require 6 weeks of treatment with nafcillin which we will continue at this point. Today is day 12 based on the last surgery that she had. Looking at Dr. Powers's notes, there is a possibility of another washout in her future. These plans have been discussed with and recommended by Dr. Layne. COMORBIDITIES: for Ms. Phillips include that she is elderly and confused with diabetes mellitus, and acute kidney injury. Dictated by QUENTIN Rodriguez for Gerald Layne MD This chart was documented by, QUENTIN Rodriguez and accurately reflects the services performed, treatment plan and medical decisions as attested by the providers signature Gerald Layne MD. cc: MD Derik Terry MD [facility]
[2018-05-17] MEDS: NAFCIL 2 GM in NS 100 ML IV SCH ×6 (01:30→21:05)
[2018-05-17] MEDS: POTASSIUM CHLORIDE 40 MEQ in D5W 1,000 ML IV SCH ×2 (04:10→10:36)
[2018-05-17] MEDS: HUMULIN R SUBQ SCH ×4 (06:01→21:06)
[2018-05-17 08:16] LABS: BASO# 0.07 X1000 (0.0-0.2); BASO% 0.7 % (0.0-0.8); EOS# 0.48 X1000 (0.0-0.7); EOS% 4.8 % (0.0-10.0); HEMATOCRIT 30.8 % (37.0-47.0); IMM GRAN# 0.02 X1000 (0.0-0.04); IMM GRAN% 0.2 % (0.0-0.5); LYMPH# 2.02 X1000 (1.2-3.4); LYMPH% 20.2 % (20.5-51.1); MCH 26.5 PG (27-31); MCHC 32.5 g/dL (33-37); MCV 81.5 FL (81-99); MONO# 0.65 X1000 (0.11-0.59); MONO% 6.5 % (1.7-9.3); NEUT# 6.76 X1000 (1.4-6.5); NEUT% 67.6 % (42.2-75.2); PLT 243 X1000 (130-400); RBC 3.78 XMIL (4.2-5.4)
[2018-05-17 08:41] LABS: ALBUMIN 1.7 g/dL (3.5-5.0); PHOSPHORUS 2.2 mg/dL (2.7-4.5); POTASSIUM 2.8 mmol/L (3.5-5.1)
[2018-05-17 09:11] LABS: CALCIUM 6.9 mg/dL (8.8-10.2)
--- NOTE | 2018-05-17 09:23 | NEPHROLOGY PROGRESS NOTE ---
DATE: 05/17/2018 TIME SEEN: 0820. SUBJECTIVE: Ms. Phillips is resting quietly in bed. The head of her bed is elevated. She is nonverbal. She has an NG tube in place to the left naris with dried blood under that nostril. OBJECTIVE: Vital Signs: Her most recent vital signs are temperature 98.4 degrees, blood pressure 144/73, heart rate 89, respirations 14. She is on room air. Last recorded saturation 96%. She has had 1180 in. The patient is incontinent with an adult diaper in place. Laboratory Data: Sodium is 142, potassium 2.8, chloride is 103, CO2 27, BUN 15 , creatinine 2, glucose 121. Her anion gap is 12. Her calcium is still pending. Phosphorus 2.2, albumin 1.7, magnesium 1.4. White count 10, hemoglobin 10, hematocrit 30.8, platelet count 243,000. Physical Examination: General: This is a 67-year-old, female. She is resting quietly in bed. Her head of the bed is elevated. She is in no acute distress. She is more somnolent today. HEENT: Normocephalic, atraumatic. Conjunctivae are pale. She has TRINH, though sluggish. Mucous membranes dry. Neck: Supple. Trachea midline. Unable to determine JVD in patient's position. Cardiovascular: Regular rate and rhythm. Lungs: Clear to auscultation bilaterally. Equal excursion. She remains on O2 supplementation. Abdomen: Soft, nontender. Positive bowel sounds. Genitourinary: Not inspected. Adult diaper is in place. Extremities: Continues with 1+ edema. She continues with her Salty wrap to her left lower extremity. Neurological: As above. ASSESSMENT AND PLAN: 1. Hypokalemia. The patient's potassium has slowly improved. She does now have a continual potassium 40 mEq replacement running at 42 mL an hour. We will continue to monitor labs. 2. Acidosis, stable. 3. Anemia, stable. 4. 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 This is followed by Dr. Layne, Dr. Powers, and the primary care. I would like to thank you for allowing us to follow with this patient. Dictated by QUENTIN Lopez for Dominguez Dawson MD Face to face encounter, data reviewed, discussed with Dana White on 05/17/18. I agree with the above assessment and plan of care. cc: QUENTIN Lopez MD Allen J. Schmidt, MD MTDD
[2018-05-17] MEDS: CITRATE OF MAGNESIA NG SCH ×3 (10:35→16:10)
[2018-05-17] MEDS: POTASSIUM CHLORIDE 10% LIQUID NG SCH ×3 (10:36→16:10)
[2018-05-17] MEDS: AFRIN NASAL SPRAY NAS SCH ×3 (10:36→21:06)
[2018-05-17] MEDS: COREG PO SCH ×2 (10:36→21:06)
--- NOTE | 2018-05-17 12:29 | CONSULTATION ---
DATE OF CONSULTATION: 05/17/2018 REASON FOR CONSULTATION: Request for percutaneous endoscopic gastrostomy tube placement. HISTORY OF PRESENT ILLNESS: This is a 67-year-old female who has been admitted to the hospital since 04/23/2018. She was diagnosed with Methicillin- susceptible Staphylococcus aureus osteomyelitis of the left foot. She has been followed by Dr. Powers and Dr. Layne for antibiotics. During the course of her hospitalization, she was also anemic and required blood transfusions. She has had hypokalemia and has had replacement. She is also being followed by Nephrology. The has also had some issues with altered mental status or confusion. At the time of my evaluation, the patient did not speak to me. She did open her eyes and make eye contact, but she did not respond to any of my questions or follow my commands. The patient currently has a nasogastric tube with feedings infusing. Apparently, the patient has pulled her tube out. She does have some dried blood around her nose. The patient has not been eating and has required nutritional supplement with nasogastric feeding. PAST MEDICAL HISTORY: Hypertension, diabetes type 2, coronary artery disease with a history of bypass surgery. PAST SURGICAL HISTORY: Coronary artery bypass surgery, hysterectomy, knee surgery, right knee replacement. ALLERGIES: No known drug allergies. HOME MEDICATIONS: 1. Aspirin 81 mg daily. 2. Coreg 12.5 mg twice a day. 3. Vitamin D 1000 units daily. 4. Plavix 75 mg daily. 5. Gabapentin 300 mg 3 times a day. 6. Glimepiride 2 mg with breakfast. 7. Insulin 60 units subcutaneously every night, and Lantus 60 units subcutaneously every night. 8. Humalog insulin 200 units subcutaneous as directed. 9. Losartan/hydrochlorothiazide 50/12.5 twice a day. 10. Crestor 20 mg daily. 11. Aldactone 25 mg daily. SOCIAL HISTORY: No history of smoking since she was young. No drug use. I have spoken with the daughter, who lives in [place], who has power of banking attorney. Apparently, she also has a cousin, who lives in [facility], who helps with some of her care. REVIEW OF SYSTEMS: Per History of Present Illness. PHYSICAL EXAMINATION: Vital Signs: Temperature 98.4 degrees, pulse 89, blood pressure 144/73. General: The patient is awake, but she did not respond. She did not speak to me or follow commands at the present time. Respiratory: Lungs sound essentially clear. Abdomen: Soft, obese. Positive bowel sounds. Extremities: She has a wrap and wound VAC to her left lower extremity, being followed for osteomyelitis. LABORATORY DATA: Hematology: WBC 10, hemoglobin 10, hematocrit 30.8, MCV 81.5 , platelets 243,000. Chemistry: Sodium 142, potassium 2.8, chloride 103, CO2 of 27, BUN 15 , creatinine 2, glucose 121, calcium 6.9, phosphorus 2.2, and magnesium 1.4. ASSESSMENT AND PLAN: 1. 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 Powers and Dr. Layne for antibiotics, and the patient has a wound vacuum -assisted closure. 2. Hypokalemia. Nephrology is also following. 3. Anemia, stable. 4. Nutritional requirements, currently requiring tubes feedings per nasogastric. Request has been made for percutaneous endoscopic gastrostomy tube placement. The patient had pulled her nasogastric feeding out and it was replaced. She is currently having some bleeding from her nares. Her Plavix and Lovenox have been held. 5. I have spoken with the daughter who lives in [place], Светлана Phillips, about request for percutaneous endoscopic gastrostomy tube placement. I have explained the procedure, along with the benefits and risk, and she does wish to proceed. We will have to hold off on proceeding today due to her Plavix and Lovenox. They are currently on hold. We will try and proceed with percutaneous endoscopic gastrostomy tube placement tomorrow. Further plans will be made as needed. I have discussed this case with Dr. Welch. Dictated by QUENTIN Azevedo for Frankie Welch MD cc: QUENTIN Clark MD Allen J. Schmidt, MD [facility]
[2018-05-17] MEDS: PROTONIX IV SCH (15:52)
[2018-05-17] MEDS: BASAGLAR SUBQ SCH (21:06)
[2018-05-18] MEDS: NAFCIL 2 GM in NS 100 ML IV SCH ×6 (01:23→21:07)
[2018-05-18] MEDS: HUMULIN R SUBQ SCH ×4 (07:04→21:07)
[2018-05-18] MEDS: POTASSIUM CHLORIDE 40 MEQ in D5W 1,000 ML IV SCH ×2 (07:04→12:56)
[2018-05-18 07:53] LABS: ALBUMIN 1.4 g/dL (3.5-5.0); CREATININE 1.7 mg/dL (0.5-0.9); MAGNESIUM 1.5 mg/dL (1.5-2.7); PHOSPHORUS 1.5 mg/dL (2.7-4.5); POTASSIUM 4.4 mmol/L (3.5-5.1); PREALBUMIN 10.4 mg/dL (20-40)
[2018-05-18 08:08] LABS: CALCIUM 6.6 mg/dL (8.8-10.2)
[2018-05-18] MEDS: ZOFRAN IV PRN (08:11)
[2018-05-18] MEDS: AFRIN NASAL SPRAY NAS SCH ×3 (08:13→21:07)
[2018-05-18] MEDS: CATAPRES-TTS-2 TD SCH (08:46)
[2018-05-18] MEDS: POTASSIUM CHLORIDE 10% LIQUID NG SCH (08:48)
[2018-05-18] MEDS: COREG PO SCH ×2 (08:49→21:07)
[2018-05-18] MEDS: CITRATE OF MAGNESIA NG SCH ×3 (08:49→16:45)
[2018-05-18] MEDS ORDERED: XYLOCAINE-MPF 2% ONE (12:30)
[2018-05-18] MEDS ORDERED: DIPRIVAN 1% ONE (12:30)
[2018-05-18] MEDS ORDERED: ZOFRAN ONE (13:08)
[2018-05-18] MEDS ORDERED: XYLOCAINE 1%/EPI 1:100,000 ONE (13:32)
--- NOTE | 2018-05-18 14:41 | OPERATIVE NOTE ---
PROCEDURE DATE: 05/18/2018 PROCEDURE: Esophagogastroduodenoscopy and percutaneous endoscopic gastrostomy tube placement. PREOPERATIVE DIAGNOSIS: Dysphagia. POSTOPERATIVE DIAGNOSIS: Mild esophagitis. Most likely, NG induced trauma. Mild gastritis. Otherwise, normal esophagogastroduodenoscopy. Percutaneous endoscopic gastrostomy 24 placed. INDICATION: This 67-year-old female has been having trouble swallowing. She has an NG feeding tube. PEG tube was placed for alternate mode of nutrition. PROCEDURE: Informed consent obtained from the patient's daughter on the phone. Procedure, risks, benefits, and alternatives were explained in layman's terms. Risks of, but not limited to bleeding, perforation, aspiration, pneumonia, and perforation of the viscus was explained. She understood and agreed to proceed. Patient was brought to the Endoscopy Unit and was premedicated as per Anesthesia. While she was lying in the supine position, the gastroscope was introduced into the posterior pharynx and advanced under direct vision into the esophagus. The esophagus and the upper and middle part was normal. Distal esophagus showed hyperemia suggestive of esophagitis most likely from NG trauma. No varices were noted. Scope was then passed through the esophagus into the stomach. The stomach was examined both in straight and retroflexed view, which revealed normal cardia, fundus, and body. In the antrum hyperemia noted suggestive off suggestive of mild gastritis. The scope was then passed through the normal pylorus, into the duodenal bulb, and then to the second portion of duodenum which appeared normal. The scope was then withdrawn back into the stomach where stomach was insufflated. An area of maximum indentation and transillumination was noted and marked. After that, the spot was then cleansed, sterilized, and draped using universal precautions. Lidocaine with epinephrine was used to anesthetize the spot. Once adequately anesthetized, an in incision was made onto the anterior abdominal wall which was about a cm in length. Then a needle with a trocar was introduced from the skin into the stomach. The needle was removed leaving the trocar in place. A nylon guidewire was passed through the trocar into the stomach. The distal end of the guidewire was grasped using a snare, and the scope with the snare and the guidewire was removed. The PEG 24 was then attached onto the distal end of the guidewire and it was deployed into the stomach by pull-through method without any difficulty. Dressing was applied onto the anterior abdominal wall. The scope was then reintroduced back into the stomach where internal bumper was noted to be in an adequate place. The scope was then removed. Patient tolerated the procedure well. No complications noted. Patient was then transferred to the recovery area in a stable condition. IMPRESSION: 1. Dysphagia. 2. Percutaneous endoscopic gastrostomy 24 placed. RECOMMENDATION: Wee will start her on tube feeding through the PEG tube and monitor residual, advance the feeding as tolerated. In the meantime, continue antibiotic and continue other care. I have explained the findings and plan to the patient's daughter on phone. All the pertinent questions answered. cc: MD Derik Mccurdy MD Russell T. Barr, MD
--- NOTE | 2018-05-18 15:09 | NEPHROLOGY PROGRESS NOTE ---
DATE: 05/18/2018 TIME SEEN: 08 SUBJECTIVE: Ms. Phillips is resting quietly in bed. Head of the bed is elevated. She is more somnolent today. She does open her eyes, but then drifts back to sleep. VITAL SIGNS: Temperature 98.4 degrees, blood pressure 155/90, heart rate 95, respirations 18. She is on room air. Last recorded saturation 100%. She has had 460 in. She has had 0 recorded out. Adult diaper in place. LABORATORY DATA: Sodium 135, potassium 4.4, chloride 101, CO2 25, BUN 17, creatinine 1.7. Glucose is 217, anion gap 9, calcium 6.6, phosphorus 1.5, magnesium 1.5, albumin 1.4. Corrected calcium is 8.68. Previous hemoglobin is 10. PHYSICAL EXAMINATION: General: This is a 67-year-old female. She is resting quietly in bed. She is somnolent. Head of the bed is elevated. Skin: Warm and dry. HEENT: Normocephalic, atraumatic. Conjunctivae pale. She has TRINH. Mucous membranes are dry. Neck: Supple. Trachea midline. No evidence of JVD in the upright position. Cardiovascular: She is regular rate and rhythm. No appreciable murmur or gallop. Lungs: Clear to auscultation bilaterally. Equal excursion though poor inspiratory effort. She remains on room air. Abdomen: Soft, round, slightly distended. Hypoactive bowel sounds. The patient is NPO to go for an EGD. NG tube remains to low intermittent suction, currently clamped at this time. Genitourinary: Not inspected. The patient has adult diaper that is in place. Extremities: She now has a Kerlix dressing to her left foot. The large Salty wrap is now off. 2+ edema noted to the hip, though this is dependent on the left. ASSESSMENT AND PLAN: Hypokalemia. The patient has continued to receive intravenous fluid with potassium supplement in it. Her potassium is now up to 4.4. Sodium remains stable, but low at 135. Will remain available and evaluate her labs tomorrow. If this remains stable, we will sign off. I would to thank you for allowing us to follow with this patient. Dictated by QUENTIN Lopez for Dominguez Dawson MD Face to face encounter, data reviewed, discussed with Dana White on 05/18/18. I agree with the above assessment and plan of care. cc: QUENTIN Lopez MD Allen J. Schmidt, MD MTDD
[2018-05-18] MEDS: PROTONIX IV SCH (15:23)
--- NOTE | 2018-05-18 19:29 | INFECTIOUS DISEASE PROGRESS NO ---
DATE: 05/18/2018 PRESENT ILLNESS: Ms. Phillips is being treated for osteomyelitis of the left foot with an associated bacteremia that is growing oxacillin-sensitive Staphylococcus aureus. MEDICATIONS: Today is day 14 of treatment with nafcillin 2 grams IV every 4 hours. PHYSICAL EXAMINATION: Vital Signs: Temperature is 98.9, pulse rate 79, respiratory rate 16, blood pressure 150/59. O2 saturation is 98% on room air. General: This is a chronically-ill- appearing, confused elderly female. She is lying in the bed, sedated and sleeping at this time. HEENT: Atraumatic, normocephalic. Oral mucous membranes are pink and moist. Conjunctivae are pale. Respiratory: Lung sounds are coarse rhonchi in the upper lobes. Diminished in the bases. Cardiovascular: Heart rate is distant and difficult to hear due to her harsh lung sounds. Pedal and radial pulses are +1 bilaterally. Extremities: There is a dressing in place to her left lower extremity and an off-loading boot to the right lower extremity. Abdomen: Soft, round and mildly tender. She does have a new PEG tube in place which is covered using an abdominal binder. The patient still has bilateral wrist restraints to prevent her from removing any lines. Bowel sounds are active. NG tube is out at this point. Neurologic: She is drowsy but arousable. She is not following commands at this time. She does have family in the room, but continues to sleep. LABORATORY AND X-RAY: No CBC today; however, yesterday her white count was 10. Hemoglobin was 10. Platelet count 243,000. Today her creatinine is 1.7, GFR 36. Previous left foot and blood cultures have grown an oxacillin-sensitive Staph aureus. No imaging reports today. ASSESSMENT/PLAN: Ms. Phillips has had 2 out 6 weeks of treatment using nafcillin for her oxacillin- sensitive Staphylococcus aureus osteomyelitis of the left foot and associated bacteremia. For now we will continue nafcillin as ordered. These plans have been discussed with and recommended by Dr. Layne. COMORBIDITIES: for Ms. Phillips include that she is elderly and confused, with diabetes mellitus and acute kidney injury. Dictated by QUENTIN Rodriguez for Gerald Layne MD This chart was documented by, QUENTIN Rodriguez and accurately reflects the services performed, treatment plan and medical decisions as attested by the providers signature Gerald Layne MD. cc: MD Derik Terry MD [facility]
[2018-05-18] MEDS: REGLAN LIQUID GT SCH (21:06)
[2018-05-18] MEDS: BASAGLAR SUBQ SCH (21:07)
[2018-05-19] MEDS: NAFCIL 2 GM in NS 100 ML IV SCH ×6 (01:09→23:24)
[2018-05-19] MEDS: REGLAN LIQUID GT SCH ×3 (05:45→23:22)
[2018-05-19] MEDS: HUMULIN R SUBQ SCH ×4 (06:30→23:21)
[2018-05-19] MEDS: POTASSIUM CHLORIDE 40 MEQ in D5W 1,000 ML IV SCH (06:36)
--- NOTE | 2018-05-19 08:12 | PROGRESS NOTE ---
DATE: 05/19/2018 SUBJECTIVE: Ms. Phillips is lying in bed this morning. She got her feeding tube yesterday and they have the feed going this morning. She is not really responding to any verbal cues this morning. She does open her eyes and look at me. OBJECTIVE: Left lower extremity exam: Looking at the foot, we took everything down. Her EHL tendon is desiccated and drying out. We still see a few of the antibiotic beads. She has healed more than last time and her swelling has gone down actually a pretty good bit. I do not see any areas of active drainage or any areas of swelling or abscess. ASSESSMENT: Left diabetic foot wound. PLAN: Ms. Phillips is just extremely slow to heal. I think partly due to her nutritional status and doing tube feeds will give her some good protein and hopefully help this wound begin to heal. At some point, we will need to debride her EHL tendon away. I know she had just had surgery yesterday for her PEG tube. We will continue to follow. Right now, we will continue with dressing changes. It will be a wet to dry dressing change daily, then we will continue to monitor. Once she gets some good nutrition in, we may think about going back one last time for irrigation and debridement of the wound. cc: MD Derik Dempsey MD
[2018-05-19 08:43] LABS: ALBUMIN 1.6 g/dL (3.5-5.0); CREATININE 1.7 mg/dL (0.5-0.9); POTASSIUM 4.3 mmol/L (3.5-5.1)
[2018-05-19] MEDS: COREG PO SCH ×2 (08:49→23:23)
[2018-05-19] MEDS: ZOLOFT GT SCH (08:49)
[2018-05-19] MEDS: PLAVIX PO SCH (08:49)
[2018-05-19] MEDS: AFRIN NASAL SPRAY NAS SCH ×3 (08:52→23:21)
[2018-05-19] MEDS: VITAMIN D GT SCH ×2 (09:05→23:23)
[2018-05-19] MEDS: TUMS GT SCH ×2 (09:05→23:23)
--- NOTE | 2018-05-19 11:37 | NEPHROLOGY PROGRESS NOTE ---
DATE: 05/19/2018 SUBJECTIVE: The patient is resting in bed. She awakens, opens her eyes, follows commands and goes back to sleep. OBJECTIVE: Vital Signs: Temperature 98.5 degrees, pulse 89, respiratory rate 18, blood pressure 135/87. Intake 140 mL; output not measured. General: This is an elderly female, resting in bed, awake, no acute distress. She is somewhat somnolent. HEENT: Normocephalic, atraumatic. Oral mucosa dry. Neck: Supple without JVD. Cardiovascular: Regular rate and rhythm without murmur or gallop. Pulmonary: She is clear bilaterally. She remains on room air. Abdomen: Soft. She has a binder in place. She has a percutaneous endoscopic gastrostomy tube noted. : Not inspected. Extremities: Kerlix dressing to the left foot, 2+ edema. Integumentary: Skin is warm and dry. LAB DATA: Sodium 136, potassium 4.3, CO2 24, creatinine 1.7. Calcium 7, phosphorus 2.0, albumin 1.6. ASSESSMENT AND PLAN: 1. Hypokalemia. Her potassium today is normal. She has tube feedings that have been restarted. 2. Chronic kidney disease. Renal function stable. Have no need for intervention from a renal standpoint at this time. We will sign off. If we can be of further assistance, please do not hesitate to contact us. Dictated by QUENTIN Islas for Dominguez Dawson MD Data reviewed, discussed with Sha Cleary on 05/19/28. I agree with the above assessment and plan of care. cc: MD Derik Jarquin MD [facility]
--- NOTE | 2018-05-19 14:02 | PROGRESS NOTE ---
DATE: 05/19/2018 SUBJECTIVE: The patient was resting. She did open her eyes to stimulus. She followed commands with weak hand manager performance improvement with bilateral upper extremities. She did nod her head to several of my questions, but she did not speak. She seems to be tolerating her feeding. EGD with PEG placement was performed on 05/18/2018. OBJECTIVE: Vital Signs: Temperature 98.5 degrees, pulse 89, respirations 18, blood pressure 165/76. General: Generally, the patient aroused easily and is in no acute distress. Abdomen: Percutaneous endoscopic gastrostomy tube site with dressing removed and bumper loosened. There was no drainage or irritation noted at PEG site. I have replaced the abdominal binder. Patient is in bilateral wrist restraints. There was concern that she may pull her PEG tube out since she did pull her nasogastric tube out. LABORATORY: Hematology: WBC 10.0, hemoglobin 10.0, hematocrit 30.8, MCV 81.5, platelet 243. Chemistry: Sodium 136, potassium 4.3, chloride 101, CO2 24, BUN 18, creatinine 1.7, glucose 98. ASSESSMENT AND PLAN: 1. Methicillin Staphylococcus aureus osteomyelitis following with Orthopedics and Infectious Disease. 2. Encephalopathy. 3. Decreased oral intake requiring enteral feedings. Percutaneous endoscopic gastrostomy tube was placed on 05/18/2018. The patient has been tolerating her tube feedings. I have loosened the bumper and removed the dressing and replaced her abdominal binder. Continue tube feedings as ordered. Will follow during her hospital course, and further plans will be made according to her progress. I have discussed this case with Dr. Welch. Dictated by QUENTIN Azevedo for Frankie Welch MD cc: QUENTIN Clark MD Allen J. Schmidt, MD [facility]
--- NOTE | 2018-05-19 15:04 | INFECTIOUS DISEASE PROGRESS NO ---
DATE: 05/19/2018 PRESENT ILLNESS: The patient is being treated for an oxacillin-sensitive Staph aureus osteomyelitis of the left foot with an associated bacteremia. MEDICATIONS: This is the 15th day of treatment with nafcillin at a high dose. PHYSICAL EXAMINATION: Vital Signs: Temperature 98.5 degrees, pulse 89, respirations 18, blood pressure 165/76. General: This is chronically ill-appearing, elderly female. She occasionally tracks with her eyes. Head, Eyes, Ears, Nose, Throat: No drainage noted from the nose or ears. Neck: No stiffness. Lungs: Clear to auscultation. Cardiovascular: Heart rate is regular. Abdomen: Soft and nontender. The patient has a G-tube in place. The site is not draining or erythematous. Neurologic: At first, the patient did track with her eyes, but after a few seconds, she stopped doing that and just closed her eyes. She did not respond to verbal stimuli. Extremities: The patient has a PICC in her arm. LABORATORY DATA: CBC today shows a white count of 10,000. Hemoglobin is 10, platelet count 243,000. Creatinine is 1.7. GFR is 36. There is no radiographic study that is to be done today. ASSESSMENT AND PLAN: The patient has completed 15 days of treatment. She will need 27 more days of antibiotics. COMORBIDITIES: The patient is elderly and confused. She also is a diabetic and has acute kidney injury. cc: MD Derik Terry MD
[2018-05-19] MEDS: BASAGLAR SUBQ SCH (23:22)
[2018-05-20] MEDS: NAFCIL 2 GM in NS 100 ML IV SCH ×6 (01:42→22:54)
[2018-05-20] MEDS: REGLAN LIQUID GT SCH ×3 (04:31→23:52)
[2018-05-20] MEDS: POTASSIUM CHLORIDE 40 MEQ in D5W 1,000 ML IV SCH (06:24)
[2018-05-20] MEDS: HUMULIN R SUBQ SCH ×4 (06:24→22:54)
[2018-05-20 07:29] LABS: BASO# 0.08 X1000 (0.0-0.2); BASO% 0.6 % (0.0-0.8); EOS# 0.57 X1000 (0.0-0.7); EOS% 4.6 % (0.0-10.0); HEMATOCRIT 29.9 % (37.0-47.0); HEMOGLOBIN 9.7 g/dL (12.0-16.0); IMM GRAN# 0.06 X1000 (0.0-0.04); IMM GRAN% 0.5 % (0.0-0.5); LYMPH# 2.29 X1000 (1.2-3.4); LYMPH% 18.3 % (20.5-51.1); MCH 26.8 PG (27-31); MCHC 32.4 g/dL (33-37); MCV 82.6 FL (81-99); MONO# 0.99 X1000 (0.11-0.59); MONO% 7.9 % (1.7-9.3); MPV 9.8 FL (7.4-10.4); NEUT# 8.49 X1000 (1.4-6.5); NEUT% 68.1 % (42.2-75.2); PLT 318 X1000 (130-400); RBC 3.62 XMIL (4.2-5.4); RDW 19.7 % (11.5-14.5); WBC 12.48 X1000 (4.8-10.8)
[2018-05-20 07:59] LABS: CALCIUM 7.4 mg/dL (8.8-10.2); CREATININE 1.6 mg/dL (0.5-0.9); PHOSPHORUS 2.6 mg/dL (2.7-4.5); POTASSIUM 4.5 mmol/L (3.5-5.1)
[2018-05-20] MEDS: ZOLOFT GT SCH (11:20)
[2018-05-20] MEDS: COREG PO SCH ×2 (11:21→23:52)
[2018-05-20] MEDS: PLAVIX GT SCH (11:21)
[2018-05-20] MEDS: VITAMIN D GT SCH ×2 (11:21→23:52)
[2018-05-20] MEDS: TUMS GT SCH ×2 (11:21→23:52)
[2018-05-20] MEDS: BASAGLAR SUBQ SCH (22:54)
[2018-05-20] MEDS: NAFCIL IM SCH (23:57)
[2018-05-21] MEDS: NAFCIL 2 GM in NS 100 ML IV SCH ×5 (01:26→22:45)
[2018-05-21] MEDS: NAFCIL IM SCH ×3 (04:03→13:07)
[2018-05-21] MEDS: REGLAN LIQUID GT SCH ×3 (04:04→22:45)
[2018-05-21] MEDS: HUMULIN R SUBQ SCH ×4 (06:17→22:46)
[2018-05-21 07:44] LABS: ALBUMIN 1.5 g/dL (3.5-5.0); CALCIUM 7.2 mg/dL (8.8-10.2); CREATININE 1.7 mg/dL (0.5-0.9); PHOSPHORUS 2.9 mg/dL (2.7-4.5); POTASSIUM 4.2 mmol/L (3.5-5.1)
[2018-05-21] MEDS: PLAVIX GT SCH (08:19)
[2018-05-21] MEDS: COREG PO SCH ×2 (08:19→22:46)
[2018-05-21] MEDS: ZOLOFT GT SCH (08:19)
[2018-05-21] MEDS: TUMS GT SCH ×2 (08:19→22:46)
[2018-05-21] MEDS: VITAMIN D GT SCH ×2 (08:19→22:46)
--- NOTE | 2018-05-21 11:54 | PROGRESS NOTE ---
DATE: 05/21/2018 SUBJECTIVE: Ms. 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 She was drowsy and sleepy this morning. She did open her eyes to painful stimuli. She continues with a low-grade fever. Her peripheral IV infiltrated last night and she does not have IV access. She previously pulled out a PICC line in a moment of delirium. OBJECTIVE: Vital signs: Blood pressures are fluctuating from 150 to 165, whereas her diastolic blood pressures range from 80 to 95. Blood sugars are ranging from 116 to 64. Temperature 98.8 degrees, pulse 98, blood pressure 150/100. Cardiovascular: Regular rate and rhythm. Lungs: Clear. Abdomen: Soft, nontender, with active bowel sounds. ASSESSMENT AND PLAN: 1. 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 I have spoken to a member of the Peripherally Inserted Central Catheter Team and we will place a PICC line. Today she has been getting nafcillin 2 g IM overnight and we will transition her back to intravenous nafcillin. This is her 16th day of treatment. 2. Hypertension. Her blood pressure is too high. I am going to add Coreg 6.25 mg per tube b.i.d. cc: MD Derik Stewart MD
[2018-05-21 12:04] LABS: INR 1.12; PROTIME 15.3 Seconds (11.0-16.0)
[2018-05-21] MEDS ORDERED: NS 250 ML ONE (12:37)
[2018-05-21] MEDS ORDERED: STERILE WATER INJ. ONE ×2 (12:56→12:58)
[2018-05-21] MEDS ORDERED: LASIX IV ONE (18:41)
[2018-05-21] MEDS: BASAGLAR SUBQ SCH (22:47)
[2018-05-22] MEDS: NAFCIL 2 GM in NS 100 ML IV SCH ×6 (00:54→21:31)
[2018-05-22] MEDS: REGLAN LIQUID GT SCH ×3 (04:31→21:32)
[2018-05-22] MEDS: HUMULIN R SUBQ SCH ×3 (06:05→16:20)
[2018-05-22 07:56] LABS: ALB/GLOB RATIO 0.6; ALBUMIN 1.8 g/dL (3.5-5.0); DIRECT BILIRUBIN 0.4 mg/dL (0.00-0.20); TOTAL BILIRUBIN 0.6 mg/dL (0.20-1.00); TOTAL PROTEIN 4.7 g/dL (6.3-8.3)
[2018-05-22 07:58] LABS: ALBUMIN 1.6 g/dL (3.5-5.0); CALCIUM 7.8 mg/dL (8.8-10.2); CREATININE 1.6 mg/dL (0.5-0.9); PHOSPHORUS 3.5 mg/dL (2.7-4.5); POTASSIUM 3.6 mmol/L (3.5-5.1)
[2018-05-22] MEDS: PLAVIX GT SCH (08:10)
[2018-05-22] MEDS: TUMS GT SCH ×2 (08:10→21:32)
[2018-05-22] MEDS: ZOLOFT GT SCH (08:10)
[2018-05-22] MEDS: COREG PO SCH (08:10)
[2018-05-22] MEDS: NORVASC PEG SCH (08:10)
[2018-05-22] MEDS: VITAMIN D GT SCH ×2 (08:10→21:32)
--- NOTE | 2018-05-22 08:20 | PROGRESS NOTE ---
DATE: 05/22/2018 SUBJECTIVE: Ms. Phillips is lying in bed this morning. She will open her eyes when I call her name. She really had no verbal responses this morning though. Her PEG feed is going. OBJECTIVE: Left lower extremity exam: I took the dressing down today. She still has really hardly any healing much at all there. Her EHL tendon is still exposed, and you can still see a few of the antibiotic beads that we had put in there from the last surgery. ASSESSMENT: 1. Left diabetic foot ulcer. 2. Left 1st and 2nd metatarsal osteomyelitis, status post irrigation, debridement and placement of antibiotic beads. PLAN: I am going to put Ms. Phillips on the schedule for 05/25/2018 for final washout. That will give her a few days and getting PEG feeds and nutrition in, so hopefully once we wash that out, she will have a capacity to heal some of that tissue and hopefully be able to close that wound. Ultimately, if we cannot get the wound closed and she does not have a good capacity to heal, there is a good chance that we will end up needing to do a exvct-alr-jqpw amputation on her for chronic infection. cc: MD Derik Dempsey MD
--- NOTE | 2018-05-22 13:31 | PROGRESS NOTE ---
DATE: 05/22/2018 SUBJECTIVE: Patient is resting with eyes closed in no acute distress. I did not arouse her today. I have spoken with the nurse who was at the bedside. She states she is tolerating her tube feedings. Residuals have been within normal limits. PHYSICAL EXAMINATION: Vital signs: Temperature 99.4 degrees, pulse 105, blood pressure 148/77. General: The patient is asleep with eyes closed, in no acute distress. LABORATORY: Hematology: WBC 12.48, hemoglobin 9.7, hematocrit 29.9, MCV 82.6, platelets 318,000. Chemistry: Sodium 137, potassium 3.6, chloride 102, BUN 25, creatinine 1.6, calcium 7.8. ASSESSMENT AND PLAN: 1. Metabolic encephalopathy. 2. Methicillin-resistant Staphylococcus aureus osteomyelitis following with Orthopedics. 3. Nutritional requirements. Patient has feedings infusing at 40 mL an hour and is tolerating those without problems. Continue current management. We will continue to be available as needed. Please reconsult GI if needed. I have discussed this case with Dr. Welch. Dictated by QUENTIN Azevedo for Frankie Welch MD cc: QUENTIN Clark MD Allen J. Schmidt, MD
--- NOTE | 2018-05-22 20:44 | INFECTIOUS DISEASE PROGRESS NO ---
DATE: 05/22/2018 PRESENT ILLNESS: Ms Phillips has an oxacillin-sensitive Staph aureus osteomyelitis to the left foot with an associated bacteremia. MEDICATIONS: She is on day 18 of treatment with high-dose nafcillin at 2 g IV every 4 hours. PHYSICAL EXAMINATION: Vital Signs: Temperature is 99.6, pulse rate 91, respiratory rate 17, blood pressure 147/51, O2 saturation is 96 on room air. General: This is a chronically ill- appearing, elderly female. She is lying in the bed, tied down using soft wrist restraints. HEENT: Atraumatic, normocephalic. Conjunctivae are pale. She refused to open her mouth. Respiratory: Lung sounds have rhonchi in the upper lobes, diminished in the bases. Cardiovascular: Heart rate is regular. Pedal and radial pulses are +1 bilaterally. She has offloading boots in place bilaterally with a dressing to the left lower extremity. Abdomen: Soft, obese and nontender. Bowel sounds are active. There is a PEG tube in place and the site has no edema, erythema or drainage. She is receiving tube feedings. Neurologic: She is lethargic but arousable. She did open her eyes and make eye contact, but did not follow any commands or respond verbally. Integumentary: There is a PICC line in place to the left upper arm. Site is without edema, erythema or drainage. Integumentary: Skin is warm and dry. She does have multiple areas of scabby abrasions from head to toe due to what looks like areas that she has scratched. LABORATORY AND X-RAY: No CBC today. However, her white count was 12.48 on the with a hemoglobin of 9.7, and platelet count of 318,000. Today her creatinine is 1.6. GFR 39. AST 26, ALT 14, alkaline phosphatase 109. No imaging reports today. ASSESSMENT AND PLAN: Ms. Phillips has an oxacillin-sensitive Staph aureus bacteremia and left foot infection. She is on day 18, and at this point we will continue her nafcillin as ordered. Tentative plans are for a repeat washout to be done by Dr. Powers on . There is a continued leukocytosis as well as low-grade temperature. I will go ahead and order a CBC for in the morning. These plans have been discussed with and recommended by Dr. Layne. COMORBIDITIES: For Ms. Phillips include that she is elderly and confused with diabetes mellitus and acute kidney injury. Dictated by QUENTIN Rodriguez for Gerald Layne MD This chart was documented by, QUENTIN Rodriguez and accurately reflects the services performed, treatment plan and medical decisions as attested by the providers signature Gerald Layne MD. cc: MD Derik Terry MD [facility] HOSPITALNupur
[2018-05-22] MEDS: BASAGLAR SUBQ SCH (21:33)
[2018-05-23] MEDS: NAFCIL 2 GM in NS 100 ML IV SCH ×6 (01:41→23:02)
[2018-05-23] MEDS: HUMULIN R SUBQ SCH ×4 (06:18→23:06)
[2018-05-23] MEDS: COREG PO SCH ×3 (06:18→23:05)
[2018-05-23] MEDS: REGLAN LIQUID GT SCH ×3 (06:33→23:52)
[2018-05-23 07:31] LABS: BASO# 0.06 X1000 (0.0-0.2); BASO% 0.4 % (0.0-0.8); EOS# 0.16 X1000 (0.0-0.7); HEMATOCRIT 22.5 % (37.0-47.0); HEMOGLOBIN 7.2 g/dL (12.0-16.0); IMM GRAN# 0.08 X1000 (0.0-0.04); IMM GRAN% 0.5 % (0.0-0.5); LYMPH# 2.53 X1000 (1.2-3.4); MCH 26.8 PG (27-31); MCV 83.6 FL (81-99); MONO# 1.67 X1000 (0.11-0.59); MONO% 10.5 % (1.7-9.3); MPV 9.7 FL (7.4-10.4); NEUT# 11.36 X1000 (1.4-6.5); NEUT% 71.6 % (42.2-75.2); PLT 394 X1000 (130-400); RBC 2.69 XMIL (4.2-5.4); RDW 20.9 % (11.5-14.5); WBC 15.86 X1000 (4.8-10.8)
[2018-05-23 08:13] LABS: ALBUMIN 1.6 g/dL (3.5-5.0); CALCIUM 7.6 mg/dL (8.8-10.2); CREATININE 1.8 mg/dL (0.5-0.9); PHOSPHORUS 4.1 mg/dL (2.7-4.5); POTASSIUM 3.8 mmol/L (3.5-5.1)
[2018-05-23] MEDS: PLAVIX GT SCH (10:45)
[2018-05-23] MEDS: TUMS GT SCH ×2 (10:45→23:17)
[2018-05-23] MEDS: NORVASC PEG SCH (10:45)
[2018-05-23] MEDS: ZOLOFT GT SCH (10:45)
[2018-05-23] MEDS: VITAMIN D GT SCH ×2 (10:45→23:05)
--- NOTE | 2018-05-23 16:31 | INFECTIOUS DISEASE PROGRESS NO ---
DATE: 05/23/2018 PRESENT ILLNESS: Ms Phillips has an oxacillin-sensitive Staph aureus osteomyelitis to the left foot with an associated bacteremia. There is also progressive leukocytosis noted today. MEDICATIONS: Today is day 19 of treatment with high-dose nafcillin at 2 g IV every 4 hours. PHYSICAL EXAMINATION: Vital Signs: Temperature is 99.8, pulse rate 96, respiratory rate 17, blood pressure 132/58, O2 saturation is 91% on room air. General: This is a chronically ill appearing, elderly female. She is tied down in the bed with soft wrist restraints bilaterally. HEENT: Atraumatic, normocephalic. Oral mucous membranes are pink and moist. Conjunctivae are pale. Neck is supple. Trachea is midline. Respiratory: Lung sounds are clear to auscultation, diminished in the bases. Cardiovascular: Heart rate is regular. Pedal and radial pulses are +1 bilaterally. There is a dressing in place to her left lower extremity with offloading boots in place bilaterally. Abdomen: Soft, obese and nontender. Bowel sounds are active. She has a PEG tube in place with the site free of edema or erythema. She is receiving tube feedings. Neurologic: She is awake, alert, and more appropriate today, answering questions occasionally and following commands at times. Integumentary: She has a PICC line in place to the left upper arm. The site is without edema, erythema or drainage. LABORATORY AND X-RAY: Today, her white count is 15.86, hemoglobin 7.2, and platelet count of 394,000. Creatinine is 1.8. GFR 34. Her left foot and blood cultures have previously grown an oxacillin sensitive Staph aureus. No imaging reports today. ASSESSMENT AND PLAN: Ms. Phillips is being treated for an oxacillin-sensitive Staph aureus osteomyelitis to her left foot with an associated bacteremia. We will continue high-dose nafcillin as ordered. Unfortunately, she has a low-grade temperature with a continued leukocytosis. Today we will go ahead and order another set of blood cultures as well as a urine culture. She is incontinent, so we will order a straight cath for urinalysis and reflex urine as ordered by Dr. Akers, who has also already ordered a chest x-ray for in the morning. We will also do a bladder scan to evaluate if she is emptying her bladder appropriately. These plans have been discussed with and recommended by Dr. Layne. COMORBIDITIES: For Ms. Phillips include that she is elderly and confused with diabetes mellitus and acute kidney injury. Dictated by QUENTIN Rodriguez for Gerald Layne MD This chart was documented by, QUENTIN Rodriguez and accurately reflects the services performed, treatment plan and medical decisions as attested by the providers signature Gerald Layne MD. cc: MD Derik Terry MD MTDD
[2018-05-23 17:28] LABS: URINE SOURCE CATH
[2018-05-23 17:42] LABS: BILIRUBIN URINE NEGATIVE (NEGATIVE); BLOOD URINE NEGATIVE (NEGATIVE); COLOR YELLOW; GLUCOSE URINE NEGATIVE (NEGATIVE); KETONE URINE NEGATIVE (NEGATIVE); LEUKOCYTES URINE NEGATIVE (NEGATIVE); NITRITE URINE NEGATIVE (NEGATIVE); PH URINE 6.5; PROTEIN URINE 100 mg/dL (NEGATIVE); SP GRAVITY URINE 1.011; TURBIDITY URINE CLEAR (CLEAR); UROBILINOGEN URINE NORMAL (NORMAL)
[2018-05-23 17:45] LABS: UR EPITHELIAL CELLS <10 /HPF (<10); URINE BACTERIA NEGATIVE /HPF; URINE RBC 20-40 /HPF (<10); URINE WBC TNTC /HPF (<10)
[2018-05-23 18:05] LABS: URINE CASTS NONE SEEN; URINE CRYSTALS NONE SEEN; URINE YEAST PRESENT
[2018-05-23] MEDS: BASAGLAR SUBQ SCH (23:05)
[2018-05-24] MEDS: NAFCIL 2 GM in NS 100 ML IV SCH ×6 (04:29→23:42)
[2018-05-24] MEDS: REGLAN LIQUID GT SCH ×3 (04:35→23:44)
[2018-05-24] MEDS: HUMULIN R SUBQ SCH ×4 (07:05→23:54)
--- NOTE | 2018-05-24 08:33 | PROGRESS NOTE ---
DATE: 05/24/2018 SUBJECTIVE DATA: Ms. Phillips is lying in bed. She is a little bit difficult to arouse but she does awaken to painful stimuli. She is not answering any questions. OBJECTIVE DATA: On left lower extremity exam, she has a dressing that is in place. It is clean, dry, and intact. There is no surrounding erythema and minimal drainage. I am unable to determine if she has good sensation or if she will move the foot for me. She is not following any commands. ASSESSMENT: Status post left foot irrigation and debridement to bone with antibiotic beads. PLAN: Unfortunately, Ms. Phillips has not made much progress on this wound. It does not look acutely infected. However, we do want to wash the foot out one more time to give this the best chance of healing as possible. She has been on tube feeding for a couple of days. Obviously, her albumin is still very low. Her capacity to heal is very poor. I also want to note that her hemoglobin and hematocrit are 7.2 and 22.5, and her creatinine is 1.8. Her white count is also creeping back up. We are going to talk to the hospitalist to see if we want to transfuse her with any blood prior to surgery. We will plan on doing an irrigation and debridement of this left foot tomorrow. Dr. Powers is going to talk with the family and we will get her scheduled. Dictated by QUENTIN Roman for Melecio Powers MD cc: QUENTIN Roman MD Allen J. Schmidt, MD
--- NOTE | 2018-05-24 09:19 | Diag Imaging Result Doc PS360 ---
EXAM: CHEST-PORTABLE 05/24/2018 HISTORY: leukocytosis TECHNIQUE: AP portable at 0533 COMMENT: There is a left pleural effusion which appears larger than on 05/16/2018. This may be loculated. There is also some pleural fluid on the right. IMPRESSION: Pleural effusions. Electronically signed by Iglesia Zuniga 05/24/2018 9:17 AM
[2018-05-24] MEDS: NORVASC PEG SCH (09:56)
[2018-05-24] MEDS: TUMS GT SCH ×2 (09:56→23:43)
[2018-05-24] MEDS: COREG PO SCH ×2 (09:56→23:43)
[2018-05-24] MEDS: VITAMIN D GT SCH ×2 (09:56→23:43)
[2018-05-24] MEDS: ZOLOFT GT SCH (09:56)
[2018-05-24] MEDS: PLAVIX GT SCH (09:57)
[2018-05-24 10:32] LABS: HEMATOCRIT 23.5 % (37.0-47.0); HEMOGLOBIN 7.5 g/dL (12.0-16.0)
[2018-05-24] MEDS ORDERED: CUBICIN 500 MG in NS 100 ML IV ONE (17:00)
[2018-05-24] MEDS: MILK OF MAGNESIA GT SCH (23:43)
[2018-05-24] MEDS: BASAGLAR SUBQ SCH (23:45)
--- NOTE | 2018-05-25 01:24 | INFECTIOUS DISEASE PROGRESS NO ---
DATE: 05/24/2018 PRESENT ILLNESS: The patient has oxacillin-sensitive Staph aureus osteomyelitis of the left foot with an associated bacteremia. She has developed an progressive leukocytosis and today repeat blood cultures are growing gram-positive cocci. MEDICATIONS: This is the 20th day of treatment with high-dose nafcillin. PHYSICAL EXAMINATION: Vital Signs: Temperature is 99.6 degrees, pulse 115, respirations 20, blood pressure 147/93. General: This is a chronically ill-appearing elderly female, she is in no acute. Head, Eyes, Ears, Nose and Throat: No drainage was noted from the nose or the ears. She did try to say a few words, but I could not really understand what she was saying. Neck: No meningismus. Lungs: Clear to auscultation. Cardiovascular: Regular heart rate. Extremities: The patient's left foot is in a dressing, the dressing is intact. The patient has a PICC in the left arm, the PICC site is not swollen or draining. Neurologic: The patient is very lethargic. She as mentioned above tried to say a few words, I could not understand. She did not follow request to move her extremities. She does not have any tremor. LABS AND X-RAY: The patient's 2 most recent blood cultures growing gram-positive cocci. Urine culture is negative. The patient's hemoglobin is 7.5 and the hematocrit is 23.5. Chest x-ray shows an increasing size of the left pleural effusion. ASSESSMENT AND PLAN: I think the patient's repeat positive blood cultures are going to returned goods repairer to be Staphylococcus aureus and I think it is because the patient's left foot is still infected and still the focus of where the bacteremia originates from it. I have talked to Dr. Powers and Dr. Akers, I think the best thing to do would be to do a left oaeyo-prg-zvck amputation. I am also going to have the PICC taken out in case it is the source, and I gave the patient 1 dose of daptomycin prior to taking out the PICC in case the positive blood cultures unless the repeat blood cultures with another agent than oxacillin-sensitive Staph aureus. The patient's enlarging pleural effusion is worrisome. It may mean that that is infected and the patient is forming an empyema. I will defer to Dr. Akers about how he feels the best way to manage the pleural effusion. COMORBIDITIES: She is elderly. She has diabetes and acute kidney injury, and she unfortunately has an infection in her left foot that does not appear to be able to be cured short of doing amputation. cc: MD Derik Terry MD
[2018-05-25] MEDS: NAFCIL 2 GM in NS 100 ML IV SCH ×5 (03:42→18:31)
[2018-05-25 07:05] LABS: BASO# 0.05 X1000 (0.0-0.2); BASO% 0.3 % (0.0-0.8); EOS# 0.16 X1000 (0.0-0.7); EOS% 0.9 % (0.0-10.0); HEMATOCRIT 22.3 % (37.0-47.0); LYMPH# 2.37 X1000 (1.2-3.4); LYMPH% 13.1 % (20.5-51.1); MCH 26.8 PG (27-31); MCHC 31.4 g/dL (33-37); MCV 85.4 FL (81-99); MONO# 1.62 X1000 (0.11-0.59); MONO% 8.9 % (1.7-9.3); MPV 8.8 FL (7.4-10.4); NEUT# 13.94 X1000 (1.4-6.5); NEUT% 76.8 % (42.2-75.2); PLT 461 X1000 (130-400); RBC 2.61 XMIL (4.2-5.4); RDW 20.8 % (11.5-14.5); WBC 18.14 X1000 (4.8-10.8)
[2018-05-25 07:30] LABS: CALCIUM 7.9 mg/dL (8.8-10.2); CREATININE 1.7 mg/dL (0.5-0.9); POTASSIUM 3.5 mmol/L (3.5-5.1)
[2018-05-25 07:47] LABS: PREALBUMIN 8.5 mg/dL (20-40)
[2018-05-25] MEDS: HUMULIN R SUBQ SCH ×3 (08:13→16:02)
[2018-05-25] MEDS ORDERED: NS 500 ML ONE (11:54)
--- NOTE | 2018-05-25 14:53 | PROGRESS NOTE ---
DATE: 05/25/2018 SUBJECTIVE: Ms. Phillips is lying in bed again this morning. She is not really saying anything but she will open her eyes and look at you. OBJECTIVE: Left lower extremity exam: Looking at the wound there is still really no healing. There is no granulation tissue there. You can still see down into that first TMT joint and see both the cuneiform and metatarsal bones exposed. There is not a lot of swelling around that area but just literally no healing. The EHL tendon is completely desiccated at this point. ASSESSMENT: Left nonhealing diabetic foot ulcer. PLAN: So, I discussed with Ms. Phillips and I also mainly discussed with her daughter, Светлана, about everything going on. Unfortunately, she does not really have any healing. We washed things out three times. She is bacteremic again. Her creatinine is going back up and her white count is going back up as well. So, I discussed with her daughter about a below the knee amputation. I think for this nonhealing wound, it is definitely a reasonable choice to pursue, especially to try to get her body better. We could just completely get rid of the infected area and the nonhealing ulcer. I discussed the case with Dr. Akers and Dr. Layne as well, who has been following her for a while. After we discussed everything, we decided to pursue with left below the knee amputation. Went over with Светлана, her daughter who has medical power of medical technologist clinical, about the procedure risks, benefits, and potential complications. The risks include, but are not limited to infection, wound healing problems, damage to nerves, arteries or veins, numbness, stump related pain, wound healing problems, anesthesia related risks, and DVT. After discussing these, she expressed her understanding and gave consent for us to proceed, so will plan on doing a left below the knee amputation today. She is n.p.o. cc: MD Derik Dempsey MD
[2018-05-25] MEDS ORDERED: XYLOCAINE-MPF 2% ONE (15:13)
[2018-05-25] MEDS ORDERED: DIPRIVAN 1% ONE (15:13)
[2018-05-25] MEDS: CATAPRES-TTS-2 TD SCH (16:02)
[2018-05-25] MEDS: PLAVIX GT SCH (16:03)
[2018-05-25] MEDS: NORVASC PEG SCH (16:03)
[2018-05-25] MEDS: VITAMIN D GT SCH (16:03)
[2018-05-25] MEDS: TUMS GT SCH (16:03)
[2018-05-25] MEDS: ZOLOFT GT SCH (16:03)
[2018-05-25] MEDS: COREG PO SCH (16:04)
[2018-05-25] MEDS ORDERED: KETAMINE ONE (17:08)
[2018-05-25] MEDS ORDERED: OFIRMEV 1000 MG/ISOTONIC SOLN 1,000 MG/100 ML BOTTLE ONE (17:16)
[2018-05-25] MEDS ORDERED: ZOFRAN ONE (17:19)
[2018-05-26] MEDS: NAFCIL 2 GM in NS 100 ML IV SCH ×3 (02:09→07:50)
[2018-05-26] MEDS: VITAMIN D GT SCH ×3 (02:34→22:50)
[2018-05-26] MEDS: TUMS GT SCH ×3 (02:34→22:50)
[2018-05-26] MEDS: BASAGLAR SUBQ SCH ×2 (02:34→23:15)
[2018-05-26] MEDS: HUMULIN R SUBQ SCH ×5 (02:35→22:49)
[2018-05-26] MEDS: MILK OF MAGNESIA GT SCH ×2 (02:35→22:50)
[2018-05-26] MEDS: COREG PO SCH ×3 (02:35→22:50)
--- NOTE | 2018-05-26 08:23 | OPERATIVE NOTE ---
PROCEDURE DATE: 05/25/2018 PREOPERATIVE DIAGNOSES: 1. Nonhealing left diabetic foot ulcer. 2. Left osteomyelitis second and third metatarsals. POSTOPERATIVE DIAGNOSES: 1. Nonhealing left diabetic foot ulcer. 2. Left osteomyelitis second and third metatarsals. PROCEDURE: Left below-knee amputation. SURGEON: Dr. Melecio Powers. ASSISTANTS: QUENTIN Roman, and Raciel Presley RN. ESTIMATED BLOOD LOSS: 400 mL. IMPLANTS: None. DISPOSITION: To PACU, hemodynamically stable. INDICATION FOR PROCEDURE: Ms. Phillips is a 67-year-old female, who I have been following for the past several weeks for this left osteomyelitis of first and second metatarsals and ankle abscess. We washed her out 3 times. We tried a wound VAC and multiple dressing changes. Unfortunately, she just is not healing and she is standing in somewhat of a constant state of sepsis. So, I discussed her case with Dr. Akers and Dr. Layne. We discussed about amputation of this left lower extremity. I then discussed her case with her daughter and her son. She does not have medical power of corporate associate attorney established, but she does have financial power of corporate associate attorney, which is with her daughter. I talked with Jasmin, her daughter, and Danny, her son, and they both agreed with proceeding with a left bmjoz-yfh-khmo amputation to control her infection and get her healing. DESCRIPTION OF PROCEDURE: Ms. Phillips was identified in the preoperative holding area. The left leg was marked as correct surgical site. She was then wheeled to the operating room, placed supine on the operating table. All bony prominences were well padded. She was induced under general anesthesia. LMA was placed. Tourniquet was placed to the left thigh. Left lower extremity was then prepped with chlorhexidine gluconate scrub and then ChloraPrep, and draped in normal sterile fashion. Surgical pause was performed. We identified the correct patient, correct side, and the correct procedure. Preop antibiotics were given. Tourniquet was inflated to 300 mmHg. We started with a standard below-knee amputation incision. It came down to the tibia and the fibula. We used fluoroscopic imaging and showed exactly where her tibial donald went. So, we had to go down a little bit further than I would normally take the amputation level to stay away from that donald. We ended up transecting the tibia there and the fibula, and then used an amputation knife to complete the amputation. We then identified her neurovascular structures, veins and arteries. We used hemostats and were able to tie those off with silk ties. Her nerve structures, we were able to locate those, and transect those deep so that we would not retract into the tissue. Once we had good hemostasis, I then performed a myodesis, taking that Achilles tendon fascia and sewing it to the anterior tibial fascia, covering her tibial bone. I did sr the tibia before we did that. Once we performed our myodesis, we then closed through the deep layer around that area and all of that was with 0 Vicryl. We used 2-0 Vicryl to finish closing down that subcutaneous and then we used wendy on the skin. She had good hemostasis at the end of the case. We did let the tourniquet down in the middle and did not put it back up after we had tied off her neurovascular structures. Adaptic, 4 x 4s, ABD, soft roll, and a hard splint was applied to keep the leg in extension. She was then awoken from general anesthesia, moved to her own bed and taken to PACU in stable condition. Postop, she will be nonweightbearing left lower extremity. We will continue to follow. cc: MD Derki Dempsey MD
[2018-05-26 09:23] LABS: HEMATOCRIT 19.7 % (37.0-47.0)
--- NOTE | 2018-05-26 09:23 | PROGRESS NOTE ---
DATE: 05/26/2018 SUBJECTIVE: Ms. Phillips is lying in bed this morning. She has family at the bedside. She is a little bit more appropriate this morning. She was very pleasant and when I asked how she was feeling she said better. She was not able to answer many other questions. OBJECTIVE DATA: On left lower extremity exam, the surgical splint that was placed after the BKA is clean, dry, and intact. Ms. Phillips does not seem to be in much pain. The leg seems to be in full extension. ASSESSMENT: Status post left jleig-zvj-fdhu amputation. PLAN: Overall, I think Ms. Phillips does seem better this morning. We are going to leave the surgical splint in place for a couple of days. We will take that down prior to her leaving the hospital just to assess the wound, and make sure everything looks nice and closed. We do want to work on keeping that knee in full extension. We will continue to follow her labs. Her white count up a little bit this morning, but obviously she is postop so we will see if that starts trending down in the next couple of days. Her hemoglobin and hematocrit is down some this morning. Her current blood pressure is 143/66, and she is 100% on 2 L nasal cannula. I am going to hold off on transfusing her, and let that be up to her primary medical team. We will continue to follow her while she is in the hospital. Dictated by QUENTIN Roman for Melecio Powers MD cc: QUENTIN Roman MD Allen J. Schmidt, MD
[2018-05-26] MEDS: ZOLOFT GT SCH (10:20)
[2018-05-26] MEDS: PLAVIX GT SCH (10:21)
[2018-05-26] MEDS: NORVASC PEG SCH (10:21)
[2018-05-26] MEDS: CUBICIN 500 MG in NS 100 ML IV SCH (11:39)
--- NOTE | 2018-05-27 02:24 | INFECTIOUS DISEASE PROGRESS NO ---
DATE: 05/26/2018 PRESENT ILLNESS: The patient is status post left uzwli-plw-dsia amputation for an oxacillin- sensitive Staph aureus osteomyelitis of the left foot. The patient had an associated bacteremia. The patient developed an Enterococcus faecium bacteremia, the first blood cultures that were positive with it were from 05/23/2018. MEDICATIONS: The patient has completed 3 weeks of treatment with high-dose nafcillin. I started treatment with daptomycin approximately 2 days ago. PHYSICAL EXAMINATION: Vital Signs: Temperature is 98.6 degrees, pulse respirations 18, blood pressure 122/59. General: This is a chronically ill-appearing elderly female. She is lethargic. She appears to be in no acute distress. Head, Eyes, Ears, Nose and Throat: No drainage was noted from the nose or ears. Neck: No stiffness. The patient has an internal jugular venous catheter in place. The catheter site is not draining. Lungs: Clear to auscultation. Cardiovascular: Heart rate is regular. Abdomen: Soft and nontender. The patient has a G-tube in place. There is no purulent drainage from around the G-tube site Neurologic: The patient is very lethargic. She did not respond to verbal stimuli. There was no tremor. She did not follow request to move her extremities. Extremities: The patient's left leg had a large dressing around it, the dressing is intact. LABS AND X-RAY STUDIES: CBC shows a white blood cell count of 18,400, hemoglobin 6, and platelet count 461,000. Creatinine is 1.7. GFR is 36. Blood cultures grew vancomycin-resistant Enterococcus. ASSESSMENT AND PLAN: The patient has a Staphylococcus aureus bacteremia which has received 3 weeks of treatment with nafcillin at a high dose. Currently the patient is on daptomycin which has good Staphylococcus coverage as well, therefore the patient continues to be treated for her Staphylococcus aureus bacteremia. The patient's foot has been amputated and it showed essentially no evidence of healing, and I doubt it ever would with medical treatment. The plan now is to continue daptomycin and I will go ahead and repeat blood cultures tomorrow. COMORBIDITIES: She is elderly, she has diabetes and acute kidney injury and unfortunately she developed an infection of the left foot that was not able to be cured short of doing amputation. cc: MD Derik Terry MD
[2018-05-27] MEDS: TYLENOL PO PRN ×2 (04:00→08:46)
[2018-05-27] MEDS: HUMULIN R SUBQ SCH ×4 (05:59→23:56)
[2018-05-27] MEDS: CUBICIN 500 MG in NS 100 ML IV SCH (08:40)
[2018-05-27] MEDS: TUMS GT SCH ×2 (08:46→23:58)
[2018-05-27] MEDS: NORVASC PEG SCH (08:46)
[2018-05-27] MEDS: COREG PO SCH ×2 (08:46→23:58)
[2018-05-27] MEDS: PLAVIX GT SCH (08:46)
[2018-05-27] MEDS: ZOLOFT GT SCH (08:46)
[2018-05-27] MEDS: VITAMIN D GT SCH ×2 (08:47→23:58)
--- NOTE | 2018-05-27 13:43 | PROGRESS NOTE ---
DATE: 05/27/2018 SUBJECTIVE: The patient is a pleasant, 67-year-old female, who is 2 days status post left below- knee amputation per Dr. Powers. She has positive blood pressure for Enterococcus. OBJECTIVE: Extremities: On physical exam, patient's left lower extremity reveals her dressing is intact. there is no evidence of any obvious drainage. IMPRESSION: Postoperative day #2 status post left below-knee amputation. PLAN: At this point, patient will continue antibiotics per Dr. Layne. The plan is to change the dressing in the next few days to evaluate the wound. cc: MD Derik Escoto MD
[2018-05-27 13:51] LABS: HEMATOCRIT 18.2 % (37.0-47.0)
[2018-05-27] MEDS ORDERED: NS 250 ML ONE (13:51)
[2018-05-27 13:58] LABS: HEMOGLOBIN 5.6 g/dL (12.0-16.0)
--- NOTE | 2018-05-27 16:12 | PROGRESS NOTE ---
DATE: 05/27/2018 SUBJECTIVE: Ms. Phillips is lying in bed. She is moaning and in some pain. OBJECTIVE: Right upper extremity exam: She has some swelling to that right upper extremity. There is a lot of bruising through there. She is moving the fingers and she is in restraint. Left lower extremity exam: Splint is clean, dry, and intact. I do not see any bloody drainage anywhere. ASSESSMENT: Status post left below-the--knee amputation for nonhealing diabetic foot ulcer with sepsis. PLAN: We need to continue to watch Ms Phillips's right arm. I think an IV had infiltrated on and really bruised that whole arm. I would recommend warm compresses on their right now. As far as the left lower extremity, we will keep the splint on for now. We will continue to follow. cc: MD Derik Dempsey MD
[2018-05-27] MEDS: BASAGLAR SUBQ SCH (23:57)
[2018-05-27] MEDS: MILK OF MAGNESIA GT SCH (23:57)
[2018-05-27] MEDS: PREVACID SOLUTAB GT SCH (23:58)
[2018-05-28] MEDS: HUMULIN R SUBQ SCH ×4 (06:03→21:39)
[2018-05-28] MEDS: PREVACID SOLUTAB GT SCH ×2 (06:04→21:10)
[2018-05-28] MEDS: VITAMIN D GT SCH ×2 (09:35→21:10)
[2018-05-28] MEDS: COREG PO SCH ×2 (09:35→21:10)
[2018-05-28] MEDS: TYLENOL PO PRN ×2 (09:35→16:03)
[2018-05-28] MEDS: TUMS GT SCH ×2 (09:35→21:09)
[2018-05-28] MEDS: CUBICIN 500 MG in NS 100 ML IV SCH (09:35)
[2018-05-28] MEDS: ZOFRAN IV PRN ×2 (09:36→16:02)
[2018-05-28] MEDS: PLAVIX GT SCH (09:36)
[2018-05-28] MEDS: NORVASC PEG SCH (09:36)
[2018-05-28] MEDS: ZOLOFT GT SCH (09:36)
--- NOTE | 2018-05-28 13:17 | PROGRESS NOTE ---
DATE: 05/28/2018 SUBJECTIVE: Ms. Phillips appears comfortable. She reports that she is feeling better today. Breathing is comfortable. OBJECTIVE: Vital Signs: Temperature is 99.2 degrees, pulse 100, respirations 18, blood pressure 156/81. HEENT: Pupils are equal. Lungs: Clear in all lung [place]. Cardiovascular: Regular rhythm and rate without murmur or S3. Abdomen: Soft. LABORATORY: Blood sugars 290, 235, 184. ASSESSMENT AND PLAN: 1. Status post left jkxay-ill-mmbv amputation for nonhealing diabetic foot ulcer with sepsis. She is doing very well. She had an IV on and it bruised up her whole arm and so plan we are going to apply some compresses and elevate the arm as we can. 2. 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 So, she has completed 3 weeks treatment, high-dose nafcillin. Dr. Layne has started her with treatment with daptomycin and I think this may be the 5th day of treatment with that. Note, her nutrition looks good. She does have diabetes and acute kidney injury. 3. Review of her lab. Watching her hematocrit. Hematocrit went to 18 and hemoglobin 5.6 yesterday. Her creatinine was 1.7 on the . So, she was transfused 2 units of blood. We will check a CBC and a Chem 12 tomorrow. cc: Derik Hernandez MD
[2018-05-28] MEDS: MILK OF MAGNESIA GT SCH (21:10)
[2018-05-28] MEDS: BASAGLAR SUBQ SCH (21:43)
[2018-05-29] MEDS: PREVACID SOLUTAB GT SCH ×2 (06:24→22:07)
[2018-05-29] MEDS: HUMULIN R SUBQ SCH ×4 (06:24→22:08)
[2018-05-29 07:44] LABS: BASO# 0.09 X1000 (0.0-0.2); BASO% 0.5 % (0.0-0.8); EOS# 0.19 X1000 (0.0-0.7); HEMATOCRIT 24.6 % (37.0-47.0); HEMOGLOBIN 7.6 g/dL (12.0-16.0); IMM GRAN# 0.53 X1000 (0.0-0.04); IMM GRAN% 2.7 % (0.0-0.5); LYMPH# 3.24 X1000 (1.2-3.4); LYMPH% 16.3 % (20.5-51.1); MCH 27.5 PG (27-31); MCHC 30.9 g/dL (33-37); MCV 89.1 FL (81-99); MONO# 1.09 X1000 (0.11-0.59); MONO% 5.5 % (1.7-9.3); PLT 467 X1000 (130-400); RBC 2.76 XMIL (4.2-5.4); RDW 22.7 % (11.5-14.5); WBC 19.84 X1000 (4.8-10.8)
[2018-05-29 07:47] LABS: BANDS 4 % (0-1); EOS 2 % (1-10); LYMPHS 12 % (21-51); MONO 2 % (1-9); NRBC 1 % (0-0); SEGS 80 % (42-75)
[2018-05-29 07:50] LABS: ALB/GLOB RATIO 0.5; ALBUMIN 1.9 g/dL (3.5-5.0); CALCIUM 8.1 mg/dL (8.8-10.2); CREATININE 1.9 mg/dL (0.5-0.9); POTASSIUM 4.2 mmol/L (3.5-5.1); TOTAL BILIRUBIN 0.53 mg/dL (0.20-1.00); TOTAL PROTEIN 5.7 g/dL (6.3-8.3)
[2018-05-29] MEDS ORDERED: LR 1,000 ML IV SCH (08:15)
[2018-05-29] MEDS: CUBICIN 500 MG in NS 100 ML IV SCH (10:07)
[2018-05-29] MEDS: ZOFRAN IV PRN (10:10)
[2018-05-29] MEDS: COREG PO SCH ×2 (10:55→20:28)
[2018-05-29] MEDS: NORVASC PEG SCH (10:55)
[2018-05-29] MEDS: PLAVIX GT SCH (10:55)
[2018-05-29] MEDS: ZOLOFT GT SCH (10:55)
[2018-05-29] MEDS: VITAMIN D GT SCH ×2 (10:55→20:28)
[2018-05-29] MEDS: TYLENOL PO PRN (10:55)
[2018-05-29] MEDS: TUMS GT SCH ×2 (10:56→20:28)
--- NOTE | 2018-05-29 13:26 | PROGRESS NOTE ---
DATE: 05/29/2018 SUBJECTIVE: Ms. Phillips is lying in bed this morning. She actually was able to carry on a conversation with me, which is the first time that has happened with me. She was responding very appropriately. OBJECTIVE: Left lower extremity exam, unfortunately some of dressing had feces on it because of some recent bowel movement. We changed everything and we actually cleaned her up really well, as well. After that I was able to put a clean, nice dressing on. Right upper extremity exam, she still has a lot of swelling to that arm but it is very compressible. She is able to move her fingers very well. She is able to move the whole arm very well. ASSESSMENT: Status post left below-knee amputation. PLAN: Ms. Phillips's white count went up some but she is responding a lot better. Her wound looks really good on her left stump and so we will just continue to follow. Continue with elevating the right upper extremity and I encouraged her to work her fingers as much as she could to push a lot of that fluid out of that right upper extremity. cc: MD Derik Dempsey MD
[2018-05-29] MEDS: MILK OF MAGNESIA GT SCH (20:28)
[2018-05-29] MEDS: BASAGLAR SUBQ SCH (20:28)
--- NOTE | 2018-05-29 20:48 | INFECTIOUS DISEASE PROGRESS NO ---
DATE: 05/29/2018 PRESENT ILLNESS: Ms Phillips is status post left yibxr-lim-lgdc amputation for an oxacillin sensitive Staph aureus osteomyelitis of the left foot. She did have an associated bacteremia, however, she has since developed a vancomycin-resistant Enterococcus bacteremia. There is some mild purulence noted to the PEG tube site as well. There is also a continued leukocytosis, and a mild transaminitis. MEDICATIONS: Today is day 3 of daptomycin 500 mg IV every 24 hours. PHYSICAL EXAM: Vital Signs: Temperature is 97.9 degrees, pulse rate 77, respiratory rate 18, blood pressure 97/61, O2 saturation is 87% on room air. General: This is a chronically ill- appearing elderly female. She is lying in the bed lethargic but arousable. She has bilateral wrist restraints in place. HEENT: Atraumatic, normocephalic. Oral mucous membranes cannot be visualized at this time. Conjunctivae are pale. Neck: Supple. Trachea is midline. Cardiovascular: Heart rate is regular. Respiratory: Lung sounds are diminished bilaterally. Abdomen: Soft, obese and nontender. There is a G-tube in place with some green /silveira drainage noted around the site. Neurologic: She is lethargic but arousable; mostly nonverbal at this point. Not following commands. Integument: Skin is generally warm and dry with multiple dry abrasions noted. There is a dressing in place to her left lower extremity. LABORATORY AND X-RAY: Today her white count is 19.84, hemoglobin 7.6, platelet count 467,000, creatinine is 1.9, GFR 32, total bilirubin is 0.53, AST 226, ALT 98, alkaline phosphatase 120. Her most recent blood cultures have grown an enterococcal faecium which is vancomycin-resistant in both cultures. No imaging reports today. ASSESSMENT AND PLAN: Ms. Phillips has a continued leukocytosis with a new vancomycin-resistant enterococcal bacteremia. We will go ahead and recheck blood cultures this afternoon hoping for sterile set. For now she is continuing on daptomycin. There is also the possibility of purulence noted to the percutaneous endoscopic gastrostomy tube site with a silveira/green drainage noted. This has been cultured and sent to the lab for analysis. She has a continued leukocytosis which we are hoping will resolve. There is also a mild transaminitis. We will recheck labs on Tuesday. For now we will continue daptomycin as ordered. These plans have been discussed with and recommended by Dr. Layne. COMORBIDITIES: Include that she is elderly with diabetes mellitus, acute kidney injury and anemia. Dictated by QUENTIN Rodriguez for Gerald Layne MD This chart was documented by, QUENTIN Rodriguez and accurately reflects the services performed, treatment plan and medical decisions as attested by the providers signature Gerald Layne MD. cc: MD Derik Terry MD [facility]
[2018-05-30] MEDS: PREVACID SOLUTAB GT SCH ×2 (06:13→23:42)
--- NOTE | 2018-05-30 08:44 | Diag Imaging Result Doc PS360 ---
EXAM: CHEST-PORTABLE 05/30/2018 HISTORY: hypoxia TECHNIQUE: AP portable at 0824 COMMENT: There is complete opacification of the left lung which was not the case at the time the previous study of 05/24/2018. Some of this is doubtful is due to atelectasis as the mediastinum is even more shifted to the left than on the previous study. There was previously pleural fluid and/or thickening on the left. There is hazy opacity over the right lower lung which is likely due to interstitial pulmonary edema. IMPRESSION: Atelectasis of the left lung presumably due to mucous plugging of the left mainstem bronchus. Pulmonary edema. The possibility of pneumonia particularly on the left cannot be excluded. Electronically signed by Iglesia Zuniga 05/30/2018 8:40 AM
[2018-05-30] MEDS: HUMULIN R SUBQ SCH ×4 (09:00→23:43)
[2018-05-30] MEDS: VITAMIN D GT SCH ×2 (09:01→23:42)
[2018-05-30] MEDS: CUBICIN 500 MG in NS 100 ML IV SCH (09:02)
[2018-05-30] MEDS: ZOLOFT GT SCH (09:02)
[2018-05-30] MEDS: NORVASC PEG SCH (09:02)
[2018-05-30] MEDS: TUMS GT SCH ×2 (09:02→23:43)
[2018-05-30] MEDS: COREG PO SCH ×2 (09:02→23:43)
[2018-05-30] MEDS: PLAVIX GT SCH (09:02)
--- NOTE | 2018-05-30 19:10 | INFECTIOUS DISEASE PROGRESS NO ---
DATE: 05/30/2018 PRESENT ILLNESS: The patient has left dyqug-eaa-qunp amputation for Staph aureus osteomyelitis left foot. She has developed a vancomycin resistant enterococcal bacteremia. She has an infection of the PEG tube site. She has complete opacity of the left lung most likely due to obstruction to the mainstem bronchus. MEDICATIONS: The patient is on the 4th day of treatment with daptomycin. PHYSICAL EXAMINATION: Vital Signs: Temperature is 98.2 degrees, pulse 70, respirations 16, blood pressure 124/68. General: This is a chronically ill-appearing elderly female. She is lethargic but a few times she did talk. Head/eyes/ears/nose/throat: No drainage noted from the nose or ears. Neck: No meningismus. Lungs: There were diminished breath sounds on the left side more than the right. Cardiovascular: Heart rate is regular. Abdomen: Soft and nontender. There is purulent drainage coming from the G-tube site. Neurologic: The patient is lethargic. As mentioned above she did talk for a few words. There was no tremor. Extremities: The patient has a left guvrs-xpk-vxxa amputation. There is a dressing on the leg. The dressings intact. Both arms are extremely edematous with the right being more so than the left. LAB AND X-RAY: Chest x-ray shows complete left lung opacity. Blood cultures are pending. A culture taken from the patient's G-tube site is growing gram-negative rods. The patient also has a bacteremia with vancomycin-resistant Enterococcus. ASSESSMENT AND PLAN: The patient has a bacteremia and an infected G-tube. I plan to continue daptomycin and Dr. Akers is going to examine the patient's arms and determine if any study needs to be done. I am going to go ahead and add cefepime because there are gram-negative rods seen in the purulence around the G-tube site. COMORBIDITIES: She is elderly, she has diabetes mellitus, acute kidney injury and she is anemic. cc: MD Derik Terry MD [facility]
[2018-05-30] MEDS: MILK OF MAGNESIA GT SCH (23:42)
[2018-05-30] MEDS: BASAGLAR SUBQ SCH (23:43)
[2018-05-31] MEDS: MAXIPIME 1 GM in NS 50 ML IV SCH ×2 (00:19→13:47)
[2018-05-31] MEDS: PREVACID SOLUTAB GT SCH ×2 (06:05→21:44)
[2018-05-31] MEDS: HUMULIN R SUBQ SCH ×4 (06:05→21:45)
[2018-05-31 07:51] LABS: BASO# 0.06 X1000 (0.0-0.2); BASO% 0.3 % (0.0-0.8); EOS# 0.15 X1000 (0.0-0.7); EOS% 0.8 % (0.0-10.0); HEMATOCRIT 25.2 % (37.0-47.0); HEMOGLOBIN 7.5 g/dL (12.0-16.0); IMM GRAN# 0.26 X1000 (0.0-0.04); IMM GRAN% 1.4 % (0.0-0.5); LYMPH# 2.73 X1000 (1.2-3.4); LYMPH% 14.8 % (20.5-51.1); MCH 27.3 PG (27-31); MCHC 29.8 g/dL (33-37); MCV 91.6 FL (81-99); MONO# 0.84 X1000 (0.11-0.59); MONO% 4.6 % (1.7-9.3); NEUT# 14.39 X1000 (1.4-6.5); NEUT% 78.1 % (42.2-75.2); PLT 411 X1000 (130-400); RBC 2.75 XMIL (4.2-5.4); RDW 23.2 % (11.5-14.5); WBC 18.43 X1000 (4.8-10.8)
--- NOTE | 2018-05-31 08:07 | PROGRESS NOTE ---
DATE: 05/31/2018 SUBJECTIVE: Ms. Phillips is lying in bed this morning. She is not quite as alert as she was yesterday but she is answering questions. She is just not following commands very well. OBJECTIVE: On left lower extremity exam, dressing is clean, dry, and intact. There is not a lot of swelling at all to the knee or the stump. On right upper extremity exam, she still has a lot of swelling to the right upper extremity. There is still a lot of ecchymoses throughout. ASSESSMENT: Status post left below-knee amputation. PLAN: Ms. Phillips is doing great from her below-knee amputation. Everything looked good yesterday when we changed the dressing. She is still being worked up from the medicine standpoint. From an orthopedic standpoint, she is nonweightbearing to the left lower extremity. We will continue to follow. cc: MD Derik Dempsey MD
[2018-05-31 08:17] LABS: BANDS 4 % (0-1); EOS 1 % (1-10); LYMPHS 9 % (21-51); NRBC 1 % (0-0); SEGS 84 % (42-75)
[2018-05-31 08:18] LABS: ANISOCYTOSIS 1+; HYPOCHROM 1+
[2018-05-31 08:19] LABS: POIKILOCYTOSIS 1+
[2018-05-31 08:28] LABS: ALB/GLOB RATIO 0.6; ALBUMIN 2.1 g/dL (3.5-5.0); CALCIUM 7.9 mg/dL (8.8-10.2); CREATININE 1.8 mg/dL (0.5-0.9); POTASSIUM 4.5 mmol/L (3.5-5.1); TOTAL BILIRUBIN 0.61 mg/dL (0.20-1.00); TOTAL PROTEIN 5.8 g/dL (6.3-8.3)
[2018-05-31] MEDS: CUBICIN 500 MG in NS 100 ML IV SCH (10:16)
[2018-05-31] MEDS: COREG PO SCH ×2 (10:48→21:45)
[2018-05-31] MEDS: NORVASC PEG SCH (10:48)
[2018-05-31] MEDS: BACTROBAN OINTMENT TOP SCH ×2 (10:49→21:30)
[2018-05-31] MEDS: ZOLOFT GT SCH (10:49)
[2018-05-31] MEDS: TUMS GT SCH ×2 (10:49→21:45)
[2018-05-31] MEDS: PLAVIX GT SCH (10:49)
[2018-05-31] MEDS: VITAMIN D GT SCH ×2 (10:49→21:44)
[2018-05-31] MEDS: MUCOMYST 20% INH SCH ×2 (11:05→19:40)
[2018-05-31] MEDS: DUONEB (A & A) INH SCH ×4 (11:05→23:20)
[2018-05-31 11:12] LABS: ALLEN TEST YES; BE 5.4 mmoll (-3.0-3.0); BLOOD TYPE ARTERIAL; HCO3-(ACT) 29.1 mmoll (20.0-26.0); METHB 0.8 % (0.0-1.5); O2(CT) 11.7 mL/dL (15.0-23.0); O2HB 95.8 % (95.0-99.0); PCO2(98.6) 47 mmHg (35-45); PO2(98.6) 92 mmHg (60-100); SAMPLE BLOOD; THB 8.6 g/dL (11.5-17.4); pH(98.6) 7.42 (7.35-7.45)
[2018-05-31 11:13] LABS: MODALITY CANNULA
--- NOTE | 2018-05-31 11:43 | PULMONOLOGY CONSULTATION ---
DATE: 05/31/2018 REASON FOR CONSULTATION: Left lung whiteout. HISTORY OF PRESENT ILLNESS: Ms. Phillips is a 67-year-old black female with poorly controlled diabetes mellitus and hemoglobin A1c of 12.8, who was admitted to the hospital 04/22/2018 with leukocytosis and generalized weakness. The patient had low-grade fevers. Etiology for the leukocytosis was not clear. After significant evaluation, she was determined to have a left foot abscess. Cultures positive at that time include oxacillin sensitive Staph aureus. Despite several weeks of treatment, this wound was not healing, most likely due to poor blood flow. The patient went to the operating room on 05/25/2018 and underwent a left below the knee amputation. The patient has had difficulty with altered mental status and confusion during the entire hospital stay. She has been difficult to mobilize out of the bed due to confusion. Chest x-ray yesterday morning revealed atelectasis of the left lung. PAST MEDICAL HISTORY/PROBLEM LIST: 1. Poorly controlled diabetes mellitus as per above. 2. Peripheral neuropathy. 3. Hypertension. 4. Chronic renal insufficiency. 5. Status post hysterectomy. 6. Status post right knee arthroplasty. 7. Type 2 diabetes mellitus. 8. Coronary artery disease. SOCIAL HISTORY: No alcohol or tobacco use listed. FAMILY HISTORY: Positive for heart disease. REVIEW OF SYSTEMS: Limited. Patient is alert, oriented to name, but not place or date. PHYSICAL EXAMINATION: General: Reveals an obese, black female who currently is in restraints. She has a weak cough with audible rhonchi. Vitals: Blood pressure 142/82, heart rate 81, respiratory rate 18, oxygen saturation 96% on 4 L per nasal cannula. HEENT: Pupils are equal and reactive. Oropharynx appears slightly dry. Neck: Supple. Chest: Reveals diminished breath sounds in the left lung with rhonchi on the right. Cardiac: S1-S2. Abdomen: Soft, with feeding tube in position. Extremities: Reveal surgical dressings on the left stump. The patient also has significant bruising in the right arm. LABORATORY: Chest x-ray reveals atelectasis in the left lung as per above. White blood count 18.4, hemoglobin 7.5, platelet count 411,000. Sodium 138, potassium 4.5, chloride 102, bicarbonate 27, BUN 59, creatinine 1.8. IMPRESSION: The patient is a 67-year-old with diabetes mellitus, delirium, atelectasis of the left lung, acute hypoxemic respiratory failure. Pneumonia cannot be completely eliminated. RECOMMENDATIONS: 1. Initiate bronchodilators. Mucomyst has been initiated this morning and I will add Atrovent and albuterol to help promote bronchial clearance. 2. Initiate chest physical therapy. Hopefully, rolling patient and doing chest physical therapy will help stimulate a cough. 3. Mobilize patient as soon as possible. This will aid in bronchial hygiene. 4. Continue oxygen for hypoxemic respiratory failure. 5. Follow-up chest x-ray tomorrow. Hopefully, bronchoscopy can be avoided because without deep breathing and coughing, this will only be a recurrent issue. cc: MD Derik Fallon MD
[2018-05-31] MEDS: MILK OF MAGNESIA GT SCH (21:45)
[2018-05-31] MEDS: BASAGLAR SUBQ SCH (21:45)
[2018-06-01] MEDS: MAXIPIME 1 GM in NS 50 ML IV SCH ×2 (00:30→10:00)
--- NOTE | 2018-06-01 00:40 | INFECTIOUS DISEASE PROGRESS NO ---
DATE: 05/31/2018 PRESENT ILLNESS: Ms. Phillips is status post left uqqlm-suk-fdla amputation for an osteomyelitis of the left foot which was oxacillin-sensitive Staph aureus. She was also being treated for an oxacillin-sensitive Staph aureus bacteremia, and then developed a vancomycin- resistant enterococcal bacteremia, for which she is being treated now. There is also a PEG tube infection, growing an Enterobacter cloacae at the site. She also has a continued leukocytosis and a mild transaminitis. There is also a possibility of pneumonia as seen on the chest x- ray yesterday. MEDICATIONS: Today is day 2 of daptomycin 500 mg IV every 24 hours and day 1 of cefepime 1 g IV every 12 hours. PHYSICAL EXAMINATION: Vital Signs: Temperature is 98.4 degrees, pulse rate 73 , respiratory rate 18, blood pressure 131/68, O2 saturation is 97% on 4 L nasal cannula. General : This is an elderly, chronically ill-appearing female. She is lethargic but arousable, lying in the bed with wrist restraints in place. HEENT: Atraumatic, normocephalic. Oral mucous membranes are pink and moist. Conjunctivae are pale. Neck: Supple. Trachea is midline. Cardiovascular: Heart rate is regular. Right lower extremity pretibial edema is 1+, and bilateral upper extremities have pitting edema, 2+. There is an offloading boot in place to the right lower extremity and an Salty wrap dressing in place to the left qotoy-iql-yekx amputation stump. Respiratory: Lung sounds have some coarse rhonchi in the upper lobes, diminished in the bases. Abdomen: Soft, obese, and nontender. Bowel sounds are active. There is a PEG tube site which has some purulent drainage at the site which is a pink-silveira color. Neurologic: She is drowsy but arousable and answering some questions and following commands at times. LABORATORY AND X-RAY: Today, her white count is 18.43, hemoglobin 7.5, platelet count 411,000. Blood gas done on 4 L nasal cannula this morning showed a pH of 7.42, pCO2 of 47 , pO2 of 92, HCO3 of 29.1. Creatinine is 1.8, GFR 34. AST 83, ALT 59, alkaline phosphatase 165, total bilirubin 0.61. Her previous PEG tube site culture has grown Enterobacter cloacae complex , and another culture was done yesterday which shows gram-negative rods. Blood cultures have been sterile since 05/29/2018. No imaging reports today. ASSESSMENT AND PLAN: Ms. Phillips is being treated for a vancomycin-resistant enterococcal bacteremia and an Enterobacter cloacae percutaneous endoscopic gastrostomy tube site infection. There is also a possible pneumonia as seen on the chest x-ray yesterday with a leukocytosis and a mild transaminitis. Based on her sterile blood cultures, today is day 2 of her treatment for vancomycin-resistant enterococcal bacteremia. We will continue daptomycin at this time and recheck a creatine kinase in the morning. She is also on cefepime which will cover the Enterobacter cloacae and give her a more broad-spectrum coverage for the possibility of pneumonia. For now, her leukocytosis and transaminitis are approximately stable. We will continue to follow these. These plans have been discussed with and recommended by Dr. Layne. COMORBIDITIES: for Ms. Phillips include that she is elderly with diabetes mellitus , acute kidney injury, and anemia. Dictated by QUENTIN Rodriguez for Gerald Layne MD This chart was documented by, QUENTIN Rodriguez and accurately reflects the services performed, treatment plan and medical decisions as attested by the providers signature Gerald Layne MD. cc: MD Derik Terry MD [facility]
[2018-06-01] MEDS: DUONEB (A & A) INH SCH ×6 (03:35→23:11)
[2018-06-01] MEDS: HUMULIN R SUBQ SCH ×4 (06:56→22:23)
[2018-06-01] MEDS: MUCOMYST 20% INH SCH ×2 (07:29→19:11)
--- NOTE | 2018-06-01 08:19 | Diag Imaging Result Doc PS360 ---
EXAM: CHEST-PORTABLE 06/01/2018 HISTORY: abnormal exam TECHNIQUE: AP portable at 0613 COMMENT: The left lung remains airless. There is increasing opacification in the lower lobe on the right particularly in the area of the costophrenic angle. There is increasing parahilar opacity in both the upper and lower lobes. IMPRESSION: Complete atelectasis of the left lung. Worsening pulmonary edema versus pneumonia on the right. Electronically signed by Iglesia Zuniga 06/01/2018 8:16 AM
[2018-06-01] MEDS: PLAVIX GT SCH (10:34)
[2018-06-01] MEDS: TUMS GT SCH ×2 (10:34→22:22)
[2018-06-01] MEDS: PREVACID SOLUTAB GT SCH ×2 (10:34→22:28)
[2018-06-01] MEDS: BACTROBAN OINTMENT TOP SCH ×2 (10:35→22:22)
[2018-06-01] MEDS: VITAMIN D GT SCH ×2 (10:35→22:24)
[2018-06-01] MEDS: COREG PO SCH ×2 (10:35→22:24)
[2018-06-01] MEDS: NORVASC PEG SCH (10:35)
[2018-06-01] MEDS: CATAPRES-TTS-2 TD SCH (10:35)
[2018-06-01] MEDS: CUBICIN 500 MG in NS 100 ML IV SCH (10:35)
[2018-06-01] MEDS: ZOLOFT GT SCH (10:36)
--- NOTE | 2018-06-01 19:25 | PROGRESS NOTE ---
DATE: 06/01/2018 SUBJECTIVE DATA: Ms. Phillips is lying comfortably in bed. She is pleasant this morning, but still very confused. She is not following any commands. OBJECTIVE DATA: Extremity Exam: Left lower extremity exam: The dressing is clean, dry and intact. There is not a lot of swelling. She is moving the leg a little. The right upper extremity still has quite a bit of swelling. There is still quite a bit of ecchymosis throughout. ASSESSMENT: Status post left apfvi-dfs-zozq amputation. PLAN: As far as the jyybp-sqk-frld amputation is concerned, Ms. Phillips is doing well. We will continue her to be nonweightbearing. If she is discharged from the hospital, we will need to get her to see a accounts receivable coordinator. If she is still going to be here for quite a while, we will see if we can get a accounts receivable coordinator to come see her at some point. But she still needs several weeks to at least let this incision start healing prior to her seeing a accounts receivable coordinator. Her white count is still high. It is about 18,000. We will continue to follow her while she is in the hospital. I am going to plan to take the dressing down tomorrow and take a look at her incision. Dictated by QUENTIN Roman for Melecio Powers MD cc: QUENTIN Roman MD Allen J. Schmidt, MD
[2018-06-01] MEDS: BASAGLAR SUBQ SCH (22:23)
[2018-06-01] MEDS: MILK OF MAGNESIA GT SCH (22:23)
[2018-06-01] MEDS ORDERED: INSULIN PEN NEEDLES ONE (22:46)
--- NOTE | 2018-06-02 00:07 | PULMONOLOGY PROGRESS NOTE ---
DATE: 06/01/2018 SUBJECTIVE: The patient opens her eyes and moans, but will not answer questions. OBJECTIVE: Vital Signs: The patient is afebrile. Blood pressure 132/88, respiratory rate 18, heart rate 74, oxygen saturation 95% on 5 L per nasal cannula. HEENT: Pupils are equal and reactive. Oropharynx appears clear. Neck: Supple. Chest: Reveals markedly diminished breath sounds bilaterally, without wheezing or rhonchi. Cardiac: S1-S2. Abdomen: Soft and obese. Extremities: Without edema. Right arm has a wrapping due to bruising and edema, and this was not removed. LABORATORIES: Chest x-ray reveals complete atelectasis of the left lung, with slightly increased edema on the right. IMPRESSION: A 67-year-old with acute hypoxemic respiratory failure, atelectasis of the left lung with poor cough effort, diabetes mellitus, delirium. Despite aggressive bronchial hygiene, the left lung has not reinflated. RECOMMENDATION: 1. Continue bronchial hygiene with nebulizers, Mucomyst, and chest physical therapy. 2. Anticipate bronchoscopy tomorrow morning to help clear secretions out of the left bronchial tree. 3. Planned procedure was discussed with her daughter, who agrees with proceeding with bronchoscopy as planned. cc: MD Derik Fallon MD
[2018-06-02] MEDS: MAXIPIME 1 GM in NS 50 ML IV SCH ×4 (00:11→22:34)
[2018-06-02] MEDS: DUONEB (A & A) INH SCH ×6 (03:11→23:05)
[2018-06-02 06:39] LABS: BASO# 0.03 X1000 (0.0-0.2); BASO% 0.1 % (0.0-0.8); EOS# 0.04 X1000 (0.0-0.7); EOS% 0.2 % (0.0-10.0); HEMATOCRIT 26.6 % (37.0-47.0); HEMOGLOBIN 7.9 g/dL (12.0-16.0); IMM GRAN% 0.9 % (0.0-0.5); LYMPH# 1.72 X1000 (1.2-3.4); LYMPH% 7.9 % (20.5-51.1); MCH 27.2 PG (27-31); MCHC 29.7 g/dL (33-37); MCV 91.7 FL (81-99); MONO# 1.06 X1000 (0.11-0.59); MONO% 4.9 % (1.7-9.3); MPV 9.2 FL (7.4-10.4); NEUT# 18.76 X1000 (1.4-6.5); PLT 396 X1000 (130-400); RDW 22.7 % (11.5-14.5); WBC 21.81 X1000 (4.8-10.8)
[2018-06-02] MEDS: HUMULIN R SUBQ SCH ×4 (06:53→21:31)
[2018-06-02] MEDS: PREVACID SOLUTAB GT SCH ×2 (06:54→21:29)
[2018-06-02 07:05] LABS: CREATININE 1.3 mg/dL (0.5-0.9); POTASSIUM 5.2 mmol/L (3.5-5.1)
[2018-06-02] MEDS: MUCOMYST 20% INH SCH (07:51)
[2018-06-02] MEDS ORDERED: EPINEPHRINE ONE (08:22)
[2018-06-02] MEDS ORDERED: XYLOCAINE 2% VISCOUS ONE (08:22)
[2018-06-02] MEDS ORDERED: SODIUM CHLORIDE 0.9% 20 ML ONE (08:22)
[2018-06-02] MEDS ORDERED: XYLOCAINE 2% ONE (08:22)
[2018-06-02] MEDS ORDERED: DIPRIVAN 1% ONE (09:12)
[2018-06-02] MEDS ORDERED: MUCOMYST 20% ONE (10:03)
[2018-06-02] MEDS: CUBICIN 500 MG in NS 100 ML IV SCH (11:48)
[2018-06-02] MEDS: BACTROBAN OINTMENT TOP SCH ×2 (11:49→21:28)
[2018-06-02] MEDS: PLAVIX GT SCH (11:50)
[2018-06-02] MEDS: TUMS GT SCH ×2 (11:50→21:28)
[2018-06-02] MEDS: VITAMIN D GT SCH ×2 (11:50→21:29)
[2018-06-02] MEDS: COREG PO SCH ×2 (11:51→21:29)
[2018-06-02] MEDS: NORVASC PEG SCH (11:51)
[2018-06-02] MEDS: ZOLOFT GT SCH (11:51)
--- NOTE | 2018-06-02 13:38 | OPERATIVE NOTE ---
PROCEDURE DATE: PROCEDURE PERFORMED: Bronchoscopy. CLINICAL INDICATIONS: Atelectasis of the left lung despite aggressive chest physical therapy. DETAILS OF OPERATION: After informed consent was obtained from the daughter, the patient was brought to the operating room where the procedure was performed. A time-out was performed and all agreed with the procedure. Topical anesthesia was achieved with viscous lidocaine to the right nostril with 2% lidocaine instilled above the vocal cords and 1% lidocaine instilled below the vocal cords. After conscious sedation/light anesthesia had been achieved, bronchoscope was advanced through the right nostril to the level of the vocal cords. The vocal cords were smooth and without lesions. The bronchoscope was advanced through the vocal cords into the trachea. There was mucus that could be seen moving to and fro in the left mainstem. Mucomyst was instilled into this airway. Airways to the right upper lobe, right middle lobe, right lower lobe revealed mild edema. The secretions in the left mainstem were suctioned clear and washed multiple times. There was minor bleeding associated with the suctioning. Topical epinephrine was instilled. There was no active bleeding at the time of completion of the procedure. The patient's oxygen saturation early in the procedure dipped into the 80s, but was 98 at the completion of the procedure. The patient tolerated the procedure without difficulty. cc: MD Derik Fallon MD
--- NOTE | 2018-06-02 15:55 | INFECTIOUS DISEASE PROGRESS NO ---
DATE: 06/02/2018 PRESENT ILLNESS: Ms. Phillips is being treated for an oxacillin-sensitive Staph aureus and vancomycin-resistant enterococcal bacteremia. There is also an Enterobacter growing to her PEG tube site. 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 Chest x- ray done yesterday shows worsening pulmonary edema versus pneumonia on the right. MEDICATIONS: Today is day 3 of cefepime 1 g IV every 12 hours and day 7 of daptomycin 500 mg IV every 24 hours. PHYSICAL EXAMINATION: Vital Signs: Temperature is 97.2 degrees pulse rate 68, respiratory rate 25, blood pressure 118/65, O2 saturation 100% on 3 L nasal cannula. General: This is a chronically ill-appearing, elderly female. She is lying in the bed, drowsy but arousable after just having returned from a bronchoscopy. HEENT: Atraumatic, normocephalic. Oral mucous membranes are pink and moist. Conjunctivae are pale. Neck: Supple. Trachea is midline. Cardiovascular: Heart rate is regular. There is generalized edema noted to her upper and right lower extremities. Salty wrap dressing in place to the left lower tzpsg-rak-vcui stump. Respiratory: Lung sounds have coarse rhonchi bilaterally, diminished in the bases. Abdomen: Soft, obese, and nontender with active bowel sounds. The PEG tube site has a small amount of purulent drainage at the site, which is a pink-silveira color. Neurologic: She is very drowsy, but arousable, nonverbal, and not complete following commands at this time. LABORATORY AND X-RAY: Today, her white count is 21.81, hemoglobin 7.9, platelet count 396,000. Creatinine is 1.3, GFR 49. Her previous abdominal PEG tube site has grown Enterobacter cloacae. She has also had oxacillin-sensitive Staph aureus that grew in her left foot previous to amputation and in her blood, as well as a more recent vancomycin-resistant Enterococcus in her blood. There are bronchial washings in the lab which are pending. No imaging reports today, but the chest x-ray from yesterday shows complete atelectasis of the left lung with worsening pulmonary edema versus pneumonia on the right. ASSESSMENT AND PLAN: Ms. Phillips continues to be treated for staph and VRE bacteremia, and also has a percutaneous endoscopic gastrostomy tube site infection with Enterobacter. For now, we will continue her daptomycin and the cefepime as ordered. Since the chest x-ray is worsening, we will also start her on Zyvox 600 mg IV every 12 hours to cover for the possibility of MRSA. I have also stopped her sertraline, since it can cause QT problems when given with Zyvox. These plans have been discussed with and recommended by Dr. Layne. COMORBIDITIES: She is elderly with diabetes mellitus, acute kidney injury, and anemia. Dictated by QUENTIN Rodriguez for Gerald Layne MD This chart was documented by, QUENTIN Rodriguez and accurately reflects the services performed, treatment plan and medical decisions as attested by the providers signature Gerald Layne MD. cc: MD Derik Terry MD MTDD
[2018-06-02] MEDS: ZYVOX 600 MG/D5W 600 MG/300 ML IVPB IV SCH (18:31)
--- NOTE | 2018-06-02 20:47 | Extremity Venous Study ---
PROCEDURE NAME: Venous U/S Right Arm - 05/31/2018 EPIDEMIOLOGY INTERN: Matthew. REQUESTING PHYSICIAN: Dr. Akers. INDICATIONS: Edema and bruising. FINDINGS: The right upper extremity and neck veins were visualized. There was lack of compressibility consistent with an acute DVT that is nonocclusive in the right axillary vein, is also superficial thrombus noted in the right antecubital fossa in the cephalic vein. SUMMARY: Acute nonocclusive DVT of the right axillary vein and superficial thrombus of the right cephalic vein at the antecubital fossa. cc: MD Harry Vail MD Allen J. Schmidt, MD
[2018-06-02] MEDS: MILK OF MAGNESIA GT SCH (21:29)
[2018-06-02] MEDS: BASAGLAR SUBQ SCH (21:31)
[2018-06-02] MEDS: TYLENOL PO PRN (23:12)
[2018-06-03] MEDS: DUONEB (A & A) INH SCH ×6 (03:05→23:05)
[2018-06-03] MEDS: ZYVOX 600 MG/D5W 600 MG/300 ML IVPB IV SCH ×2 (05:55→17:53)
[2018-06-03] MEDS: HUMULIN R SUBQ SCH ×4 (05:57→22:07)
[2018-06-03] MEDS: PREVACID SOLUTAB GT SCH ×2 (05:59→22:05)
[2018-06-03] MEDS: CUBICIN 500 MG in NS 100 ML IV SCH (11:09)
[2018-06-03] MEDS: VITAMIN D GT SCH ×2 (11:13→22:05)
[2018-06-03] MEDS: NORVASC PEG SCH (11:13)
[2018-06-03] MEDS: PLAVIX GT SCH (11:13)
[2018-06-03] MEDS: TUMS GT SCH ×2 (11:13→22:05)
[2018-06-03] MEDS: BACTROBAN OINTMENT TOP SCH ×2 (11:13→22:08)
[2018-06-03] MEDS: COREG PO SCH ×2 (11:13→22:05)
--- NOTE | 2018-06-03 11:30 | Diag Imaging Result Doc PS360 ---
CHEST-1 VIEW - 06/03/2018 INDICATION: atx COMPARISON: 06/01/2018 FINDINGS: Stable complete opacification of the left hemithorax. Stable sternotomy changes. Stable hazy infiltrate throughout the right lung. No pneumothorax. IMPRESSION: No change from prior. Electronically signed by Ronny Perrin 06/03/2018 11:28 AM
[2018-06-03] MEDS: MAXIPIME 1 GM in NS 50 ML IV SCH ×3 (13:35→23:21)
--- NOTE | 2018-06-03 13:58 | PROGRESS NOTE ---
DATE: 06/03/2018 SUBJECTIVE: Ms. Phillips is lying in bed this morning. She is not responding. She had good conversation with me this morning, but she does open her eyes and say things. OBJECTIVE: Left lower extremity exam: Dressing is clean, dry, and intact. I do not see any erythema around the stump. Right upper extremity exam: Arm has been wrapped in Salty wrap. It does look like swelling is beginning to go down. ASSESSMENT: 1. Status post left below-knee amputation for infection. 2. Vancomycin-resistant Enterococcus bacteremia. PLAN: From an Orthopedic standpoint, Ms Phillips's stump looks really good. We are going to continue to watch this right upper extremity. I think her swelling is getting better they., She can be mobilized as needed. We will continue to follow. cc: MD Derik Dempsey MD
[2018-06-03] MEDS: TYLENOL PR PRN (22:02)
[2018-06-03] MEDS: MILK OF MAGNESIA GT SCH (22:05)
[2018-06-03] MEDS: BASAGLAR SUBQ SCH (22:07)
[2018-06-04] MEDS: DUONEB (A & A) INH SCH ×6 (03:05→23:27)
[2018-06-04] MEDS: TYLENOL PR PRN ×2 (03:24→08:54)
[2018-06-04] MEDS: PREVACID SOLUTAB GT SCH ×2 (06:00→23:06)
[2018-06-04] MEDS: HUMULIN R SUBQ SCH ×4 (06:00→20:56)
[2018-06-04] MEDS: ZYVOX 600 MG/D5W 600 MG/300 ML IVPB IV SCH ×2 (06:00→17:07)
[2018-06-04 07:22] LABS: BASO# 0.02 X1000 (0.0-0.2); BASO% 0.1 % (0.0-0.8); EOS# 0.03 X1000 (0.0-0.7); EOS% 0.1 % (0.0-10.0); HEMATOCRIT 26.8 % (37.0-47.0); HEMOGLOBIN 7.9 g/dL (12.0-16.0); LYMPH% 7.6 % (20.5-51.1); MCH 27.9 PG (27-31); MCHC 29.5 g/dL (33-37); MCV 94.7 FL (81-99); MONO# 1.23 X1000 (0.11-0.59); MONO% 4.9 % (1.7-9.3); MPV 9.5 FL (7.4-10.4); NEUT# 21.84 X1000 (1.4-6.5); NEUT% 87.3 % (42.2-75.2); PLT 411 X1000 (130-400); RBC 2.83 XMIL (4.2-5.4); RDW 21.5 % (11.5-14.5); WBC 25.02 X1000 (4.8-10.8)
[2018-06-04 07:34] LABS: CALCIUM 7.5 mg/dL (8.8-10.2); CREATININE 1.5 mg/dL (0.5-0.9); POTASSIUM 5.2 mmol/L (3.5-5.1)
--- NOTE | 2018-06-04 08:00 | PULMONOLOGY PROGRESS NOTE ---
DATE: 06/03/2018 SUBJECTIVE: The patient's eyes are open. She does not answer questions. She has no increased work of breathing. OBJECTIVE: Vital Signs: The patient currently is on high-flow O2, oxygen saturation 91%, BP 137/64, heart rate 83, respiratory rate 20, oxygen saturation 91%. She has been afebrile. HEENT: Pupils are equal and reactive. Oropharynx is clear. Neck: Supple. Chest: Reveals diminished breath sounds throughout the left lung. Cardiac Examination: S1-S2. Abdomen: Soft and without hepatosplenomegaly. Laboratories: Bronchial wash reveals a 1+ gram-negative donald and 2+ gram-positive cocci which is presumptive positive for MRSA with confirmation to follow. Chest x-ray reveals continued atelectasis of the left lung. IMPRESSION: A 67-year-old with acute hypoxemic respiratory failure, atelectasis of the left lung, diabetes mellitus, delirium, without improvement in chest x-ray despite bronchoscopy. Sputum cultures are now revealing gram-positive and gram-negative organisms. RECOMMENDATION: 1. Continue antibiotics per Dr. Layne. She may have an MRSA pneumonia. Cultures are pending. Her antibiotic regimen may need to be changed for an MRSA pneumonia. 2. Continue high-flow oxygen and bronchial hygiene. 3. Overall prognosis is guarded. cc: MD Derik Fallon MD
[2018-06-04] MEDS: CUBICIN 500 MG in NS 100 ML IV SCH (08:49)
[2018-06-04] MEDS: NORVASC PEG SCH (08:54)
[2018-06-04] MEDS: VITAMIN D GT SCH ×2 (08:54→23:11)
[2018-06-04] MEDS: COREG PO SCH ×2 (08:54→20:55)
[2018-06-04] MEDS: BACTROBAN OINTMENT TOP SCH ×2 (08:54→21:38)
[2018-06-04] MEDS: TUMS GT SCH ×2 (08:54→23:07)
[2018-06-04] MEDS: PLAVIX GT SCH (08:54)
[2018-06-04] MEDS ORDERED: DIPRIVAN 1% 1,000 MG/100 ML BOTTLE ONE (11:12)
[2018-06-04] MEDS ORDERED: NS 1,000 ML ONE (11:12)
[2018-06-04] MEDS ORDERED: MORPHINE IV PRN (12:12)
[2018-06-04] MEDS ORDERED: ATIVAN IV PRN (12:13)
[2018-06-04] MEDS ORDERED: ATIVAN ONE (12:21)
[2018-06-04] MEDS ORDERED: MORPHINE ONE (12:22)
--- NOTE | 2018-06-04 12:45 | Diag Imaging Result Doc PS360 ---
CHEST-PORTABLE - 06/04/2018 INDICATION: intubation COMPARISON: 06/03/2018 FINDINGS: There is an placement of an endotracheal tube in good position at T4. There is slight improved aeration of the left lung, with some expanded lung in the apex. There is a small right pleural effusion. There is stable mild infiltrate throughout the central right lung. IMPRESSION: Good endotracheal intubation. Slightly improved aeration of the left lung apex. Electronically signed by Ronny Perrin 06/04/2018 12:42 PM
[2018-06-04] MEDS ORDERED: SODIUM CHLORIDE 0.9% 30 ML ONE (12:48)
[2018-06-04] MEDS: MAXIPIME 1 GM in NS 50 ML IV SCH (13:25)
--- NOTE | 2018-06-04 13:27 | Diag Imaging Result Doc PS360 ---
CHEST-PORTABLE - 06/04/2018 12:53 PM INDICATION: Central line placement COMPARISON: 11:31 AM FINDINGS: There is a new left subclavian central line in good position with the catheter tip at the upper SVC. Stable endotracheal tube in the distal trachea. There is a new nasogastric tube in good position in the stomach. There is continued significant improvement in aeration of the left lung. However there is increased infiltrate throughout the right lung. IMPRESSION: No complication from line or tube placement. Electronically signed by Ronny Perrin 06/04/2018 1:25 PM
[2018-06-04] MEDS: NS 1,000 ML IV SCH (13:33)
[2018-06-04] MEDS: DIPRIVAN 1% 1,000 MG/100 ML BOTTLE IV SCH ×2 (14:41→21:38)
--- NOTE | 2018-06-04 17:09 | OPERATIVE NOTE ---
PROCEDURE DATE: 06/04/2018 PROCEDURE PERFORMED: Intubation. CLINICAL INDICATIONS: A 67-year-old with progressive hypoxemic respiratory failure and progressive atelectasis of the left lung. PROCEDURE: The intended intubation was discussed with the daughter prior to the procedure. A time-out was also performed prior to the procedure and all agreed with the procedure. The respiratory therapist Charan Benton performed intubation maneuver while I was at the bedside. The patient received 80 mg of propofol which was administered by this practitioner. When she was sedated adequately, Mr. Benton intubated her with the curved laryngoscope. I felt the tube pass through the larynx. There was good CO2 return upon ventilation. Breath sounds were asymmetric due to known atelectasis of the left lung. Chest tube indicated good endotracheal tube position. The patient was transitioned to mechanical ventilation. COMPLICATIONS: None. cc: MD Derik Fallon MD MTDD
--- NOTE | 2018-06-04 17:24 | PULMONOLOGY PROGRESS NOTE ---
DATE: 06/04/2018 INTERIM HISTORY: The patient developed nausea and vomiting, which was projectile by description. She had increasing oxygen requirements and was transferred to the Intensive Care Unit. Upon arrival, her saturations were in the mid 80s. I spoke with the daughter who wanted everything done to save her mother. The patient was intubated (see separate dictation) and a left subclavian line placement was placed for IV access (see separate dictation). OBJECTIVE: Vital Signs: Blood pressure 117/64, heart rate 55, oxygen saturation 100% on mechanical ventilation. HEENT: Pupils are equal. Oropharynx appears clear. Neck: Supple. Chest: Reveals better air entry bilaterally than yesterday. Coarse rhonchi are appreciated. Cardiac: Decreased rate, regular rhythm. Abdomen: Soft, with positive bowel sounds. LABORATORIES: Chest x-ray following intubation reveals slight increased aeration in the left lung. Endotracheal tube in good position. Chest x-ray following central line placement reveals further reexpansion of the left lung, with good line placement. Endotracheal tube may actually be migrating toward the jordy. Sodium 131, potassium 5.2, chloride 97, bicarbonate 28, BUN 59, creatinine 1.5. White blood count 25,000, hemoglobin 7.9, platelet count 411,000. Sputum cultures from bronchial wash reveal methicillin-resistant Staph aureus and Enterobacter cloacae species. IMPRESSION: 1. A 67-year-old with acute hypoxemic respiratory failure, aspiration pneumonia , atelectasis of the left lung, diabetes mellitus, gram-negative pneumonia, MRSA pneumonia, osteomyelitis status for left jtvld-lio-sucl amputation during this hospitalization. 2. Acute renal insufficiency. PLAN: 1. Transfer to the Intensive Care Unit (completed). 2. Intubation and initiation of mechanical ventilation (completed). 3. Central venous access with a left subclavian line placement (completed). 4. Antibiotic adjustments per Dr. Gerald Layne. 5. Hold gastrostomy tube feedings today due to nausea and vomiting. Will continue IV fluids. 6. Prognosis is poor. Family continues to push for aggressive care. TIME SPENT: Time spent critical care with management, intubation, and central line placement: 2+ hours. cc: MD Derik Fallon MD MTDD
--- NOTE | 2018-06-04 17:27 | OPERATIVE NOTE ---
PROCEDURE DATE: PROCEDURE PERFORMED: Left subclavian central line placement. CLINICAL INDICATIONS: Lack of central IV access in a critically ill patient. PROCEDURE: Informed consent was obtained from the daughter prior to the procedure by the nursing staff. The patient was placed in Trendelenburg position. The left subclavian site was prepped and draped in the usual sterile fashion. Local anesthesia was achieved with 1% lidocaine. The left subclavian vein was identified with the introducer needle on the 3rd pass of the needle. Wire was advanced through the needle without difficulty. Site was dilated over the wire. A triple-lumen catheter was advanced over the wire and sutured into position. There was good blood return from all 3 ports. Postprocedure chest x-ray revealed partial reexpansion of the left lung. No evidence of pneumothorax. The line appeared to be in good position. COMPLICATIONS: None. cc: MD Derik Fallon MD
--- NOTE | 2018-06-04 18:06 | INFECTIOUS DISEASE PROGRESS NO ---
DATE: 06/04/2018 PRESENT ILLNESS: The patient has an oxacillin sensitive Staph aureus bacteremia, vancomycin- resistant enterococcal bacteremia and a PEG tube site that is growing Enterobacter and most recently, patient had bronchoscopy and cultures from bronchoscopy grew methicillin-resistant Staph aureus and Enterobacter. MEDICATIONS: The patient has been on cefepime for 5 days and daptomycin for 9 days and Zyvox for 2 days. PHYSICAL EXAMINATION: Vital Signs: Temperature is 96.4 degrees, pulse 53, respirations 16, blood pressure 126/62. General: This is a chronically ill-appearing elderly female. She is intubated and sedated. Head/eyes/ears/nose/throat: She does not have any drainage from her nose or ears. She has an endotracheal tube in place. Neck: No meningismus. Lungs: Clear to auscultation. Thorax: Patient has a left subclavian catheter in place. That site is not swollen or draining. Cardiovascular: Heart rate is regular. Abdomen: Soft and not tender. A PEG tube is in place. There still is some seropurulent drainage coming from the drain site. Neurologic: The patient is obtunded. She does not respond to verbal stimuli. There is no tremor. Extremities: Patient has a dressing around the left lower extremity amputation site. Dressing is intact. LAB AND X-RAY: Chest x-ray shows increase of the right lung infiltrate. CBC shows a white count of 25,020, hemoglobin 7.9, and platelet count 411,000. Creatinine is 1.5. GFR is 42. Bronchial washings grew methicillin-resistant Staph aureus and Enterobacter. ASSESSMENT AND PLAN: The patient has pneumonia, bacteremia and infected gastrostomy tube site. I plan to continue the current antibiotics. COMORBIDITIES: Include she is elderly, she also has diabetes and acute kidney injury and anemia. cc: MD Derik Terry MD
[2018-06-04] MEDS ORDERED: INSULIN PEN NEEDLES ONE (21:33)
[2018-06-04] MEDS: MILK OF MAGNESIA GT SCH (22:20)
[2018-06-04] MEDS: BASAGLAR SUBQ SCH (22:20)
[2018-06-04 23:15] LABS: URINE SOURCE CATH
[2018-06-04 23:17] LABS: BILIRUBIN URINE NEGATIVE (NEGATIVE); BLOOD URINE MODERATE (NEGATIVE); COLOR YELLOW; GLUCOSE URINE NEGATIVE (NEGATIVE); KETONE URINE NEGATIVE (NEGATIVE); LEUKOCYTES URINE LARGE (NEGATIVE); NITRITE URINE NEGATIVE (NEGATIVE); PROTEIN URINE 200 mg/dL (NEGATIVE); SP GRAVITY URINE 1.007; TURBIDITY URINE TURBID (CLEAR); UROBILINOGEN URINE NORMAL (NORMAL)
[2018-06-04 23:25] LABS: UR EPITHELIAL CELLS <10 /HPF (<10); URINE BACTERIA NEGATIVE /HPF; URINE WBC TNTC /HPF (<10)
[2018-06-05 00:01] LABS: URINE CASTS NONE SEEN; URINE CRYSTALS NONE SEEN; URINE SMALL ROUND CELLS NONE SEEN; URINE YEAST PRESENT
[2018-06-05] MEDS: MAXIPIME 1 GM in NS 50 ML IV SCH ×3 (01:34→22:43)
[2018-06-05] MEDS: NS 1,000 ML IV SCH ×3 (02:08→20:52)
[2018-06-05] MEDS: DIPRIVAN 1% 1,000 MG/100 ML BOTTLE IV SCH ×6 (02:12→23:05)
[2018-06-05] MEDS: DUONEB (A & A) INH SCH ×6 (03:02→23:05)
[2018-06-05 04:36] LABS: ALLEN TEST YES; BE 5.8 mmoll (-3.0-3.0); BLOOD TYPE ARTERIAL; HCO3-(ACT) 29.3 mmoll (20.0-26.0); METHB 1.2 % (0.0-1.5); O2(CT) 12.8 mL/dL (15.0-23.0); PCO2(98.6) 40 mmHg (35-45); PO2(98.6) 55 mmHg (60-100); SAMPLE BLOOD; SAO2 92.5 % (95.0-100.0); SRATE 14 BPM; THB 10.2 g/dL (11.5-17.4); TVOL 450 mL; pH(98.6) 7.48 (7.35-7.45)
[2018-06-05 04:38] LABS: MODALITY VENTILATOR; O2HB 89.1 % (95.0-99.0)
[2018-06-05] MEDS: ZYVOX 600 MG/D5W 600 MG/300 ML IVPB IV SCH ×2 (04:52→16:46)
--- NOTE | 2018-06-05 06:07 | Diag Imaging Result Doc PS360 ---
EXAM: CHEST-PORTABLE HISTORY: respiratory failure TECHNIQUE: Portable chest single view COMPARISON: 06/04/2018 FINDINGS: No change in the endotracheal tube, the nasogastric tube, or in the left-sided portacatheter. The endotracheal tube has its tip near the jordy and should probably be pulled back at least 2 cm. There are dense bilateral infiltrates as well as small pleural effusions similar to the prior study. Sternal wires are present. IMPRESSION: No interval improvement. The endotracheal tube should probably be pulled back approximately 2 cm. Electronically signed by Ruben Johnson 06/05/2018 6:05 AM
[2018-06-05 06:36] LABS: HEMATOCRIT 25.6 % (37.0-47.0); HEMOGLOBIN 7.7 g/dL (12.0-16.0); MCH 27.1 PG (27-31); MCHC 30.1 g/dL (33-37); MCV 90.1 FL (81-99); MPV 9.8 FL (7.4-10.4); RBC 2.84 XMIL (4.2-5.4); RDW 20.9 % (11.5-14.5); WBC 20.54 X1000 (4.8-10.8)
[2018-06-05 06:44] LABS: MAGNESIUM 2.6 mg/dL (1.5-2.7); PHOSPHORUS 2.9 mg/dL (2.7-4.5)
[2018-06-05] MEDS: HUMULIN R SUBQ SCH ×4 (06:46→21:15)
[2018-06-05 06:51] LABS: ALB/GLOB RATIO 0.4; ALBUMIN 1.7 g/dL (3.5-5.0); CALCIUM 7.9 mg/dL (8.8-10.2); CREATININE 1.4 mg/dL (0.5-0.9); POTASSIUM 4.8 mmol/L (3.5-5.1); TOTAL BILIRUBIN 0.42 mg/dL (0.20-1.00); TOTAL PROTEIN 5.9 g/dL (6.3-8.3)
[2018-06-05] MEDS: CUBICIN 500 MG in NS 100 ML IV SCH (08:01)
--- NOTE | 2018-06-05 08:06 | INFECTIOUS DISEASE PROGRESS NO ---
DATE: 06/05/2018 PRESENT ILLNESS: The patient has the following infections: 1. Oxacillin sensitive Staphylococcus aureus bacteremia. 2. Vancomycin-resistant enterococcal bacteremia. 3. PEG tube site infection with Enterobacter. 4. The patient's bronchoscopy cultures grew methicillin- resistant Staphylococcus aureus and Enterobacter. MEDICATIONS: The patient has been on cefepime for 6 days, daptomycin for 10 days, and Zyvox for 3 days. PHYSICAL EXAMINATION: Vital Signs: Temperature is 98 degrees, pulse 58, respirations 14, blood pressure 129/60. General: This is a chronically ill-appearing, elderly female. She is intubated and sedated. Head, Eyes, Ears, Nose, and Throat: The patient has an orotracheal tube in place. There is no drainage coming from her nose or ears. Neck: No stiffness. Lungs: Clear to auscultation. Cardiovascular: Heart rate is regular. Abdomen: Soft and nontender. The PEG tube site still is draining some seropurulent fluid. Neurologic: The patient is sedated. She does not respond to verbal stimuli. There is no tremor. Extremities: The patient has a dressing around the incision from the patient's left lower leg amputation. LAB AND RADIOLOGY: The patient's CBC today shows a white count of 20,540, hemoglobin 7.7, and platelet count 416,000. Arterial blood gases show a pH of 7.48, a PO2 of 55, and a pCO2 of 40. The creatinine is 1.4. GFR is 45. Chest x-ray shows bilateral infiltrates and pleural effusions. ASSESSMENT AND PLAN: The patient has pneumonia, bacteremia, an infected gastrostomy tube site. My plan is to continue with the patient's current antibiotics. COMORBIDITIES: The patient is elderly, she has diabetes, acute kidney injury, and anemia. cc: MD Derik Terry MD
[2018-06-05] MEDS ORDERED: SODIUM CHLORIDE 0.9% INJ SCH (08:30)
[2018-06-05] MEDS: BACTROBAN OINTMENT TOP SCH ×2 (08:41→20:45)
[2018-06-05] MEDS: PROTONIX IV SCH (08:41)
[2018-06-05] MEDS: NORVASC PEG SCH (08:41)
[2018-06-05] MEDS: COREG GT SCH ×2 (08:41→20:46)
[2018-06-05] MEDS: PLAVIX GT SCH (08:41)
[2018-06-05] MEDS: VITAMIN D GT SCH ×2 (08:41→20:45)
[2018-06-05] MEDS: REGLAN IV SCH ×3 (08:41→23:02)
[2018-06-05] MEDS: TUMS GT SCH ×2 (08:41→20:46)
[2018-06-05] MEDS: PREVACID SOLUTAB GT SCH (11:36)
--- NOTE | 2018-06-05 13:13 | PULMONOLOGY PROGRESS NOTE ---
DATE: 06/05/2018 SUBJECTIVE: The patient remains sedated on mechanical ventilation. She appears to be comfortable. OBJECTIVE: Vital Signs: The patient has been afebrile for the last 24 hours. Blood pressure 113/58, heart rate 60, respiratory rate 14, oxygen saturation 95%. HEENT: Pupils are equal. Oropharynx evaluation is limited with BiPAP in place. Neck: Supple. Chest: Reveals better breath sounds on the left. She continues to have bilateral rhonchi. Cardiac: S1-S2. Abdomen: Obese and soft with diminished bowel sounds. Extremities: Without edema. LABORATORIES: No new culture data. Chest x-ray reveals re-expansion of the left lung with diffuse infiltrates, right greater than left. White blood count 20.5, hemoglobin 7.4, platelet count 416,000. Sodium 138, potassium 4.8, chloride 102, bicarbonate 25, BUN 55, creatinine 1.4. Arterial blood gas, pH 7.48, pCO2 of 40, PO2 of 55 on 40% FiO2. IMPRESSION: A 67-year-old with multiple infections, acute hypoxemic respiratory failure, aspiration pneumonia, resolving atelectasis of the left lung, diabetes mellitus, renal insufficiency, osteomyelitis, status post left glgzi-qiz-vjau amputation. She has continued to require ventilatory support. RECOMMENDATION: 1. Continue mechanical ventilation. 2. Continue antibiotics under the direction of Dr. Gerald Layne. 3. Resume gastrostomy feeding with return of bowel function. 4. Prognosis is poor. Family continues to want aggressive care. CRITICAL CARE: 30+ minutes. cc: MD Derik Fallon MD
[2018-06-05] MEDS ORDERED: LOVENOX SUBQ SCH (18:00)
[2018-06-05] MEDS: MILK OF MAGNESIA GT SCH (20:46)
[2018-06-05] MEDS: BASAGLAR SUBQ SCH (21:16)
[2018-06-05] MEDS ORDERED: NS 50 ML ONE (22:29)
[2018-06-06] MEDS: ZYVOX 600 MG/D5W 600 MG/300 ML IVPB IV SCH ×2 (03:15→15:51)
[2018-06-06] MEDS: DUONEB (A & A) INH SCH ×6 (03:40→23:32)
[2018-06-06 04:41] LABS: ALLEN TEST YES; BE 4.1 mmoll (-3.0-3.0); BLOOD TYPE ARTERIAL; HCO3-(ACT) 28.1 mmoll (20.0-26.0); O2(CT) 8.3 mL/dL (15.0-23.0); PCO2(98.6) 41 mmHg (35-45); PO2(98.6) 63 mmHg (60-100); SAMPLE BLOOD; SAO2 94.7 % (95.0-100.0); SRATE 14 BPM; THB 6.4 g/dL (11.5-17.4); TVOL 450 mL; pH(98.6) 7.45 (7.35-7.45)
[2018-06-06 04:44] LABS: MODALITY VENTILATOR
[2018-06-06 06:21] LABS: HEMATOCRIT 24.7 % (37.0-47.0); HEMOGLOBIN 7.4 g/dL (12.0-16.0); MCV 90.1 FL (81-99); MPV 9.5 FL (7.4-10.4); RBC 2.74 XMIL (4.2-5.4); RDW 21.5 % (11.5-14.5); WBC 23.22 X1000 (4.8-10.8)
[2018-06-06 06:25] LABS: ALB/GLOB RATIO 0.4; ALBUMIN 1.4 g/dL (3.5-5.0); CALCIUM 7.2 mg/dL (8.8-10.2); CREATININE 1.3 mg/dL (0.5-0.9); POTASSIUM 4.2 mmol/L (3.5-5.1); TOTAL BILIRUBIN 0.34 mg/dL (0.20-1.00); TOTAL PROTEIN 5.3 g/dL (6.3-8.3)
--- NOTE | 2018-06-06 06:58 | Diag Imaging Result Doc PS360 ---
CHEST-PORTABLE - 06/06/2018 INDICATION: respiratory failure COMPARISON: 06/05/2018 FINDINGS: Support tubes are stable. There is slight worsening in the dense infiltrate throughout the right lung. There appears to be decrease in the small right pleural effusion. Stable infiltrate throughout the left lung. Lung volumes are severely low. Stable cardiomegaly. IMPRESSION: Mixed changes, with overall little change from prior. Electronically signed by Ronny Perrin 06/06/2018 6:56 AM
[2018-06-06] MEDS: HUMULIN R SUBQ SCH ×4 (07:13→20:44)
[2018-06-06] MEDS: REGLAN IV SCH ×2 (07:25→15:51)
[2018-06-06] MEDS: CUBICIN 500 MG in NS 100 ML IV SCH ×2 (07:25→07:32)
[2018-06-06] MEDS: PROTONIX IV SCH ×2 (07:25→07:32)
[2018-06-06] MEDS: NS 1,000 ML IV SCH ×4 (07:32→20:46)
--- NOTE | 2018-06-06 08:15 | PROGRESS NOTE ---
DATE: 06/06/2018 SUBJECTIVE DATA: Ms. Phillips is sedated on propofol on the vent. She is poorly responsive. OBJECTIVE DATA: Left lower extremity exam: Dressing is clean, dry, and intact. I do not see any erythema or significant edema. Right upper extremity exam: The arm is again wrapped in a HELEN wrap. She does have quite a bit of edema throughout the arm. ASSESSMENT: 1. Status post left wzcia-fga-gbez amputation for infection. 2. Vancomycin-resistant Enterococcus bacteremia. PLAN: From an orthopedic standpoint, Ms. Phillips's stump is looking good. Her white count is still hanging out in the 20s. She does have a deep venous thrombosis to this right upper extremity. She is also intubated. She has quite a bit of complications going on right now. It does look like she is on Plavix and Lovenox currently. Her hemoglobin and hematocrit is a little bit low. From orthopedic standpoint, we will continue to follow her. Should you need anything, please let us know. Dictated by QUENTIN Roman for Melecio Powers MD cc: QUENTIN Roman MD Allen J. Schmidt, MD
[2018-06-06] MEDS: NORVASC PEG SCH (08:27)
[2018-06-06] MEDS: PLAVIX GT SCH (08:27)
[2018-06-06] MEDS: COREG GT SCH ×2 (08:27→20:40)
[2018-06-06] MEDS: VITAMIN D GT SCH ×2 (08:27→20:40)
[2018-06-06] MEDS: TUMS GT SCH ×2 (08:27→20:40)
[2018-06-06] MEDS: BACTROBAN OINTMENT TOP SCH ×2 (08:29→21:05)
[2018-06-06] MEDS: DIPRIVAN 1% 1,000 MG/100 ML BOTTLE IV SCH ×4 (10:01→20:39)
--- NOTE | 2018-06-06 10:10 | INFECTIOUS DISEASE PROGRESS NO ---
DATE: 06/06/2018 PRESENT ILLNESS: The patient has the followin. Oxacillin sensitive Staph aureus bacteremia. 2. Vancomycin-resistant enterococcal bacteremia. 3. PEG tube site infection with Enterobacter. 4. Bronchoscopy grew methicillin-resistant Staph aureus, Enterobacter and yeast. MEDICATIONS: The patient has been on cefepime for 7 days, daptomycin for 11 days and Zyvox for 4 days. PHYSICAL EXAMINATION: Vital Signs: Temperature is 96.6 degrees, pulse 57, respirations 14, blood pressure 113/55. General: This is a chronically ill-appearing elderly female. She is intubated and sedated. Head, eyes, ears, nose, and throat: The patient has an orotracheal tube in her mouth. There is no drainage from the nose or ears. Neck: No meningismus. Lungs: Clear to auscultation. Cardiovascular: Heart rate is regular. Abdomen: Soft and nontender. The PEG tube site today does not have any purulence or drainage. Neurologic: The patient is sedated. She did not respond to verbal stimuli. There was no tremor. Extremities: I removed the dressing from the patient's left leg. The incision is intact and the leg is much less swollen than it was previously. LABORATORY AND RADIOLOGY: Chest x-ray shows an increasing right lung infiltrate and stable infiltrate on the left side. Fungal smear for was positive from tracheal washings. Blood gases show a pH of 7.45, a PO2 of 63, and a pCO2 of 41. Creatinine is 1.3. GFR is 49. CBC shows a white count of 23,220, hemoglobin 7.4, and platelet count 399,000. ASSESSMENT AND PLAN: 1. The patient has pneumonia, bacteremia, G-tube site infection. My plan is to continue the patient's current antibiotics. 2. Comorbidities: The patient is elderly and she has diabetes mellitus, acute kidney injury and chronic anemia. cc: MD Derik Terry MD
--- NOTE | 2018-06-06 11:43 | EKG Report ---
Test Performed on : 06/06/2018 11:40:12 AM Test Reason : pneumonia Blood Pressure : / mmHG Vent. Rate : 060 BPM Atrial Rate : 060 BPM P-R Int : 174 ms QRS Dur : 086 ms QT Int : 508 ms P-R-T Axes : 055 -43 -57 degrees QTc Int : 508 ms Normal sinus rhythm. Left axis deviation Cannot rule out Anterior infarct (cited on or before 23-APR-2018) T wave abnormality, consider lateral ischemia Abnormal ECG When compared with ECG of 23-APR-2018 06:16, Non-specific change in ST segment in Anterior leads T wave inversion now evident in Inferior leads T wave inversion now evident in Anterolateral leads QT has lengthened Confirmed by Melly PEREZ, Volodymyr Peacock ([id number]) on 06/07/2018 7:02:08 AM
[2018-06-06] MEDS: MAXIPIME 1 GM in NS 50 ML IV SCH ×2 (11:45→21:00)
[2018-06-06] MEDS: LOVENOX SUBQ SCH (15:51)
--- NOTE | 2018-06-06 20:29 | PULMONOLOGY PROGRESS NOTE ---
DATE: 06/06/2018 SUBJECTIVE: The patient is sedated. She remains on mechanical ventilation. She is poorly responsive. OBJECTIVE: The patient is afebrile to mildly hypothermic. Blood pressure 102/ 53, heart rate 56, respiratory rate 14, oxygen saturation 94% on 45% FiO2.HEENT: Pupils appear equal. Neck: Is supple. Chest: Reveals coarse rhonchi bilaterally. Cardiac: S1-S2. Abdomen : Soft with near absence of bowel sounds. Extremities: Reveal edema in both upper extremities with bruising right greater than left arm and prior amputation of the left lower extremity. LABORATORIES: White blood count 23,000, hemoglobin 7.4, platelet count 399, 000. Sodium 137, potassium 4.2, chloride 103, bicarbonate 24, BUN 48, creatinine 1.3. Arterial blood gas reveals a pH 7.45, pCO2 of 41, PO2 of 63. Chest x-ray reveals bilateral infiltrates right greater than left with increased density in the right lung. Microbiology. No new culture data. IMPRESSION: The patient is a 67-year-old with aspiration pneumonia, Staph aureus pneumonia, Enterobacter cloacae species pneumonia, vancomycin-resistant enterococcal bacteremia, oxacillin- sensitive Staph aureus bacteremia, osteomyelitis status post pkacc-pob-vzjn amputation, acute renal insufficiency, poorly controlled diabetes mellitus, coronary artery disease. RECOMMENDATIONS: 1. Continue ventilatory support. 2. Attempt diuresis with albumin and Lasix. 3. Restart tube feeds if tolerated. 4. Continue gastric acid suppression. 5. Continue Lovenox for partial deep vein occlusion, right upper extremity. 6. Overall prognosis is guarded to poor. Time spent in critical care management: 30+ minutes cc: MD Derik Fallon MD [facility]
[2018-06-06] MEDS: MILK OF MAGNESIA GT SCH (20:40)
[2018-06-06] MEDS: ALBUMIN 25% IV SCH (20:51)
[2018-06-06] MEDS: LASIX IV SCH (20:51)
[2018-06-06] MEDS: BASAGLAR SUBQ SCH (20:51)
[2018-06-07] MEDS: ALBUMIN 25% IV SCH (02:20)
[2018-06-07] MEDS: LASIX IV SCH ×3 (02:20→22:14)
[2018-06-07] MEDS: DIPRIVAN 1% 1,000 MG/100 ML BOTTLE IV SCH ×7 (02:22→21:11)
[2018-06-07] MEDS: DUONEB (A & A) INH SCH ×6 (03:19→23:23)
[2018-06-07 05:05] LABS: ALLEN TEST YES; BE 3.1 mmoll (-3.0-3.0); BLOOD TYPE ARTERIAL; HCO3-(ACT) 27.3 mmoll (20.0-26.0); METHB 0.7 % (0.0-1.5); O2(CT) 10.1 mL/dL (15.0-23.0); O2HB 92.9 % (95.0-99.0); PCO2(98.6) 36 mmHg (35-45); PO2(98.6) 63 mmHg (60-100); SAMPLE BLOOD; SAO2 95.7 % (95.0-100.0); SRATE 14 BPM; THB 7.7 g/dL (11.5-17.4); TVOL 450 mL; pH(98.6) 7.48 (7.35-7.45)
[2018-06-07 05:06] LABS: MODALITY VENTILATOR
[2018-06-07] MEDS: ZYVOX 600 MG/D5W 600 MG/300 ML IVPB IV SCH ×2 (05:10→15:22)
[2018-06-07] MEDS: HUMULIN R SUBQ SCH ×4 (05:20→21:25)
[2018-06-07 05:59] LABS: HEMATOCRIT 22.6 % (37.0-47.0); HEMOGLOBIN 6.8 g/dL (12.0-16.0); MCH 26.7 PG (27-31); MCHC 30.1 g/dL (33-37); MCV 88.6 FL (81-99); MPV 9.2 FL (7.4-10.4); RBC 2.55 XMIL (4.2-5.4); WBC 18.54 X1000 (4.8-10.8)
[2018-06-07 06:29] LABS: ALB/GLOB RATIO 0.6; ALBUMIN 2.2 g/dL (3.5-5.0); CALCIUM 8.1 mg/dL (8.8-10.2); CREATININE 1.3 mg/dL (0.5-0.9); POTASSIUM 3.6 mmol/L (3.5-5.1); TOTAL BILIRUBIN 0.45 mg/dL (0.20-1.00); TOTAL PROTEIN 5.8 g/dL (6.3-8.3)
--- NOTE | 2018-06-07 07:17 | Diag Imaging Result Doc PS360 ---
EXAM: CHEST-PORTABLE 06/07/2018 HISTORY: respiratory failure TECHNIQUE: AP portable at 0550 COMMENT: There is an endotracheal tube with its tip just above the jordy. There is an NG tube which passes below the diaphragm. There is bilateral pleural thickening and/or loculated pleural effusions. There is patchy alveolar opacity particularly in the right lung. The latter has improved somewhat since the previous study of 06/06/2018. Compared to 2018 the opacity in the left lower lobe is definitely improved. IMPRESSION: Pulmonary edema and/or pneumonia slightly improved. Electronically signed by Iglesia Zuniga 06/07/2018 7:14 AM
[2018-06-07] MEDS: NORVASC PEG SCH (08:10)
[2018-06-07] MEDS: COREG GT SCH ×2 (08:10→20:02)
[2018-06-07] MEDS: CUBICIN 500 MG in NS 100 ML IV SCH (08:10)
[2018-06-07] MEDS: VITAMIN D GT SCH ×2 (08:10→20:02)
[2018-06-07] MEDS: PROTONIX IV SCH (08:10)
[2018-06-07] MEDS: PLAVIX GT SCH (08:10)
[2018-06-07] MEDS: TUMS GT SCH ×2 (08:10→20:02)
[2018-06-07] MEDS: BACTROBAN OINTMENT TOP SCH ×2 (08:11→20:01)
[2018-06-07] MEDS: MAXIPIME 1 GM in NS 50 ML IV SCH ×2 (09:36→21:05)
[2018-06-07] MEDS: E.E.S. 200 SUSPENSION PO SCH ×3 (09:36→23:08)
[2018-06-07] MEDS ORDERED: ALBUMIN 25% IV ONE (10:13)
--- NOTE | 2018-06-07 10:39 | PULMONOLOGY PROGRESS NOTE ---
DATE: 06/07/2018 SUBJECTIVE: The patient is sedated. She appears comfortable on mechanical ventilation. She requires no vasopressor support. Blood pressure 112/51, heart rate 62, respiratory rate 14, oxygen saturation 96%. OBJECTIVE: Vital Signs: Intake 3917, output 3295. The patient has been afebrile for the last 24 hours. Blood pressure 125/56, heart rate 60, respiratory rate 15, oxygen saturation 96%. HEENT: Pupils appear equal but sluggish. Oropharynx appears clear. Neck: Supple. Chest: Reveals coarse rhonchi bilaterally. Cardiac Examination: Regular rate. Normal S1, normal S2. Abdomen: Soft, with rare bowel sounds present. Extremities: Unchanged. Laboratories: Chest x-ray reveals a marginal decrease in bilateral infiltrates. Sodium 140, potassium 3.6, chloride 104, bicarbonate 23, BUN 44, creatinine 1.3, total protein 5.8, albumin 2.2 (following supplementation). Arterial blood gas, pH 7.48, pCO2 of 36, PO2 of 63. IMPRESSION: The patient is a 67-year-old with aspiration pneumonia, acute hypoxemic respiratory failure, long history of diabetes mellitus, Staphylococcus aureus pneumonia, Enterobacter cloacae species pneumonia, vancomycin-resistant enterococcal bacteremia, oxacillin-sensitive Staphylococcus aureus bacteremia, osteomyelitis, status post wjbua-myg-lctq amputation, acute renal insufficiency , and coronary artery disease. She has had marginal improvement. RECOMMENDATIONS: 1. Continue ventilatory support. We will adjust ventilatory rate given alkalemia but she is overbreathing the ventilator. 2. Additional albumin today with two doses of Lasix. 3. Tube feeds as tolerated. 4. Antibiotics per infectious disease. 5. Low-dose Lovenox for partial occlusion of a deep vein in the right upper extremity. 6. Overall prognosis is poor. TIME SPENT IN CRITICAL CARE: 30 plus minutes. cc: MD Derik Fallon MD MTDD
[2018-06-07] MEDS ORDERED: LASIX IV ONE (12:00)
--- NOTE | 2018-06-07 12:21 | INFECTIOUS DISEASE PROGRESS NO ---
DATE: 06/07/2018 PRESENT ILLNESS: Ms. Phillips is being treated for an oxacillin-sensitive Staph aureus and vancomycin- resistant enterococcal bacteremia, an Enterobacter PEG tube site infection, and pneumonia with methicillin-resistant Staph aureus, and Enterobacter which grew from cultures obtained during her bronchoscopy. There is also a gram-positive coccus growing in her urine culture which is yet to be finalized. MEDICATIONS: She is receiving daptomycin 500 mg IV every 24 hours, Zyvox 600 mg IV every 12 hours, and cefepime 1 g IV every 12 hours. PHYSICAL EXAM: Vital Signs: Temperature is 97.7 degrees, pulse rate 65, respiratory rate 17, blood pressure 116/55, O2 saturation is 96% on a 40% FiO2 on the mechanical ventilator. General: This is a chronically ill-appearing, elderly female. She is sedated and intubated on the mechanical ventilator. HEENT: Atraumatic, normocephalic. Oral mucous membranes are pink and moist. Conjunctivae are pale. There is an oral ET tube in place. Lung Sounds: Have bilateral coarse rhonchi. Somewhat diminished in the bases. The patient is breathing above the set rate on the ventilator. Cardiovascular: Heart rate and rhythm are regular. Normal sinus rhythm on the monitor. She has a generalized edema noted. Left popliteal, right pedal, and bilateral radial pulses are +1. Integumentary: There is a central line in place to the left subclavian as well as an incision open to air to her left nzswa-ufv-zilh amputation with wendy in place. These sites are without edema, erythema, or drainage. Abdomen: Soft, obese, and nontender. Bowel sounds are hypoactive. There is a PEG tube site which has no erythema, but a small amount of purulent, silveira/pink drainage noted. LABORATORY AND X-RAY: Today her white count is 18.54, hemoglobin 6.8, platelet count 362,000. There is a unit of blood infusing at this time. On 40% FiO2 on the mechanical ventilator this morning, her pH was 7.48, pCO2 36, pO2 63, HCO3 is 27.23. Her creatinine is 1.3. GFR 49. Total bilirubin 0.45, AST 17, ALT 9, alkaline phosphatase 95. Creatine kinase 38. Her previous blood cultures have grown an oxacillin-sensitive Staph aureus and vancomycin- resistant enterococcus. Her most recent blood cultures are negative. Her abdominal PEG tube site has grown Enterobacter, and her bronchial washing reveal methicillin-resistant Staph aureus and Enterobacter. So far, her urine culture has grown a gram-positive coccus, which has yet to be identified. Chest x-ray today shows pulmonary edema and/or pneumonia, slightly improved. ASSESSMENT AND PLAN: Ms. Phillips has a bacteremia, percutaneous endoscopic gastrostomy tube site infection, and pneumonia. There are multiple organisms being treated, as noted previously. There is some slight improvement noted on today's x-ray, so we will continue the cefepime, daptomycin, and Zyvox as ordered. These plans have been discussed with and recommended by Dr. Layne. COMORBIDITIES: For Ms. Phillips include that she is elderly with diabetes mellitus, acute kidney injury, chronic anemia, and physical deconditioning due to extensive stay in the hospital. Dictated by QUENTIN Rodriguez for Gerald Layne MD This chart was documented by, QUENTIN Rodriguez and accurately reflects the services performed, treatment plan and medical decisions as attested by the providers signature Gerald Layne MD. cc: MD Deirk Terry MD MTDD
[2018-06-07] MEDS: LOVENOX SUBQ SCH (15:22)
[2018-06-07] MEDS: NS 1,000 ML IV SCH (17:05)
[2018-06-07] MEDS: MILK OF MAGNESIA GT SCH (20:01)
[2018-06-07] MEDS: BASAGLAR SUBQ SCH (21:32)
[2018-06-08] MEDS: DUONEB (A & A) INH SCH ×6 (03:16→23:35)
[2018-06-08] MEDS: ZYVOX 600 MG/D5W 600 MG/300 ML IVPB IV SCH ×2 (04:41→16:06)
[2018-06-08] MEDS: DIPRIVAN 1% 1,000 MG/100 ML BOTTLE IV SCH ×6 (04:41→22:39)
[2018-06-08] MEDS: NS 1,000 ML IV SCH ×2 (04:41→21:04)
[2018-06-08 04:43] LABS: ALLEN TEST YES; BE -2.3 mmoll (-3.0-3.0); BLOOD TYPE ARTERIAL; HCO3-(ACT) 23.1 mmoll (20.0-26.0); PCO2(98.6) 38 mmHg (35-45); PO2(98.6) 93 mmHg (60-100); SAMPLE BLOOD; SRATE 10 BPM; TVOL 450 mL; pH(98.6) 7.38 (7.35-7.45)
[2018-06-08 04:44] LABS: MODALITY VENTILATOR
[2018-06-08] MEDS: HUMULIN R SUBQ SCH ×4 (05:00→21:17)
[2018-06-08 05:08] LABS: HEMATOCRIT 29.4 % (37.0-47.0); HEMOGLOBIN 9.4 g/dL (12.0-16.0); MCH 27.7 PG (27-31); MCV 86.7 FL (81-99); MPV 9.2 FL (7.4-10.4); RBC 3.39 XMIL (4.2-5.4); WBC 18.3 X1000 (4.8-10.8)
[2018-06-08 05:30] LABS: ALB/GLOB RATIO 0.6; ALBUMIN 2.1 g/dL (3.5-5.0); CALCIUM 7.8 mg/dL (8.8-10.2); CREATININE 1.3 mg/dL (0.5-0.9); POTASSIUM 3.6 mmol/L (3.5-5.1); TOTAL BILIRUBIN 0.53 mg/dL (0.20-1.00); TOTAL PROTEIN 5.6 g/dL (6.3-8.3)
--- NOTE | 2018-06-08 07:16 | Diag Imaging Result Doc PS360 ---
EXAM: CHEST-PORTABLE INDICATION: respiratory failure TECHNIQUE: One view COMPARISON: 06/07/2018 FINDINGS: Support tubes and lines are in stable positions. Diffuse bilateral infiltrates indicating pulmonary edema +/- pneumonia is stable. No new consolidation is identified. Cardiac silhouette is stable. IMPRESSION: Stable chest. Electronically signed by Aki Niño 06/08/2018 7:14 AM
[2018-06-08] MEDS: VITAMIN D GT SCH ×2 (08:40→21:05)
[2018-06-08] MEDS: PLAVIX GT SCH (08:40)
[2018-06-08] MEDS: TUMS GT SCH ×2 (08:40→21:05)
[2018-06-08] MEDS: BACTROBAN OINTMENT TOP SCH ×2 (08:41→21:05)
[2018-06-08] MEDS: PROTONIX IV SCH (08:41)
[2018-06-08] MEDS: CUBICIN 500 MG in NS 100 ML IV SCH (08:41)
[2018-06-08] MEDS: E.E.S. 200 SUSPENSION PO SCH ×2 (08:41→16:06)
[2018-06-08] MEDS: NORVASC PEG SCH (08:42)
[2018-06-08] MEDS: COREG GT SCH ×2 (08:42→21:05)
[2018-06-08] MEDS: CATAPRES-TTS-2 TD SCH (08:42)
[2018-06-08] MEDS: MAXIPIME 1 GM in NS 50 ML IV SCH ×2 (08:47→21:11)
[2018-06-08] MEDS ORDERED: D50W SYRINGE IV PRN (15:50)
[2018-06-08] MEDS: LOVENOX SUBQ SCH (16:06)
[2018-06-08] MEDS ORDERED: ALBUMIN 25% IV ONE (17:52)
[2018-06-08] MEDS: LASIX IV SCH (18:43)
--- NOTE | 2018-06-08 19:50 | INFECTIOUS DISEASE PROGRESS NO ---
DATE: 06/08/2018 PRESENT ILLNESS: The patient has the following infections, an oxacillin sensitive Staph aureus bacteremia, vancomycin-resistant enterococcal bacteremia, enterococcal PEG tube site infection, and pneumonia with methicillin-resistant Staph aureus and Enterobacter. MEDICATIONS: The patient is on daptomycin, Zyvox, and cefepime. PHYSICAL EXAMINATION: Vital Signs: Temperature is 96.6 degrees, pulse 59, respirations 15, blood pressure 120/60. General: This is a chronically ill-appearing, elderly female. She is intubated and sedated. Head, eyes, ears, nose, throat: No drainage is noted from the nose or ears. The patient has an oral endotracheal tube in place. Lungs: Clear to auscultation. Cardiovascular: Heart rate is regular. Abdomen: Soft and not tender. The G-tube site is not purulent or draining. Neurologic: The patient is sedated. She did not respond to verbal stimuli. There is no tremor. Extremities: Patient has a left dfcee-tnh-ggbk amputation. The incision is healing well. LAB AND X-RAY: The patient's chest x-ray from today shows diffuse bilateral infiltrates indicating pulmonary edema plus or minus pneumonia; it is stable. There is no new consolidation. The patient's CBC shows a white count of 18,300, hemoglobin 9.4, and platelet count 341,000. Blood gases show a pH of 7.38, a PO2 of 93 pCO2 of 38. Creatinine is 1.3. GFR is 49. CK is 438. ASSESSMENT AND PLAN: The patient at this time is being treated for pneumonia. The other infections have cleared up. I have discontinued daptomycin and will continue ceftaroline and Zyvox for a few more days. COMORBIDITIES: Include diabetes mellitus, acute kidney injury, and anemia. cc: MD Derik Terry MD
--- NOTE | 2018-06-08 20:05 | PULMONOLOGY PROGRESS NOTE ---
DATE: 06/08/2018 SUBJECTIVE: The patient is sedated. She does not regard the practitioner. She does respond to painful stimuli. OBJECTIVE: Vital Signs: The patient is afebrile for the last 24 hours. Blood pressure 120/60, heart rate 65, respiratory rate 16, oxygen saturation 94%. HEENT: Pupils are sluggish. Oropharynx appears clear. Neck: Supple. Chest: Reveals coarse rhonchi, right greater than left. Cardiac: S1, S2. Abdomen: Soft and obese. Extremities: Reveal surgical dressings on the left lower extremity. LABORATORIES: White blood count 18.30, hemoglobin 9.4, platelet count 341,000. Arterial blood gas: PH 7.38, pCO2 of 38, PO2 of 93. Sodium 143, potassium 3.6, chloride 107, BUN 42, creatinine 1.3, total protein 5.6, albumin 2.1. Chest x-ray reveals bilateral infiltrates, right greater than left, without change from 06/07/2018. IMPRESSION: A a 67-year-old with long history of diabetes mellitus, aspiration pneumonia, Staph aureus pneumonia, Enterobacter cloacae species pneumonia, vancomycin-resistant enterococcal bacteremia, oxacillin sensitive Staph aureus bacteremia, osteomyelitis of the left foot status post left okqae-lti-ppzg amputation, acute renal insufficiency, and coronary artery disease. She has had marginal improvement in oxygen requirements. She remains critically ill. RECOMMENDATIONS: 1. Attempt to increase tube feeds as tolerated. 2. Continue ventilatory support. 3. Continue diuretic trial. 4. Continue antibiotics per Infectious Disease. 5. Prognosis remains poor. Family continues to request aggressive care. TIME SPENT: Time spent critical care management 30+ minutes. cc: MD Derik Fallon MD
[2018-06-08] MEDS: MILK OF MAGNESIA GT SCH (21:06)
[2018-06-08] MEDS: BASAGLAR SUBQ SCH (21:20)
[2018-06-09] MEDS: E.E.S. 200 SUSPENSION PO SCH (00:34)
[2018-06-09] MEDS: DUONEB (A & A) INH SCH ×6 (03:51→23:29)
[2018-06-09] MEDS: ZYVOX 600 MG/D5W 600 MG/300 ML IVPB IV SCH ×2 (04:29→16:25)
[2018-06-09] MEDS: HUMULIN R SUBQ SCH ×4 (04:40→21:39)
[2018-06-09 04:50] LABS: ALLEN TEST YES; BE 2.4 mmoll (-3.0-3.0); BLOOD TYPE ARTERIAL; HCO3-(ACT) 26.8 mmoll (20.0-26.0); METHB 0.8 % (0.0-1.5); O2(CT) 10.9 mL/dL (15.0-23.0); O2HB 94.8 % (95.0-99.0); PCO2(98.6) 37 mmHg (35-45); PO2(98.6) 74 mmHg (60-100); SAMPLE BLOOD; SAO2 97.9 % (95.0-100.0); SRATE 10 BPM; THB 8.1 g/dL (11.5-17.4); TVOL 450 mL; pH(98.6) 7.46 (7.35-7.45)
[2018-06-09 04:52] LABS: MODALITY VENTILATOR
[2018-06-09 05:14] LABS: ALB/GLOB RATIO 0.6; ALBUMIN 2.1 g/dL (3.5-5.0); CALCIUM 8.1 mg/dL (8.8-10.2); CREATININE 1.3 mg/dL (0.5-0.9); POTASSIUM 3.4 mmol/L (3.5-5.1); TOTAL BILIRUBIN 0.55 mg/dL (0.20-1.00); TOTAL PROTEIN 5.4 g/dL (6.3-8.3)
[2018-06-09 05:23] LABS: HEMATOCRIT 30.4 % (37.0-47.0); HEMOGLOBIN 9.7 g/dL (12.0-16.0); MCH 27.5 PG (27-31); MCHC 31.9 g/dL (33-37); MCV 86.1 FL (81-99); MPV 9.4 FL (7.4-10.4); RBC 3.53 XMIL (4.2-5.4); RDW 19.4 % (11.5-14.5); WBC 17.38 X1000 (4.8-10.8)
[2018-06-09] MEDS: LASIX IV SCH (06:00)
--- NOTE | 2018-06-09 06:51 | Diag Imaging Result Doc PS360 ---
EXAM: CHEST-PORTABLE HISTORY: respiratory failure TECHNIQUE: Portable chest single view COMPARISON: 06/08/2018 FINDINGS: The lungs are poorly expanded. Endotracheal tube is in good position. No change in the left subclavian catheter. Heart is mildly prominent. There are increased interstitial markings throughout both lungs and there are small pleural effusions. IMPRESSION: No interval improvement. Electronically signed by Ruben Johnson 06/09/2018 6:48 AM
[2018-06-09] MEDS: CUBICIN 500 MG in NS 100 ML IV SCH (08:34)
[2018-06-09] MEDS: PROTONIX IV SCH (08:50)
[2018-06-09] MEDS: DIPRIVAN 1% 1,000 MG/100 ML BOTTLE IV SCH ×4 (09:44→23:46)
[2018-06-09] MEDS: BACTROBAN OINTMENT TOP SCH ×2 (09:45→21:36)
[2018-06-09] MEDS: PLAVIX GT SCH (09:46)
[2018-06-09] MEDS: TUMS GT SCH ×2 (09:46→21:36)
[2018-06-09] MEDS: NORVASC PEG SCH (09:46)
[2018-06-09] MEDS: COREG GT SCH ×2 (09:46→21:36)
[2018-06-09] MEDS: POTASSIUM CHLORIDE 10% LIQUID GT SCH ×2 (09:46→21:37)
[2018-06-09] MEDS: VITAMIN D GT SCH ×2 (09:46→21:36)
[2018-06-09] MEDS: NS 1,000 ML IV SCH ×2 (09:47→21:37)
[2018-06-09] MEDS: LOVENOX SUBQ SCH (16:26)
--- NOTE | 2018-06-09 19:39 | INFECTIOUS DISEASE PROGRESS NO ---
DATE: 06/09/2018 HISTORY OF PRESENT ILLNESS: The patient has the following infections: An oxacillin-sensitive Staph aureus bacteremia, a vancomycin-resistant enterococcal bacteremia, enterococcal PEG tube site infection, and a pneumonia caused by methicillin-resistant Staph aureus and Enterobacter. MEDICATIONS: Patient is receiving Zyvox and cefepime. PHYSICAL EXAMINATION: Vital Signs: Temperature is 98 degrees, pulse 70, respirations 13, blood pressure 111/52. General: This is a chronically ill-appearing elderly female. She is intubated and sedated. Head/eyes/ears/nose/throat: No drainage is noted from the nose or ears. The patient does not respond to verbal stimuli. Neck: No meningismus. Lungs: Clear to auscultation. Cardiovascular: Heart rate is regular. Abdomen: Soft and nontender. A G-tube is in place. There is no purulent drainage. Neurologic: As mentioned above, the patient is sedated. She did not respond to verbal stimuli. There was not a tremor. Extremities: Patient has a left tauab-mge-xmuy amputation. The incision is intact. LAB AND RADIOLOGY: CBC-WBC 1l.38, hgb 9.3, platelets 325K. Creatinine-1.3. GFR- 49. Chest b-nyq-ylhtwaxik interstitial markings, small bilateral pleural effusions. ASSESSMENT AND PLAN: Patient is being treated for pneumonia. At this time I am going to continue with cefepime and Zyvox. This is the first day of treatment. COMORBIDITIES: Diabetes mellitus, acute kidney injury and anemia. cc: MD Derik Terry MD MTDD
[2018-06-09] MEDS: MILK OF MAGNESIA GT SCH (21:36)
[2018-06-09] MEDS: BASAGLAR SUBQ SCH (21:39)
[2018-06-09] MEDS: MAXIPIME 2 GM in NS 100 ML IV SCH (21:59)
[2018-06-10] MEDS: DUONEB (A & A) INH SCH ×6 (03:30→23:35)
[2018-06-10] MEDS: ZYVOX 600 MG/D5W 600 MG/300 ML IVPB IV SCH ×2 (03:52→16:48)
[2018-06-10] MEDS: NS 1,000 ML IV SCH ×2 (03:55→12:14)
[2018-06-10 04:43] LABS: ALLEN TEST YES; BE 1.2 mmoll (-3.0-3.0); BLOOD TYPE ARTERIAL; HCO3-(ACT) 25.8 mmoll (20.0-26.0); METHB 1.6 % (0.0-1.5); O2(CT) 12.9 mL/dL (15.0-23.0); O2HB 94.3 % (95.0-99.0); PCO2(98.6) 41 mmHg (35-45); PO2(98.6) 104 mmHg (60-100); SAMPLE BLOOD; SAO2 99.8 % (95.0-100.0); SRATE 10 BPM; THB 9.6 g/dL (11.5-17.4); TVOL 450 mL; pH(98.6) 7.41 (7.35-7.45)
[2018-06-10 04:45] LABS: MODALITY VENTILATOR
[2018-06-10 06:25] LABS: HEMATOCRIT 29.9 % (37.0-47.0); HEMOGLOBIN 9.3 g/dL (12.0-16.0); MCH 27.6 PG (27-31); MCHC 31.1 g/dL (33-37); MCV 88.7 FL (81-99); MPV 9.4 FL (7.4-10.4); RBC 3.37 XMIL (4.2-5.4); RDW 19.5 % (11.5-14.5); WBC 16.65 X1000 (4.8-10.8)
[2018-06-10] MEDS: HUMULIN R SUBQ SCH ×4 (06:32→20:25)
--- NOTE | 2018-06-10 06:38 | Diag Imaging Result Doc PS360 ---
EXAM: CHEST-PORTABLE HISTORY: respiratory failure TECHNIQUE: Chest single view COMPARISON: 06/09/2018 FINDINGS: No change in the endotracheal tube or left subclavian line. There is a nasogastric tube which overlies the esophagus and stomach on the current exam. The lungs are poorly expanded. The heart is mildly enlarged. Sternal wires are present. There are at least small bilateral pleural effusions. Infiltrates are found throughout the lungs. IMPRESSION: No interval improvement. Electronically signed by Ruben Johnson 06/10/2018 6:36 AM
[2018-06-10 06:49] LABS: ALB/GLOB RATIO 0.5; ALBUMIN 1.9 g/dL (3.5-5.0); CALCIUM 7.6 mg/dL (8.8-10.2); CREATININE 1.3 mg/dL (0.5-0.9); POTASSIUM 3.5 mmol/L (3.5-5.1); TOTAL BILIRUBIN 0.44 mg/dL (0.20-1.00); TOTAL PROTEIN 5.4 g/dL (6.3-8.3)
[2018-06-10] MEDS: DIPRIVAN 1% 1,000 MG/100 ML BOTTLE IV SCH (07:17)
[2018-06-10] MEDS: MAXIPIME 2 GM in NS 100 ML IV SCH ×2 (09:00→20:23)
[2018-06-10] MEDS: VITAMIN D GT SCH ×2 (09:21→20:23)
[2018-06-10] MEDS: NORVASC PEG SCH (09:21)
[2018-06-10] MEDS: POTASSIUM CHLORIDE 10% LIQUID GT SCH ×2 (09:21→20:23)
[2018-06-10] MEDS: PLAVIX GT SCH (09:21)
[2018-06-10] MEDS: COREG GT SCH ×2 (09:21→20:23)
[2018-06-10] MEDS: TUMS GT SCH ×2 (09:21→20:23)
[2018-06-10] MEDS: PROTONIX IV SCH (09:22)
[2018-06-10] MEDS: BACTROBAN OINTMENT TOP SCH ×2 (09:22→20:24)
[2018-06-10 10:44] LABS: ALLEN TEST NO; BE 0.6 mmoll (-3.0-3.0); BLOOD TYPE ARTERIAL; HCO3-(ACT) 25.3 mmoll (20.0-26.0); O2(CT) 14.6 mL/dL (15.0-23.0); O2HB 90.7 % (95.0-99.0); PCO2(98.6) 50 mmHg (35-45); PO2(98.6) 62 mmHg (60-100); SAMPLE BLOOD; SAO2 94.1 % (95.0-100.0); THB 11.4 g/dL (11.5-17.4); pH(98.6) 7.34 (7.35-7.45)
[2018-06-10 10:46] LABS: MODALITY VENTILATOR
[2018-06-10] MEDS ORDERED: LASIX IV ONE (12:35)
[2018-06-10] MEDS: LOVENOX SUBQ SCH (16:48)
[2018-06-10] MEDS: MILK OF MAGNESIA GT SCH (20:23)
[2018-06-10] MEDS: BASAGLAR SUBQ SCH (20:25)
[2018-06-11] MEDS: DUONEB (A & A) INH SCH ×6 (03:01→23:35)
[2018-06-11] MEDS: ZYVOX 600 MG/D5W 600 MG/300 ML IVPB IV SCH ×2 (04:38→16:42)
[2018-06-11 04:44] LABS: ALLEN TEST YES; BE 1.8 mmoll (-3.0-3.0); BLOOD TYPE ARTERIAL; HCO3-(ACT) 26.2 mmoll (20.0-26.0); METHB 1.3 % (0.0-1.5); O2(CT) 14.5 mL/dL (15.0-23.0); O2HB 90.8 % (95.0-99.0); PCO2(98.6) 48 mmHg (35-45); PO2(98.6) 62 mmHg (60-100); SAMPLE BLOOD; SAO2 94.7 % (95.0-100.0); THB 11.3 g/dL (11.5-17.4); pH(98.6) 7.37 (7.35-7.45)
[2018-06-11 04:46] LABS: MODALITY COOL AEROSOL
[2018-06-11] MEDS: HUMULIN R SUBQ SCH ×4 (06:01→20:39)
[2018-06-11 06:22] LABS: HEMOGLOBIN 10.5 g/dL (12.0-16.0); MCH 27.4 PG (27-31); MCHC 30.9 g/dL (33-37); MCV 88.8 FL (81-99); MPV 9.2 FL (7.4-10.4); RBC 3.83 XMIL (4.2-5.4); RDW 19.4 % (11.5-14.5); WBC 18.69 X1000 (4.8-10.8)
[2018-06-11 06:48] LABS: ALB/GLOB RATIO 0.6; ALBUMIN 2.2 g/dL (3.5-5.0); CALCIUM 8.5 mg/dL (8.8-10.2); CREATININE 1.2 mg/dL (0.5-0.9); POTASSIUM 3.9 mmol/L (3.5-5.1); TOTAL BILIRUBIN 0.57 mg/dL (0.20-1.00); TOTAL PROTEIN 6.1 g/dL (6.3-8.3)
--- NOTE | 2018-06-11 07:57 | Diag Imaging Result Doc PS360 ---
EXAM: CHEST-PORTABLE - 06/11/2018 HISTORY: respiratory failure TECHNIQUE: Portable chest COMPARISON: 06/10/2018 FINDINGS: The endotracheal tube and nasogastric tube have been removed. Central venous catheter remains in place. There are relatively diffuse bilateral infiltrates similar to prior. There are apparent small bilateral pleural effusions. There is no pneumothorax identified. There is mild cardiomegaly. IMPRESSION: Relatively diffuse bilateral infiltrates similar to prior. Apparent small bilateral pleural effusions. Electronically signed by Felix Call 06/11/2018 7:55 AM
[2018-06-11] MEDS: COREG GT SCH ×2 (08:02→20:39)
[2018-06-11] MEDS: PROTONIX IV SCH (08:02)
[2018-06-11] MEDS: PLAVIX GT SCH (08:02)
[2018-06-11] MEDS: NORVASC PEG SCH (08:02)
[2018-06-11] MEDS: MAXIPIME 2 GM in NS 100 ML IV SCH ×2 (08:02→20:38)
[2018-06-11] MEDS: VITAMIN D GT SCH ×2 (08:02→20:40)
[2018-06-11] MEDS: TUMS GT SCH ×2 (08:05→20:40)
[2018-06-11] MEDS: BACTROBAN OINTMENT TOP SCH ×2 (09:00→20:38)
[2018-06-11] MEDS: LOVENOX SUBQ SCH (16:42)
[2018-06-11] MEDS: MILK OF MAGNESIA GT SCH (20:39)
[2018-06-11] MEDS: BASAGLAR SUBQ SCH (20:39)
[2018-06-12] MEDS: DUONEB (A & A) INH SCH ×5 (03:50→21:30)
[2018-06-12 04:53] LABS: ALLEN TEST YES; BLOOD TYPE ARTERIAL; HCO3-(ACT) 24.6 mmoll (20.0-26.0); O2(CT) 20.4 mL/dL (15.0-23.0); PCO2(98.6) 46 mmHg (35-45); PO2(98.6) 56 mmHg (60-100); SAMPLE BLOOD; SAO2 92.5 % (95.0-100.0); THB 16.3 g/dL (11.5-17.4); pH(98.6) 7.36 (7.35-7.45)
[2018-06-12] MEDS: ZYVOX 600 MG/D5W 600 MG/300 ML IVPB IV SCH ×2 (04:55→16:26)
[2018-06-12 05:02] LABS: MODALITY CANNULA; O2HB 89.1 % (95.0-99.0)
[2018-06-12] MEDS: HUMULIN R SUBQ SCH ×4 (06:02→21:23)
[2018-06-12 06:45] LABS: HEMATOCRIT 33.9 % (37.0-47.0); HEMOGLOBIN 10.5 g/dL (12.0-16.0); MCH 27.9 PG (27-31); MCV 90.2 FL (81-99); MPV 9.4 FL (7.4-10.4); RBC 3.76 XMIL (4.2-5.4); RDW 19.5 % (11.5-14.5); WBC 17.18 X1000 (4.8-10.8)
[2018-06-12 07:14] LABS: ALB/GLOB RATIO 0.7; ALBUMIN 2.5 g/dL (3.5-5.0); CALCIUM 9.1 mg/dL (8.8-10.2); CREATININE 1.1 mg/dL (0.5-0.9); POTASSIUM 3.9 mmol/L (3.5-5.1); TOTAL BILIRUBIN 0.66 mg/dL (0.20-1.00); TOTAL PROTEIN 6.3 g/dL (6.3-8.3)
--- NOTE | 2018-06-12 07:17 | Diag Imaging Result Doc PS360 ---
EXAM: CHEST-PORTABLE INDICATION: respiratory failure TECHNIQUE: One view COMPARISON: 06/11/2018 FINDINGS: The left central line is in stable position. Inspiration is suboptimal. Diffuse bilateral infiltrates are unchanged. No new consolidation is identified. Cardiac silhouette is stable. IMPRESSION: Stable chest. Electronically signed by Aki Niño 06/12/2018 7:14 AM
[2018-06-12] MEDS: PROTONIX IV SCH (07:53)
[2018-06-12] MEDS: VITAMIN D GT SCH ×2 (08:00→21:23)
[2018-06-12] MEDS: TUMS GT SCH ×2 (08:01→20:27)
[2018-06-12] MEDS: PLAVIX GT SCH (08:01)
[2018-06-12] MEDS: BACTROBAN OINTMENT TOP SCH ×2 (08:04→20:27)
[2018-06-12] MEDS: MAXIPIME 2 GM in NS 100 ML IV SCH ×2 (08:45→19:50)
[2018-06-12] MEDS: COREG GT SCH ×2 (09:09→20:27)
[2018-06-12] MEDS: NORVASC PEG SCH (09:10)
--- NOTE | 2018-06-12 15:20 | PULMONOLOGY PROGRESS NOTE ---
DATE: 06/12/2018 SUBJECTIVE: The patient has random movements of her head. She will not acknowledge the practitioner. She does withdraw to pain. She has a fair cough which is wet in character. OBJECTIVE: Vital Signs: Blood pressure 151/82, heart rate 90, respiratory rate 18, oxygen saturation 95% on nasal cannula. HEENT: Pupils are equal and reactive. Oropharynx appears clear. Neck: Reveals diffuse bilateral rhonchi. Cardiac: S1, S2. Abdomen: Soft with occasional bowel sounds. Extremities: Reveal diffuse edema. DIAGNOSTIC STUDIES: Chest x-ray reveals diffuse bilateral infiltrates. Central line remains in good position. White blood count 17.1, hemoglobin 10.5, platelet count 116,000. Sodium 145, potassium 3.9, chloride 108, BUN 38, creatinine 1.1. Arterial blood gas pH 7.36, pCO2 of 46, PO2 of 56. IMPRESSION: A 67-year-old with long history of: 1. Diabetes mellitus. 2. Staphylococcus aureus pneumonia. 3. Enterobacter cloacae species pneumonia. 4. Vancomycin-resistant enterococcal bacteremia. 5. Oxacillin Staphylococcus aureus bacteremia. 6. Osteomyelitis of the left foot status post amputation. 7. Acute hypoxemic respiratory failure. 8. Acute renal insufficiency. 9. Coronary artery disease. She has been successfully extubated, but her overall status remains marginal. RECOMMENDATIONS: 1. Continue current oxygen therapy. 2. Continue antibiotics per Infectious Disease. 3. Cautious tube feeds as tolerated. 4. Overall prognosis remains guarded to poor. cc: MD Derik Fallon MD MTDNupur
[2018-06-12] MEDS: LOVENOX SUBQ SCH (15:44)
[2018-06-12] MEDS: MYCAMINE 100 MG in NS 100 ML IV SCH (18:32)
--- NOTE | 2018-06-12 19:05 | INFECTIOUS DISEASE PROGRESS NO ---
DATE: 06/12/2018 PRESENT ILLNESS: Ms. Phillips is being treated for an oxacillin-sensitive staph bacteremia, a vancomycin-resistant enterococcal bacteremia, Enterobacter PEG tube site infection, a methicillin- resistant Staph aureus and Enterobacter pneumonia. There is also a yeast in her urine as well as yeast on the fungal prep of the bronchial washings. She continues to have a leukocytosis. MEDICATIONS: Today is day 3 of cefepime 2 g IV every 12 hours and day 10 of Zyvox 600 mg IV every 12 hours. PHYSICAL EXAMINATION: Vital Signs: Temperature is 97, pulse rate 86, respiratory rate 16, blood pressure 152/80, O2 saturations 97% on 2 L nasal cannula. General: This is a chronically ill- appearing, elderly female. She is lying in the bed. Minimally responsive and nonverbal at this point. HEENT: Atraumatic, normocephalic. Oral mucous membranes are pink and moist. Conjunctivae are pale. Neck: Supple. Trachea is midline. Cardiovascular: Heart rate and rhythm are regular. Normal sinus rhythm on the monitor. Right pedal and radial pulses are palpable at +1. There is a left wtiaf-obt-qstl amputation with an incision. It has a small amount of brown drainage noted on the incision line. No erythema or edema noted to the incision. There was also a central line in place to the left subclavian. That site is without edema, erythema, or drainage. Respiratory: Lung sounds have coarse rhonchi noted bilaterally. Diminished in the bases. Abdomen: Soft, obese and nontender. Bowel sounds are audible. There is a PEG tube site which has a small amount of purulent drainage noted, which is pink-silveira colored. Neurologic: She is not opening her eyes, but will pull against whatever I am trying to do with her as if she wants to be left alone. She is nonverbal at this point. LABORATORY AND X-RAY: Today her white count is 17.18, hemoglobin 10.5, platelet count 316,000. This morning on 2 L nasal cannula, her pH is 7.36, pCO2 of 46, pO2 of 56. HCO- 3 24.6. Creatinine is 1.1. GFR is 60. Total bilirubin is 0.66. AST is 28, ALT 15, alkaline phosphatase 129. Today her chest x-ray showed diffuse bilateral infiltrates which are unchanged. No new consolidation. ASSESSMENT AND PLAN: Ms. Phillips is being treated for 2 separate bacteremias, PEG tube site infection and pneumonia. She is receiving cefepime and Zyvox, which we will continue at this time. Because of the two sites of yeast, and her long duration of antibiotic therapy, we will also go ahead and start her on Micafungin 100mg IV daily. These plans have been discussed with and recommended by Dr. Layne. COMORBIDITIES: For Ms. Phillips include that she is elderly with diabetes mellitus, anemia and acute kidney injury. Dictated by QUENTIN Rodriguez for Gerald Layne MD This chart was documented by, QUENTIN Rodriguez and accurately reflects the services performed, treatment plan and medical decisions as attested by the providers signature Gerald Layne MD. cc: MD Derik Terry MD MTDD
[2018-06-12] MEDS: MILK OF MAGNESIA GT SCH (20:28)
[2018-06-12] MEDS: BASAGLAR SUBQ SCH (21:22)
[2018-06-13] MEDS: DUONEB (A & A) INH SCH ×4 (03:50→21:30)
[2018-06-13] MEDS: ZYVOX 600 MG/D5W 600 MG/300 ML IVPB IV SCH ×2 (03:57→16:00)
[2018-06-13] MEDS: HUMULIN R SUBQ SCH ×4 (06:46→21:18)
--- NOTE | 2018-06-13 08:28 | PROGRESS NOTE ---
DATE: 06/13/2018 SUBJECTIVE: Ms. Phillips is not really responding this morning. She does move her head around and sort of open her eyes, but not really to any verbal cues. OBJECTIVE: Left lower extremity exam: Dressing is down. Brooks have been removed. Wound looks okay. There are a few very small dark areas that I would like to keep an eye on, but overall swelling is down in the stump. ASSESSMENT: Status post left below-knee amputation for infection. PLAN: From an orthopedic standpoint, Ms. Phillips looks to be healing, but healing a little bit slow on this left stump. I know she does not have great nutrition, and she is still trying to fight off a massive infection in her body, and so it is going to be slow from a wound healing standpoint. From an orthopedic standpoint, will continue to follow. She is not ready for any stump analytics architect just yet. cc: MD Derik Dempsey MD
[2018-06-13] MEDS: PROTONIX IV SCH (08:44)
[2018-06-13] MEDS: BACTROBAN OINTMENT TOP SCH ×2 (08:44→21:18)
[2018-06-13] MEDS: COREG GT SCH ×2 (08:45→20:31)
[2018-06-13] MEDS: PLAVIX GT SCH (08:45)
[2018-06-13] MEDS: NORVASC PEG SCH (08:45)
[2018-06-13] MEDS: TUMS GT SCH ×2 (08:45→20:31)
[2018-06-13] MEDS: VITAMIN D GT SCH ×2 (08:45→20:31)
[2018-06-13] MEDS: MAXIPIME 2 GM in NS 100 ML IV SCH ×2 (09:26→20:32)
[2018-06-13] MEDS: E.E.S. 200 SUSPENSION GT SCH ×3 (09:35→20:32)
--- NOTE | 2018-06-13 09:44 | INFECTIOUS DISEASE PROGRESS NO ---
DATE: 06/13/2018 PRESENT ILLNESS: The patient has had the following infections: She has had oxacillin-sensitive Staphylococcus aureus bacteremia, a vancomycin-resistant enterococcal bacteremia, Enterobacter PEG tube site infection, methicillin-resistant Staphylococcus aureus, and Enterobacter pneumonia, and she has had two recent cultures of yeast. One was in the urine and one was in the patient's bronchial washings. When more than one site of yeast is isolated on culture, that sometimes means that the patient has a generalized yeast infection even if it does not show up in the blood cultures. MEDICATIONS: This is day 4 of cefepime, day 10 of Zyvox, and day 1 of micafungin. PHYSICAL EXAMINATION: Vital Signs: Temperature is 97.8 degrees, pulse 96, respirations 21, blood pressure 167/92. General: This is a chronically ill-appearing, elderly female. She does not appear to be in any acute distress. Head, Eyes, Ears, Nose, and Throat: No drainage was noted from the nose or ears. She did not respond to verbal stimuli. Neck: No meningismus. Lungs: Clear to auscultation. Cardiovascular: The heart rate is regular. Abdomen: Soft and nontender. A G-tube is in place. There is no purulence coming from around the G-tube site. Thorax: The patient has a left-sided subclavian vein catheter in place. Integument: No rash noted. Extremities: The patient has a left oxhan-hjs-iibg amputation site. The incision is intact. Neurologic: The patient seems to be in a delirium. She occasionally moves. She does not follow requests to move her extremities. She does not talk. LAB AND X-RAY: CBC shows a white count of 17,180, hemoglobin 10.5, and platelet count 316,000. Blood gases show a pH of 7.36, a PO2 of 56, and a pCO2 of 46. ASSESSMENT AND PLAN: The patient is being treated for bacteremia, pneumonia, a percutaneous endoscopic gastrostomy tube site infection, and possible systemic fungal infection. For those reasons, I am going to continue her current medications. COMORBIDITIES: The patient is elderly and she is a diabetic. She also has acute kidney injury and she is chronically anemic. cc: MD Derik Terry MD
[2018-06-13] MEDS: LOVENOX SUBQ SCH (15:27)
[2018-06-13] MEDS: MYCAMINE 100 MG in NS 100 ML IV SCH (17:52)
[2018-06-13] MEDS ORDERED: INSULIN PEN NEEDLES ONE (20:28)
[2018-06-13] MEDS: MILK OF MAGNESIA GT SCH (20:32)
--- NOTE | 2018-06-13 21:07 | Diag Imaging Result Doc PS360 ---
CHEST-PORTABLE - 06/13/2018 INDICATION: abnormal chest exam COMPARISON: 06/12/2018 FINDINGS: Stable sternotomy wires. Stable cardiomegaly. No significant change in the diffuse bilateral alveolar infiltrates. IMPRESSION: No change from prior. Electronically signed by Ronny Perrin 06/13/2018 9:05 PM
[2018-06-13] MEDS: BASAGLAR SUBQ SCH (21:18)
--- NOTE | 2018-06-13 21:57 | PULMONOLOGY PROGRESS NOTE ---
DATE: 06/13/2018 SUBJECTIVE: The patient is moving her head from side to side. She will not respond to my voice. OBJECTIVE: Vital Signs: The patient is afebrile. She is on nasal cannula. Blood pressure 124/88, heart rate 91, respiratory rate 22, oxygen saturation 97%. HEENT: Pupils are equal. Oropharynx appears clear. Neck: Supple. Chest: Reveals coarse crackles bilaterally. Cardiac: S1, S2. Abdomen: Mildly distended, with positive bowel sounds. Extremities: Unchanged. LABORATORIES: No new chemistries or CBC or blood gas. IMPRESSION: 1. A 67-year-old with adult respiratory distress syndrome/aspiration pneumonia. 2. Staphylococcus aureus pneumonia. 3. Enterobacter cloacae species pneumonia. 4. Vancomycin-resistant enterococcal bacteremia. 5. Oxacillin sensitive Staph aureus bacteremia. 6. Osteomyelitis, status post left ozlho-xqo-tksm amputation. 7. Acute hypoxemic respiratory failure. 8. Coronary artery disease. 9. Overall, she remains off mechanical ventilation. Mental status remains poor. She is not thriving. RECOMMENDATION: 1. Continue oxygen therapy. 2. Continue antibiotic therapy per Infectious Disease. 3. Cautious tube feeds and observe for episodes of emesis. She is at risk for re-aspiration. 4. Overall prognosis appears poor. I spoke with Dr. Akers this morning and he intends on having end of life discussions with her daughter, which I strongly recommend. cc: MD Derik Fallon MD
[2018-06-14] MEDS: E.E.S. 200 SUSPENSION GT SCH ×4 (02:37→20:28)
[2018-06-14] MEDS: DUONEB (A & A) INH SCH ×4 (03:40→21:00)
[2018-06-14] MEDS: ZYVOX 600 MG/D5W 600 MG/300 ML IVPB IV SCH ×2 (03:45→15:54)
[2018-06-14 04:39] LABS: ALLEN TEST YES; BE 6.9 mmoll (-3.0-3.0); BLOOD TYPE ARTERIAL; HCO3-(ACT) 30.2 mmoll (20.0-26.0); METHB 1.3 % (0.0-1.5); O2(CT) 14.6 mL/dL (15.0-23.0); O2HB 91.3 % (95.0-99.0); PCO2(98.6) 43 mmHg (35-45); PO2(98.6) 57 mmHg (60-100); SAMPLE BLOOD; SAO2 94.8 % (95.0-100.0); THB 11.4 g/dL (11.5-17.4); pH(98.6) 7.47 (7.35-7.45)
[2018-06-14 04:40] LABS: MODALITY CANNULA
[2018-06-14 05:46] LABS: BASO# 0.02 X1000 (0.0-0.2); BASO% 0.2 % (0.0-0.8); EOS# 0.14 X1000 (0.0-0.7); EOS% 1.5 % (0.0-10.0); HEMATOCRIT 33.2 % (37.0-47.0); HEMOGLOBIN 10.2 g/dL (12.0-16.0); LYMPH# 1.18 X1000 (1.2-3.4); LYMPH% 12.4 % (20.5-51.1); MCH 27.1 PG (27-31); MCHC 30.7 g/dL (33-37); MCV 88.3 FL (81-99); MONO# 0.45 X1000 (0.11-0.59); MONO% 4.7 % (1.7-9.3); MPV 9.2 FL (7.4-10.4); NEUT# 7.69 X1000 (1.4-6.5); NEUT% 81.2 % (42.2-75.2); PLT 240 X1000 (130-400); RBC 3.76 XMIL (4.2-5.4); RDW 18.6 % (11.5-14.5); WBC 9.48 X1000 (4.8-10.8)
[2018-06-14 06:25] LABS: AGAP 9; ALB/GLOB RATIO 0.6; ALBUMIN 2.5 g/dL (3.5-5.0); ALKALINE PHOSPHATASE 124 U/L (32-104); BUN 33 mg/dL (8-22); CALCIUM 8.5 mg/dL (8.8-10.2); CHLORIDE 109 mmol/L (98-107); COSMO 306; ESTIMATED GFR > 60; GLUCOSE 150 mg/dL (70-104); GOT 19 U/L (10-30); GPT 12 U/L (10-36); PHOSPHORUS 1.6 mg/dL (2.7-4.5); POTASSIUM 2.9 mmol/L (3.5-5.1); SODIUM 149 mmol/L (136-145); TCO2 31 mmol/L (25-35); TOTAL BILIRUBIN 0.54 mg/dL (0.20-1.00); TOTAL PROTEIN 6.4 g/dL (6.3-8.3)
[2018-06-14] MEDS: HUMULIN R SUBQ SCH ×4 (06:38→20:27)
[2018-06-14] MEDS ORDERED: POTASSIUM CHLORIDE 40 MEQ/SWI 40 MEQ/100 ML IVPB IV ONE (08:11)
[2018-06-14] MEDS: PROTONIX IV SCH (08:24)
[2018-06-14] MEDS: MAXIPIME 2 GM in NS 100 ML IV SCH ×2 (08:24→20:26)
[2018-06-14] MEDS: PLAVIX GT SCH (08:25)
[2018-06-14] MEDS: COREG GT SCH ×2 (08:25→20:27)
[2018-06-14] MEDS: NORVASC PEG SCH (08:25)
[2018-06-14] MEDS: BACTROBAN OINTMENT TOP SCH ×2 (08:25→20:28)
[2018-06-14] MEDS: TUMS GT SCH ×2 (08:25→20:27)
[2018-06-14] MEDS: VITAMIN D GT SCH ×2 (08:25→20:27)
[2018-06-14] MEDS: POTASSIUM CHLORIDE 10% LIQUID GT SCH ×2 (09:13→20:27)
--- NOTE | 2018-06-14 10:18 | PULMONOLOGY PROGRESS NOTE ---
DATE: 06/14/2018 INTERIM HISTORY: No major changes over the last 24 hours. The patient does not respond to voice. She does respond to stimuli. OBJECTIVE: Vital Signs: The patient has been afebrile for the last 24 hours. Blood pressure 134/89, heart rate 99, respiratory rate 29, oxygen saturation 97% on 3 L per nasal cannula. HEENT: Pupils appear equal. Oropharynx has some residual crusting on the tongue. Neck: Soft, supple. Chest: Reveals coarse breath sounds bilaterally. Cardiac Examination: S1-S2. Abdomen: Mildly distended with positive bowel sounds. Extremities: Unchanged. Laboratories: Chest x-ray last evening revealed diffuse bilateral infiltrates which have not changed. Arterial blood gas: PH 7.47, pCO2 43, PO2 of 57. White blood count 9.48, hemoglobin 10.2, platelet count 240,000. Sodium 149, potassium 2.9, chloride 109, bicarbonate 31, BUN 33, creatinine 1.0, glucose 150. IMPRESSION: A 67-year-old with: 1. Adult respiratory distress syndrome/aspiration pneumonia. 2. Staphylococcus aureus pneumonia. 3. Enterobacter cloacae species pneumonia. 4. Vancomycin-resistant enterococcal bacteremia. 5. Oxacillin-sensitive Staphylococcus aureus bacteremia. 6. Osteomyelitis of the left foot, status post left dopmh-uhd-lgsk amputation. 7. Protein calorie malnutrition. 8. Acute hypoxemic respiratory failure. 9. Coronary artery disease. 10. Altered mental status. RECOMMENDATIONS: 1. Continue oxygen therapy. 2. Continue antibiotics per Dr. Gerald Layne's direction. 3. Continue tube feeds as tolerated. 4. Overall prognosis is poor. End of life discussions have taken place by Dr. Akers and the daughter who is the power of network relay tester. She is currently interested in pursuing a senior care acute care placement. cc: MD Derik Fallon MD
--- NOTE | 2018-06-14 10:57 | INFECTIOUS DISEASE PROGRESS NO ---
DATE: 06/14/2018 PRESENT ILLNESS: Ms. Phillips has an oxacillin-sensitive Staph aureus and vancomycin-resistant enterococcal bacteremia, an Enterobacter PEG tube site infection, and a methicillin-resistant Staph aureus and Enterobacter pneumoniae. She has also had 2 recent yeast sites noted in her urine and bronchial washings, so there may be a systemic fungal infection. INDICATIONS: She is receiving day 5 of cefepime 2 g IV every 12 hours and day 12 of Zyvox 600 mg IV every 12 hours. It is also on day 2 of micafungin 100 mg IV daily. PHYSICAL EXAMINATION: Vital Signs: Temperature is 97 degrees, pulse rate 97, respiratory rate 21, blood pressure 151/101, O2 saturation is 97% on 3 L nasal cannula. General : This is a chronically ill-appearing, elderly female. She is lying in bed, currently drowsy and lethargic, but arousable. HEENT: Atraumatic, normocephalic. Oral mucous membranes are pink and moist. Conjunctivae are pale. Neck: Supple. Trachea is midline. Cardiovascular: Heart rate and rhythm are regular. Normal sinus rhythm on the monitor. Respiratory: Lung sounds are clear in the upper lobes. Diminished in the bases. Abdomen: Soft, obese and nontender. Bowel sounds are active. The G-tube site is without any purulence or erythema. Integumentary : There is a left- sided subclavian triple-lumen catheter. The site is without edema, erythema, or drainage. Extremities: She has a left fiowf-del-qjvh amputation incision which is intact with old, dark drainage on the incision line. No erythema is noted. Neurologic: She is lethargic, but arousable. She is nonverbal at this point and not following commands. LABORATORY AND X-RAY: Today her white count is 9.48, hemoglobin 10.2, platelet count 240,000. Blood gas this morning on 3 L nasal cannula shows a pH is 7.47 pCO2 43, PO2 57, HC03 of 30.2, creatinine is 1. Estimated GFR is greater than 60. Her most recent urine grew yeast and bronchial washings showed methicillin-resistant Staph aureus and Enterobacter cloacae. Her previous blood cultures grew vancomycin-resistant Enterococcus and an oxacillin- sensitive Staph aureus. Blood cultures have been sterile since May 29. No imaging reports today. ASSESSMENT AND PLAN: Ms Alan is being treated for bacteremia, pneumonia, PEG tube site infection and possible systemic fungal infection. We will continue her medications as ordered at this time. Tentatively, there is a plan to consider transfer to [facility]. These plans have been discussed with and recommended by Dr. Layne. COMORBIDITIES: For Ms Phillips include she is elderly with diabetes mellitus and severe deconditioning due to prolonged hospitalization. Dictated by QUENTIN Rodriguez for Gerald Layne MD This chart was documented by, QUENTIN Rodriguez and accurately reflects the services performed, treatment plan and medical decisions as attested by the providers signature Gerald Layne MD. cc: MD Derik Terry MD MTDD
[2018-06-14] MEDS: LOVENOX SUBQ SCH (15:54)
[2018-06-14] MEDS: MYCAMINE 100 MG in NS 100 ML IV SCH (17:53)
[2018-06-14] MEDS: MILK OF MAGNESIA GT SCH (20:27)
[2018-06-14] MEDS: BASAGLAR SUBQ SCH (20:28)
[2018-06-15] MEDS: DUONEB (A & A) INH SCH ×2 (03:00→07:59)
[2018-06-15] MEDS: E.E.S. 200 SUSPENSION GT SCH (03:07)
[2018-06-15] MEDS: ZYVOX 600 MG/D5W 600 MG/300 ML IVPB IV SCH (05:36)
[2018-06-15] MEDS: HUMULIN R SUBQ SCH ×4 (06:30→20:20)
[2018-06-15] MEDS: MAXIPIME 2 GM in NS 100 ML IV SCH (09:18)
[2018-06-15] MEDS: PLAVIX GT SCH (09:20)
[2018-06-15] MEDS: TUMS GT SCH ×2 (09:20→20:20)
[2018-06-15] MEDS: CATAPRES-TTS-2 TD SCH (09:20)
[2018-06-15] MEDS: COREG GT SCH ×2 (09:20→20:20)
[2018-06-15] MEDS: VITAMIN D GT SCH ×2 (09:20→20:20)
[2018-06-15] MEDS: NORVASC PEG SCH (09:20)
[2018-06-15] MEDS: POTASSIUM CHLORIDE 10% LIQUID GT SCH ×2 (09:22→20:19)
[2018-06-15] MEDS ORDERED: CALMOSEPTINE OINTMENT TOP PRN (09:51)
[2018-06-15] MEDS: DUONEB (A & A) INH PRN ×4 (11:39→23:20)
--- NOTE | 2018-06-15 12:23 | PULMONOLOGY PROGRESS NOTE ---
DATE: 06/15/2018 SUBJECTIVE: The patient is resting comfortably. She does not respond to voice. She does respond to tactile stimuli. She has no increased work of breathing. OBJECTIVE: Vital Signs: Blood pressure 149/80, heart rate 99 with occasional PVC noted, respiratory rate 14, oxygen saturation 100% on nasal cannula. HEENT: Pupils appear equal. Oropharynx is slightly dry. Neck: Supple. Chest: Reveals occasional rhonchi bilaterally with shallow breath sounds. Cardiac: S1, S2. Abdomen: Soft with positive bowel sounds. Extremities: Reveal surgical dressings on the left jmkrf-nqh-onur amputation. IMPRESSION: A 67-year-old with: 1. Adult respiratory distress syndrome (ARDS). 2. Aspiration pneumonia. 3. Staphylococci aureus pneumonia. 4. Enterobacter cloacae species pneumonia. 5. Vancomycin-resistant enterococcal bacteremia. 6. Oxacillin-sensitive Staphylococcus aureus bacteremia. 7. Osteomyelitis of the left foot status post left yircu-qwp-atpf amputation. 8. Acute hypoxemic respiratory failure. 9. Coronary artery disease. RECOMMENDATIONS: 1. Continue oxygen for hypoxemic respiratory failure. 2. Continue bronchial hygiene. 3. Follow up chest x-ray tomorrow. 4. Antibiotics as directed per Infectious Disease. 5. Continue cautious tube feeds. PROGNOSIS: Poor for long-term. End of life discussions have been held with the family, who continue to request aggressive management. Long-term acute care is being evaluated. cc: MD Derik Fallon MD
[2018-06-15] MEDS: BACTROBAN OINTMENT TOP SCH ×2 (12:29→20:21)
--- NOTE | 2018-06-15 15:40 | INFECTIOUS DISEASE PROGRESS NO ---
DATE: 06/15/2018 PRESENT ILLNESS: The patient has been treated now for an oxacillin-sensitive Staph aureus and vancomycin-resistant enterococcal bacteremias. She also had an Enterobacter PEG tube site for which she had enough treatment because the PEG tube site does not look infected now. She did have a methicillin-resistant Staph aureus and Enterobacter pneumonia. The methicillin-resistant Staph has had enough treatment with the patient's Zyvox. The Enterobacter part still needs treatment. The patient has had treatment for possible disseminated yeast infection. MEDICATION: The patient is receiving now cefepime, Zyvox, and micafungin. I agree with Dr. Akers that the patient does not require any more Zyvox and that we could stop micafungin and instead give the patient fluconazole through her G-tube and we can give the patient Levaquin per her G- tube rather than keep going with cefepime IV. PHYSICAL EXAMINATION: Vital Signs: Temperature is 97.3 degrees, pulse 100, respirations 27, blood pressure 142/77. General: This is a chronically ill-appearing, elderly female. She is lying in bed now and is lethargic. Head, eyes, ears, nose, and throat: There is no drainage from the nose or ears. I could not really get a good look at her mouth to see if she had any white patches. Neck: No meningismus. Lungs: Clear to auscultation. Cardiovascular: Regular heart rate. Abdomen: Soft and not tender. The G-tube site is not erythematous or purulent. Neurologic: The patient is very lethargic. She did not respond to verbal stimuli. Extremities: The patient has a left bbpsx-qor-pwwa amputation. The incision is intact. The patient's right heel has a black, dry eschar on it and there is no surrounding erythema or purulence. LAB AND X-RAY: CBC today shows a white count of 9,480, hemoglobin 10.2, and platelet count 240,000. Blood gases show a pH of 7.47, a pO2 of 57, a pCO2 of 43. Creatinine is 1. GFR is greater than 60. ASSESSMENT AND PLAN: I plan to treat the patient for her fungal infection with fluconazole through the G-tube. Also, for her pneumonia, I plan to treat her with Levaquin, also being given through the G-tube site. COMORBIDITIES: She is elderly and she has diabetes mellitus and severe deconditioning due to prolonged hospitalization. cc: MD Derik Terry MD
[2018-06-15] MEDS: LOVENOX SUBQ SCH (15:42)
[2018-06-15] MEDS: BASAGLAR SUBQ SCH (20:19)
[2018-06-15] MEDS: MILK OF MAGNESIA GT SCH (20:20)
[2018-06-15] MEDS: PREVACID SOLUTAB GT SCH (20:20)
[2018-06-16 05:31] LABS: BASO# 0.02 X1000 (0.0-0.2); BASO% 0.3 % (0.0-0.8); EOS# 0.19 X1000 (0.0-0.7); EOS% 2.4 % (0.0-10.0); HEMATOCRIT 35.2 % (37.0-47.0); HEMOGLOBIN 10.8 g/dL (12.0-16.0); LYMPH# 1.62 X1000 (1.2-3.4); LYMPH% 20.6 % (20.5-51.1); MCH 27.2 PG (27-31); MCHC 30.7 g/dL (33-37); MCV 88.7 FL (81-99); MONO# 0.41 X1000 (0.11-0.59); MONO% 5.2 % (1.7-9.3); MPV 10.1 FL (7.4-10.4); NEUT# 5.62 X1000 (1.4-6.5); NEUT% 71.5 % (42.2-75.2); PLT 151 X1000 (130-400); RBC 3.97 XMIL (4.2-5.4); RDW 18.3 % (11.5-14.5); WBC 7.86 X1000 (4.8-10.8)
[2018-06-16 05:37] LABS: AGAP 11; ALB/GLOB RATIO 0.5; ALBUMIN 2.4 g/dL (3.5-5.0); ALKALINE PHOSPHATASE 110 U/L (32-104); BUN 33 mg/dL (8-22); CALCIUM 8.4 mg/dL (8.8-10.2); CHLORIDE 108 mmol/L (98-107); COSMO 307; CREATININE 0.9 mg/dL (0.5-0.9); ESTIMATED GFR > 60; GLUCOSE 138 mg/dL (70-104); GOT 22 U/L (10-30); GPT 14 U/L (10-36); POTASSIUM 3.1 mmol/L (3.5-5.1); SODIUM 150 mmol/L (136-145); TCO2 31 mmol/L (25-35); TOTAL BILIRUBIN 0.55 mg/dL (0.20-1.00); TOTAL PROTEIN 6.9 g/dL (6.3-8.3)
[2018-06-16] MEDS: HUMULIN R SUBQ SCH ×2 (06:34→10:46)
[2018-06-16] MEDS: PREVACID SOLUTAB GT SCH (06:35)
--- NOTE | 2018-06-16 07:14 | Diag Imaging Result Doc PS360 ---
EXAM: CHEST-PORTABLE 06/16/2018 HISTORY: abnormal exam TECHNIQUE: AP portable at 0527 COMMENT: There is alveolar opacity bilaterally. The inspiration is slightly better than on 06/13/2018. Otherwise there has been no significant change. IMPRESSION: Pulmonary edema and/or pneumonia. Electronically signed by Iglesia Zuniga 06/16/2018 7:11 AM
--- NOTE | 2018-06-16 07:35 | PROGRESS NOTE ---
DATE: 06/16/2018 SUBJECTIVE: Ms. Phillips is lying in bed. She does not appear to be in any pain. She is still not answering questions appropriately. She is awake. She is coughing quite a bit. OBJECTIVE DATA: On left lower extremity exam, the surgical incision to the stump has no surrounding erythema or drainage. It has dehisced just a little on the very lateral aspect of it. Overall, it looks okay just slow to heal. ASSESSMENT: Status post left hwgrl-oyt-mnzb amputation for infection. PLAN: From orthopedic standpoint, Ms. Phillips seems to be healing the stump slowly, but overall looks okay. I know we are still struggling with her nutrition. She is getting trophic feedings. We do want the incision to heal completely before we can even consider getting her a prosthesis. We realize that she has a lot of other medical issues going on, and that is not a priority at the time. We will continue to follow her while she is in the hospital. Dictated by QUENTIN Roman for Melecio Powers MD cc: QUENTIN Roman MD Allen J. Schmidt, MD
[2018-06-16] MEDS: DUONEB (A & A) INH PRN (07:47)
[2018-06-16] MEDS ORDERED: NS 1,000 ML IV ONE (08:05)
[2018-06-16] MEDS ORDERED: REGLAN LIQUID GT SCH (08:15)
[2018-06-16] MEDS: VITAMIN D GT SCH (08:37)
[2018-06-16] MEDS: NORVASC PEG SCH (08:38)
[2018-06-16] MEDS: POTASSIUM CHLORIDE 10% LIQUID GT SCH (08:38)
[2018-06-16] MEDS: COREG GT SCH (08:38)
[2018-06-16] MEDS: PLAVIX GT SCH (08:38)
[2018-06-16] MEDS: BACTROBAN OINTMENT TOP SCH (08:39)
[2018-06-16] MEDS: TUMS GT SCH (08:39)
[2018-06-16] MEDS ORDERED: LEVAQUIN GT SCH (09:00)
[2018-06-16] MEDS ORDERED: DIFLUCAN PEG SCH (09:00)
[2018-06-16] MEDS ORDERED: LEVAQUIN PEG SCH (09:00)
--- NOTE | 2018-06-16 10:21 | DISCHARGE SUMMARY ---
ADMISSION DATE: 04/23/2018 DISCHARGE DATE: 06/16/2018 FINAL DIAGNOSES: 1. Left foot osteomyelitis due to methicillin-sensitive staph aureus. 2. Type 2 diabetes mellitus with multiple micro and macrovascular complications including chronic kidney disease, nephrotic range proteinuria, peripheral neuropathy, peripheral arterial disease and coronary artery disease. 3. Nutritional deficit status post G-tube. 4. Gastroparesis secondary to diabetes. 5. Vancomycin resistant enterococcal bacteremia. 6. Aspiration pneumonia with acute respiratory failure requiring ventilator support. 7. Persistent delirium. 8. Anemia due to suspected GI blood loss. 9. Essential hypertension. PROCEDURES: Left foot exploration and debridement x2, left lqurn-ocv-ided amputation, gastrostomy tube placement, endotracheal intubation with left subclavian central line placement, lumbar puncture and multiple packed red blood cells transfusions. HOSPITAL COURSE: Ms. Phillips is a 67-year-old -[place] female who I have followed for diabetes for many years. She presented to the emergency room with a 1 week history of increased pain in both legs and feet. She reported difficulty walking. Physical examination: Temperature 97.9 degrees, pulse 97, blood pressure 168/73. Lungs were clear. Cardiac exam: Regular rate and rhythm without murmurs. Abdomen soft and nontender. Extremities: 2+ pitting edema was noted from her feet to her knees. Diffuse bilateral tenderness was noted in both lower legs. LABORATORY: White blood count 21,180. Blood sugar 467. Albumin 2.5. HOSPITAL COURSE: She was admitted to the medical floor. The following day, her blood cultures were positive for gram-positive cocci and she was started on vancomycin and Rocephin. These subsequently grew Methicillin-sensitive staph aureus and Infectious Disease consult, Dr. Gerald Layne recommended intravenous nafcillin at high dose. She became less responsive and Neurology was consulted. She had a lumbar puncture that was essentially unremarkable with no evidence of meningitis. A 24 hour urine was done for protein and nephrotic range proteinuria , approximately 4 grams per 24 hours was noted. She developed some acute renal insufficiency and Dr. Dawson, stem threshing machine operator, was consulted and she had 2 hemodialysis sessions and then resumed her baseline renal function. IV access became very tenuous and she had multiple PICC lines placed but managed to pull several of them out. She had a gastrostomy tube placed on 05/18/2018 because of inability to swallow due to her delirium and unresponsiveness. On 05/23, repeat blood cultures grew gram- positive cocci subsequently identified as vancomycin resistant enterococcus faecium. Her IV antibiotics were changed by Dr. Layne to daptomycin. On 05/29, she was noted to have purulent G- tube drainage and culture of this grew Enterobacter and cefepime was added to her antibiotic regimen. On 05/31, chest x-ray showed a whiteout of the left lung and a mucus plug was suspected. Dr. Charan Min was consulted and on 06/02, he performed a bronchoscopy as to improve the aeration of the left lung and obtain cultures which eventually grew methicillin- resistant staph aureus and Enterobacter cloacae sensitive to most antibiotics. Several days later, she was noted to have aspiration of her tube feedings and was transferred to ICU and placed on a ventilator. Dr. Min also placed a left subclavian central line catheter on 06/04/2018. After approximately a week, she was extubated. She also underwent left dgpzf-tnz-bexa amputation for a nonhealing osteomyelitis. Throughout this course, Ms. Phillips remained only intermittently responsive and often delirious. Her ieblv-iw-yaoqyijb is her daughter who lives in [place] and although we held several discussions about end of life care and comfort care, she insisted on continuing aggressive support. Arrangements were made for long-term acute care transfer. Over the past week, she has been fairly stable and off of the ventilator. Extensive procedure and laboratory notes were printed for the long-term acute care hospital. She is transferred today in stable condition although her overall condition remains critical and she has a fairly poor long-term prognosis. Her family is aware of this. Time to prepare this discharge was 66 minutes cc: MD Derik Tse MD [facility]
[2018-06-16 12:08] VITALS: BP 147/80
== END 2018-06-16 12:38 | DRG 853 ==
LOC: SUPCPDRO → 3N 12:01 → ED 12:01 → 3N 04-26 22:31 → ICU 06-04 11:03
PROVIDERS: ADMIT Emergency Medicine; ATTEND Internal Medicine
CPT/HCPCS: 31500; 36430; 36569; 70450; 71010; 71045; 73600; 73620; 74000; 74018; 76000; 76770; 78806; 80048; 80053; 80069; 80074; 80076; 81001; 81050; 82270; 82550; 82570; 82575; 82607; 82746; 82805; 82945; 82948; 83036; 83540; 83550; 83735; 83880; 84100; 84132; 84134; 84156; 84157; 84300; 84439; 84443; 84484; 85014; 85018; 85025; 85027; 85379; 85610; 86850; 86900; 86901; 86920; 87015; 87040; 87070; 87075; 87077; 87088; 87102; 87116; 87147; 87186; 87205; 87206; 87496; 87529; 87532; 87653; 87798; 88307; 88312; 89050; 93005; 93010; 93306; 93970; 93971; 94002; 94003; 94640; 94668; 94760; 94761; 94762; 94799; 95816; 96361; 96374; 97110; 97162; 97530; 99285; A9270; A9569; C8929; C9113; J0131; J0171; J0692; J0696; J0878; J1644; J1650; J1815; J1940; J2020; J2060; J2185; J2248; J2270; J2370; J2405; J2765; J3010; J3260; J3370; J3475; J3480; J3486; J7030; J7040; J7050; J7060; J7070; J7120; P9016; P9047; Q9957; S0032; S0164; XXXXX

== ENCOUNTER 2018-06-18 02:53 | Inpatient (IN) ==
[2018-06-18 04:55] LABS: ALLEN TEST YES; BLOOD TYPE ARTERIAL; HCO3-(ACT) 34.3 mmoll (20.0-26.0); METHB 1.5 % (0.0-1.5); O2(CT) 17.3 mL/dL (15.0-23.0); O2HB 96.1 % (95.0-99.0); PCO2(98.6) 36 mmHg (35-45); PO2(98.6) 315 mmHg (60-100); SAMPLE BLOOD; SAO2 99.3 % (95.0-100.0); SRATE 20 BPM; THB 12.2 g/dL (11.5-17.4); TVOL 450 mL
[2018-06-18 04:57] LABS: MODALITY VENTILATOR; pH(98.6) 7.59 (7.35-7.45)
[2018-06-18 05:11] LABS: BASO# 0.01 X1000 (0.0-0.2); BASO% 0.1 % (0.0-0.8); HEMATOCRIT 32.4 % (37.0-47.0); IMM GRAN# 0.07 X1000 (0.0-0.04); IMM GRAN% 0.7 % (0.0-0.5); LYMPH# 0.92 X1000 (1.2-3.4); LYMPH% 9.5 % (20.5-51.1); MCHC 30.9 g/dL (33-37); MCV 87.3 FL (81-99); MONO# 0.71 X1000 (0.11-0.59); MONO% 7.4 % (1.7-9.3); MPV 10.4 FL (7.4-10.4); NEUT# 7.93 X1000 (1.4-6.5); NEUT% 82.3 % (42.2-75.2); PLT 104 X1000 (130-400); RBC 3.71 XMIL (4.2-5.4); RDW 17.8 % (11.5-14.5); WBC 9.64 X1000 (4.8-10.8)
[2018-06-18 05:11] LABS: URINE SOURCE CATH
[2018-06-18 05:16] LABS: BILIRUBIN URINE NEGATIVE (NEGATIVE); BLOOD URINE SMALL (NEGATIVE); COLOR YELLOW; GLUCOSE URINE >1000 mg/dL (NEGATIVE); KETONE URINE NEGATIVE (NEGATIVE); LEUKOCYTES URINE NEGATIVE (NEGATIVE); NITRITE URINE NEGATIVE (NEGATIVE); PH URINE 8.5; PROTEIN URINE 200 mg/dL (NEGATIVE); SP GRAVITY URINE 1.005; TURBIDITY URINE CLEAR (CLEAR); UROBILINOGEN URINE NORMAL (NORMAL)
[2018-06-18 05:17] LABS: UR EPITHELIAL CELLS <10 /HPF (<10); URINE BACTERIA NEGATIVE /HPF; URINE RBC <10 /HPF (<10); URINE WBC <10 /HPF (<10)
[2018-06-18 05:21] LABS: INR 1.15; PROTIME 15.6 Seconds (11.0-16.0)
[2018-06-18 05:22] LABS: PTT 33.6 Seconds (22.3-41.8)
[2018-06-18] MEDS ORDERED: DOPAMINE 800 MG/D5W 800 MG/500 ML IV.SOLN IV SCH (05:30)
[2018-06-18 05:55] LABS: ALB/GLOB RATIO 0.8; ALBUMIN 2.6 g/dL (3.5-5.0); CALCIUM 8.2 mg/dL (8.8-10.2); CREATININE 1.1 mg/dL (0.5-0.9); MAGNESIUM 1.6 mg/dL (1.5-2.7); POTASSIUM 3.2 mmol/L (3.5-5.1); TOTAL BILIRUBIN 0.69 mg/dL (0.20-1.00)
[2018-06-18] MEDS ORDERED: POTASSIUM CHLORIDE 40 MEQ/SWI 40 MEQ/100 ML IVPB IV ONE (06:09)
[2018-06-18] MEDS ORDERED: 1/2 NS 1,000 ML IV SCH ×2 (06:15→06:30)
[2018-06-18] MEDS ORDERED: LASIX IV ONE (07:11)
[2018-06-18] MEDS ORDERED: MORPHINE IV PRN (07:16)
[2018-06-18] MEDS ORDERED: ZOFRAN IV PRN (07:19)
[2018-06-18] MEDS ORDERED: TYLENOL PR PRN (07:25)
[2018-06-18] MEDS ORDERED: DUONEB (A & A) INH SCH (07:30)
[2018-06-18] MEDS ORDERED: PROTONIX 80 MG in NS 80 ML IV ONE (07:41)
[2018-06-18] MEDS ORDERED: 1/2 NS 500 ML IV ONE (07:42)
--- NOTE | 2018-06-18 07:50 | Diag Imaging Result Doc PS360 ---
EXAM: CHEST/ABD TUBE PLACEMENT - 06/18/2018 HISTORY: Cardiopulmonary Arrest,ET Tube NG Tube Placement TECHNIQUE: Portable exam for endotracheal tube and nasogastric tube placement COMPARISON: 06/17/2013 FINDINGS: The technique is optimized for visualization of the endotracheal and nasogastric tubes. The tip of the endotracheal tube is located 2.9 cm above the jordy. The tip of the nasogastric tube is at the expected location of the mid stomach. IMPRESSION: Tip of endotracheal tube in satisfactory position 2.9 cm above the jordy. Tip of nasogastric tube in mid stomach. Electronically signed by Felix Call 06/18/2018 7:48 AM
[2018-06-18] MEDS: DIFLUCAN GT SCH (08:23)
[2018-06-18] MEDS: REGLAN LIQUID GT SCH ×3 (08:23→19:37)
[2018-06-18] MEDS: PROTONIX 80 MG in NS 80 ML IV SCH ×2 (08:23→19:37)
[2018-06-18] MEDS: COREG GT SCH ×2 (08:24→19:59)
[2018-06-18] MEDS: LEVAQUIN GT SCH (08:24)
[2018-06-18] MEDS: ATIVAN IV PRN ×2 (08:24→19:50)
[2018-06-18] MEDS: ALBUTEROL NEB INH SCH ×3 (08:32→21:03)
[2018-06-18] MEDS: 1/2 NS 1,000 ML IV SCH ×2 (08:34→19:37)
[2018-06-18] MEDS: HUMULIN R SUBQ SCH ×3 (08:35→19:38)
[2018-06-18] MEDS ORDERED: PLAVIX GT SCH (09:00)
[2018-06-18] MEDS: MUPIROCIN OINTMENT TOP SCH (09:15)
--- NOTE | 2018-06-18 10:06 | Diag Imaging Result Doc PS360 ---
EXAM: CT HEAD W/WO CONTRAST - 06/18/2018 HISTORY: encephalopathy TECHNIQUE: CT head without with contrast COMPARISON: 04/26/2018 CT head without contrast FINDINGS: There are moderate chronic microvascular ischemic changes. There is no indication of recent infarct, although acute infarcts may not be immediately visible. There is no evidence of intracranial hemorrhage, mass effect, midline shift, or hydrocephalus. There is no abnormal enhancement identified. IMPRESSION: Moderate chronic microvascular ischemic changes. No visible acute intracranial abnormality. This exam was performed using automated exposure control, adjustment of mA or kV according to patient size, and/or use of iterative reconstruction technique. Electronically signed by Felix Call 06/18/2018 10:04 AM
--- NOTE | 2018-06-18 10:19 | Diag Imaging Result Doc PS360 ---
EXAM: CT ANGIOGRAM PULMONARY ARTERIES - 06/18/2018 HISTORY: Cardiopulmonary Arrest,Recent Hx of RUE DVT TECHNIQUE: CT angiogram pulmonary arteries with intravenous contrast. Axial, coronal, and 3-D MIP images are obtained. COMPARISON: None. FINDINGS: There are no filling defects identified in the pulmonary arteries. There is no indication of aortic dissection. There is mild cardiomegaly. There are ill-defined bilateral infiltrates/edema. There are moderate right and small left pleural effusions. There is no pneumothorax identified. There is an endotracheal tube in satisfactory position. There is a nasogastric tube which can be followed to the proximal stomach (the distal end of the nasogastric tube is located below the lowermost image of this exam). IMPRESSION: No evidence of pulmonary embolism. Findings which are suggestive of pulmonary edema/congestive heart failure. Electronically signed by Felix Call 06/18/2018 10:16 AM
[2018-06-18 11:10] LABS: ALLEN TEST YES; BE 11.3 mmoll (-3.0-3.0); BLOOD TYPE ARTERIAL; HCO3-(ACT) 33.7 mmoll (20.0-26.0); METHB 1.1 % (0.0-1.5); MODALITY VENTILATOR; O2(CT) 13.2 mL/dL (15.0-23.0); O2HB 96.6 % (95.0-99.0); PCO2(98.6) 42 mmHg (35-45); PO2(98.6) 113 mmHg (60-100); SAMPLE BLOOD; SAO2 99.2 % (95.0-100.0); SRATE 16 BPM; THB 9.6 g/dL (11.5-17.4); TVOL 450 mL; pH(98.6) 7.53 (7.35-7.45)
--- NOTE | 2018-06-18 11:45 | PULMONOLOGY CONSULTATION ---
DATE: 06/18/2018 PULMONARY CONSULTATION: REQUESTING PHYSICIAN: Harry Akers MD REASON FOR CONSULTATION: Respiratory failure following cardiopulmonary arrest. HISTORY OF PRESENT ILLNESS: Ms. Phillips is a 67-year-old black female, who was recently in this hospital from 04/23/2018 until 06/16/2018 for multiple medical problems as outlined below. The patient's mental status remained marginal, and she was never conversant. She did require a PEG tube for feeding. The patient was discharged to the long-term acute care facility. She left this hospital on the and had a cardiac arrest this morning. The code sheet was reviewed, and she had at least 11 minutes of CPR before return of spontaneous circulation. She was transferred from the LT[facility] facility back to this hospital. PAST MEDICAL HISTORY: 1. Abscess of the left foot, which initially triggered her prior hospitalization. This ultimately required a left kqkgv-uev-roki amputation. 2. Poorly controlled diabetes mellitus. The patient was admitted to the hospital with a hemoglobin A1c of 12.8. 3. Peripheral neuropathy. 4. Chronic renal insufficiency. 5. Hypertension. 6. Status post right knee arthroplasty. 7. Coronary artery disease. 8. Status post PEG tube placement. 9. Respiratory failure requiring mechanical ventilation during last hospitalization. Sputum cultures performed on the bronchoscopy prior to that intubation revealed Staphylococcus aureus and Enterobacter cloacae species. 10. Vancomycin-resistant Enterococcus bacteremia during last admission. SOCIAL HISTORY: Negative for alcohol or tobacco. FAMILY HISTORY: Positive for coronary artery disease. REVIEW OF SYSTEMS: Cannot be obtained. PHYSICAL EXAMINATION: General: Reveals an obese black female with a BMI of 35 , on mechanical ventilation. She is rhythmically chewing the endotracheal tube. She has a slight upward gaze. She does have positive respiratory effort. Vital signs: Blood pressure 150/90 , heart rate 105, respiratory rate 10, oxygen saturation 100%. HEENT: Pupils were midpoint. Oropharynx has some blood present. Neck: Appears supple. Chest: Reveals diffuse bilateral rhonchi. Cardiac: S1, S2. Abdomen: Soft with diminished bowel sounds. Extremities: Reveal well- healing left below- the-knee amputation. DIAGNOSTIC STUDIES: CT pulmonary angiogram reveals bilateral pneumonia, bilateral effusions, right greater than left without evidence of embolism. CT scan of the brain reveals moderate chronic microvascular ischemic changes without acute change. Arterial blood gas at 4:45 this morning: PH 7.59, pCO2 of 36, PO2 of 315 with a normal lactate. IMPRESSION: 1. A 67-year-old with multiple medical problems as outlined above, who has sustained a cardiopulmonary arrest. 2. She now has a clinical exam worrisome for an anoxic encephalopathy. 3. Acute hypoxemic respiratory failure 4. Pneumonia. 5. Pleural effusions. RECOMMENDATIONS: 1. Continue antibiotics as you are doing. 2. Await Infectious Disease consultation. 3. Await sputum cultures. 4. Continue ventilatory support. 5. Re-initiate tube feeds with improvement in bowel function. 6. Ongoing end of life discussions with the family. Patient's prognosis is extremely poor. Time Spent Critical Care: one hour cc: MD Harry Fallon MD MTDD
--- NOTE | 2018-06-18 13:05 | HISTORY AND PHYSICAL ---
PRIMARY CARE PHYSICIAN: Dr. Harry Akers DATE AND TIME: 06/18/2018 at 0500. CHIEF COMPLAINT: Cardiopulmonary arrest. HISTORY OF PRESENT ILLNESS: Ms. Phillips is a 67-year-old female who was just discharged from our facility on 06/16/2018. She was here for approximately a little over a month and a half and had just recently been discharged to a [facility] helper acute care facility. 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 She also did have vancomycin- resistant enterococcal bacteremia aspiration pneumonia with acute respiratory failure which did at one point require mechanical ventilation. She also did have Enterobacter pneumonia and possible disseminated yeast infection and was discharged to LTAC, receiving antibiotics of Levaquin and fluconazole via her G tube. She also was noted to have anemia that was suspected due to GI blood loss and did have persistent delirium. It was noted in her chart that the patient was essentially unresponsive upon discharge to LT. The charge nurse at [facility] in [place], [place], did inform me that the patient, since arriving to them, had pretty much been unresponsive. She reports that earlier in the evening on 06/17/2018 that she did have a brief period where she dropped her heart rate in the 40s, though it did immediately recover. She states that later on that evening, her heart rate did drop down again into the 40s, she did sustain this. Due to this, they did administer atropine, and the patient's heart rate did continue to drop into the 30s, and then the patient ultimately was reported to have gone into asystole. They reported that no pulse was palpable. The patient did have what appears to be a total down time of approximately 15 minutes. She did have periods, according to the code blue at [facility], of asystole, bradycardia, PEA and at one point did have ventricular fibrillation which was defibrillated. She did receive ACLS medications of epinephrine, atropine, sodium bicarbonate and calcium. The patient also was intubated and was placed on a pressure support of dopamine. The nurse did report that the x-ray postintubation did note satisfactory endotracheal tube placement with stable infiltrates and effusions. The patient was transferred to [facility] for inpatient admission to the ICU. Upon my evaluation, the patient is essentially unresponsive to painful stimuli with sternal rub. Though she does have a gag reflex and corneal reflex noted. She does have some continuous mouth movement noted, though this does not appear to be purposeful. Pupils were 2 mm bilaterally, though her left pupil was misshapen. The patient has had a history of having cataract surgery, though at time we are uncertain if this is new onset. The patient does have S1 and S2 noted. There were no overt murmurs, gallops or rubs appreciated, though the patient did have a lot of ambient respiratory noise and heart sounds were slightly difficult to auscultate. She did have coarse crackles and some rhonchi noted in bilateral full lung hampton. The patient does have a noted left below the knee amputation, though other than this, radial pulses bilaterally and pedal pulse and right lower extremity were slightly difficult to palpate due to the patient does have some edema noted, though these were easily obtainable with a venous Doppler. Capillary refill is 3 seconds. The patient does have a G tube noted and does have some purulent drainage noted from her G tube site. Also the patient does have a coffee-ground appearing gastric content that was pulled from her G tube. It was Gastroccult positive. At this time, the patient does have a heart rate of 98, blood pressure 107/62 with a MAP of 79. Pulse oximetry is 100% on mechanical ventilation. Respirations are 16. At this time, the patient's dopamine has been able to be placed on standby. REVIEW OF SYSTEMS: Unfortunately at this time, a review of systems was unable to be performed with the patient due to her current condition and mentation. PAST MEDICAL HISTORY: 1. Coronary artery disease, status post coronary artery bypass graft. 2. Hypertension. 3. Diabetes mellitus type 2. 4. Peripheral neuropathy. 5. Chronic renal insufficiency. 6. Gastroparesis secondary to diabetes. PAST SURGICAL HISTORY: 1. Status post hysterectomy. 2. Status post right knee arthroplasty. 3. Status post left below the knee amputation. 4. Bilateral cataract surgery. 5. Recent left subclavian central line placement. SOCIAL HISTORY: The patient according to her previous history and physical does not have any reported history of illicit drug use or alcohol or tobacco abuse. FAMILY HISTORY: Noted to be positive for coronary artery disease. ALLERGIES: The patient has no known allergies. HOME MEDICATIONS: We are awaiting for the patient's home medication list to be reconciled. Once this has been done, we can address her home medication list. DIAGNOSTIC DATA: White blood cell count is 9.64, hemoglobin 10, hematocrit 32.4, platelet count is 104. PT is 15.6. INR is 1.15. PTT is 33.6. Sodium is 156, potassium 3.2, chloride 111. Anion gap is 14, serum bicarb is 31, BUN is 41, creatinine 1.1 with a GFR of 60. Glucose is 327. Calcium 8.2. Magnesium 1.6. Total bilirubin is 0.69, AST is 335, ALT is 246. Alkaline phosphatase is 137. CK is 43. Troponin is 0.098. ProBNP is greater than 35,000. Plasma lactate is 1.8. Arterial blood gases were obtained on mechanical ventilator with an FiO2 of 80%, and pH was 7.59, pCO2 was 36, pO2 was 315, HCO3 was 34.3 with a base excess of 12 and an O2 saturation of 99.3. Urinalysis was obtained via catheter and was positive for protein, small amount of blood and greater than 1000 glucose, though was negative for blood, nitrite, leukocytes, white blood cells or bacteria. EKG performed did show normal sinus rhythm with a left axis deviation at a rate of 98 with a QTC of 436. The patient does appear to have some T wave inversion that was not present on her previous EKG, though there is no other ST change noted at this time. X-ray that was performed after intubation at [facility] did show satisfactory endotracheal tube placement. There was also noted to be mild diffuse bilateral infiltrates and bilateral pleural effusions. Chest x-ray performed here at our facility did show the tip of the endotracheal tube in satisfactory position. The tip of the nasogastric tube was also noted to be in the mid stomach. Looking at the film, it does appear that the patient probably has some bilateral infiltrates as well. Pending diagnostic studies at this time are CT of the head noncontrast as well as a CTA angiogram pulmonary arteries. Cultures of blood, sputum and wound culture of G tube site are pending. PHYSICAL EXAMINATION: VITAL SIGNS: Heart rate is 98, respirations 16, blood pressure 107/62, oxygen saturation is 100% per mechanical ventilator. GENERAL: Ms. Phillips is a 67-year-old female. She was resting in the ICU bed, though at this time she is responsive to painful stimuli though does have a gag and corneal reflex noted. HEENT: Head is atraumatic and normocephalic. Pupils are 2 mm bilaterally, though the patient's left pupil is misshapen, though we are unsure if this is of new onset, though she does have a history of cataract surgery. Oral mucosa is moist. The patient does have an endotracheal tube noted. NECK: Supple. Trachea is midline. Though it was somewhat difficult to assess, it did appear the patient may have some JVD noted. CARDIOVASCULAR: The patient has S1 and S2 present. There were no overt murmurs, gallops or rubs appreciated, though the patient did have quite a bit of ambient respiratory noise, and auscultating heart sounds was difficult. PULMONARY: The patient has symmetrical chest expansion bilaterally. Lung sounds did have course crackles and some rhonchi noted in bilateral full hampton. ABDOMEN: Soft. It does not appear to be distended. The patient does have a protuberant abdomen noted. Bowel sounds were present, though were hypoactive. The patient does have a G tube noted to the left abdomen. There was purulent drainage noted to the G tube insertion site. Wound culture has been obtained. GENITOURINARY: The patient does have Cabello catheter placed at this time. There is yellow urine noted to Cabello drainage bag. EXTREMITIES: The patient does have a left zloac-ocz-linl amputation noted. Though she does appear to have some pitting edema noted in all extremities. This did make palpating the pulses difficult, though there were easily obtainable with venous Doppler in bilateral radial pulses and right pedal pulse. Capillary refill is 3 seconds. The patient does have some swelling, warmth and erythema noted to her right upper extremity, though she does have a history of recently being diagnosed with a right upper extremity DVT. INTEGUMENTARY: The patient's skin is pink, warm and dry. NEUROLOGICAL: The patient at this time is unresponsive to painful stimuli. She does have a corneal and gag reflex noted, though does not have any purposeful movements noted. She does have some continuous mouth movements. At this time, her neurological exam is limited due to her current condition and mentation. ASSESSMENT AND PLAN: 1. Cardiopulmonary arrest. This is of uncertain etiology. The patient was reported at LTAC to become bradycardic which did initially turn to asystole with no palpable pulse present. The patient was down for approximately 15 minutes for which she was noted to have rhythms of asystole, bradycardia, PEA as well as a period of the ventricular fibrillation for which she was defibrillated once. She did receive ACLS medications of epinephrine, atropine, sodium bicarbonate and calcium. For further evaluation of this, we will continue the series of cardiac enzymes. We have placed an order for echocardiogram. The patient was reported on 05/31/2018 to have an acute nonocclusive DVT of the right axillary vein and a superficial thrombus of the right cephalic vein at the antecubital fossa. Given this, we will do a CTA angiogram of pulmonary arteries to rule out possible pulmonary embolus or other thromboembolic event. We have placed consults with Cardiology and Pulmonology. We will await results of diagnostic studies and evaluation and further recommendations from specialist and will continue to follow her condition closely. We did rule the patient out for therapeutic hypothermia secondary to her pre-arrest cognitive status being severely impaired. She also does have systemic infection or possibly sepsis as well. Also the patient does have likely gastrointestinal bleed. She is intubated and does not have any motor movements noted in extremities, though she does spontaneously open her eyes, so at this time she does have a GCS of 6. 2. Acute respiratory failure. The patient has been intubated. We will consult Pulmonology with assistance with ventilator management. The patient does appear to have bilateral infiltrates as well as possible some pulmonary edema as well. She does have pitting edema noted in extremities also. We will trial her with a dose of Lasix to see her response to this. We will continue to follow. 3. Encephalopathy. The patient was noted to be essentially unresponsive upon discharge from our facility to LT. The nurse at [facility] reports that she had been unresponsive prior to her cardiopulmonary arrest. The patient at this time remains unresponsive to painful stimuli. She does have a corneal and gag reflex noted. We will continue to follow this. We have also placed a CT of the head noncontrast to rule out any further neurological involvement. 4. Recent diagnosis and continued treatment for MRSA Enterobacter pneumonia and possible disseminated yeast infection. The patient was receiving Levaquin and fluconazole per her G tube at [facility]. Given this, I have spoken with Dr. Akers, and we will defer further choice of antibiotic regimen to him and Dr. Layne with Infectious Disease. Blood culture, sputum culture and wound culture of her G tube site have been ordered. 5. Gastrointestinal bleed. The patient does have coffee-ground appearing gastric content that was pulled from her G tube, this was Gastroccult positive. Given this, we have placed the patient on Protonix drip. We will hold any anticoagulants at this time. We have placed a consult with Gastroenterology and will continue to follow. Her hemoglobin and hematocrit are stable at this time at 10 and 32.4. 6. Recent diagnosis of DVT of the right upper extremity. Unfortunately at this time, we are unable to provide the patient anticoagulants given her gastrointestinal bleed. We will continue to follow. We will avoid sticks and blood pressures in this arm. 7. Transaminitis. This may likely be related to hypotension related to the patient's cardiac arrest. We will continue to monitor closely. 8. Hypernatremia. We have ordered the patient to receive half normal saline, though we will do this at a very gentle rate given her possible pulmonary edema as well. 9. Diabetes mellitus type 2. We will continue her with a sliding scale insulin. We will do q.4 hours fingerstick blood sugars. 10.GI prophylaxis will be provided with Protonix drip as previously mentioned. 11.DVT prophylaxis will be provided with SCD to the right lower extremity only. 12.Resuscitation status. En, charge nurse in the ICU, did call and speak with the patient's daughter. During the patient's previous admission at our facility and while she was at LTAC, the patient was a full code. At this time, the patient's daughter does want the patient to remain a full code and does want all resuscitative measures implemented. An order for a full code has been placed in the chart. The patient has been placed in the ICU for close monitoring. Dr. Akers is the patient's primary care physician. I did speak with him in person this morning and did give him a verbal report of the patient's history of present illness and information related to her cardiopulmonary arrest that was provided to me by LTAC staff. Further orders and recommendations pending hospital course, diagnostic studies and physician evaluation. Critical care time for this patient was 80 minutes. Dictated by QUENTIN Corrales for Omar Jacobo MD cc: MD Harry Dozier MD [facility]
--- NOTE | 2018-06-18 15:10 | CONSULTATION ---
DATE OF CONSULTATION: 06/18/2018 IMPRESSION: 1. Status post cardiopulmonary arrest. 2. Significantly anoxic encephalopathy apparent. 3. Status post fairly recent left avqus-juu-jobf amputation for left foot infectious process, which failed conservative therapy. 4. Poorly-controlled diabetes mellitus. 5. Chronic renal insufficiency. 6. Severe 3-vessel coronary atherosclerosis by previous coronary angiography in 2011, managed medically since that time. Left ventricular ejection fraction has been normal. 7. Hypertension. 8. Previous respiratory failure last admission. 9. Recent vancomycin-resistant enterococcus bacteremia during recent admission. RECOMMENDATIONS: 1. Continue supportive care, as you are doing. 2. Continue carvedilol as tolerated, along with aspirin. 3. Prognosis appears to be very poor. HISTORY: This 67-year-old female, with a past history of recent amputation below the left knee for uncontrolled infection, poorly-controlled diabetes mellitus, diffuse atherosclerotic coronary disease managed medically, chronic renal dysfunction, hypertension, and recent respiratory failure suffered cardiopulmonary arrest while at LTAC following recent hospital stay. Resuscitative efforts were pursued for approximately 11 minutes, before pentecostalism of spontaneous circulation. She is presently intubated on mechanical ventilator and unresponsive. Fairly recent echocardiography indicated normal left ventricular ejection fraction. It is noteworthy that last cardiac catheterization study in 2011 indicated severe 3-vessel coronary atherosclerosis, which was rather diffuse. Medical management was felt to be most appropriate. PAST MEDICAL HISTORY: 1. Atherosclerotic coronary disease, which is severe and diffuse. 2. Poorly-controlled diabetes mellitus. 3. Peripheral neuropathy. 4. Chronic renal insufficiency. 5. Status post recent left mqvxm-qhh-nznw amputation for unrelenting infection of left foot. 6. Hypertensive cardiovascular disease. 7. Status post right knee arthroplasty. 8. Status post PEG tube placement. 9. Respiratory failure last admission, requiring mechanical ventilation. 10. Vancomycin-resistant enterococcus bacteremia during recent hospitalization. ALLERGIES: She has no known drug allergies. MEDICATIONS PRIOR TO ADMISSION: As listed. SOCIAL HISTORY: Negative for alcohol or tobacco. FAMILY HISTORY: Positive for coronary disease. REVIEW OF SYSTEMS: Not obtainable, given patient's encephalopathy. PHYSICAL EXAMINATION: General: Reveals an elderly black female, intubated, on mechanical ventilator. She is unresponsive. Vital Signs: Blood pressure 139/78, heart rate 89, oxygen saturation 100%. HEENT: Noteworthy for persistent upward gaze. Neck: Supple. Jugular venous distention cannot be appreciated. Chest: Auscultation of the chest reveals coarse breath sounds bilaterally. Cardiac: Reveals a regular rate and rhythm, without appreciable murmur or gallop. Abdomen: Soft. Bowel sounds audible. Extremities: Noteworthy for left tufys-fyi-mepw amputation. PERTINENT DATA: A 12-lead EKG demonstrates sinus rhythm, left axis deviation, and nonspecific T- wave abnormality. LABORATORY DATA: Includes a white blood cell count of 9.64, hematocrit 32.4, hemoglobin 10.0, platelet count 104. Sodium 156, potassium 3.2, chloride 111, carbon dioxide 31, BUN 41, creatinine 1.1, glucose 327. Troponin T 0.114. CPK 36. cc: MD Harry Peters MD
--- NOTE | 2018-06-18 16:11 | GASTROENTEROLOGY CONSULTATION ---
DATE: 06/18/2018 REASON FOR CONSULTATION: Upper GI bleed. HISTORY OF PRESENT ILLNESS: Mrs. Facundo Phillips is an unfortunate 67-year-old woman who was recently discharged on 06/16/2018 after having a prolonged hospitalization for osteomyelitis due to MRSA, VRE bacteremia, aspiration pneumonia with acute respiratory failure requiring trach and PEG and acute on chronic blood loss anemia requiring multiple transfusions who represents from LTAC after having a PEA arrest earlier this morning around 1:00 a.m. The patient was noted to have progressive bradycardia and lost her pulse. She subsequently PEA'd and underwent CPR. She was also shocked for V tach and then went into PEA again. She finally returned to spontaneous circulation after 30 minutes of continuous CPR. On presentation here, she was noted to have some bloody output from her PEG tube. She is currently not sedated and is not responsive to auditory or physical stimulus. PAST MEDICAL HISTORY: Osteomyelitis with MRSA requiring left foot debridement x2 and below the knee amputation during her last hospitalization, PEG tube placement by Dr. Welch, endotracheal tube placement, gastroparesis secondary to diabetes, recent VRE bacteremia, recent pneumonia, hypertension, diabetes, coronary artery disease status post bypass x2. PAST SURGICAL HISTORY: As above. She has also had a hysterectomy and right knee replacement. ALLERGIES: No known drug allergies. MEDICATIONS: Reviewed in chart SOCIAL HISTORY: No significant smoking history, alcohol, or drug use. FAMILY HISTORY: Notable for coronary artery disease. No history of GI diseases , per chart. REVIEW OF SYSTEMS: Unable to obtain. PHYSICAL EXAMINATION: Vital Signs: Temperature of 97.8, heart rate 93, respiratory rate 18, blood pressure 147/79, and O2 saturation 100% on 40% FIO2. General: The patient is intubated, not responsive to verbal or painful stimuli. HEENT: Pupils are equal and reactive to light. Extraocular motor intact with turning head side to side. ET tube in place with some blood around her OG, her ET tube, thought to be secondary to biting of her tongue. Neck: Supple. Cardiac: Regular rate and rhythm. No murmurs. Lungs: Sounds are vented. Abdomen: Soft. Instillation of 200 mL of normal saline and withdrawal revealed some bright red blood with clots. Lower extremities: She has a left BKA that is clean, dry, and intact. The right lower extremity is negative for clubbing, cyanosis, or edema. Neuro: Nonresponsive. Not moving any of her extremities. She has clonus in the right lower extremity. Difficult to appreciate reflexes and the peripheries otherwise. LABORATORY DATA: White count of 9.6. Hemoglobin 10.0 from 10.8 when she was discharged on 06/16/2018. Platelets of 104,000. INR of 1.5. ABG with pH of 7.53, pCO2 42, pO2 113, lactate of 1.7. Sodium of 156, potassium 3.2, chloride 111, bicarb 31, BUN 41, creatinine 1.1, glucose 327, phosphorus 1.8, calcium 8.2. Total bilirubin of 0.63. AST of 335. ALT of 246. Alkaline phosphatase of 137. Troponin of 0.098. proBNP greater than 35,000. Total protein is 6.0. Albumin 2.6. LFTs were normal on 06/16/2018. UA shows proteinuria and over 1000 glucose. IMAGING: Head CT shows moderate chronic microvascular ischemic changes. No visible acute intracranial abnormalities. CT PE negative for pulmonary emboli. There are some findings suggestive of pulmonary edema and CHF. ASSESSMENT AND PLAN: Ms. Facundo Phillips is a 67-year-old woman with multiple comorbidities, who presented after having a pulseless electrical activity arrest with prolonged cardiopulmonary resuscitation, who presents to the Gastroenterology service with upper gastrointestinal bleeding. Her hemoglobin currently is unchanged from 06/16/2018. She had an esophagogastroduodenoscopy done by Dr. Welch on 05/18/2018 for percutaneous endoscopic gastrostomy placement, which showed some mild esophagitis and gastritis. A percutaneous endoscopic gastrostomy was placed at that time. The etiology of her upper gastrointestinal bleeding could be from trauma in the setting of chest compressions that could be caused by the percutaneous endoscopic gastrostomy tube internally from the internal bumper. She may have a buried bumper or associated ulcer. She is currently on a proton pump inhibitor drip. Neurologically, she is nonresponsive, concerning for underlying anoxic brain injury. Recommend patient be seen by Neurology prior to doing any invasive procedures that may ultimately not benefit her penitentiary. We will continue to trend hemoglobin and hematocrit every six to eight hours. Transfuse as needed to maintain a hemoglobin of 7 to 8. Her abnormal liver function tests are likely due to setting of ischemic liver injury from hypotension and recent arrest. Recommend trending her liver function tests and INR daily. Avoid any NSAIDs or blood thinners at this time. She has some mild thrombocytopenia, would not transfuse platelets unless she has platelets less than 50,000 plus active gastrointestinal bleeding. Thank you for this consult. Please call with any questions or concerns. Dr. Welch will follow patient tomorrow. cc: Harry Akers MD [facility]
--- NOTE | 2018-06-18 18:54 | INFECTIOUS DISEASE PROGRESS NO ---
DATE: 06/18/2018 PRESENT ILLNESS: The patient is status post cardiac arrest. At this time, it does not seem to me that she has an infection. RECOMMENDATIONS: I have not started antibiotics on the patient. At this time I do not think she has an infection. Cultures have been drawn and I have ordered a procalcitonin level. DISCUSSION: The patient is unable provide a history and no family member was present. She was sent for an LTAC where she went. She had a Code Blue consisting of asystole, bradycardia, and PEA and ventricular fibrillation. The patient was down for at least 15 minutes. The patient's lab studies now show a CBC with a white count of 9640, hemoglobin 10, platelet count 104,000. Patient's AST is 335. Urinalysis showed no white cells or bacteria. The patient's blood gases showed a pH of 7.53, a PO2 of 113 and a pCO2 of 42. Creatinine is 1.1. GFR is 60. Pulmonary angiogram showed pulmonary edema. A Gram stain from the patient's PEG site shows gram-negative rods. The Gram stain from the patient's sputum shows gram-negative rods. Blood cultures are pending. ASSESSMENT AND PLAN: At this time I do not find a definite evidence of an infection in this patient. My plan is to follow the patient clinically as well as looking at her lab and radiographic studies. COMORBIDITIES: Consist of she is elderly. She has diabetes mellitus, chronic renal insufficiency and gastroparesis secondary to diabetes. cc: MD Harry Terry MD
[2018-06-19] MEDS: HUMULIN R SUBQ SCH ×2 (01:33→08:23)
[2018-06-19] MEDS: REGLAN LIQUID GT SCH ×2 (01:36→06:46)
[2018-06-19] MEDS: ALBUTEROL NEB INH SCH ×2 (03:25→07:40)
[2018-06-19] MEDS: PROTONIX 80 MG in NS 80 ML IV SCH (04:10)
[2018-06-19] MEDS: 1/2 NS 1,000 ML IV SCH (04:11)
[2018-06-19 04:52] LABS: ALLEN TEST YES; BE 11.3 mmoll (-3.0-3.0); BLOOD TYPE ARTERIAL; HCO3-(ACT) 33.7 mmoll (20.0-26.0); METHB 1.5 % (0.0-1.5); PCO2(98.6) 42 mmHg (35-45); PO2(98.6) 156 mmHg (60-100); SAMPLE BLOOD; SAO2 98.9 % (95.0-100.0); SRATE 16 BPM; THB 9.4 g/dL (11.5-17.4); TVOL 450 mL; pH(98.6) 7.53 (7.35-7.45)
[2018-06-19 04:53] LABS: MODALITY VENTILATOR
[2018-06-19 05:41] LABS: HEMATOCRIT 27.9 % (37.0-47.0); HEMOGLOBIN 8.8 g/dL (12.0-16.0); MCH 27.6 PG (27-31); MCHC 31.5 g/dL (33-37); MCV 87.5 FL (81-99); MPV 11.5 FL (7.4-10.4); RBC 3.19 XMIL (4.2-5.4); RDW 18.1 % (11.5-14.5); WBC 10.74 X1000 (4.8-10.8)
[2018-06-19 05:58] LABS: AGAP 10; ALB/GLOB RATIO 0.6; ALBUMIN 2.3 g/dL (3.5-5.0); ALKALINE PHOSPHATASE 101 U/L (32-104); BUN 34 mg/dL (8-22); CALCIUM 8.1 mg/dL (8.8-10.2); CHLORIDE 112 mmol/L (98-107); COSMO 315; ESTIMATED GFR > 60; GLUCOSE 125 mg/dL (70-104); GOT 119 U/L (10-30); GPT 144 U/L (10-36); SODIUM 154 mmol/L (136-145); TCO2 32 mmol/L (25-35); TOTAL BILIRUBIN 0.55 mg/dL (0.20-1.00); TOTAL PROTEIN 5.9 g/dL (6.3-8.3)
--- NOTE | 2018-06-19 07:05 | Diag Imaging Result Doc PS360 ---
EXAM: CHEST-PORTABLE 06/19/2018 HISTORY: respiratory failure TECHNIQUE: AP portable at 0511 COMMENT: There is an endotracheal tube with its tip just above the thoracic inlet. There is a left subclavian central venous catheter with its tip in the superior vena cava. There is pleural thickening and/or loculated effusion on the right. There is an effusion on the left. There is hazy pulmonary edema particularly in the lower lobes and particularly on the right. Compared to 06/16/2018 this has clearly improved. Given differences in technique it is difficult to see any difference from 06/18/2018. IMPRESSION: Pulmonary edema plus minus pneumonia with bilateral pleural effusions. Electronically signed by Iglesia Zuniga 06/19/2018 7:03 AM
--- NOTE | 2018-06-19 07:58 | EKG Report ---
Test Performed on : 06/18/2018 05:19:25 AM Test Reason : Post Cardiopulmonary Arrest Blood Pressure : / mmHG Vent. Rate : 098 BPM Atrial Rate : 098 BPM P-R Int : 160 ms QRS Dur : 092 ms QT Int : 342 ms P-R-T Axes : 075 -38 234 degrees QTc Int : 436 ms Normal sinus rhythm. Left axis deviation Nonspecific T wave abnormality Abnormal ECG When compared with ECG of 06-JUN-2018 11:40, Vent. rate has increased BY 38 BPM Minimal criteria for Anterior infarct are no longer present T wave inversion no longer evident in Anterior leads Nonspecific T wave abnormality, worse in Lateral leads QT has shortened Confirmed by Melly PEREZ, Volodymyr Peacock ([id number]) on 06/19/2018 9:13:13 PM
[2018-06-19] MEDS ORDERED: POTASSIUM PHOSPHATE IV SCH (08:15)
[2018-06-19] MEDS ORDERED: D5W IV SCH (08:15)
[2018-06-19] MEDS ORDERED: MAGNESIUM SULFATE IV SCH (08:15)
[2018-06-19] MEDS: LEVAQUIN GT SCH (08:22)
[2018-06-19] MEDS: DIFLUCAN GT SCH (08:22)
[2018-06-19] MEDS: COREG GT SCH (08:22)
[2018-06-19] MEDS ORDERED: NEUTRA-PHOS GT ONE (08:25)
[2018-06-19] MEDS ORDERED: LASIX IV ONE (08:25)
[2018-06-19] MEDS: MUPIROCIN OINTMENT TOP SCH (10:00)
[2018-06-19] MEDS ORDERED: ATIVAN IV PRN (14:31)
[2018-06-19] MEDS ORDERED: ATROPINE 1 % OPHTH SOLN SL PRN (15:03)
[2018-06-19] MEDS: MORPHINE IV PRN ×2 (15:25→16:44)
[2018-06-19 19:28] VITALS: BP 57/33
--- NOTE | 2018-06-19 20:47 | PROGRESS NOTE ---
DATE: 06/19/2018 SUBJECTIVE: Patient is currently on mechanical ventilation. She does move her eyes some but does not follow commands. She was just discharged last week and sent to LTAC and had cardiac arrest. During resuscitation event the patient was noted to have possible bleeding in her gastric contents, gastric content Hemoccult was positive. Since then patient has not had any evidence of active GI bleeding. Her hemoglobin and hematocrit have dropped today compared to yesterday. On admission hemoglobin and hematocrit was 10.0 and 32.4, today hemoglobin and hematocrit is 8.8 and 27.9. Patient's feedings are currently on hold. OBJECTIVE: Vital Signs: Temperature 98.5 degrees, pulse 83, blood pressure 146/80. Again generally patient is nonresponsive on mechanical ventilation. LABORATORY: Hematology, WBC 10.74, hemoglobin 8.8, hematocrit 27.9, platelets 77,000. Chemistry, sodium 154, potassium 3.0, chloride 112, CO2 of 32, BUN 34, creatinine 1.0, glucose 125, calcium 8.1, phosphorus 1.6, magnesium 1.4, total bilirubin 0.55, AST 119, ALT 144, alkaline phosphatase 101. ASSESSMENT AND PLAN: Status post cardiac arrest. Questionable gastrointestinal bleed with Hemoccult positive gastric contents. Will continue to monitor hemoglobin and hematocrit. Monitor for any sign of active bleeding. I believe there will be a meeting with the family today. I think her children live [place] of [place] and have come in to discuss plan. Further plans will be made according to patient's progress. I have discussed this case with Dr. Welch. Dictated by QUENTIN Azevedo for Frankie Welch MD cc: QUENTIN Clark MD Russell T. Barr, MD
[2018-06-21] MEDS ORDERED: PROTONIX IV SCH (07:41)
--- NOTE | 2018-07-06 10:52 | DISCHARGE SUMMARY ---
ADMISSION DATE: 06/18/2018 DISCHARGE DATE: 06/19/2018 DATE OF : 06/19/2018 ADMISSION DIAGNOSIS: 1. Bradycardic cardiopulmonary arrest at [facility]. 2. Prolonged resuscitation including pulseless electrical activity and hypotension. 3. Suspected anoxic encephalopathy. 4. Pneumonitis, suspected aspiration of tube feedings due to gastroparesis. 5. 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 6. Nutritional deficit. 7. Gastroparesis secondary to diabetes. 8. Recent history of multiple septicemias. 9. Persistent delirium. 10.Anemia with suspected gastrointestinal blood loss. HISTORY OF PRESENT ILLNESS: Mrs. Phillips is a 67-year-old black female who has a long history of poorly controlled diabetes and multiple complications. She had recently been discharged from our facility to [facility]. Around 2 o'clock in the morning, I received a call from the [facility] physician stating that she had had a bradycardic arrest and she was on a ventilator with multiple pressors and was being transferred back to our facility. She was admitted by the on-call Hospitalist. Physical examination was compatible with some anoxic encephalopathy, although, she was chewing on her endotracheal tube and making respiratory effort. She was seen in consultation by Dr. Min. She was initially admitted to our ICU and treated aggressively with ventilator management and intravenous antibiotics. Her CT pulmonary artery arteriogram had shown no evidence of emboli, but she had bilateral pleural effusions and bilateral infiltrates in her lungs. Her daughter, Jasmin, is her power of mixer blender and late in the day on 06/19 she arrived from [place] and after talking to myself and Dr. Min, she agreed to comfort care only, and Mrs. Phillips quietly at 7:09 p.m. on 06/19/2018. cc: Harry Akers MD
== END 2018-06-19 19:09 | disposition expired | DRG 296 ==
LOC: SUATTDRO 02:53 → ICU 02:53
PROVIDERS: ADMIT Internal Medicine; ATTEND Internal Medicine
CPT/HCPCS: 70470; 71010; 71045; 71275; 74000; 74018; 80053; 81001; 82271; 82550; 82805; 82948; 83605; 83735; 83880; 84100; 84145; 84484; 85025; 85027; 85610; 85730; 86850; 86900; 86901; 87040; 87070; 87077; 87186; 87205; 93005; 93010; 93306; 94002; 94003; 94640; 94761; A9270; C9113; J1940; J2060; J2270; J3475; J3480; J7060; Q9967; S0164; XXXXX